=== PATIENT | female | born 1975 | race Caucasian/White ===

== ENCOUNTER 2017-09-12 12:27 | Emergency (ER) | payer MEDICARE, SELFPAY ==
[2017-09-12 12:29] VITALS: BP 124/72; PULSE 87; RESP 16; TEMP 36.7; O2SAT 99; BMI 33.7
--- NOTE | 2017-09-12 12:47 | ED.VISSUMM ---
- ER Visit Summary Date of Service: 09/12/17 Chief Complaint: Abdominal pain History of Present Illness: The patient is a 42 F who states she woke at 6 AM this morning with pain in the right lower quadrant of her abdomen. She is felt nauseated and has not eaten anything today. She has had no vomiting. She has had no fever. She has no urinary symptoms. Patient does report history of multiple GI problems with reflux disease, ulcers, and gastroparesis. She has had a prior cholecystectomy and hysterectomy. Both ovaries are still in. Physical Examination: Vital signs are unremarkable. Patient is lying on her right side. She easily rolls to her back without difficulty. Head and neck examination is unremarkable. Heart is regular rate and rhythm. Lung sounds are clear. Abdomen is soft with tenderness in the lateral portion of the right lower quadrant. There is no guarding or rebound. Hypoactive bowel sounds are noted throughout. Back examination reveals no significant CVA tenderness. Test Results: CBC and chemistry studies are unremarkable. Urinalysis is normal. CT flank reveals changes consistent with prior cholecystomy and hysterotomy. There are small follicles noted in both ovaries. Emergency Department Course and Treatment: Patient was given morphine, Zofran, and IV fluids. On repeat evaluation she is resting comfortably and easily awakens. Pain is improved. At this time I see no sign of kidney stone, UTI or pyelonephritis, ovarian torsion, or appendicitis. This was all discussed with her infant at bedside. Patient will be given naproxen and Zofran for home. She is to return for worsening symptoms. Treatment Plan: [] Disposition: Discharge Impression: Abdominal pain, uncertain etiology This note was generated with [employer] dictation software. It may contain incorrect words, spelling, and punctuation that were not noted in review of the chart prior to signing ED Disposition - Plan for ED Patient: Chief Complaint: Abd Pain Referrals: [facility] Doctor,Out of [Primary Care Provider] -
[2017-09-12 13:20] LABS: Mucous, Urine 0 SEEN /hpf (<or=2+); Red Blood Cells-Urine 0 SEEN /hpf (0-5); White Blood Cells 0 SEEN /hpf (0-5)
[2017-09-12 13:24] LABS: Absolute Lymphocyte Count 1.34 X10^3/ul (0.83-4.51); Absolute Neutrophil Count 5.1 X10^3/uL (2.0-7.7); Basophil# 0.02 X10^3/uL; Basophil% 0.3 % (0-1); Eosinophil# 0.04 X10^3/uL; Eosinophils% 0.6 % (0-5); Hematocrit 40.9 % (37-47); Hemoglobin 12.7 g/dl (12.0-15.0); Lymphocyte # 1.34 X10^3/ul (4.0); Lymphocyte % 18.8 % (19-41); Mean Corp Hgb Conc 31.1 g/gl (32-36); Mean Corpuscular Hgb 26.1 pg (27.0-32.0); Mean Platelet Vol. 9.8 fl (6.2-12.0); Monocyte# 0.59 X10^3/uL; Monocyte% 8.3 % (0-10); Neutrophil # 5.12 X10^3/uL (2.7-7.7); Neutrophil % 71.9 % (47-70); POSITIVE COUNT NO; POSITIVE DIFFERENTIAL NO; POSITIVE MORPHOLOGY NO; Platelet Count 219 K/mm3 (150-450); RBC Distribution Width CV 17.8 % (11.6-14.6); RBC Distribution Width SD 54.8 fl (35.1-43.9); Red Blood Count 4.87 M/mm3 (4.2-5.4); White Blood Count 7.1 K/mm3 (4.4-11.0)
[2017-09-12 13:26] LABS: Color, Urine Yellow (Yellow); Glucose, Dipstick Normal (Normal); Ketone-Dipstick Negative (Negative); Leukocyte Esterase-Dipstick 25 /ul (Negative); Nitrite-Dipstick Negative (Negative); Occult Blood-Urine Negative /ul (Negative); Protein-Dipstick 15 mg/dl (Negative); Urine Bilirubin Dipstick Negative (Negative); Urine Clarity Clear (Clear); Urine Urobilinogen 1 mg/dl (Normal)
[2017-09-12] MEDS: 0.9% Normal Saline 1,000 ML 150 ML IV (13:27)
[2017-09-12] MEDS: Ondansetron 4 MG/2 ML Vial IV (13:27)
[2017-09-12 13:30] VITALS: BP 138/74; PULSE 68; RESP 15; O2SAT 98
[2017-09-12 13:36] LABS: Anion Gap 7 (5-15); BUN 8 mg/dL (7-18); BUN/Creat Ratio 10.5 RATIO (10-20); Calcium,Total 8.3 mg/dL (8.5-10.1); Chloride 112 mmol/L (98-107); Creatinine, Serum 0.76 mg/dL (0.55-1.02); EST Glomerular Filtration Rate 88 mL/min (>60); Est Glom Filt Rate - Afr Amer 107 mL/min (>60); Estimated Creatinine Clearance 82.42 ml/min; Glucose 102 mg/dL (74-106); Potassium 3.5 mmol/L (3.5-5.1); Sodium Level 141 mmol/L (136-145)
[2017-09-12 13:44] LABS: Bacteria 1+ /hpf (None Seen); Squamous Epithelial Cells - UA 0-5 SEEN /hpf (5-10)
--- NOTE | 2017-09-12 13:52 | CT_ITS ---
STUDY: CT ABDOMEN AND PELVIS WITHOUT CONTRAST REASON FOR EXAM: Female, 42 years old. Right lower quadrant pain. RADIATION DOSAGE (If Supplied By Facility): CTDIvol = ( 13.37 ) mGy, DLP = ( 689.17 ) mGycm TECHNIQUE: Transaxial images were obtained from the dome of the diaphragm to the symphysis pubis without oral contrast, and without intravenous contrast. Sagittal and coronal images were reconstructed. Individualized dose optimization techniques were used for this CT. COMPARISON: None. FINDINGS: Mild degree of bibasilar atelectasis. The visualized portions of the heart are within normal limits. Mild hepatomegaly. There are surgical clips in the gallbladder fossa consistent with a prior cholecystectomy. Normal spleen. Normal pancreas. Normal bilateral adrenal glands. Normal right kidney. Normal left kidney. There is a small hiatal hernia. Normal small intestine. Normal colon. There is non-visualization of the appendix. Normal abdominal aorta. Normal inferior vena cava. Normal retroperitoneum. Normal urinary bladder. There is absence of the uterus consistent with a prior hysterectomy. Follicles are seen in both ovaries. Small benign-appearing bilateral inguinal lymph nodes. There is a small umbilical hernia containing fat. Normal osseous structures. CT/Abdomen/Pelvis without Cont IMPRESSION: Status post cholecystectomy and hysterectomy. Small follicles are seen in both ovaries. Electronically Signed: Jigar Daley MD at 14:53 EDT Tel [phone], Service support ,
--- NOTE | 2017-09-12 15:26 | ED.DEP ---
ED Disposition - Plan for ED Patient: Disposition: Home or Assisted Living Chief Complaint: Abd Pain Instructions: ED Abdominal Pain Unkn Cause Prescriptions: Ondansetron [Zofran Odt] 4 mg PO Q8H PRN PRN #10 tablet PRN Reason: Nausea Naproxen [Naprosyn] 500 mg PO BID PRN #20 tablet Referrals: [facility],Out of [Primary Care Provider] - 3-5 Days if not improving
[2017-09-12 15:46] VITALS: BP 138/74; PULSE 61; RESP 15; O2SAT 97
[2017-09-12 15:48] VITALS: BP 152/78; PULSE 84; RESP 18; O2SAT 97
--- NOTE | 2017-09-12 15:48 | ED.RN ---
THIS NURSE REVIEWED D/C INSTRUCTIONS WITH PT. PT VERBALIZED UNDERSTANDING OF INSTRUCTIONS. PT REQUESTING A DIFFERENT PRESCRIPTION THAN NAPROXEN DUE TO INABILITY TO TAKE NSAIDS. PER DR DE LA CRUZ PT MAY TAKE TYLENOL. PT INFORMED OF THE SAME. IV D/C. IV CATHETER INTACT. PT TOLERATED WELL. PT DENIES FURTHER NEEDS OR QUESTIONS AT THIS TIME.
== END 2017-09-12 15:48 | disposition home or self-care (01) ==
PROVIDERS: Emergency Provider Emergency Medicine
DX: R10.31 Right lower quadrant pain (principal); K21.9 Gastro-esophageal reflux disease without esophagitis; K31.84 Gastroparesis; Z72.0 Tobacco use; Z79.84 Long term (current) use of oral hypoglycemic drugs; Z79.899 Other long term (current) drug therapy
CPT/HCPCS: 74176; 80048; 81001; 85025; 96361; 96374; 96375; 99283; J7030; A4216; J2405

== ENCOUNTER 2019-10-25 18:48 | Emergency (ER) | payer MEDICARE, SELFPAY ==
[2018-11-11 18:55] VITALS: BMI 31.4
[2019-10-25] VITALS (7 sets, daily range): BP systolic 86–116; BP diastolic 61–81; PULSE 54–82; RESP 12–16; TEMP 36.1; O2SAT 94–98; BMI 31.6
--- NOTE | 2019-10-25 19:10 | ED.DCSUM_ITS ---
History of Present Illness Narrative: This patient is a 44-year-old female who presents after an intentional Klonopin overdose. Patient reports having taken 20 to 30 tablets of 1 mg Klonopin in a suicide attempt. She states she was upset because she saw a picture of her ex- boyfriend's new . She does have a history of prior suicide attempt. She is treated for depression. She reports that she took these tablets about 1 hour ago. She is drowsy but easily arousable. She otherwise has no complaints. She denies any recent illness such as fevers vomiting cough chest pain shortness of breath. <Wally Hernandez - Last Filed: 10/25/19 20:07> <Wayne Narayan - Last Filed: 10/26/19 10:08> Chief Complaint: Suicidal Past Medical History Past Medical History: - - Depression, diabetes, hyperlipidemia Smoking Status: Current every day smoker <Wally Hernandez - Last Filed: 10/25/19 20:07> <Wayne Narayan - Last Filed: 10/26/19 10:08> - Allergies and Home Meds Allergies/Adverse Reactions: Allergies Sulfa (Sulfonamide Antibiotics) Allergy (Verified 10/25/19 18:52) Swelling Primary Care Physician: NOT,DEFINED [NON-STAFF] - Review of Systems All systems negative except as indicated General: Denies: Fever Eyes: Denies: Visual changes - bilaterally ENT: Denies: Bilateral ear pain Cardiovascular: Denies: Chest pain Respiratory: Denies: Dyspnea Gastrointestinal: Denies: Abdominal pain, Nausea, Vomiting, Diarrhea Musculoskeletal: Denies: Myalgias, Arthralgias Skin: Denies: Rash Neurological: Denies: Headache Psych: Reports: Suicidal thoughts, Suicidal ideations <Wally Hernandez - Last Filed: 10/25/19 20:07> Physical Exam Vital Signs/Narrative: Vital Signs Temp Pulse Resp BP Pulse Ox 10/25/19 18:49 97 F L 60 12 116/81 H 98 Inital Vital Signs reviewed: Yes General: Well nourished Head: Normocephalic Eyes: EOMI ENT: Moist mucous membranes Neck: Supple Cardiovascular: Regular rate, Regular rhythm Respiratory: No distress, CTA bilaterally Abdomen: Soft, Nontender, Nondistended Extremities: Nontender Skin: Normal color Neurological: Alert, - - Drowsy but easily arousable to voice. Psychological: Depressed, - - Suicidal thoughts <Wally Hernandez - Last Filed: 10/25/19 20:07> Vital Signs/Narrative: Vital Signs Pulse Resp BP Pulse Ox 10/26/19 09:14 62 14 101/70 99 10/26/19 08:25 61 15 106/73 97 10/26/19 07:55 59 L 19 H 100/55 L 97 10/26/19 06:57 55 L 18 90/57 L 98 <HeleneWayne - Last Filed: 10/26/19 10:08> Diagnostic/Tx/Re-eval Laboratory Results 10/25/19 10/25/19 10/25/19 19:00 19:00 19:00 WBC 10.1 RBC 4.99 Hgb 13.9 Hct 44.0 MCV 88.2 MCH 27.9 MCHC 31.6 L RDW Std Deviation 53.8 H RDW Coeff of Chaka 16.9 H Plt Count 278 MPV 10.3 Immature Gran % (Auto) 0.400 Neut % (Auto) 60.8 Lymph % (Auto) 28.4 [place] % (Auto) 9.3 Eos % (Auto) 0.7 Baso % (Auto) 0.4 Absolute Neuts (auto) 6.1 Absolute Lymphs (auto) 2.85 Nucleated RBC % 0 Sodium 143 Potassium 4.0 Chloride 114 H Carbon Dioxide 22.0 Anion Gap 7 BUN 11 Creatinine 0.90 Estim Creat Clear Calc 71.03 Est GFR (MDRD) Af Amer 87 Est GFR (MDRD) Non-Af 72 BUN/Creatinine Ratio 12.2 Glucose 78 Calcium 9.0 Total Bilirubin 0.30 AST 16 ALT 26 Alkaline Phosphatase 70 Total Protein 7.6 Albumin 3.5 Globulin 4.1 Albumin/Globulin Ratio 0.9 Salicylates 3.7 Urine Opiates Screen Urine Methadone Screen Acetaminophen < 2.0 L Ur Barbiturates Screen Ur Phencyclidine Scrn Ur Amphetamines Screen U Methamphetamin-MDMA U Benzodiazepines Scrn Urine Cocaine Screen U Cannabinoids Screen Ur Drug Screen Comment Ethyl Alcohol < 3.0 10/25/19 19:35 WBC RBC Hgb Hct MCV MCH MCHC RDW Std Deviation RDW Coeff of Chaka Plt Count MPV Immature Gran % (Auto) Neut % (Auto) Lymph % (Auto) [place] % (Auto) Eos % (Auto) Baso % (Auto) Absolute Neuts (auto) Absolute Lymphs (auto) Nucleated RBC % Sodium Potassium Chloride Carbon Dioxide Anion Gap BUN Creatinine Estim Creat Clear Calc Est GFR (MDRD) Af Amer Est GFR (MDRD) Non-Af BUN/Creatinine Ratio Glucose Calcium Total Bilirubin AST ALT Alkaline Phosphatase Total Protein Albumin Globulin Albumin/Globulin Ratio Salicylates Urine Opiates Screen NEGATIVE Urine Methadone Screen NEGATIVE Acetaminophen Ur Barbiturates Screen NEGATIVE Ur Phencyclidine Scrn NEGATIVE Ur Amphetamines Screen NEGATIVE U Methamphetamin-MDMA NEGATIVE U Benzodiazepines Scrn NEGATIVE Urine Cocaine Screen NEGATIVE U Cannabinoids Screen POSITIVE H Ur Drug Screen Comment Ethyl Alcohol - Medical Decision Making I did speak to poison control who notes Klonopin has a long half-life however does have a rapid peak. They recommended initial observation of 6 hours and if at that point to the patient was alert or improving could likely be medically cleared. However if she is drowsy or somnolent then she would require overnight hospitalization. Medical clearance as above, serum laboratory studies are unremarkable with normal salicylate level, normal acetaminophen level. Urine d rug screen positive for cannabinoids only. Serum alcohol normal. Patient will be signed out to the oncoming physician for evaluation after 6 hours of observation to make determination if patient can be cleared for psychiatric evaluation and hospitalization versus if they require further medical observation. <Wally Hernandez - Last Filed: 10/25/19 20:07> - Medical Decision Making Helene-was observed, she is been here for over 15 hours her Klonopin is out of her system. She is now lucid and coherent and medically cleared for psychiatric evaluation. <Wayne Narayan - Last Filed: 10/26/19 10:08> ED Disposition <Wlaly Hernandez - Last Filed: 10/25/19 20:07> <Wayne Narayan - Last Filed: 10/26/19 10:08> - Plan for ED Patient: Referrals: NOT,DEFINED [NON-STAFF] -
[2019-10-25 19:22] LABS: Absolute Lymphocyte Count 2.85 X10^3/uL (0.83-4.51); Absolute Neutrophil Count 6.1 X10^3/uL (2.0-7.7); Basophil# 0.04 X10^3/uL; Basophil% 0.4 % (0-1); Eosinophil# 0.07 X10^3/uL; Eosinophils% 0.7 % (0-5); Hemoglobin 13.9 g/dL (12.0-15.0); Lymphocyte # 2.85 X10^3/ul (4.0); Lymphocyte % 28.4 % (19-41); Mean Corp Hgb Conc 31.6 g/dL (32-36); Mean Corpuscular Hgb 27.9 pg (27.0-32.0); Mean Corpuscular Volume 88.2 fL (81-99); Mean Platelet Vol. 10.3 fl (6.2-12.0); Monocyte# 0.93 X10^3/uL; Monocyte% 9.3 % (0-10); NRBC Flagged by Analyzer 0 % (0-5); Neutrophil # 6.12 X10^3/uL (2.7-7.7); Neutrophil % 60.8 % (47-70); Platelet Count 278 K/mm3 (150-450); RBC Distribution Width CV 16.9 % (11.6-14.6); RBC Distribution Width SD 53.8 fl (35.1-43.9); Red Blood Count 4.99 M/mm3 (4.2-5.4); White Blood Count 10.1 K/mm3 (4.4-11.0)
[2019-10-25 19:31] LABS: ALB/GLOB Ratio 0.9 RATIO (0.9-2.4); AST(SGOT) 16 U/L (15-37); Alanine Aminotransfer ALT/SGPT 26 U/L (13-56); Albumin, Serum 3.5 g/dL (3.2-5.0); Alkaline Phosphatase 70 U/L (45-117); Anion Gap 7 (5-15); BUN 11 mg/dL (7-18); BUN/Creat Ratio 12.2 RATIO (10-20); Chloride 114 mmol/L (98-107); EST Glomerular Filtration Rate 72 mL/min (>60); Est Glom Filt Rate - Afr Amer 87 mL/min (>60); Estimated Creatinine Clearance 71.03 ml/min; Globulin 4.1 g/dL (2.2-4.2); Glucose 78 mg/dL (74-106); Protein, Total 7.6 g/dL (6.4-8.2); Sodium Level 143 mmol/L (136-145)
[2019-10-25] MEDS: Activated Charcoal 25 GM/120 ML BOT PO (19:33)
--- NOTE | 2019-10-25 19:59 | ED.RN ---
CRISIS ON SITE
[2019-10-25 20:04] LABS: Amphetamine Urine VISTA NEGATIVE (<1000 ng/mL); Barbiturate Urine VISTA NEGATIVE (< 200 ng/mL); Benzodiazepine Urine VISTA NEGATIVE (< 200 ng/mL); Cocaine Urine VISTA NEGATIVE (< 300 ng/mL); Ecstacy Urine VISTA NEGATIVE (< 500 ng/mL); Methadone Urine VISTA NEGATIVE (< 300 ng/mL); PCP Urine VISTA NEGATIVE (< 25 ng/mL); THC Urine VISTA POSITIVE (< 50 ng/mL); Vista UDS pH Range 6
[2019-10-25 20:04] LABS: Acetaminophen (Tylenol) Level < 2.0 ug/mL (10.0-30.0); Alcohol, Blood (Medical)-Serum < 3.0 mg/dL; Salicylate 3.7 mg/dL (2.8-20.0)
--- NOTE | 2019-10-25 20:33 | CM.ED ---
SOCIAL WORK DISCUSSED CASE WITH DR. HAWKINS. PATIENT TO BE OBSERVED FOR 6 HOURS. CRISIS TO EVALUATE ONCE MEDICALLY CLEARED. PLAN: PENDING CRISIS EVALUATION Jazmin HERRERA MSW, IRRIGATION SYSTEM INSTALLER.
[2019-10-25 20:44] LABS: Internal QC Validated? YES +Cl - CLEAR BKGD
[2019-10-25 20:45] LABS: Pregnancy, Urine Negative Negative
[2019-10-26] VITALS (14 sets, daily range): BP systolic 88–160; BP diastolic 36–82; PULSE 15–78; RESP 14–88; TEMP 36.7; O2SAT 96–99
--- NOTE | 2019-10-26 02:24 | ED.RN ---
CALLED CRISIS TO SEE THIS PT, SHELLEY IS PERFORMANCE IMPROVEMENT COORDINATOR
[2019-10-26] MEDS: Pantoprazole Sodium 40 MG Tablet PO (09:24)
[2019-10-26] MEDS: Venlafaxine XR 150 MG Capsule PO (09:24)
[2019-10-26] MEDS: metFORMIN HCl 500 MG Tablet PO (09:24)
--- NOTE | 2019-10-26 09:33 | ED.RN ---
called pharmacy for topnekomax
--- NOTE | 2019-10-26 10:05 | NURSING ---
TESSA CASTRO, CALLED. [facility] IS WAITING FOR THE PATIENT TO BE MEDICALLY CLEARED. PHONE NUMBER IS [phone] FAX NUMBER IS [phone]
--- NOTE | 2019-10-26 10:13 | NURSING ---
TALKED TO DR SEGURA. HE PUT IN DICTATION ABOUT PATIENT. FAXED MEDICAL CLEARANCE TO TESSA ASHER, AWARE
--- NOTE | 2019-10-26 10:33 | ED.RN ---
[facility] called pt accepted to [facility] under dr velasquez.
--- NOTE | 2019-10-26 13:24 | NURSING ---
CALLED [facility] FOR TRANSPORT. WITHIN AN HOUR
== END 2019-10-26 14:27 ==
PROVIDERS: Emergency Provider Emergency Medicine
DX: T42.4X2A Poisoning by benzodiazepines, intentional self-harm, initial encounter (principal); F32.9 Major depressive disorder, single episode, unspecified; E11.9 Type 2 diabetes mellitus without complications; E78.5 Hyperlipidemia, unspecified; F17.200 Nicotine dependence, unspecified, uncomplicated; Z79.84 Long term (current) use of oral hypoglycemic drugs; Z79.899 Other long term (current) drug therapy; Z91.5 Personal history of self-harm
CPT/HCPCS: 80053; 80307; 80320; 80329; 81025; 85025; 99285; A4216; G0480

== ENCOUNTER 2025-01-14 21:02 | Emergency (ER) | payer MEDICARE, SELFPAY ==
[2025-01-14 21:03] VITALS: BP 132/100; PULSE 79; RESP 16; TEMP 36.1; O2SAT 99; BMI 30.2
--- OUTSIDE RECORDS SUMMARY | 2025-01-14 22:25 | XMS RPT_ITS | CCD ---
Author Organization [facility] CliniSyfl Care Team Providers Care Noise Abatement Engineer Name Role Phone Pancho Laughlin Unavailable Unavailable Binu Bella Unavailable Unavailable Carlos, Keiry Unavailable Unavailabl e Carlos, Keiry C Unavailable Unavaila Mally Rowan Unavailable Unavailable Carla Castelan Unavailable Unavailable Zhou Graysonopher Unavailable Unavailable Carla Bailey Unavailable Unavailable TisdelZhouopher Kevyn Unavailable Unavailabl e [place], Keiry C Unavailable Unavaila Imelda Warren Unavailable Unavailable Carla Castelan Primary Care Provider [phone] Sarthak Ac MD Unavailable Unavailable Carla Castelan MD Unavailable Unavailable [place] DO, Keiry Unavailable Unavail able Carla Bailey Unavailable Unavailable Tistuan Christopher L Unavailable Unavailabl e Mally Noe Unavailable Unavailable [place], Keiry C Unavailable Unavaila Carla Nicholson Unavailable Unavailable Unavailable Unavailable Unavailable Bernard Dyson MD Primary Care Provider Lauren Castrejon Attending Unavailable Carla Castelan Primary Care Unavailable PROVIDER, UNKNOWN Referring Unavailable Bernard Dyson Attending Unavailable Carla Castelan Primary Care Unavailable PROVIDER, UNKNOWN Referring Unavailable Zoë RONDON, Heavenly Sparks Unavailable Bernard Dyson MD Primary Care Provider BERNARD DYSON Primary Care Unavailable BERNARD DYSON Primary Care Unavailable PROVIDER, UNKNOWN Referring Unavailable CARLOS, KEIRY C Primary Care Unavaila ble NO FAMILY PHYSICIAN, 837 Primary Care Unavail able NO FAMILY PHYSICIAN, 837 Primary Care Unavail able NO FAMILY PHYSICIAN, 837 Primary Care Unavail able SKABAR NECKTIE MAKER, CARLA Attending Unavailable NO FAMILY PHYSICIAN, 837 Primary Care Unavail able CARI CHINCHILLA MD Attending Unavailable NADIA PELAEZ MD Attending Unavailable NO FAMILY PHYSICIAN, 837 Primary Care Unavail able NADIA PELAEZ MD Attending Unavailable NADIA PELAEZ MD Referring Unavailable NO FAMILY PHYSICIAN, 837 Primary Care Unavail able Heavenly Camp MD Unavailable Kiel RONDON, Bernard Primary Care Provider [phone] AMOR RONDON~[id number], AMOR Sparks Atte nding Unavailable AMOR RONDON~[id number], AMOR Sparks Admi tting Unavailable KIEL, BERNARD Primary Care Unavailable IMELDA HEATON Attending Unavailable KIEL, BERNARD B Primary Care Unavailable KIEL, BERNARD B Primary Care Unavailable ALPHONSE PETTY Attending Unavailable NO FAMILY PHYSICIAN, 837 Primary Care Unavail able NO FAMILY PHYSICIAN, 837 Primary Care Unavail able Carissa Villanueva DO Unavailable JONI DUQUE Attending Unavailable KIEL, BERNARD B Primary Care Unavailable KIEL, BERNARD B Primary Care Unavailable Bernard Dyson MD Primary Care Provider [phone] KIEL, BERNARD Primary Care Unavailable DENITA DALE Attending Unavailable KIEL, BERNARD Primary Care Unavailable KIEL, BERNARD Referring Unavailable KIEL, BERNARD Attending Unavailable KIEL, BERNARD Primary Care Unavailable ANN-MARIE DESIR Referring Unavailable KIEL, BERNARD Primary Care Unavailable KIEL, BERNARD Referring Unavailable KIEL, BERNARD Attending Unavailable KIEL, BERNARD Primary Care Unavailable IMAN, MARTITA Referring Unavailable IMAN, MARTITA Attending Unavailable KIEL, BERNARD Primary Care Unavailable KIEL, BERNARD Referring Unavailable SALOME MARSHALL Attending Unavailable KIEL, BERNARD Primary Care Unavailable LAUREN CASTREJON Attending Unavailable KIEL, BERNARD Primary Care Unavailable LAUREN CASTREJON Attending Unavailable KIEL, BERNARD Primary Care Unavailable LUCÍANIKKI LANDEROSFER Attending Unavailable KIEL, BERNARD Primary Care Unavailable KIEL, BERNARD Primary Care Unavailable RICH, CARISSA Attending Unavailable KIEL, BERNARD Primary Care Unavailable SURESHESA Attending Unavailable KIEL, BERNARD Primary Care Unavailable RICHROSSICARISSA Attending Unavailable KIEL, BERNARD Primary [facility] [place] Unavailable SALOME MARSHALL Referring Unavailable SALOME MARSHALL Attending Unavailable CARISSA VILLANUEVA Attending Unavailable BERNARD DYSON Primary Care Unavailable CARISSA VILLANUEVA Referring Unavailable CARISSA VILLANUEVA Attending Unavailable BERNARD DYSON Primary Care Unavailable CARISSA VILLANUEVA Referring Unavailable Allergies Allergy Classification Reported Allergen(s) Allergy Type Date of Onset Reaction(s) Facility Sulfonamides (antibiotic) (4 sources) Sulfonamides (Antibiotic); Translations: [Sulfa Drugs] Drug Allergy Itching, Swelling [facility] Work Phone: (8 sources) Sulfonamides (Antibiotic); Translations: [Sulfa Drugs] drug allergy Itching, Swelling [facility] Work Phone: (2 sources) Sulfonamides (Antibiotic) Propensity to adverse reactions to drug 9 Swelling [place], [place] (9 sources) Non-steroidal anti-inflammator y agent; Translations: [NSAIDS (NON-STEROIDAL ANTI-INFLAMMATOR Y DRUG)] Propensity to adverse reactions to drug 5 Other: See Comments [facility] (20 sources) Sulfonamides (Antibiotic); Translations: [SULFA (SULFONAMIDE ANTIBIOTICS)] Drug Allergy 3 Swelling, Itching [facility] Medications Current Medications Medication Drug Class(es) Dates Sig (Normalized) Sig (Original) amoxicillin 875 mg / clavulanate 125 mg oral tablet (3 sources) Penicillin-class Antibacterial Start: 4 End: 4 take 1 tablet by mouth twice daily amoxicillin-clavulanat e (Augmentin) 875-125 MG tablet Indications: Bronchitis Take 1 tablet by mouth 2 times daily for 7 days. 14 tablet 0 10/16/2023 10/23/2023 Active ARIPiprazole 2 mg oral tablet (18 sources) Atypical Antipsychotic Start: 4 take 1 tablet by mouth once daily ARIPiprazole (Abilify) 2 MG tablet Take 2 mg by mouth daily. 06/28/2024 Active atorvastatin 20 mg oral tablet (20 sources) HMG-CoA Reductase Inhibitor Start: 3 End: 5 take 1 tablet by mouth once daily atorvastatin (Lipitor) 20 MG tablet Indications: Hypercholesteremia Take 1 tablet (20 mg) by mouth daily. 90 tablet 3 12/25/2023 12/24/2024 Active benzoyl peroxide 0.05 mg/mg / clindamycin 0.01 mg/mg topical gel (17 sources) Lincosamide Antibacterial Start: 5 End: 5 clindamycin-benzoyl peroxide (BenzaClin) gel Indications: Adult acne Apply topically 2 times daily. 50 g 1 07/13/2024 10/05/2024 Active docosahexaenoic acid 350 mg / eicosapentaenoic acid 35 mg / folic acid 1 mg / phytosterols 200 mg / vitamin b12 0.5 mg / vitamin b6 12.5 mg oral capsule (1 source) Vitamin B12 Start: 4 End: 4 take 1 capsule by mouth once daily at breakfast Hornick [id number]-Rtaqjhtpta l 500 mg-500 mcg -1 mg-12.5 mg cap Indications: Chronic bilateral low back pain without sciatica Take 1 capsule by mouth daily with breakfast. 90 capsule 0 09/24/2023 12/23/2023 Active Comment on above: Take 1 capsule by mo ut daily with breakfast. doxycycline monohydrate 100 mg oral tablet (4 sources) Tetracycline-clas s Drug Start: 2 take 1 tablet by mouth twice daily at mealtime doxycycline monohydrate (ADOXA) 100 MG tablet Take one pill by mouth twice a day with food. 0 10/15/2021 Active Start: 07-13-2021 doxycycline (V ibramycin) 100 MG capsule 100 mg. 0 07/13/2021 Active estradiol 0.1 mg/ml vaginal cream (20 sources) Estrogen Start: 08-13-2023 estradiol (Est race) 0.1 MG/GM vaginal cream uSE ONE GRAM VAGINALLY TWICE A WEEK 08/13/2023 Active hydrOXYzine pamoate 25 mg oral capsule (20 sources) Antihistamine Start: 06-06-2024 hydrOXYzine pa moate (Vistaril) 25 MG capsule Take 50 mg by mouth Nightly as needed. 06/06/2024 Active Start: 07-19-2021 take 1 capsule by mo neh twice daily hydrOXYzine pamoate (Vistaril) 50 MG capsule TAKE ONE CAPSULE BY MOUTH TWICE DAILY @ 9AM & 5PM 0 07/19/2021 Active Start: 11-30-2019 hydrOXYzine HC l (ATARAX) 25 mg tablet Take by mouth. 0 11/30/2019 Active Comment on above: Take by mouth. magnesium glycinate 100 mg magnesium capsule (1 source) Start: 09-24-19 End: 12-23-19 take 3 capsules by mouth once daily after dinner magnesium glycinate 100 mg magnesium capsule Indications: Chronic bilateral low back pain without sciatica Take 3 capsules by mouth daily after dinner. Ok to switch to tablets if less expensive 270 capsule 0 09/24/2023 12/23/2023 Active Comment on above: Take 3 capsules by m outh daily after dinner. Ok to switch to tablets if less expensive 24 hr metFORMIN hydrochloride 500 mg extended release oral tablet (20 sources) Biguanide Start: 08-03-19 metFORMIN XR (Glucophage-XR) 500 MG 24 hr tablet Indications: Hyperinsulinemia , Unintended weight gain Take 2 tablets twice daily with meals. Do not crush, chew, or split. 360 tablet 3 08/03/2024 Active Start: 10-10-2014 take 1 tablet by foreign th every twelve hours at mealtime metFORMIN HCl - 500 MG Oral Tablet TAKE 1 TABLET EVERY 12 HOURS WITH FOOD. Quantity: 60 Refills: 1 Ordered: 10-Oct-2014 DO Start : 10-Oct-2014 Active take 1 tablet by foreign twice daily at mealtime metFORMIN (GLUCOPHAGE) 500 mg tablet Take 500 mg by mouth twice daily with meals. 0 Active Comment on above: Take 500 mg by mouth twice daily with meals. methocarbamol 750 mg oral tablet (1 source) Muscle Relaxant Start: 09-24-19 End: 11-23-19 take 1 tablet by mouth twice daily as needed methocarbamol (ROBAXIN) 750 mg tablet Indications: Chronic bilateral low back pain without sciatica Take 1 tablet by mouth two times a day as needed. 60 tablet 1 09/24/2023 11/23/2023 Active Comment on above: Take 1 tablet by foreign two times a day as needed. nitrofurantoin, macrocrystals 25 mg / nitrofurantoin, monohydrate 75 mg oral capsule (3 sources) Nitrofuran Antibacterial Start: 07-03-19 End: 07-08-19 take 1 capsule by mouth twice daily nitrofurantoin, macrocrystal-monohyd rate, (Macrobid) 100 MG capsule Indications: Acute cystitis with hematuria Take 1 capsule (100 mg) by mouth 2 times daily for 5 days. 10 capsule 0 07/03/2023 07/08/2023 Active Start: 10-25-2018 take 1 capsule by [facility] twice daily Nitrofurantoin Monohyd Macro 100 MG Oral Capsule Take 1 capsule twice daily for 5 days Quantity: 10 Refills: 0 Binu DO, Bella Start : 25-Oct-2018 Active NONFORMULARY (1 source) NONFORMULARY AMBEREN-supplement 0 Active ondansetron 4 mg oral tablet (20 sources) Serotonin-3 Receptor Antagonist Start: ondansetron (Zofran) 4 MG tablet As needed 04/15/2023 Active oxyCODONE hydrochloride 5 mg oral tablet (1 source) Opioid Agonist Start: End: take 1 tablet by mouth every six hours as needed for pain oxyCODONE (Roxicodone) 5 MG immediate release tablet Indications: Closed type IV fracture of sacrum with routine healing Take 1 tablet (5 mg) by mouth every 6 hours as needed for severe pain (7-10) for up to 5 days. 15 tablet 01/29/2024 02/03/2024 Active pantoprazole 40 mg delayed release oral tablet (20 sources) Proton Pump Inhibitor Start: End: take 1 dose by mouth once daily before breakfast pantoprazole (ProtoNix) 40 MG packet Indications: PUD (peptic ulcer disease) Take 1 packet (40 mg) by mouth every morning (before breakfast). 90 packet 3 05/01/2023 04/30/2024 Active Start: 06-28-2021 End: 09-03-2023 take 1 tablet by mouth once daily before breakfast pantoprazole (ProtoNix) 40 MG EC tablet Indications: Peptic ulcer, site unspecified, unspecified as acute or chronic, without hemorrhage or perforation TAKE 1 TABLET BY MOUTH EVERY MORNING (before BREAKFAST) 90 tablet 3 09/03/2023 Active Start: 07-27-2014 take 1 tablet by foreign th once daily Pantoprazole Sodium 40 MG Oral Tablet Delayed Release TAKE 1 TABLET DAILY. Quantity: 30 Refills: 0 Ordered: 11-Sep-2018 Keiry Gonzalez DO Start : 27-Jul-2014 Active take 40 mg by mouth twice daily before mealtime PANTOPRAZOLE SODIUM (PROTONIX ORAL) Take 40 mg by mouth twice daily before meals (0600/1600). 0 Active pantoprazole (Pr otoNix) 40 MG packet Take 40 mg by mouth. 0 Active Comment on above: Take 40 mg by mouth twice daily before meals (0600/1600). predniSONE 20 mg oral tablet (3 sources) Start: End: take 2 tablets by mouth once daily predniSONE (Deltasone) 20 MG tablet Indications: Bronchitis Take 2 tablets (40 mg) by mouth daily for 5 days. 10 tablet 0 10/16/2023 10/21/2023 Active Tirzepatide 2.5 MG/0.5ML solution auto-injector (10 sources) Start: Tirzepatide 2.5 MG/0.5ML solution auto-injector Indications: Hyperinsulinemia , Unintended weight gain , Impaired fasting glucose Inject 2.5 mg under the skin every 7 days. 2 mL 2 08/11/2024 Active traZODone hydrochloride 100 mg oral tablet (20 sources) Serotonin Reuptake Inhibitor Start: take 1 tablet by mouth once daily in the evening traZODone (Desyrel) 100 MG tablet TAKE ONE TABLET BY MOUTH DAILY AT 9 PM 07/13/2021 Active Comment on above: TAKE ONE TABLET BY [facility] DAILY AT 9 PM valACYclovir 500 mg oral tablet (20 sources) Herpesvirus Nucleoside Analog DNA Polymerase Inhibitor, Herpes Simplex Virus Nucleoside Analog DNA Polymerase Inhibitor, Herpes Zoster Virus Nucleoside Analog DNA Polymerase Inhibitor Start: 022 End: take 1 tablet by mouth once daily valACYclovir (Valtrex) 500 MG tablet Indications: Recurrent cold sores Take 1 tablet (500 mg) by mouth daily. 90 tablet 3 12/25/2023 12/24/2024 Active Start: 02-08-2021 take 1 tablet by foreign th three times daily valACYclovir HCl - 1 GM Oral Tablet TAKE 1 TABLET 3 TIMES DAILY. Quantity: 21 Refills: 0 Ordered: 08-Feb-2021 Sarthak Ac MD Start : 08-Feb-2021 Active Comment on above: 1 tabs, ORAL, DAILY, 90 tabs, 90, Date: 06/04/2022 11:31:00 EST, [place] #83, 1 tabs ORAL DAILY, 165.1, 07/19/2021 08:47:00 EST, Height/Length Dosing, cm, 92.5, 07/19/2021 08:47:00 EST, Weight Dosing, kg julia [id number] rb 322 60-25-20 mg cap (1 source) Start: End: take 1 capsule by mouth twice daily at mealtime julia [id number]-[id number] 322 60-25-20 mg cap Indications: Chronic bilateral low back pain without sciatica Take 1 capsule by mouth two times a day with meals. It is a supplement and could be OTC, please consult the pharmacist as this may be covered under certain insurance or FSA plans 180 capsule 0 09/24/2023 12/23/2023 Active Comment on above: Take 1 capsule by [facility] two times a day with meals. It is a supplement and could be OTC, please consult the pharmacist as this may be covered under certain insurance or FSA plans Completed/Discontinued Medications Medication Drug Class(es) Dates Sig (Normalized) Sig (Original) [id number] 200 actuat albuterol 0.09 mg/actuat metered dose inhaler (20 sources) beta2-Adrenergic Agonist Start: 10-16-2023 End: 10-15-2024 take 2 puff(s) by inhalation every four hours as needed for wheezing albuterol 108 (90 Base) MCG/ACT inhaler Indications: Bronchitis Inhale 2 puffs every 4 hours as needed for wheezing. 18 g 1 10/16/2023 01/29/2024 Discontinued (Med list cleanup) Start: 05-28-2022 take 2 puff(s) by in halation every four hours as needed for wheezing albuterol (Ventolin HFA) 108 (90 Base) MCG/ACT inhaler Indications: COVID-19 virus infection Inhale 2 puffs every 4 hours as needed for wheezing or shortness of breath. 8 g 0 05/28/2022 Active biotin 1 mg oral tablet (6 sources) Biotin 1000 MCG Oral Tablet Quantity: 0 Refills: 0 Ordered: 27-Jul-2019 DO Active Biotin 1000 MCG Oral Tablet Refills: 0 Active brexpiprazole 1 mg oral tablet (10 sources) Atypical Antipsychotic Rexulti 1 MG Oral Tablet Quantity: 0 Refills: 0 Ordered: 11-Mar-2019 DO Active cholestyramine resin 4000 mg powder for oral suspension (6 sources) Bile Acid Sequestrant Start: 017 Cholestyramine 4 GM/DOSE Oral Powder Quantity: 378 Refills: 0 DO Start : 03-Mar-2017 Active clonazePAM 1 mg oral tablet (6 sources) Benzodiazepine Start: 016 take 1 tablet by mouth three times daily clonazePAM 1 MG Oral Tablet take 1 tablet by mouth three times a day Quantity: 90 Refills: 0 DO Start : 31-May-2016 Active Disability Placard (10 sources) Start: 019 Disability Placard Expires 05/30/2019 Quantity: 1 Refills: 0 Ordered: 08-Apr-2019 Carla Gomes MD Start : 08-Apr-2019 Active Start: 04-08-2019 Disability Oneal card Expires 05/30/2019 Quantity: 1 Refills: 0 Ordered: 08-Apr-2019 Carla Castelan MD Start : 08-Apr-2019 Active Start: 04-08-2019 Disability Oneal card Expires 05/30/2019 Quantity: 1 Refills: 0 Carla Castelan MD Start : 08-Apr-2019 Active docosahexaenoic acid 120 mg / eicosapentaenoic acid 180 mg oral capsule (3 sources) End: 08-07-2022 omega-3 (Fish Oil) 1000 MG capsule Take by mouth. 0 08/07/2022 Discontinued (Med list cleanup) ibuprofen 800 mg oral tablet (3 sources) Nonsteroidal Anti-inflammatory Drug Start: 07-25-2023 End: 10-16-2023 take 1 tablet by mouth three times daily as needed ibuprofen 800 MG tablet TAKE 1 TABLET BY MOUTH THREE TIMES DAILY NEEDED FOR 10 DAYS 0 07/25/2023 10/16/2023 Discontinued (Med list cleanup) 10 ml lidocaine hydrochloride 10 mg/ml injection (5 sources) Antiarrhythmic, Amide Local Anesthetic Start: 08-17-2024 End: 08-17-2024 14 mL, Injection, Once, On Fri08/17/24 at 1130, For 1 dose Start: 01-29-2024 End: 01-28-2025 apply 1 dose transdermal route once daily lidocaine (Lidoderm) 5 % patch Indications: Closed type IV fracture of sacrum with routine healing Apply 1 patch topically daily. Apply to painful area 12 hours per day, remove for 12 hours. 30 patch 11 01/29/2024 07/13/2024 Discontinued (Med list cleanup) methylPREDNISolone (2 sources) Corticosteroid Start: 09-24-2023 methylPREDNISo lone (MEDROL, REBECCA,) 4 mg Dose-Pack Indications: Chronic bilateral low back pain without sciatica As Instructed per package 21 tablet 0 09/24/2023 Active Start: 07-25-2023 End: 08-28-2023 methylPREDNISolone (Medrol D ospak) 4 MG tablets TAKE BY MOUTH DIRECTED ON PACKAGE 0 07/25/2023 08/28/2023 Discontinued (Therapy completed) Comment on above: As Instructed per adolfo morgan minocycline 100 mg oral tablet (6 sources) Tetracycline-class Drug Start: 0 take 1 tablet by mouth twice daily Minocycline HCl - 100 MG Oral Tablet TAKE 1 TABLET TWICE DAILY. Quantity: 180 Refills: 0 Ordered: 03-Jan-2021 Cathy Olson MD Start : 27-Apr-2020 Active naproxen 500 mg oral tablet (8 sources) Nonsteroidal Anti-inflammatory Drug Start: 1 take 1 tablet by mouth every twelve hours at mealtime Naproxen 500 MG Oral Tablet TAKE 1 TABLET EVERY 12 HOURS WITH FOOD. Quantity: 30 Refills: 0 Ordered: 06-Jul-2020 Sarthak Ac MD Start : 06-Jul-2020 Active Start: 08-31-2018 take 1 tablet by foreign every twelve hours as needed for pain Naproxen 500 MG Oral Tablet TAKE 1 TABLET EVERY 12 HOURS NEEDED FOR PAIN. Quantity: 14 Refills: 0 Keiry Gonzalez DO Start : 31-Aug-2018 Active 24 hr nicotine 0.875 mg/hr transdermal system (20 sources) Cholinergic Nicotinic Agonist Start: 12-25-2023 End: 07-13-2024 nicotine (Nicoderm, Step 1) 21 MG/24HR patch Indications: Cigarette nicotine dependence without complication Place 1 patch on the skin Every 24 hours. 30 patch 1 12/25/2023 07/13/2024 Discontinued (Med list cleanup) Start: 03-11-2019 Nicotine Step 2 14 MG/24HR Transdermal Patch 24 Hour APPLY 1 PATCH DAILY DIRECTED. Quantity: 2 Refills: 0 Carlos DO, Keiry Start : 11-Mar-2019 Active 14 Patch Box Start: 03-11-2019 Nicotine Step 1 21 MG/24HR Transdermal Patch 24 Hour APPLY 1 PATCH DAILY DIRECTED. Quantity: 2 Refills: 0 Carlos DO, Keiry Start : 11-Mar-2019 Active 14 Patch Box Start: 03-11-2019 Nicotine Step 3 7 MG/24HR Transdermal Patch 24 Hour APPLY 1 PATCH DAILY DIRECTED. Quantity: 2 Refills: 0 Carlos DO, Keiry Start : 11-Mar-2019 Active 14 Patch Box Start: 03-11-2019 Nicotine Polac rilex 4 MG Mouth/Throat Gum Chew one piece every 1-2 hrs for 6 wks, then decrease to one every 3-4 hrs for wks 7-9, then one every 4-8 hrs for wks 10-12. Max 24 a day. Quantity: 1 Refills: 0 Carlos DO, Keiry Start : 11-Mar-2019 Active 240 Gum Box omega-3 acid ethyl esters (chcf) 1000 mg oral capsule (6 sources) Lovaza 1 GM Oral Capsule Refills: 0 DO Active 24 hr oxybutynin chloride 15 mg extended release oral tablet (6 sources) Cholinergic Muscarinic Antagonist Start: 1 take 1 tablet by mouth once daily Oxybutynin Chloride ER 15 MG Oral Tablet Extended Release 24 Hour Take 1 tablet daily Quantity: 30 Refills: 1 Ordered: 31-Jul-2020 Carla Gomes MD Start : 31-Jul-2020 Active pravastatin sodium 20 mg oral tablet (19 sources) HMG-CoA Reductase Inhibitor Start: 4 End: 3 take 1 tablet by mouth once daily pravastatin (Pravachol) 20 MG tablet Take 20 mg by mouth daily. 0 10/01/2017 08/07/2022 Discontinued (Med list cleanup) Comment on above: Take 1 tablet by foreign once daily. Probiotic Product (PROBIOTIC DAILY PO) (3 sources) End: Probiotic Product (PROBIOTIC DAILY PO) Take by mouth. 0 08/07/2022 Discontinued (Med list cleanup) Probiotic Produc t (PROBIOTIC DAILY PO) Take by mouth. 0 Active Probiotic Produc t (PROBIOTIC DAILY PO) Take by mouth 0 Active QUEtiapine 25 mg oral tablet (20 sources) Atypical Antipsychotic Start: 04-28-2023 End: 07-13-2024 take 1 tablet by mouth once daily as needed QUEtiapine (SEROQUEL) 25 mg tablet TAKE 1 TABLET BY MOUTH DAILY NEEDED FOR AGITATION 0 04/28/2023 Active Start: 08-04-2019 QUEtiapine (SE ROquel) 200 MG tablet Take 50 mg by mouth. Takes 50mg 0 08/04/2019 Active Start: 10-04-2016 take 1 tablet by foreign at bedtime QUEtiapine Fumarate 300 MG Oral Tablet TAKE 1 TABLET AT BEDTIME. Quantity: 90 Refills: 0 Ordered: 30-Nov-2019 Carla Gomes MD Start : 04-Oct-2016 Active Start: 10-04-2016 take 1 tablet by foreign th at bedtime QUEtiapine Fumarate 200 MG Oral Tablet take 1 tablet by mouth at bedtime Quantity: 30 Refills: 0 DO Start : 04-Oct-2016 Active take 2 tablets by mo [facility] once daily QUEtiapine (SEROQUEL) 100 mg tablet Take 200 mg by mouth once daily. 0 Active QUEtiapine (SERO QUEL) 200 MG tablet Take 100 mg by mouth once 0 Active Comment on above: Take 200 mg by mouth once daily. TAKE 1 TABLET BY FOREIGN TH DAILY NEEDED FOR AGITATION tiZANidine 2 mg oral tablet (11 sources) Central alpha-2 Adrenergic Agonist Start: 03-26-2022 End: 07-03-2023 tiZANidine (Zanaflex) 2 MG tablet Take 2 mg by mouth. 0 03/26/2022 07/03/2023 Discontinued (Therapy completed) Start: 11-13-2021 take 1 tablet by foreign th once daily as needed for pain tiZANidine (ZANAFLEX) 2 MG tablet Indications: Upper back pain , Chronic neck pain Take 1 tablet by mouth nightly as needed (back or neck pain) 30 tablet 5 11/13/2021 Active topiramate 200 mg oral tablet (20 sources) Start: 09-25-2014 End: 07-13-2024 take 1 tablet by mouth in the morning topiramate (Topamax) 200 MG tablet Take 200 mg by mouth in the morning and 200 mg before bedtime. 09/25/2014 07/13/2024 Discontinued (Med list cleanup) take 1 tablet by mouth twice adelfo ly Topamax 100 MG Oral Tablet Take 1 tablet twice daily Quantity: 0 Refills: 0 Ordered: 31-Aug-2018 DO Active Comment on above: Take by mouth twice daily. traMADol hydrochloride 50 mg oral tablet (4 sources) Opioid Agonist Start: 05-17-20 19 take 1 tablet by mouth every four to six hours as needed for pain traMADol HCl - 50 MG Oral Tablet TAKE 1 TABLET EVERY 4 TO 6 HOURS NEEDED FOR PAIN. Quantity: 30 Refills: 0 Ana Grayson MD Start : 17-May-2019 Active varenicline 1 mg oral tablet (4 sources) Partial Cholinergic Nicotinic Agonist Start: 03-11-20 19 take 1 tablet by mouth twice daily Chantix Continuing Month Rebecca 1 MG Oral Tablet TAKE 1 TABLET TWICE DAILY. Quantity: 3 Refills: 0 Carla Castelan MD Start : 11-Mar-2019 Active 56 Tablet Pack 24 hr venlafaxine 75 mg extended release oral capsule (20 sources) Serotonin and Norepinephrine Reuptake Inhibitor Start: 04-28-20 23 venlafaxine ER (EFFEXOR XR) 75 mg 24 hr capsule Start: 08-04-2019 take 1 capsule by [facility] once daily venlafaxine XR (Effexor XR) 150 MG 24 hr capsule Take 300 mg by mouth daily. 08/04/2019 Active Start: 08-04-2019 take 2 tablets by [place] [facility] once daily venlafaxine XR (Effexor XR) 150 MG 24 hr capsule Take 150 mg by mouth daily. Take 2 tablets daily 0 08/04/2019 Active Start: 05-02-2014 venlafaxine ER (EFFEXOR XR) 150 mg 24 hr capsule Start: 05-02-2014 End: 08-28-2023 take 1 capsule by mouth once daily at mealtime Effexor XR 75 MG Oral Capsule Extended Release 24 Hour TAKE 1 CAPSULE ONCE DAILY WITH FOOD. Refills: 0 Keiry Gonzalez DO Start : 02-May-2014 Active Start: 05-02-2014 take 1 capsule by [facility] every twenty-four hours Venlafaxine HCl ER 75 MG Oral Capsule Extended Release 24 Hour Yake 1 capsule twice daily Quantity: 180 Refills: 0 Ordered: 30-Nov-2019 Carla Gomes MD Start : 02-May-2014 Active Start: 05-02-2014 take 1 capsule by [facility] twice daily Venlafaxine HCl ER 150 MG Oral Capsule Extended Release 24 Hour Take 1 capsule twice daily Refills: 0 Keiry Gonzalez DO Start : 02-May-2014 Active Comment on above: Take 150 mg by mouth once daily. Vitamin B12 TABS (6 sources) Vitamin B12 Vitamin B12 TABS Refills: 0 DO Active Vitamin B12 TABS Refills: 0 Active vitamin e d-alpha 200 unt or al capsule (6 sources) Vitamin E 200 UN IT Oral Capsule Quantity: 0 Refills: 0 Ordered: 27-Jul-2019 DO Active Vitamin E 200 UN IT Oral Capsule Refills: 0 Active zolpidem tartrate 10 mg oral tablet (6 sources) gamma-Aminobutyric Acid-ergic Agonist Ambien 10 MG Oral Tablet Refills: 0 DO Active Ambien 5 MG Oral Tablet Refills: 0 Active Problems Active Problems Problem Classification Problem Date Documented Date Episodic/Chronic Abdominal hernia (12 sources) Hiatal hernia; Translations: [Diaphragmatic hernia without mention of obstruction or gangrene] Episodic Abdominal pain (2 sources) Epigastric pain; Translations: [Left lower quadrant pain] Onset: 03-01-2022 Episodic Chronic obstructive pulmonary disease and bronchiectasis (1 source) Bronchitis; Translations: [Bronchitis, not specified as acute or chronic] 10-16-2023 Episodic Deficiency and other anemia (20 sources) Increased hemoglobin; Translations: [Other hemoglobinopathies] Onset: 10-31-2023 10-31-2023 Chronic Diabetes mellitus without complication (11 sources) Prediabetes; Translations: [Other abnormal glucose] Episodic Diseases of mouth; excluding dental (2 sources) Burning mouth syndrome ; Translations: [Glossodynia] 05-16-2023 Episodic Disorders of lipid metabolism (20 sources) Mixed hyperlipidemia; Translations: [Hyperlipidemia] Onset: 10-15-2016 10-15-2016 Chronic E Codes: Fall (1 source) Unspecified fall, initial encounter; Translations: [Fall, initial encounter] Onset: 01-25-2024 Episodic E Codes: Fall (3 sources) Fall; Translations: [Fall] Onset: 06-18-2022 Esophageal disorders (12 sources) Gastroesophageal reflux disease; Translations: [Esophageal reflux] Chronic Gastroduodenal ulcer (except hemorrhage) (20 sources) Peptic ulcer; Translations: [Peptic ulcer of unspecified site, unspecified as acute or chronic, without mention of hemorrhage or perforation, without mention of obstruction] Onset: 05-28-2022 05-28-2022 Chronic Genitourinary symptoms and ill-defined conditions (6 sources) Urinary incontinence; Translations: [Urinary incontinence, unspecified] Chronic Genitourinary symptoms and ill-defined conditions (5 sources) Sign or symptom of the urinary system; Translations: [Increased frequency of urination] 07-03-2023 Episodic Headache; including migraine (20 sources) Migraine; Translations: [Migraine, unspecified, not intractable, without status migrainosus] Onset: 02-05-2013 02-05-2013 Chronic Headache; including migraine (1 source) Headache; including migraine; Translations: [Acute nonintractable headache, unspecified headache type] Onset: 11-06-2021 Hemorrhoids (12 sources) Internal hemorrhoids; Translations: [Internal hemorrhoids without mention of complication] Episodic Inflammatory diseases of female pelvic organs (4 sources) Vaginitis; Translations: [Vaginitis and vulvovaginitis, unspecified] Episodic Joint disorders and dislocations; trauma-related (12 sources) Recurrent dislocation of shoulder region; Translations: [Recurrent dislocation of joint, shoulder region] Episodic Malaise and fatigue (18 sources) Fatigue; Translations: [Malaise and fatigue] Episodic Mood disorders (20 sources) Bipolar disorder; Translations: [Severe major depression, single episode] Onset: 02-05-2013 05-28-2022 Chronic Nonmalignant breast conditions (20 sources) Large breast; Translations: [Breast lump] Onset: 08-10-2024 08-10-2024 Episodic Osteoarthritis (12 sources) Osteoarthritis; Translations: [Osteoarthrosis, unspecified whether generalized or localized, site unspecified] Chronic Other connective tissue disease (12 sources) Trochanteric bursitis; Translations: [Enthesopathy of hip region] Episodic Other connective tissue disease (6 sources) Peroneal tendinitis; Translations: [Other enthesopathy of ankle and tarsus] Episodic Other diseases of bladder and urethra (6 sources) Overactive bladder; Translations: [Hypertonicity of bladder] Chronic Other disorders of stomach and duodenum (12 sources) Gastroparesis syndrome; Translations: [Gastroparesis] Episodic Other endocrine disorders (1 source) Hyperinsulinism; Translations: [Other hypoglycemia] 08-03-2024 Chronic Other endocrine disorders (2 sources) Other hypoglycemia; Translations: [Other hypoglycemia] Onset: 08-03-2024 Chronic Other female genital disorders (4 sources) Vaginal lesion; Translations: [Other specified noninflammatory disorders of vagina] Episodic Other fractures (1 source) Unspecified fracture of sacrum, initial encounter for closed fracture; Translations: [Closed fracture of sacrum, unspecified portion of sacrum, initial encounter (HCC)] Onset: 01-25-2024 Episodic Other hematologic conditions (6 sources) Erythrocytosis; Translations: [Secondary polycythemia] 11-18-2023 Episodic Other liver diseases (12 sources) Steatosis of liver; Translations: [Other chronic nonalcoholic liver disease] Chronic Other liver diseases (12 sources) AST/SGOT level raised; Translations: [Nonspecific elevation of levels of transaminase or lactic acid dehydrogenase [LDH]] Episodic Other nervous system disorders (2 sources) Other chronic pain; Translations: [Other chronic pain] Onset: 11-14-2021 Chronic Other nervous system disorders (12 sources) H/O: migraine; Translations: [Personal history of other disorders of nervous system and sense organs] Episodic Other non-traumatic joint disorders (6 sources) Knee pain; Translations: [Bilateral knee pain] Episodic Other nutritional; endocrine; and metabolic disorders (13 sources) Obesity; Translations: [Obesity, unspecified] Chronic Other nutritional; endocrine; and metabolic disorders (12 sources) Weight gain; Translations: [Abnormal weight gain] Episodic Other nutritional; endocrine; and metabolic disorders (3 sources) Unintentional weight loss; Translations: [Abnormal weight loss] 08-28-2023 Episodic Other nutritional; endocrine; and metabolic disorders (4 sources) Weight loss; Translations: [Abnormal weight loss] 11-18-2023 Episodic Other nutritional; endocrine; and metabolic disorders (2 sources) Unintentional weight gain; Translations: [Abnormal weight gain] 07-13-2024 Episodic Other nutritional; endocrine; and metabolic disorders (2 sources) Abnormal weight gain; Translations: [Abnormal weight gain] Onset: 08-03-2024 Episodic Other screening for suspected conditions (not mental disorders or infectious disease) (6 sources) Computed tomography result abnormal; Translations: [Abnormal findings on diagnostic imaging of other specified body structures] Onset: 11-18-2023 11-18-2023 Chronic Other screening for suspected conditions (not mental disorders or infectious disease) (20 sources) Mammography abnormal; Translations: [Patient encounter status] Onset: 11-14-2021 Episodic Comment on above: R breast mass- refer red to breast surg; Other skin disorders (6 sources) Cystic acne; Translations: [Other acne] Episodic Other skin disorders (1 source) Acne; Translations: [Acne, unspecified] 07-13-2024 Episodic Ovarian cyst (1 source) Unspecified ovarian cyst, unspecified side; Translations: [UNSPECIFIED OVARIAN CYST UNSP SIDE] Onset: 08-25-2023 Episodic Residual codes; unclassified (12 sources) Past history of procedure; Translations: [Other specified personal history presenting hazards to health] Episodic Comment on above: 01/27/18 abnormal on right - follow up diagnostic and US neg - needs 6 month follow up; Residual codes; unclassified (6 sources) Persistent insomnia; Translations: [Persistent disorder of initiating or maintaining sleep] Episodic Residual codes; unclassified (1 source) Tobacco user; Translations: [Tobacco use] 08-28-2023 Episodic Residual codes; unclassified (1 source) Acquired absence of both cervix and uterus; Translations: [ACQUIRED ABSENCE BOTH CERVIXANDUTERUS] Onset: 08-25-2023 Episodic Residual codes; unclassified (1 source) Family history of breast cancer; Translations: [Family history of malignant neoplasm of breast] 08-10-2024 Episodic Screening and history of mental health and substance abuse codes (12 sources) H/O: depression; Translations: [Personal history of other mental disorders] Episodic Spondylosis; intervertebral disc disorders; other back problems (12 sources) Degeneration of intervertebral disc; Translations: [Degeneration of intervertebral disc, site unspecified] Chronic Spondylosis; intervertebral disc disorders; other back problems (7 sources) Chronic neck pain; Translations: [Cervicalgia] Onset: 11-14-2021 Episodic Sprains and strains (20 sources) Tendon injury - lower limb; Translations: [Strain of muscle and/or tendon of lower leg] Episodic Substance-related disorders (20 sources) Nicotine dependence; Translations: [Tobacco use disorder] Onset: 11-06-2021 05-01-2023 Chronic Unclassified (2 sources) Unspecified lump in the right breast, overlapping quadrants; Translations: [Unspecified lump in the right breast, overlapping quadrants] Onset: 08-10-2024 Urinary tract infections (9 sources) Urinary tract infectious disease; Translations: [Acute cystitis] Onset: 08-25-2023 07-03-2023 Episodic Past or Other Problems Problem Classification Problem Date Documented Da te Episodic/Chronic Anal and rectal conditions (7 sources) Rectal polyp; Translations: [Hyperplastic polyp of large intestine] Resolved: 09-01-2018 Episodic Diabetes mellitus without complication (1 source) Prediabetes; Translations: [Prediabetes] Gastroduodenal ulcer (except hemorrhage) (7 sources) H/O: gastric ulcer; Translations: [Personal history of peptic ulcer disease] Onset: 09-25-2014 06-25-2021 Episodic Immunizations and screening for infectious disease (3 sources) Immunization due; Translations: [Encounter for immunization] Onset: 12-25-2023 12-25-2023 Episodic Nausea and vomiting (13 sources) Nausea; Translations: [Nausea alone] Onset: 03-01-2022 Episodic Nonspecific chest pain (1 source) Chest pain, unspecified; Translations: [Chest pain, unspecified type] Onset: 11-06-2021 Episodic Other aftercare (20 sources) Marijuana user; Translations: [Other mcc (current) drug therapy] Onset: 05-01-2023 05-01-2023 Episodic Other and unspecified benign neoplasm (5 sources) Hyperplastic polyp of large intestine; Translations: [History of Hyperplastic rectal polyp] Other circulatory disease (1 source) Elevated blood-pressure reading without diagnosis of hypertension; Translations: [Elevated blood-pressure reading, without diagnosis of hypertension] Episodic Other connective tissue disease (6 sources) Muscle pain; Translations: [Myalgia and myositis, unspecified] Onset: 02-05-2013 02-05-2013 Episodic Other connective tissue disease (6 sources) Recurrent falls ; Translations: [Frequent falls] Other disorders of stomach and duodenum (1 source) Gastroparesis; Translations: [Gastroparesis] Onset: 03-01-2022 Episodic Other fractures (20 sources) Closed fracture sacrum; Translations: [Type 4 fracture of sacrum, subsequent encounter for fracture with routine healing] Onset: 01-29-2024 01-29-2024 Episodic Other fractures (2 sources) Type 4 fracture of sacrum, subsequent encounter for fracture with routine healing; Translations: [Type 4 fracture of sacrum, subsequent encounter for fracture with routine healing] Onset: 01-29-2024 Episodic Other gastrointestinal disorders (6 sources) H/O: abdominal hernia; Translations: [Personal history of other diseases of the digestive system] Onset: 09-25-2014 06-25-2021 Episodic Other gastrointestinal disorders (1 source) Personal history of other diseases of the digestive system; Translations: [H/O hiatal hernia] Onset: 06-26-2021 Episodic Other hematologic conditions (2 sources) Secondary polycythemia; Translations: [Secondary polycythemia] Onset: 11-18-2023 Episodic Other non-traumatic joint disorders (20 sources) Hip pain; Translations: [Pain in joint, pelvic region and thigh] Onset: 08-13-2017 05-28-2022 Episodic Other non-traumatic joint disorders (20 sources) Pain in left ankle and joints of left foot; Translations: [Chronic ankle pain] Onset: 05-28-2022 10-15-2016 Episodic Other non-traumatic joint disorders (20 sources) Pain in right knee; Translations: [Bilateral knee pain] Onset: 08-13-2017 08-13-2017 Episodic Other non-traumatic joint disorders (20 sources) Pain in right hip joint; Translations: [Pain in right hip] Onset: 08-13-2017 08-13-2017 Episodic Other non-traumatic joint disorders (20 sources) Chronic pain of left upper limb; Translations: [Pain in left shoulder] Onset: 08-13-2017 08-13-2017 Episodic Other nutritional; endocrine; and metabolic disorders (2 sources) Abnormal weight loss; Translations: [Abnormal weight loss] Onset: 10-20-2023 Episodic Other skin disorders (2 sources) Acne, unspecified; Translations: [Acne, unspecified] Onset: 07-13-2024 Episodic Poisoning by other medications and drugs (20 sources) Poisoning by unspecified drugs, medicaments and biological substances, accidental (unintentional), initial encounter; Translations: [Poisoning by unspecified drug or medicinal substance] Onset: 07-31-2019 Resolved: 05-01-2023 07-31-2019 Episodic Residual codes; unclassified (1 source) Generalized aches and pains; Translations: [Pain, unspecified] Episodic Unclassified (6 sources) Patient encounter status; Translations: [Screening for diabetes mellitus] Viral infection (20 sources) Recurrent herpes simplex labialis; Translations: [Herpesviral vesicular dermatitis] Onset: 05-01-2023 05-01-2023 Episodic NEGATED: Highlighted row has not occurred!Residual codes; unclassified (20 sources) Disease Episodic Results Test Name Value Interpretation Reference Range Facility 10-18-2024 36 LVM for the pt if th madhu wanted to get labs done at the infusion center. Left phone for pt to call back if they were interested in lab draw. [facility] 08-27-2024 36 Called pt to let her know that she needs to come warehouse order picker her lab orders and go and get those drawn. They are in the green pt warehouse order picker folder at the front desk monitor. Also, advised pt to call office back to get her follow up appointment in [address] Villanueva scheduled. No answer, left message. [facility] 08-25-2024 36 Pt has been schedule d with the time/date perimeters requested, a VM was left and she will check My Chart for the appt.details. Instructed to call us if changes need to be made. [facility] 08-24-2024 36 LVM for the pt to ca ll the office back to go over some Registration questions for the mychart apt on 08/25/2024 [place] [id number] 36 Duplicate [place] [id number] 36 Left message on voicemail for patient to return call to schedule. [facility] 36 I spoke to Sury about her benign biopsy results and recommendation for repeat ultrasound in 6 months. She is agreeable. [facility] 08-19-2024 36 Left VM for Sury to return my call to discuss her results PATHOLOGY OUTCOME: Benign PATHOLOGY RESULT: Imaging and pathology are concordant. Fibrocystic changes with papillary apocrine metaplasia bordering on apocrine papilloma; no atypia identified. RECOMMENDATION: Breast ultrasound in 6 months Right Normal [facility] BI US GUIDED BREAST BIOPSY R Gabriela 08-19-2024 BI US GUIDED BREAST BIOPSY RIGHT Patient Name: SURY SHEPPARD : 1975 Exam Date/Time: 08/17/2024 10:54 Procedure: BI US GUIDED BREAST BIOPSY RIGHT Ordering Provider: MARSHALL ASHLEY Reason For Exam: MASS --------ADDENDUM #1 -------- ADDENDUM: This addendum is being provided to report the pathology results, concordance and recommendation for the previous report. PATHOLOGY OUTCOME: Benign PATHOLOGY RESULT: Imaging and pathology are concordant. Fibrocystic changes with papillary apocrine metaplasia bordering on apocrine papilloma; no atypia identified. RECOMMENDATION: Breast ultrasound in 6 months Right Report Dictated on Electronically Signed By: Ann-Marie Desir MD Electronically Signed Date/Time: 08/19/2024 11:52 AM EST --------ORIGINAL REPORT -------- REASON FOR EXAMINATION: Right breast mass. CONSENT: The patient presents for ultrasound-guided core biopsy of the right breast. Prior to the procedure red rules were performed which included patient name, date of , and procedure type. Risks, benefits and alternatives were explained to the patient and informed consent was obtained. The patient's prior imaging was reviewed. PROCEDURE: An audible time out was performed. I washed my hands and wore sterile gloves. The patient was scanned and the lesion in the 12:00 position was redemonstrated. The patient was prepped in the usual sterile fashion. 14 mL of 1% Lidocaine was administered for local anesthesia. A aruna was made in the skin and a [facility] vacuum-assisted core biopsy device was advanced into the lesion with ultrasound guidance. 3 core specimens were obtained. Following the procedure a [employer] Q-shape tissue marker was deployed at the site of biopsy. Hemostasis was obtained by holding manual pressure. The patient tolerated the procedure without immediate complications. Home-going instructions were given and the patient was discharged in good condition. IMPRESSION: Technically successful US guided biopsy of the right breast. PATHOLOGY STATUS: Waiting for Pathology MAMMOGRAM: Following the procedure the patient was transported to the mammography suite and a 2D digital mammogram was performed demonstrating satisfactory placement of the tissue marker at the site of biopsy. No hematoma is identified on post procedure mammography. Markings on images: BB's = Nipples; skin lesions Open [place] = Palpable Line = Scar Report Dictated on Electronically Signed By: Ann-Marie Desir MD Electronically Signed Date/Time: 08/17/2024 11:41 AM EST Rt US 6m Pathology Patient Name: SURY SHEPPARD : 1975 Exam Date/Time: 08/17/2024 10:54 Procedure: BI US GUIDED BREAST BIOPSY RIGHT Ordering Provider: MARSHALL ASHLEY Reason For Exam: MASS REASON FOR EXAMINATION: Right breast mass. CONSENT: The patient presents for ultrasound-guided core biopsy of the right breast. Prior to the procedure red rules were performed which included patient name, date of , and procedure type. Risks, benefits and alternatives were explained to the patient and informed consent was obtained. The patient's prior imaging was reviewed. PROCEDURE: An audible time out was performed. I washed my hands and wore sterile gloves. The patient was scanned and the lesion in the 12:00 position was redemonstrated. The patient was prepped in the usual sterile fashion. 14 mL of 1% Lidocaine was administered for local anesthesia. A aruna was made in the skin and a [facility] vacuum-assisted core biopsy device was advanced into the lesion with ultrasound guidance. 3 core specimens were obtained. Following the procedure a [employer] Q-shape tissue marker was deployed at the site of biopsy. Hemostasis was obtained by holding manual pressure. The patient tolerated the procedure without immediate complications. Home-going instructions were given and the patient was discharged in good condition. IMPRESSION: Technically successful US guided biopsy of the right breast. PATHOLOGY STATUS: Waiting for Pathology MAMMOGRAM: Following the procedure the patient was transported to the mammography suite and a 2D digital mammogram was performed demonstrating satisfactory placement of the tissue marker at the site of biopsy. No hematoma is identified on post procedure mammography. Markings on images: BB's = Nipples; skin lesions Open [place] = Palpable Line = Scar Report Dictated on Electronically Signed By: Ann-Marie Desir MD Electronically Signed Date/Time: 08/17/2024 11:41 AM EST [facility] 36on 08-18-2024 36 Sury Sheppard 1975 Left VM msg with my [facility] Office number if she is having any issues, pain, bleeding, swelling following her biopsy yesterday. [facility] MG Guidance for biopsy of Br east - righton 08-17-2024 Radiology Study observation (narrative) [facility] Patient Name: SURY TORRES : 1975 Exam Date/Time: 08/17/2024 11:43 Procedure: BI POST PROCEDURE MAMMOGRAM RIGHT Ordering Provider: DESIR KERISTEN Reason For Exam: BREAST BIOPSY REASON FOR EXAMINATION: Right breast mass. CONSENT: The patient presents for ultrasound-guided core biopsy of the right breast. Prior to the procedure red rules were performed which included patient name, date of , and procedure type. Risks, benefits and alternatives were explained to the patient and informed consent was obtained. The patient's prior imaging was reviewed. PROCEDURE: An audible time out was performed. I washed my hands and wore sterile gloves. The patient was scanned and the lesion in the 12:00 position was redemonstrated. The patient was prepped in the usual sterile fashion. 14 mL of 1% Lidocaine was administered for local anesthesia. A aruna was made in the skin and a [facility] vacuum-assisted core biopsy device was advanced into the lesion with ultrasound guidance. 3 core specimens were obtained. Following the procedure a [employer] Q-shape tissue marker was deployed at the site of biopsy. Hemostasis was obtained by holding manual pressure. The patient tolerated the procedure without immediate complications. Home-going instructions were given and the patient was discharged in good condition. [facility] Ann-Marie Desir MD - 08/17/2024 Patient Name: SURY SHEPPARD : 1975 Exam Date/Time: 08/17/2024 11:43 Procedure: BI POST PROCEDURE MAMMOGRAM RIGHT Ordering Provider: DESIR KERISTEN Reason For Exam: BREAST BIOPSY REASON FOR EXAMINATION: Right breast mass. CONSENT: The patient presents for ultrasound-guided core biopsy of the right breast. Prior to the procedure red rules were performed which included patient name, date of , and procedure type. Risks, benefits and alternatives were explained to the patient and informed consent was obtained. The patient's prior imaging was reviewed. PROCEDURE: An audible time out was performed. I washed my hands and wore sterile gloves. The patient was scanned and the lesion in the 12:00 position was redemonstrated. The patient was prepped in the usual sterile fashion. 14 mL of 1% Lidocaine was administered for local anesthesia. A aruna was made in the skin and a [employer] vacuum-assisted core biopsy device was advanced into the lesion with ultrasound guidance. 3 core specimens were obtained. Following the procedure a [employer] Q-shape tissue marker was deployed at the site of biopsy. Hemostasis was obtained by holding manual pressure. The patient tolerated the procedure without immediate complications. Home-going instructions were given and the patient was discharged in good condition. IMPRESSION: Technically successful US guided biopsy of the right breast. PATHOLOGY STATUS: Waiting for Pathology MAMMOGRAM: Following the procedure the patient was transported to the mammography suite and a 2D digital mammogram was performed demonstrating satisfactory placement of the tissue marker at the site of biopsy. No hematoma is identified on post procedure mammography. Markings on images: BB's = Nipples; skin lesions Open [place] = Palpable Line = Scar Report Dictated on Electronically Signed By: Ann-Marie Desir MD Electronically Signed Date/Time: 08/17/2024 11:41 AM EST [facility] No Panel Informationon 08-17 Technically successf ul US guided biopsy of the right breast. PATHOLOGY STATUS: Waiting for Pathology MAMMOGRAM: Following the procedure the patient was transported to the mammography suite and a 2D digital mammogram was performed demonstrating satisfactory placement of the tissue marker at the site of biopsy. No hematoma is identified on post procedure mammography. Markings on images: BB's = Nipples; skin lesions Open pen[place]scot = Palpable Line = Scar Report Dictated on Electronically Signed By: Ann-Marie Desir MD Electronically Signed Date/Time: 08/17/2024 11:41 AM EST [facility] No Panel InformationOrdered By: Ann-Marie Desir on 08-17-2024 [employer] Phone: US Guidance for localization of Breast - righton 08-17-2024 Patient Name: SURY TORRES : 1975 Exam Date/Time: 08/17/2024 10:54 Procedure: BI US GUIDED BREAST BIOPSY RIGHT Ordering Provider: MARSHALL ASHLEY Reason For Exam: MASS REASON FOR EXAMINATION: Right breast mass. CONSENT: The patient presents for ultrasound-guided core biopsy of the right breast. Prior to the procedure red rules were performed which included patient name, date of , and procedure type. Risks, benefits and alternatives were explained to the patient and informed consent was obtained. The patient's prior imaging was reviewed. PROCEDURE: An audible time out was performed. I washed my hands and wore sterile gloves. The patient was scanned and the lesion in the 12:00 position was redemonstrated. The patient was prepped in the usual sterile fashion. 14 mL of 1% Lidocaine was administered for local anesthesia. A aruna was made in the skin and a [facility] vacuum-assisted core biopsy device was advanced into the lesion with ultrasound guidance. 3 core specimens were obtained. Following the procedure a [place] Q-shape tissue marker was deployed at the site of biopsy. Hemostasis was obtained by holding manual pressure. The patient tolerated the procedure without immediate complications. Home-going instructions were given and the patient was discharged in good condition. [facility] [employer] SYSTEM Ann-Marie Desir MD - 08/17/2024 Patient Name: SURY SHEPPARD : 1975 Exam Date/Time: 08/17/2024 10:54 Procedure: BI US GUIDED BREAST BIOPSY RIGHT Ordering Provider: MARSHALL ASHLEY Reason For Exam: MASS REASON FOR EXAMINATION: Right breast mass. CONSENT: The patient presents for ultrasound-guided core biopsy of the right breast. Prior to the procedure red rules were performed which included patient name, date of , and procedure type. Risks, benefits and alternatives were explained to the patient and informed consent was obtained. The patient's prior imaging was reviewed. PROCEDURE: An audible time out was performed. I washed my hands and wore sterile gloves. The patient was scanned and the lesion in the 12:00 position was redemonstrated. The patient was prepped in the usual sterile fashion. 14 mL of 1% Lidocaine was administered for local anesthesia. A aruna was made in the skin and a [facility] vacuum-assisted core biopsy device was advanced into the lesion with ultrasound guidance. 3 core specimens were obtained. Following the procedure a [place] Q-shape tissue marker was deployed at the site of biopsy. Hemostasis was obtained by holding manual pressure. The patient tolerated the procedure without immediate complications. Home-going instructions were given and the patient was discharged in good condition. IMPRESSION: Technically successful US guided biopsy of the right breast. PATHOLOGY STATUS: Waiting for Pathology MAMMOGRAM: Following the procedure the patient was transported to the mammography suite and a 2D digital mammogram was performed demonstrating satisfactory placement of the tissue marker at the site of biopsy. No hematoma is identified on post procedure mammography. Markings on images: BB's = Nipples; skin lesions Open pen[place] = Palpable Line = Scar Report Dictated on Electronically Signed By: Ann-Marie Desir MD Electronically Signed Date/Time: 08/17/2024 11:41 AM EST [facility] Radiology Study observation (narrative) [facility] Office Visiton 08-10-2024 Follow-up visit [id number] Sury Sheppard 1975 F Date Provider Department Center 08/10/2024 [id number] DOBSON [facility] None Family History Problem Relation Age of Onset Hypothyroidism Mother Hyperlipidemia Mother Atrial fibrillation Mother Sleep apnea Mother Bone cancer Father Stroke Father Hypertension Father No Known Problems Sister No Known Problems Brother No Known Problems Daughter No Known Problems Son No Known Problems Son Breast cancer Paternal Grandmother 75 Prostate cancer Paternal Grandfather 70 Family Status - Relation Status Age at Mother Alive Father 69 Sister Alive Brother Alive Daughter Alive Son Alive Son Alive Maternal Grandmother Maternal Grandfather Paternal Grandmother Paternal Grandfather Level of Service:21106 UT OFFICE/OUTPATIENT NEW MODERATE MDM 45 MINUTES Reason for Visit and Comments: New Patient [542] Abnormal Imaging [729] Pre-biopsy History And Physical Exam [697] - Denies any palpable changes or pain today Normal [facility] Progress Noteon 08-10-2024 Progress Note Chief Complaint Patient presents with New Patient Abnormal Imaging Pre-biopsy History And Physical Exam Denies any palpable changes or pain today HPI: Sury Sheppard is a 49 y.o. female who presents H&P prior to biopsy 1. Her recent screening mammogram a mass in her right breast. Diagnostic breast imaging demonstrated a 1.2 cm vascular mass at 5:00, 4 cm FN. Biopsy is recommended. -Additionally, 2 complicated cyst clusters at 5:30, 3 cm FN and at 6:00 4 cm FN are recommended for short-term follow-up with ultrasound in 6 months. 2. She has a history of a benign right breast biopsy completed at on 03/15/2019 (pathology below). Today, she has no breast concerns. She denies breast mass, skin change, nipple change, or nipple discharge. 3. Biopsy explained. Patient agreeable. She denies taking blood thinners and does not have an allergy to lidocaine. Risks of biopsy discussed including pain, bleeding, or infection. 4. Breast imaging includes: Bilateral screening mammogram 07/16/2024 TISSUE DENSITY: BIRADS B - There are scattered areas of fibroglandular density. FINDINGS: Additional imaging is needed for mass in the inferior medial quadrant of the anterior right breast. No suspicious masses, architectural distortions or suspiciously clustered microcalcifications are identified in the left breast. IMPRESSION: Right breast mass. ASSESSMENT: Category 0 Incomplete: need additional imaging evaluation RECOMMENDATION: Follow-up diagnostic breast ultrasound Right Right breast ultrasound 07/27/2024 Findings: The patient is a 49-year-old who was recalled from a screening mammogram for a mass in the inferior medial quadrant of the anterior right breast at. Targeted ultrasound of the right breast was performed. At the 5:00 position 4 cm from the nipple there is a mixed echogenic mass with a trace of vascular flow measuring 0.9 x 1.2 x 0.4 cm. The findings are indeterminant. Biopsy is recommended. At the 5:30 position 3 cm from the nipple there is a avascular mixed echogenic mass measuring 1.0 x 1.0 x 2.3 cm. This is felt to represent a complicated cystic cluster. Short-term follow-up is recommended. At the 6:00 position 4 cm from the nipple a mixed echogenic mass is seen measuring 0.6 x 0.5 x 0.4 cm at. The findings probably represent a complicated cystic cluster. Short-term follow-up is recommended. IMPRESSION: Biopsy is recommended for a mixed echogenic mass with vascular flow at the 5:00 position. Short-term follow-up is recommended for probable benign findings at the 5:30 and 6:00 position. ASSESSMENT: Category 4 Suspicious RECOMMENDATION: Surgical Consultation Right Ultrasound guided core biopsy Right Breast ultrasound in 6 months Right Risk Factors: Menarche: Age 14 Age of first : Age 18, G3, P3 Menopause: Hysterectomy at age 31, she retains both ovaries-she endorses hot flashes and night sweats Smoking: Current- 1.5 PPD ETOH: None Right breast biopsy pathology-03/15/2019 at Name SURY SHEPPARD Pathologist: VIPUL ELENA III DFaraOFara Date of Procedure: 03/15/2019 Date Received: 03/15/2019 Date Reported 03/17/2019 Submitting Physician: SALOME MONTENEGRO DO Location: Copy To/Referring/Attending: KEIRY GONZALEZ D.O. Other External # Case is Amended FINAL DIAGNOSIS A. RIGHT BREAST MASS, ULTRASOUND-GUIDED CORE BIOPSY AT 8 O'CLOCK, 3 CM FROM NIPPLE: -- FIBROUS BREAST TISSUE WITH FOCAL USUAL DUCTAL HYPERPLASIA AND APOCRINE METAPLASIA, Family history includes: Father- bone cancer at 69 Paternal Grandmother- breast cancer age 75 Paternal Grandfather- Prostate cancer Age 70 The lifetime risk of breast cancer estimated by the Tyrer Cuzick v8 model is 10%. The estimated risk of a BRCA 1/2 mutation predicted by BRCAPRO is 0.07%. The estimated risk of a mutation in an HNPCC related gene is 0.05%. The patient does not have peds meet NCCN criteria for genetic testing for hereditary cancer. 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 atorvastatin (Lipitor) 20 MG tablet Take 1 tablet (20 mg) by mouth daily. 90 tablet 3 clindamycin-benzoyl per (more content not included)... [facility] 36on 08-03-2024 36 Spoke to patient concerning rescheduling the appointment that was a no show on 07.20.24 . Patient stated she was unable to schedule at this time and she would call the office back. [facility] 37on 08-03-2024 37 With the metformin start with 1 tablet twice daily with meals than increase to 2 tablets twice daily with meals. Increase protein intake to at least 0.5 mg/kg per day 75 g protein. Normal [facility] Office Visiton 08-03-2024 Follow-up visit [id number] Sury Sheppard 1975 F Date Provider Department Center 08/03/2024 [id number] PETERSEN [facility] Family History Problem Relation Age of Onset Hypothyroidism Mother Hyperlipidemia Mother Atrial fibrillation Mother Sleep apnea Mother Bone cancer Father Stroke Father Hypertension Father No Known Problems Sister No Known Problems Brother No Known Problems Daughter No Known Problems Son No Known Problems Son Breast cancer Paternal Grandmother Prostate cancer Paternal Grandfather Family Status - Relation Status Age at Mother Alive Father Sister Alive Brother Alive Daughter Alive Son Alive Son Alive Paternal Grandmother Paternal Grandfather Level of Service:22640 UT OFFICE/OUTPATIENT ESTABLISHED MOD MDM 30 MIN Reason for Visit and Comments: Other [0] - Insulin resistance. Recent labs that were drawn showed she is insulin resistant. Would like to discuss Normal [facility] Progress Noteon 08-03-2024 Progress Note [facility] - [address] [facility] [id number] Dept Visit Date: 08/03/24 HPI: Sury Sheppard is a 49 y.o. female who presents today for: Chief Complaint Patient presents with Other Insulin resistance. Recent labs that were drawn showed she is insulin resistant. Would like to discuss HPI Had labs done after annual exam last month. Here today to review. Difficulty losing and maintaining weight loss despite lifestyle interventions. The lipid panel much improved on statin. To continue. On abilify-this was started several months ago, could be contributing to the elevated insulin. Doing very well with mental health. Component Latest Ref Rng 07/30/2024 CHOLESTEROL, TOTAL <200 mg/dL 143 HDL CHOLESTEROL - [facility] > OR = 50 mg/dL 54 TRIGLYCERIDES - [facility] <150 mg/dL 116 LDL-CHOLESTEROL mg/dL (calc) 69 CHOL/HDLC RATIO <5.0 (calc) 2.6 NON HDL CHOLESTEROL <130 mg/dL (calc) 89 Component Latest Ref Rng 07/30/2024 INSULIN uIU/mL 27.6 (H) Component Latest Ref Rng 07/30/2024 THYROID STIMULATING HORMONE mIU/L 0.83 Component Latest Ref Rng 07/30/2024 GLUCOSE 65 - 99 mg/dL 103 (H) Urea Nitrogen (BUN) 7 - 25 mg/dL 9 Creatinine 0.50 - 1.03 mg/dL 0.87 eGFR > OR = 60 mL/min/1.73m2 81 BUN/CREATININE RATIO 6 - 22 (calc) SEE NOTE: SODIUM 135 - 146 mmol/L 140 POTASSIUM 3.5 - 5.3 mmol/L 4.7 CHLORIDE 98 - 110 mmol/L 107 Carbon Dioxide (CO2) 20 - 32 mmol/L 27 CALCIUM 8.6 - 10.4 mg/dL 9.0 PROTEIN, TOTAL - [facility] 6.1 - 8.1 g/dL 6.1 ALBUMIN - [facility] 3.6 - 5.1 g/dL 3.9 GLOBULIN - [facility] 1.9 - 3.7 g/dL (calc) 2.2 ALBUMIN/GLOBULIN RATIO - [facility] 1.0 - 2.5 (calc) 1.8 BILIRUBIN, TOTAL - [facility] 0.2 - 1.2 mg/dL 0.5 ALKALINE PHOSPHATASE - [facility] 37 - 153 U/L 59 AST - [facility] 10 - 35 U/L 19 ALT - [facility] 6 - 29 U/L 22 Component Latest Ref Rng 07/30/2024 HEMOGLOBIN A1C - [facility] <5.7 % of total Hgb 5.2 Wt Readings from Last 5 Encounters: 08/03/24 187 lb (84.8 kg) 07/16/24 180 lb (81.6 kg) 07/13/24 186 lb (84.4 kg) 01/29/24 165 lb 9.6 oz (75.1 kg) 12/25/23 166 lb (75.3 kg) Current Outpatient Medications Medication Sig Dispense Refill ARIPiprazole (Abilify) 2 MG tablet Take 2 mg by mouth daily. atorvastatin (Lipitor) 20 MG tablet Take 1 tablet (20 mg) by mouth daily. 90 tablet 3 clindamycin-benzoyl peroxide (BenzaClin) gel Apply topically 2 times daily. 50 g 1 estradiol (Estrace) 0.1 MG/GM vaginal cream uSE ONE GRAM VAGINALLY TWICE A WEEK hydrOXYzine pamoate (Vistaril) 25 MG capsule Take 50 mg by mouth Nightly as needed. ondansetron (Zofran) 4 MG tablet As needed traZODone (Desyrel) 100 MG tablet TAKE ONE TABLET BY MOUTH DAILY AT 9 PM (Patient taking differently: Nightly as needed.) valACYclovir (Valtrex) 500 MG tablet Take 1 tablet (500 mg) by mouth daily. 90 tablet 3 venlafaxine XR (Effexor XR) 150 MG 24 hr capsule Take 300 mg by mouth daily. metFORMIN XR (Glucophage-XR) 500 MG 24 hr tablet Take 2 tablets twice daily with meals. Do not crush, chew, or split. 360 tablet 3 pantoprazole (ProtoNix) 40 MG EC tablet TAKE 1 TABLET BY MOUTH EVERY MORNING (before BREAKFAST) (Patient not taking: Reported on 08/03/2024) 90 tablet 3 No current facility-administered medications for this visit. Allergies Allergen Reactions Sulfa Antibiotics Itching and Swelling Past Medical History: Diagnosis Date 2019 novel coronavirus disease (COVID-19) 2022 Abnormal Pap smear of cervix 1998 Anxiety 2009 Depression 2007 Fibrocystic breast GERD (gastroesophageal reflux disease) 2000 Headache 1992 Subjective: Review of Systems Constitutional: Positive for unexpected weight change. Negative for fatigue. Respiratory: Negative for shortness of breath. Cardiovascular: Negative for chest pain. Endocrine: Negative for polydipsia, polyphagia and polyuria. Objective: BP 109/73 (BP Location: Left arm, Patient Position: Sitting, BP Cuff Size: Adult) Pulse 71 Temp 36.4 ?C (97.5 ?F) (Temporal) Ht 5' 5 (1.651 m) Wt 187 lb (84.8 kg) SpO2 99% BMI 31.12 kg/m? Physical Exam Vitals and nursing note reviewed. Constitutional: General: She is not in acute distress. Appearance: Normal appearance. She is not ill-appearing or toxic-appearing. Pulmonary: Effort: Pulmonary effort is normal. Neurological: Mental Status: She is alert and oriented to person, place, and time. Assessment: Diagnosis Plan 1. Hyperinsulinemia metFORMIN XR (Glucophage-XR) 500 MG 24 hr tablet Hemoglobin A1c Basic metabolic panel Insulin Hemoglobin A1c Basic metabolic panel Insulin 2. Unintended weight gain metFORMIN XR (Glucophage-XR) 500 MG 24 hr tablet Plan: Sury was seen today for other. Diagnoses and all orders for this visit: Hyperinsulinemia (Primary) Reviewed nutrient dense diet, increase protein intake. Limit processed foods. Continue exerci (more content not included)... Normal [facility] BI US BREAST LIMITED RIGHTon 07-27-2024 BI US BREAST LIMITED RIGHT This is a summary report. The complete report is available in the patient's medical record. If you cannot access the medical record, please contact the sending organization for a detailed fax or copy. Patient Name: SURY SHEPPARD : 1975 Exam Date/Time: 07/27/2024 08:52 Procedure: BI US BREAST LIMITED RIGHT Ordering Provider: DYSON STEPHEN Reason For Exam: This exam was performed at [facility] at [address] [address] PATIENT CANCER HISTORY: No Personal History of Cancer FAMILY CANCER HISTORY: Paternal Grandmother Breast Cancer Paternal Grandfather Prostate Cancer Prior study Comparisons: 06/20/2023, 07/16/2024 Findings: The patient is a 49-year-old who was recalled from a screening mammogram for a mass in the inferior medial quadrant of the anterior right breast at. Targeted ultrasound of the right breast was performed. At the 5:00 position 4 cm from the nipple there is a mixed echogenic mass with a trace of vascular flow measuring 0.9 x 1.2 x 0.4 cm. The findings are indeterminant. Biopsy is recommended. At the 5:30 position 3 cm from the nipple there is a avascular mixed echogenic mass measuring 1.0 x 1.0 x 2.3 cm. This is felt to represent a complicated cystic cluster. Short-term follow-up is recommended. At the 6:00 position 4 cm from the nipple a mixed echogenic mass is seen measuring 0.6 x 0.5 x 0.4 cm at. The findings probably represent a complicated cystic cluster. Short-term follow-up is recommended. IMPRESSION: Biopsy is recommended for a mixed echogenic mass with vascular flow at the 5:00 position. Short-term follow-up is recommended for probable benign findings at the 5:30 and 6:00 position. ASSESSMENT: Category 4 Suspicious RECOMMENDATION: Surgical Consultation Right Ultrasound guided core biopsy Right Breast ultrasound in 6 months Right Recommendation for biopsy was discussed with the patient at completion of this examination. Our nurse navigator, Rose will facilitate surgical consultation. CANCER RISK ASSESSMENT: This risk assessment is based on patient provided information collected in a risk survey taken at the time of this examination. LIFETIME BREAST CANCER RISK: Eleni 8: 9.44% - If greater than or equal to 20%, consider annual mammogram and annual screening Breast MRI or follow up in high risk clinic. Is the patient at elevated risk based on the HBOC criteria? No (Hereditary Breast and Ovarian Cancer) - If Yes, consider genetic counseling and testing with high risk follow up Is the patient at elevated risk based on the Bridges Syndrome criteria? No - If Yes, consider genetic counseling and testing with high risk follow up. Report Dictated on Electronically Signed By: France Turner MD Electronically Signed Date/Time: 07/27/2024 9:38 AM EST [employer]ASRV[employer]CRA Railroad Engineer ID: [id number] CRAREQIDCRA Request ID: [id number] Abnormal [facility] Progress Noteon 07-27-2024 Progress Note Patient had call-estrellita k RT breast ultrasound (US) today. Dr. Turner talked to patient, recommending surgical consult and RT breast US biopsy. Asked patient, if same-day visit is available, would they want that appt? Patient cannot stay today. 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 She lives in [place] and wants her appt here at [place] but is not available on also because of nursing clinicals. She asks for the next available Friday which is not until Aug 10 I offered a sooner Friday at [place] but this patient declined and asked for [place] Friday. Scheduled with Page. Got her Salome Marshall AUDITOR/QUALITY [place] office visit on Fri08/10/24 @ 1pm, arrive 12:45pm. Discussed and reviewed the ultrasound biopsy procedure and biopsy clip placement. Provided [employer] biopsy teaching sheet. Gave her CORPORATE LOGISTICS MANAGER paperwork, map of [facility] and Plan of Care form. Notified patient that biopsy would be ordered and scheduled after seeing the Provider for consultation. Patient does not take blood thinning medications on a regular basis. Notified patient that she can take Tylenol any time if needed prior to the biopsy. Sent [employer] msg to Dr. Dyson to notify. Normal [employer] [facility] Breast - right limitedOrd ered By: France Turner on 07-27-2024 Interpretation and review of laboratory results Abnormal [employer] Phone: [employer] Phone: Breast - right limitedon 07-27-2024 Biopsy is recommende d for a mixed echogenic mass with vascular flow at the 5:00 position. Short-term follow-up is recommended for probable benign findings at the 5:30 and 6:00 position. ASSESSMENT: Category 4 Suspicious RECOMMENDATION: Surgical Consultation Right Ultrasound guided core biopsy Right Breast ultrasound in 6 months Right Recommendation for biopsy was discussed with the patient at completion of this examination. Our nurse navigator, Rose will facilitate surgical consultation. CANCER RISK ASSESSMENT: This risk assessment is based on patient provided information collected in a risk survey taken at the time of this examination. LIFETIME BREAST CANCER RISK: Eleni 8: 9.44% - If greater than or equal to 20%, consider annual mammogram and annual screening Breast MRI or follow up in high risk clinic. Is the patient at elevated risk based on the HBOC criteria? No (Hereditary Breast and Ovarian Cancer) - If Yes, consider genetic counseling and testing with high risk follow up Is the patient at elevated risk based on the Bridges Syndrome criteria? No - If Yes, consider genetic counseling and testing with high risk follow up. Report Dictated on Electronically Signed By: France Turner MD Electronically Signed Date/Time: 07/27/2024 9:38 AM EST [facility] Patient Name: SURY TORRES : 1975 Exam Date/Time: 07/27/2024 08:52 Procedure: BI US BREAST LIMITED RIGHT Ordering Provider: DYSON STEPHEN Reason For Exam: This exam was performed at [facility] at [place] [id number] [address] [place] [address] PATIENT CANCER HISTORY: No Personal History of Cancer FAMILY CANCER HISTORY: Paternal Grandmother Breast Cancer Paternal Grandfather Prostate Cancer Prior study Comparisons: 06/20/2023, 07/16/2024 Findings: The patient is a 49-year-old who was recalled from a screening mammogram for a mass in the inferior medial quadrant of the anterior right breast at. Targeted ultrasound of the right breast was performed. At the 5:00 position 4 cm from the nipple there is a mixed echogenic mass with a trace of vascular flow measuring 0.9 x 1.2 x 0.4 cm. The findings are indeterminant. Biopsy is recommended. At the 5:30 position 3 cm from the nipple there is a avascular mixed echogenic mass measuring 1.0 x 1.0 x 2.3 cm. This is felt to represent a complicated cystic cluster. Short-term follow-up is recommended. At the 6:00 position 4 cm from the nipple a mixed echogenic mass is seen measuring 0.6 x 0.5 x 0.4 cm at. The findings probably represent a complicated cystic cluster. Short-term follow-up is recommended. [facility] France Turner MD - 07/27/2024 Patient Name: SURY SHEPPARD : 1975 Exam Date/Time: 07/27/2024 08:52 Procedure: BI US BREAST LIMITED RIGHT Ordering Provider: DYSON STEPHEN Reason For Exam: This exam was performed at [facility] at [place] [address] [place] [address] [facility] [address] PATIENT CANCER HISTORY: No Personal History of Cancer FAMILY CANCER HISTORY: Paternal Grandmother Breast Cancer Paternal Grandfather Prostate Cancer Prior study Comparisons: 06/20/2023, 07/16/2024 Findings: The patient is a 49-year-old who was recalled from a screening mammogram for a mass in the inferior medial quadrant of the anterior right breast at. Targeted ultrasound of the right breast was performed. At the 5:00 position 4 cm from the nipple there is a mixed echogenic mass with a trace of vascular flow measuring 0.9 x 1.2 x 0.4 cm. The findings are indeterminant. Biopsy is recommended. At the 5:30 position 3 cm from the nipple there is a avascular mixed echogenic mass measuring 1.0 x 1.0 x 2.3 cm. This is felt to represent a complicated cystic cluster. Short-term follow-up is recommended. At the 6:00 position 4 cm from the nipple a mixed echogenic mass is seen measuring 0.6 x 0.5 x 0.4 cm at. The findings probably represent a complicated cystic cluster. Short-term follow-up is recommended. IMPRESSION: Biopsy is recommended for a mixed echogenic mass with vascular flow at the 5:00 position. Short-term follow-up is recommended for probable benign findings at the 5:30 and 6:00 position. ASSESSMENT: Category 4 Suspicious RECOMMENDATION: Surgical Consultation Right Ultrasound guided core biopsy Right Breast ultrasound in 6 months Right Recommendation for biopsy was discussed with the patient at completion of this examination. Our nurse navigator, Rose will facilitate surgical consultation. CANCER RISK ASSESSMENT: This risk assessment is based on patient provided information collected in a risk survey taken at the time of this examination. LIFETIME BREAST CANCER RISK: Eleni 8: 9.44% - If greater than or equal to 20%, consider annual mammogram and annual screening Breast MRI or follow up in high risk clinic. Is the patient at elevated risk based on the HBOC criteria? No (Hereditary Breast and Ovarian Cancer) - If Yes, consider genetic counseling and testing with high risk follow up Is the patient at elevated risk based on the Bridges Syndrome criteria? No - If Yes, consider genetic counseling and testing with high risk follow up. Report Dictated on Electronically Signed By: France Turner MD Electronically Signed Date/Time: 07/27/2024 9:38 AM EST [facility] Radiology Study observation (narrative) [facility] 36on 07-16-2024 36 See other tele Normal [facility] 36 Message released to patient as written. ----- Message from Bernard Dyson MD sent at 07/16/2024 10:26 AM EST ----- Mammogram showed area that needs more imaging to make sure ok. This is not uncommon to happen US ordered. Patient's further questions if applicable: no, transferred to Mammo lianet Were all questions from office addressed or relayed to the patient from encounter: Yes Normal [facility] 36 LMOM asking patient to give the office a call back for recent mammogram results. If patient calls back, please give message. Normal [facility] 36 ----- Message from Bernard Dyson MD sent at 07/16/2024 10:26 AM EST ----- Mammogram showed area that needs more imaging to make sure ok. This is not uncommon to happen US ordered. Normal [facility] 36 L[address]s release msg Normal [place] [id number] ----- Message from Bernard Dyson MD sent at 07/16/2024 10:26 AM EST ----- Mammogram showed area that needs more imaging to make sure ok. This is not uncommon to happen US ordered. Normal [facility] DBT Breast - bilateral scree ningOrdered By: Ann-Marie Desir on 07-16-2024 Interpretation and review of laboratory results Abnormal [facility] Work Phone: [facility] Work Phone: DBT Breast - bilateral scree ningon 07-16-2024 Right breast mass. ASSESSMENT: Category 0 Incomplete: need additional imaging evaluation RECOMMENDATION: Follow-up diagnostic breast ultrasound Right CANCER RISK ASSESSMENT: This risk assessment is based on patient provided information collected in a risk survey taken at the time of this examination. LIFETIME BREAST CANCER RISK: Eleni 8: 9.44% - If greater than or equal to 20%, consider annual mammogram and annual screening Breast MRI or follow up in high risk clinic. Is the patient at elevated risk based on the HBOC criteria? No (Hereditary Breast and Ovarian Cancer) - If Yes, consider genetic counseling and testing with high risk follow up Is the patient at elevated risk based on the Bridges Syndrome criteria? No - If Yes, consider genetic counseling and testing with high risk follow up. Report Dictated on Electronically Signed By: Ann-Marie Desir MD Electronically Signed Date/Time: 07/16/2024 10:20 AM EST [facility] Patient Name: SURY TORRES : 1975 Exam Date/Time: 07/16/2024 09:54 Procedure: BI MAMMOGRAM SCREENING TOMOSYNTHESIS BILATERAL Ordering Provider: DYSON STEPHEN Reason For Exam: This exam was performed at [facility] [address] [place] [address] PATIENT CANCER HISTORY: No Personal History of Cancer FAMILY CANCER HISTORY: Paternal Grandmother Breast Cancer Paternal Grandfather Prostate Cancer Image views: 2D Bilateral CC and MLO views were acquired. 3D Bilateral CC and MLO views were acquired. Images were reviewed with CAD. Markings on images: BB's = Nipples; skin lesions Open [place] = Palpable Line = Scar COMPARISON: 2022; 2018; 2015 TISSUE DENSITY: BIRADS B - There are scattered areas of fibroglandular density. FINDINGS: Additional imaging is needed for mass in the inferior medial quadrant of the anterior right breast. No suspicious masses, architectural distortions or suspiciously clustered microcalcifications are identified in the left breast. [facility] Ann-Marie Desir MD - 07/16/2024 Patient Name: SURY SHEPPARD : 1975 Exam Date/Time: 07/16/2024 09:54 Procedure: BI MAMMOGRAM SCREENING TOMOSYNTHESIS BILATERAL Ordering Provider: DYSON STEPHEN Reason For Exam: This exam was performed at [facility] [address] [place] [address] PATIENT CANCER HISTORY: No Personal History of Cancer FAMILY CANCER HISTORY: Paternal Grandmother Breast Cancer Paternal Grandfather Prostate Cancer Image views: 2D Bilateral CC and MLO views were acquired. 3D Bilateral CC and MLO views were acquired. Images were reviewed with CAD. Markings on images: BB's = Nipples; skin lesions Open [place] = Palpable Line = Scar COMPARISON: 2022; 2018; 2015 TISSUE DENSITY: BIRADS B - There are scattered areas of fibroglandular density. FINDINGS: Additional imaging is needed for mass in the inferior medial quadrant of the anterior right breast. No suspicious masses, architectural distortions or suspiciously clustered microcalcifications are identified in the left breast. IMPRESSION: Right breast mass. ASSESSMENT: Category 0 Incomplete: need additional imaging evaluation RECOMMENDATION: Follow-up diagnostic breast ultrasound Right CANCER RISK ASSESSMENT: This risk assessment is based on patient provided information collected in a risk survey taken at the time of this examination. LIFETIME BREAST CANCER RISK: Eleni 8: 9.44% - If greater than or equal to 20%, consider annual mammogram and annual screening Breast MRI or follow up in high risk clinic. Is the patient at elevated risk based on the HBOC criteria? No (Hereditary Breast and Ovarian Cancer) - If Yes, consider genetic counseling and testing with high risk follow up Is the patient at elevated risk based on the Bridges Syndrome criteria? No - If Yes, consider genetic counseling and testing with high risk follow up. Report Dictated on Electronically Signed By: Ann-Marie Desir MD Electronically Signed Date/Time: 07/16/2024 10:20 AM EST [facility] Radiology Study observation (narrative) [facility] Office Visiton 07-13-2024 Follow-up visit [id number] Sury Sheppard 1975 F Date Provider Department Center 07/13/2024 [id number] CASTREJON [facility] Family History Problem Relation Age of Onset Hypothyroidism Mother Hyperlipidemia Mother Atrial fibrillation Mother Sleep apnea Mother Bone cancer Father Stroke Father Hypertension Father No Known Problems Sister No Known Problems Brother No Known Problems Daughter No Known Problems Son No Known Problems Son Breast cancer Paternal Grandmother Prostate cancer Paternal Grandfather Family Status - Relation Status Age at Mother Alive Father Sister Alive Brother Alive Daughter Alive Son Alive Son Alive Paternal Grandmother Paternal Grandfather Level of Service:37991 UT OFFICE/OUTPATIENT ESTABLISHED MOD MDM 30 MIN Reason for Visit and Comments: Discuss Medications [596] - would like to discuss weight loss medications. Has acne, would like to be put back on doxycycline, seems to becoming a problem again Immunizations [58] - Would like shingles vaccine. Normal [facility] Progress Noteon 07-13-2024 Progress Note [facility] [place] [id number] [facility] [address] [facility] [address] Dept: [phone] Dept Visit Date: 07/13/24 HPI: Sury Sheppard is a 49 y.o. female who presents today for: Chief Complaint Patient presents with Discuss Medications would like to discuss weight loss medications. Has acne, would like to be put back on doxycycline, seems to becoming a problem again Immunizations Would like shingles vaccine. HPI Unintended weight gain About 30 pounds over last several months. Did have some medication changes with her psychiatrist for bipolar. On abilify now. Mental health is stable. Does not feel has had much dietary change. Is working on less sugar, breads, incorporating fruits and vegetables. Exercising several days per week. Unable to loose weight. Started Compounded semaglutide- weekly. 1-2 months. No change. The acne is worse. Did fall and sustain a sacral fracture last year. This has healed without ongoing pain. Asks about shingrix. Will check with insurance first. Wt Readings from Last 5 Encounters: 07/13/24 186 lb (84.4 kg) 01/29/24 165 lb 9.6 oz (75.1 kg) 12/25/23 166 lb (75.3 kg) 12/02/23 160 lb 8 oz (72.8 kg) 11/18/23 164 lb 6.4 oz (74.6 kg) Current Outpatient Medications Medication Sig Dispense Refill ARIPiprazole (Abilify) 2 MG tablet Take 2 mg by mouth daily. atorvastatin (Lipitor) 20 MG tablet Take 1 tablet (20 mg) by mouth daily. 90 tablet 3 estradiol (Estrace) 0.1 MG/GM vaginal cream uSE ONE GRAM VAGINALLY TWICE A WEEK hydrOXYzine pamoate (Vistaril) 25 MG capsule Take 50 mg by mouth Nightly as needed. ondansetron (Zofran) 4 MG tablet As needed pantoprazole (ProtoNix) 40 MG EC tablet TAKE 1 TABLET BY MOUTH EVERY MORNING (before BREAKFAST) (Patient taking differently: Take 40 mg by mouth 2 times daily.) 90 tablet 3 traZODone (Desyrel) 100 MG tablet TAKE ONE TABLET BY MOUTH DAILY AT 9 PM valACYclovir (Valtrex) 500 MG tablet Take 1 tablet (500 mg) by mouth daily. 90 tablet 3 venlafaxine XR (Effexor XR) 150 MG 24 hr capsule Take 300 mg by mouth daily. clindamycin-benzoyl peroxide (BenzaClin) gel Apply topically 2 times daily. 50 g 1 No current facility-administered medications for this visit. Allergies Allergen Reactions Sulfa Antibiotics Itching and Swelling Past Medical History: Diagnosis Date 2018 novel coronavirus disease (COVID-19) 2022 Abnormal Pap smear of cervix 1998 Anxiety 2009 Depression 2006 Fibrocystic breast GERD (gastroesophageal reflux disease) 1999 Headache 1991 Social History Tobacco Use Smoking status: Every Day Current packs/day: 0.00 Average packs/day: 1.5 packs/day for 34.0 years (51.1 ttl pk-yrs) Types: Cigarettes Start date: 1989 Last attempt to quit: 02/19/2019 Years since quittin.4 Passive exposure: Past Smokeless tobacco: Never Substance Use Topics Alcohol use: Not Currently Comment: rare Subjective: Review of Systems Constitutional: Positive for unexpected weight change. Negative for fatigue. Respiratory: Negative for shortness of breath. Skin: Positive for rash. Neurological: Negative for headaches. Objective: BP 102/69 (BP Location: Left arm, Patient Position: Sitting, BP Cuff Size: Large adult) Pulse 80 Temp 36.4 ?C (97.5 ?F) (Temporal) Ht 5' 4.5 (1.638 m) Wt 186 lb (84.4 kg) SpO2 99% BMI 31.43 kg/m? Physical Exam Vitals and nursing note reviewed. Constitutional: General: She is not in acute distress. Appearance: Normal appearance. She is not ill-appearing or toxic-appearing. Pulmonary: Effort: Pulmonary effort is normal. Neurological: Mental Status: She is alert. Psychiatric: Mood and Affect: Mood normal. Assessment: Diagnosis Plan 1. Unintended weight gain Hemoglobin A1c Comprehensive metabolic panel TSH Insulin Hemoglobin A1c Comprehensive metabolic panel TSH Insulin 2. Hypercholesteremia Lipid panel Lipid panel 3. Adult acne clindamycin-benzoyl peroxide (BenzaClin) gel Plan: Sury was seen today for discuss medications and immunizations. Diagnoses and all orders for this visit: Unintended weight gain (Primary) Unstable. Most likely sounds like adverse effect from medication. Checking labs today rule out metabolic abnormality. Discussed and advised continued nutrient dense food intake, regular exercise, stress management, good sleep hygiene. Medication pending blood work but doesn't look like glp or glp/gip are going to be covered under insurance. Maybe metformin? - Hemoglobin A1c; Future - Comprehensive metabolic panel; Future - TSH; Future - Insulin; Future - Hemoglobin A1c - Comprehensive metabolic panel - TSH - Insulin Hypercholesteremia Chronic, on meds. Rechecking labs with above. Not done in last year. - Lipid panel; Future - Lipid panel Adult acne Recurrent, uncontrolled. Try topical first. senior living use of oral antibiotic not (more content not included)... [place] [id number] 07-09-2024 36 Spoke with Sury. She will push clear fluids to try to get at at least 64 oz per day. She understands to have her labs drawn prior to her office visit on 07/20. Lab order pended to be signed. [facility] 36 ----- Message from Carissa Villanueva DO sent at 07/09/2024 9:29 AM EST ----- Thank you for the update. Let's have her work on increasing her clear PO fluid intake repeat the cbc prior to her appt with me on 07/20. Thank you [place] [id number] 05-31-2024 36 Tried calling pt to remind her to get her labs drawn prior to her office visit. No answer and no voice mailbox set up. Normal [facility] CBC W Auto Differential pane l (Bld)on 03-09-2024 Basophils (Bld) [#/Vol] 0.04 10*3/uL Normal <0.11 [facility] Comment on above: Order Comment: Speci men Type: BLOOD SPECIMEN Ordering Facility: [facility] Address: [address] [place] [address] [place] [id number] Performed By: #### 5 7021-8 #### [facility] CLIA [id number] [address] [place] [address] [place] Basophils/100 WBC (Bld) 0.3 % Normal [facility] Comment on above: Order Comment: Speci men Type: BLOOD SPECIMEN Ordering Facility: [facility] Address: [address] [place] [address] Performed By: #### 5 7021-8 #### [facility] CLIA [id number] [address] [place] [address] [place] Differential cell count method Nom (Bld) Auto Normal [facility] Comment on above: Order Comment: Speci men Type: BLOOD SPECIMEN Ordering Facility: [facility] Address: [address] [place] [address] Performed By: #### 5 7021-8 #### [facility] CLIA [id number] [address] [place] [address] [place] Eosinophils (Bld) [#/Vol] 0.14 10*3/uL Normal <0.46 [facility] Comment on above: Order Comment: Speci men Type: BLOOD SPECIMEN Ordering Facility: [facility] Address: [address] [place] [address] Performed By: #### 5 7021-8 #### [facility] CLIA [id number] [address] [place] [address] [place] Eosinophils/100 WBC (Bld) 1.2 % Normal [facility] Comment on above: Order Comment: Speci men Type: BLOOD SPECIMEN Ordering Facility: [facility] Address: [address] [place] [address] Performed By: #### 5 7021-8 #### [facility] CLIA [id number] [address] [place] [address] [place] Erythrocyte distribution width (RBC) [Ratio] 13.8 % Normal 11.5-15.0 [facility] Comment on above: Order Comment: Speci men Type: BLOOD SPECIMEN Ordering Facility: [facility] Address: [address] [place] [address] Performed By: #### 5 7021-8 #### [facility] CLIA [id number] [address] [place] [address] [place] Hematocrit (Bld) [Volume fraction] 45.6 % Normal 36.0-46.0 [facility] Comment on above: Order Comment: Speci men Type: BLOOD SPECIMEN Ordering Facility: [facility] Address: [address] [place] [address] Performed By: #### 5 7021-8 #### [facility] CLIA [id number] [address] [place] [address] [place] Hemoglobin (Bld) [Mass/Vol] 14.5 g/dL Normal 11.5-15.5 [facility] Comment on above: Order Comment: Speci men Type: BLOOD SPECIMEN Ordering Facility: [facility] Address: [address] [place] [address] Performed By: #### 5 7021-8 #### [facility] CLIA [id number] [address] [place] [address] [place] Immature granulocytes (Bld) [#/Vol] 0.08 10*3/uL Normal <0.10 [facility] Comment on above: Order Comment: Speci men Type: BLOOD SPECIMEN Ordering Facility: [facility] Address: [address] [place] [address] Performed By: #### 5 7021-8 #### [facility] CLIA [id number] [address] [place] [address] [place] Immature granulocytes/100 WBC (Bld) 0.7 % Normal [facility] Comment on above: Order Comment: Speci men Type: BLOOD SPECIMEN Ordering Facility: [facility] Address: [address] [place] [address] Performed By: #### 5 7021-8 #### [facility] CLIA [id number] [address] [place] [address] [place] Lymphocytes (Bld) [#/Vol] 2.38 10*3/uL Normal 1.00-4.00 [facility] Comment on above: Order Comment: Speci men Type: BLOOD SPECIMEN Ordering Facility: [facility] Address: [address] [place] [address] Performed By: #### 5 7021-8 #### [facility] CLIA [id number] [address] [place] [address] [facility] Lymphocytes/100 WBC (Bld) 19.8 % Normal [facility] Comment on above: Order Comment: Speci men Type: BLOOD SPECIMEN Ordering Facility: [facility] Address: [address] [place] [address] Performed By: #### 5 7021-8 #### [facility] CLIA [id number] [address] [place] MCH (RBC) [Entitic mass] 31.6 pg Normal 26.0-34.0 [facility] Comment on above: Order Comment: Speci men Type: BLOOD SPECIMEN Ordering Facility: [facility] Address: [address] [place] [address] Performed By: #### 5 7021-8 #### [facility] CLIA [id number] [address] [place] MCHC (RBC) [Mass/Vol] 31.8 g/dL Normal 30.5-36.0 [facility] Comment on above: Order Comment: Speci men Type: BLOOD SPECIMEN Ordering Facility: [facility] Address: [address] [place] [address] Performed By: #### 5 7021-8 #### [facility] CLIA [id number] [address] [place] [address] [place] MCV (RBC) [Entitic vol] 99.3 fL Normal 80.0-100.0 [facility] Comment on above: Order Comment: Speci men Type: BLOOD SPECIMEN Ordering Facility: [facility] Address: [address] [place] [address] Performed By: #### 5 7021-8 #### [facility] CLIA [id number] [address] [place] [address] [place] Monocytes (Bld) [#/Vol] 1.31 10*3/uL High <0.87 [facility] Comment on above: Order Comment: Speci men Type: BLOOD SPECIMEN Ordering Facility: [facility] Address: [address] [place] [address] Performed By: #### 5 7021-8 #### [facility] CLIA [id number] [address] [place] [address] [place] Monocytes/100 WBC (Bld) 10.9 % Normal [facility] Comment on above: Order Comment: Speci men Type: BLOOD SPECIMEN Ordering Facility: [facility] Address: [facility] [place] [address] Performed By: #### 5 7021-8 #### [facility] CLIA [id number] [address] [place] [address] [place] Neutrophils (Bld) [#/Vol] 8.06 10*3/uL High 1.45-7.50 [facility] Comment on above: Order Comment: Speci men Type: BLOOD SPECIMEN Ordering Facility: [facility] Address: [address] [place] [address] Performed By: #### 5 7021-8 #### [facility] CLIA [id number] [address] [place] [address] [place] Neutrophils/100 WBC (Bld) 67.1 % Normal [facility] Comment on above: Order Comment: Speci men Type: BLOOD SPECIMEN Ordering Facility: [facility] Address: [address] [place] [address] Performed By: #### 5 7021-8 #### [facility] CLIA [id number] [address] [place] [address] [place] Nucleated RBC (Bld) [#/Vol] Normal [facility] Comment on above: Order Comment: Speci men Type: BLOOD SPECIMEN Ordering Facility: [facility] Address: [facility] [place] [address] Performed By: #### 5 7021-8 #### [facility] CLIA [id number] [address] [place] [address] [place] Nucleated RBC/100 WBC (Bld) [Ratio] Normal [facility] Comment on above: Order Comment: Speci men Type: BLOOD SPECIMEN Ordering Facility: [facility] Address: [address] [place] [address] Performed By: #### 5 7021-8 #### [facility] CLIA [id number] [address] [place] [address] [place] Platelet mean volume (Bld) [Entitic vol] 9.6 fL Normal 9.0-12.7 [facility] Comment on above: Order Comment: Speci men Type: BLOOD SPECIMEN Ordering Facility: [facility] Address: [address] [place] [address] Performed By: #### 5 7021-8 #### [facility] CLIA [id number] [address] [place] [address] [place] Platelets (Bld) [#/Vol] 288 10*3/uL Normal 150-400 [facility] Comment on above: Order Comment: Speci men Type: BLOOD SPECIMEN Ordering Facility: [facility] Address: [address] [place] [address] Performed By: #### 5 7021-8 #### [facility] CLIA [id number] [address] [place] [address] [place] RBC (Bld) [#/Vol] 4.59 10*6/uL Normal 3.90-5.20 [facility] Comment on above: Order Comment: Speci men Type: BLOOD SPECIMEN Ordering Facility: [facility] Address: [address] [place] [address] Performed By: #### 5 7021-8 #### [facility] CLIA [id number] [address] [place] [address] [place] WBC (Bld) [#/Vol] 12.01 10*3/uL High 3.70-11.00 [facility] Comment on above: Order Comment: Speci men Type: BLOOD SPECIMEN Ordering Facility: [facility] Address: [facility] [place] [address] Performed By: #### 5 7021-8 #### [facility] CLIA [id number] [address] [place] [address] [place] CT ABD/PEL W IVCONon 024 CT ABD/PEL W IVCON * * *Final Report* * * DATE OF EXAM: Mar 09 2024 11:18PM [facility] 0530 - CT ABD/PEL W IVCON / PROCEDURE REASON: Nausea/vomiting * * * * Physician Interpretation * * * * EXAMINATION: CT ABD/PEL W IVCON INDICATION: Nausea/vomiting Nausea/vomiting, RLQ abdominal pain (Age >= 14y) COMPARISON: 11/01/2020, CT pelvis 01/04/2024 TECHNIQUE: CT of the abdomen and pelvis was performed using standard technique, scanning from just above the dome of the diaphragm to the pubic symphysis. Contrast: IV: 100 ml of Omnipaque 350 : ml of CT Radiation dose: Integrated Dose-length product (DLP) for this visit = 1060.28 mGy*cm. CT Dose Reduction Employed: Automated exposure control(AEC) and iterative recon FINDINGS: Lower Thorax: No consolidation. Liver: Hepatic steatosis. Subtle nodular contour, which may reflect developing chronic liver disease. No mass. Gallbladder/Biliary: Cholecystectomy. No bile duct dilation. Spleen: Unremarkable. Pancreas: Unremarkable. Adrenals: No mass. Kidneys: No suspicious mass. No hydronephrosis. Vasculature: Atherosclerotic disease. No abdominal aortic aneurysm. GI Tract: No wall thickening or obstruction. Normal appendix. Pelvis: Hysterectomy. 2.5 cm right adnexal cyst. Mild diffuse bladder wall thickening versus underdistention, similar to prior. Focus of gas in the bladder, presumably iatrogenic. Mesentery/Peritoneum/Re troperitoneum: Trace pelvic free fluid. Lymph Nodes: Prominent asad hepatis nodes, similar to prior and likely reactive. Bones and soft tissues: Degenerative changes. Large left gluteal fluid collection, 12 x 4 cm (prior 11 x 4 cm). Reservations Sales Agent (topogram) images: No additional findings. IMPRESSION: 1. Large left gluteal fluid collection, presumably resolving hematoma/seroma. 2. No new or acute abnormality. Clerk Of Superior Court: PSCRigoberto Transcribe Date/Time: Mar 10 2024 12:52A Dictated by : MEGAN LARKIN MD This examination was interpreted and the report reviewed and electronically signed by: MEGAN LARKIN MD on Mar 10 2024 1:07AM EST [id number] Normal [facility] Comprehensive metabolic 2000 panelon 03-09-2024 Albumin [Mass/Vol] 3.8 g/dL Low 3.9-4.9 [facility] Comment on above: Order Comment: Speci men Type: BLOOD SPECIMENOrdering Facility: [facility] Address: [address] [place] [address] Performed By: #### 2 4323-8, 3040-3 ####[facility] [place] LABCLIA [id number] [place] [address] [place] ALP [Catalytic activity/Vol] 75 U/L Normal 34-123 [facility] Comment on above: Order Comment: Speci men Type: BLOOD SPECIMENOrdering Facility: [facility] Address: [address] [place] [address] Performed By: #### 2 4323-8, 3040-3 ####[facility] LABCLIA [id number] [place] [address] [place] ALT With P-5'-P [Catalytic activity/Vol] 26 U/L Normal 7-38 [facility] Comment on above: Order Comment: Speci men Type: BLOOD SPECIMENOrdering Facility: [facility] Address: [address] [place] [address] Performed By: #### 2 4323-8, 3040-3 ####[facility] [place] LABCLIA [id number] [place] [address] [place] Anion gap [Moles/Vol] 9 mmol/L Normal 8-15 [facility] Comment on above: Order Comment: Speci men Type: BLOOD SPECIMENOrdering Facility: [facility] Address: [address] [place] [address] Performed By: #### 2 4323-8, 3040-3 ####[facility] [place] LABCLIA [id number] [place] [address] [place] AST With P-5'-P [Catalytic activity/Vol] 22 U/L Normal 13-35 [facility] Comment on above: Order Comment: Speci men Type: BLOOD SPECIMENOrdering Facility: [facility] Address: [address] [place] [address] Performed By: #### 2 4323-8, 3040-3 ####[facility] [place] LABCLIA [id number] [place] [address] [place] Bilirubin [Mass/Vol] 0.2 mg/dL Normal 0.2-1.3 [facility] Comment on above: Order Comment: Speci men Type: BLOOD SPECIMENOrdering Facility: [facility] Address: [address] [place] [address] Performed By: #### 2 4323-8, 3039-3 ####[facility] [place] LABCLIA [id number] [place] [address] [place] Calcium [Mass/Vol] 8.8 mg/dL Normal 8.5-10.2 [facility] Comment on above: Order Comment: Speci men Type: BLOOD SPECIMENOrdering Facility: [facility] Address: [address] [place] [address] Performed By: #### 2 4323-8, 0-3 ####[facility] [place] LABCLIA [id number] [place] [address] [place] Chloride [Moles/Vol] 103 mmol/L Normal 98-107 [facility] Comment on above: Order Comment: Speci men Type: BLOOD SPECIMENOrdering Facility: [facility] Address: [address] [place] [address] Performed By: #### 2 4323-8, 3040-3 ####[facility] [place] LABCLIA [id number] [place] [address] [place] CO2 [Moles/Vol] 25 mmol/L Normal 22-30 [facility] Comment on above: Order Comment: Speci men Type: BLOOD SPECIMENOrdering Facility: [facility] Address: [address] [place] [address] Performed By: #### 2 4323-8, 3040-3 ####[facility] [employer] LABCLIA [id number] [place] [address] [place] Creatinine [Mass/Vol] 0.60 mg/dL Normal 0.58-0.96 [facility] Comment on above: Order Comment: Speci men Type: BLOOD SPECIMENOrdering Facility: [facility] Address: [address] [place] [address] Performed By: #### 2 4323-8, 3039-3 ####[facility] [employer] LABCLIA [id number] [place] [address] [place] Creatinine and Glomerular filtration rate.predicted panel (S/P/Bld) 110 mL/min/1.73m??? Normal >=60 [facility] Comment on above: Order Comment: Speci men Type: BLOOD SPECIMENOrdering Facility: [facility] Address: [address] [place] [address] Result Comment: Celestina mated Glomerular Filtration Rate (eGFR) is calculated using the 2020 CKD-EPI creatinine equation. This equation utilizes serum creatinine, sex, and age as parameters. The creatinine assay has traceable calibration to isotope dilution-mass spectrometry. Refer to KDIGO guidelines for clinical interpretation. In patients with unstable renal function, e.g. those with acute kidney injury, the eGFR may not accurately reflect actual GFR. Performed By: #### 2 4323-8, 0-3 ####[facility] [employer] LABCLIA [id number] [place] [address] [place] Glucose [Mass/Vol] 109 mg/dL High 74-99 [facility] Comment on above: Order Comment: Speci dennis Type: BLOOD SPECIMENOrdering Facility: [facility] Address: [address] [place] [address] Result Comment: The [place] Diabetes Association (ADA) provides guidance for cutoff values for fasting glucose and random glucose. The ADA defines fasting as no caloric intake for at least 8 hours. Fasting plasma glucose results between 100 to 125 mg/dL indicate increased risk for diabetes (prediabetes). Fasting plasma glucose results greater than or equal to 126 mg/dL meet the criteria for diagnosis of diabetes. In the absence of unequivocal hyperglycemia, results should be confirmed by repeat testing. In a patient with classic symptoms of hyperglycemia or hyperglycemic crisis, random plasma glucose results greater than or equal to 200 mg/dL meet the criteria for diagnosis of diabetes. Reference: Standards of Medical Care in Diabetes 2016, [place] [employer] Association. Diabetes Care. 2016.39(Suppl 1). Performed By: #### 2 4323-8, 0-3 ####[facility] [facility] [employer] LABCLIA [id number] [place] [address] [place] Potassium [Moles/Vol] 3.8 mmol/L Normal 3.7-5.1 [facility] Comment on above: Order Comment: Speci men Type: BLOOD SPECIMENOrdering Facility: [facility] Address: [address] [place] [address] Performed By: #### 2 4323-8, 3039-3 ####[facility] [employer] LABCLIA [id number] [place] [address] [place] Protein [Mass/Vol] 6.8 g/dL Normal 6.3-8.0 [facility] Comment on above: Order Comment: [place] men Type: BLOOD SPECIMENOrdering Facility: [facility] Address: [address] [place] [address] Performed By: #### 2 4323-8, 0-3 ####[facility] [employer] LABCLIA [id number] [place] [address] [place] Sodium [Moles/Vol] 137 mmol/L Normal 136-144 [facility] Comment on above: Order Comment: Speci men Type: BLOOD SPECIMENOrdering Facility: [facility] Address: [address] [place] [address] Performed By: #### 2 4323-8, 0-3 ####[facility] [place] LABCLIA [id number] [place] [address] [facility] Urea nitrogen [Mass/Vol] 10 mg/dL Normal 7-21 [facility] Comment on above: Order Comment: Speci men Type: BLOOD SPECIMENOrdering Facility: [facility] Address: [address] [place] [address] Performed By: #### 2 4323-8, 3040-3 ####[facility] [place] LABCLIA [id number] [place] [address] [facility] ED NOTEon 03-09-2024 ED NOTE HNO ID: [id number] Author: JOYCE VIRK RN Service: Emergency Medicine Author Type: Registered Nurse Type: ED Notes Filed: 03/09/2024 22:37 Note Text: Reports improved pain, patient appears less agitated. No longer writhing in bed or yelling out. Comfort measures, reassurance provided. Updated POC: pending CT. Normal [facility] ED NOTE HNO ID: [id number] Author: JOYCE VIRK, LAURA Service: Emergency Medicine Author Type: Registered Nurse Type: ED Notes Filed: 03/10/2024 01:38 Note Text: Patient reports RLQ abd pain sudden onset 1 hour prior to arrival. Patient is agitated, sarcastic and not forthcoming with answers to questions. Answers screening questions with f* off, you don't need to ask me those stupid questions. Rates pain 20/10. Denies vomiting, does c/o nausea. Denies urinary c/o. Difficult to assess d/t agitation and restlessness, lying on right side, position Normal [facility] ED PROV NOTEon 03-09-2024 ED PROV NOTE HNO ID: [id number] Author: ANA FUCHS MD Service: Emergency Medicine Author Type: Physician Type: ED Provider Notes Filed: 03/10/2024 03:29 Note Text: ED Provider Note Patient Name: Sury Sheppard : 1975 SERVICE DATE: 03/09/24 History Patient presents with: Abdominal Pain Patient with past surgical history of cholecystectomy, hysterectomy, as well as GERD, peptic ulcer disease, hiatal hernia, presents to the emergency department concerns of right lower quadrant abdominal pain after eating ice cream earlier today. Patient admits to nausea without emesis. No fevers. No urinary complaints, no history of kidney stones. No diarrhea. Last bowel movement was last evening and was normal. Patient took nothing for her pain today Abdominal Pain Pain location: RLQ Pain quality: stabbing and throbbing Pain radiates to: Does not radiate Pain severity: Moderate Onset quality: Sudden Timing: Intermittent Progression: Waxing and waning Chronicity: New Context: not recent illness and not suspicious food intake Relieved by: Nothing Worsened by: Nothing Ineffective treatments: None tried Associated symptoms: nausea Associated symptoms: no diarrhea, no fever, no hematuria, no sore throat, no vaginal bleeding, no vaginal discharge and no vomiting Risk factors: has not had multiple surgeries, no NSAID use, not and no recent hospitalization PAST MEDICAL HISTORY No date: Arthritis No date: Bipolar 1 disorder (HCC) No date: Degenerative joint disease No date: Depression No date: Fatty liver No date: Gastroparesis No date: Gestational diabetes No date: High cholesterol No date: Prediabetes PAST SURGICAL HISTORY No date: CHOLECYSTECTOMY HX 2017: COLONOSCOPY Comment: polyps; benign No date: EAR TUBES HX Comment: childhood 2016: HYSTERECTOMY HX Comment: hx of abnormal cells, heavy periods No date: LIPOSUCTION, STOMACH 01/24/2015: REMOVAL GALLBLADDER Comment: and Liver biopsy, No date: TUBAL LIGATION HX FAMILY HISTORY Problem Relation Age of Onset Breast Cancer Paternal Grandmother Thyroid Mother afib Lipids Mother Hypertension Mother Hypertension Father Stroke Father Colon Cancer No Family History Social History Tobacco Use Smoking status: Every Day Current packs/day: 1.00 Average packs/day: 1 pack/day for 35.4 years (35.4 ttl pk-yrs) Types: Cigarettes Start date: 10/15/1988 Smokeless tobacco: Never Vaping Use Vaping status: Never Used Substance and Sexual Activity Alcohol use: Yes Comment: social Drug use: Yes Types: Marijuana Sexual activity: Not on file ALLERGIES Allergen Reactions Sulfa (Sulfonamide * Swelling Itching Nsaids (Non-Steroid* Other: See Comments GI H/O ulcers- GI sensitivity to NSAIDS Review of Systems Constitutional: Negative for fever. HENT: Negative for sore throat. Gastrointestinal: Positive for abdominal pain and nausea. Negative for diarrhea and vomiting. Genitourinary: Negative for hematuria, vaginal bleeding and vaginal discharge. All other systems reviewed and are negative. Physical Exam Vitals [03/09/24 2139] BP Pulse Temp Temp src Resp SpO2 Weight Height 116/80 68 36.2 ?C (97.2 ?F) Temporal 22 98 % 85.3 kg (188 lb) -- Physical Exam Vitals and nursing note reviewed. Constitutional: General: She is not in acute distress. Appearance: Normal appearance. She is not ill-appearing or toxic-appearing. Comments: Is very anxious, restless, she is writhing in pain, she is crying out, her disposition, appears worse than her pain, and her abdominal exam is not consistent, patient appeared distracted, and more calm when I was getting a history from her HENT: Head: Normocephalic and atraumatic. Eyes: General: Right eye: No discharge. Left eye: No discharge. Cardiovascular: Rate and Rhythm: Normal rate and regular rhythm. Pulmonary: Effort: No respiratory distress. Abdominal: General: Bowel sounds are normal. Palpations: Abdomen is soft. Tenderness: There is abdominal tenderness in the right lower quadrant. There is no right CVA tenderness, left CVA tenderness or guarding. Negative signs include Sorenson's sign. Hernia: No hernia is present. There is no hernia in the umbilical area. Comments: Soft obese abdomen, with mild right-sided abdominal tenderness, however there is no rebound no guarding no peritoneal findings, there is also right-sided CVA tenderness Skin: General: Skin is warm and dry. Neurological: General: No focal deficit present. Mental Status: She is alert and oriented to person, place, and time. Mental status is at baseline. Psychiatric: Mood and Affect: Mood normal. Behavior: Behavior normal. Diagnostic Testing ED Labs Ordered and Reviewed - No data to display Procedures ED Course / Clinical Impression Clinical Impressions as of 03/10/24 0326 Right lower quadrant abdomi (more content not included)... Normal [facility] Lipase SerPl-cCncon 03-09-20 24 Lipase [Catalytic activity/Vol] 71 U/L High 16-61 [facility] Comment on above: Order Comment: Speci men Type: BLOOD SPECIMENOrdering Facility: [facility] Address: [address] [place], [place] [address] Performed By: #### 2 4323-8, 3040-3 ####[facility] [place] LABCLIA [id number] [place] [address] [facility] [place] Urinalysis complete panel (U )on 03-09-2024 Bilirubin Ql (U) Negative Normal Negative [facility] Comment on above: Order Comment: Speci men Type: URINE SPECIMEN [facility] Address: [address] [place] [address] Performed By: #### 2 4356-8 #### [facility] [place] [facility] CLIA [id number] [address] [place] [address] [facility] Clarity (Unsp spec) Clear Normal Clear [facility] Comment on above: Order Comment: Speci men Type: URINE SPECIMEN [facility] Address: [address] [place] [address] Performed By: #### 2 4356-8 #### [facility] [place] [facility] CLIA [id number] [address] [place] [address] [facility] Color (U) Yellow Normal Yellow [facility] Comment on above: Order Comment: Speci men Type: URINE SPECIMEN [facility] Address: [address] [place] [address] Performed By: #### 2 4356-8 #### [facility] [place] [facility] CLIA [id number] [address] [place] [address] [facility] Epithelial cells LM.HPF (Urine sed) [#/Area] Few Normal [facility] Comment on above: Order Comment: Speci men Type: URINE SPECIMEN [facility] Address: [address] [place] [address] Performed By: #### 2 4356-8 #### [facility] [place] [facility] CLIA [id number] [address] [place] [address] [facility] Glucose Test strip (U) [Mass/Vol] Negative Normal Negative [facility] Comment on above: Order Comment: Speci men Type: URINE SPECIMEN [facility] Address: [address] [place] [address] Performed By: #### 2 4356-8 #### [facility] [place] [facility] CLIA [id number] [address] [place] [address] [facility] Hemoglobin Ql (U) Negative Normal Negative [facility] Comment on above: Order Comment: Speci men Type: URINE SPECIMEN [facility] Address: [address] [place] [address] Performed By: #### 2 4356-8 #### [facility] [place] [facility] CLIA [id number] [address] [place] [address] [place] Ketones Ql (U) Negative Normal Negative [facility] Comment on above: Order Comment: Speci men Type: URINE SPECIMEN [facility] Address: [address] [place] [address] Performed By: #### 2 4356-8 #### [facility] [place] [facility] CLIA [id number] [address] [place] [address] [place] Leukocyte esterase Test strip Ql (U) Negative Normal Negative [facility] Comment on above: Order Comment: Speci men Type: URINE SPECIMEN [facility] Address: [address] [place] [address] Performed By: #### 2 4356-8 #### [facility] [place] [facility] CLIA [id number] [address] [place] [address] [place] Nitrite Ql (U) Negative Normal Negative [facility] Comment on above: Order Comment: Speci men Type: URINE SPECIMEN [facility] Address: [address] [place] [address] Performed By: #### 2 4356-8 #### [facility] [place] [facility] CLIA [id number] [address] [place] [address] [place] pH (U) 7.0 [pH] Normal 5.0-8.0 [facility] Comment on above: Order Comment: Speci men Type: URINE SPECIMEN [facility] Address: [address] [place] [address] Performed By: #### 2 4356-8 #### [facility] [place] [facility] CLIA [id number] [address] [place] [facility] Protein (U) [Mass/Vol] Negative Normal Negative [facility] Comment on above: Order Comment: Speci men Type: URINE SPECIMEN [facility] Address: [address] [place] [address] Performed By: #### 2 4356-8 #### [facility] [place] [facility] CLIA [id number] [address] [place] [facility] RBC LM.HPF (Urine sed) [#/Area] 0-3 /HPF Normal 0-3 /HPF [facility] Comment on above: Order Comment: Speci men Type: URINE SPECIMEN [facility] Address: [address] [place] [address] Performed By: #### 2 4356-8 #### [facility] [place] [facility] CLIA [id number] [address] [place] [address] Specific gravity (U) [Rel density] 1.020 Normal 1.005-1.030 [facility] Comment on above: Order Comment: Speci men Type: URINE SPECIMEN [facility] Address: [address] [place] [address] Performed By: #### 2 4356-8 #### [facility] [place] [facility] CLIA [id number] [address] Urobilinogen Ql (U) 0.2 EU/dL Normal 0.2-1.0 EU/dL [facility] Comment on above: Order Comment: Speci men Type: URINE SPECIMEN [facility] Address: [address] [place] [address] Performed By: #### 2 4356-8 #### [facility] [place] [facility] CLIA [id number] [address] [place] WBC LM.HPF (Urine sed) [#/Area] 0-5 /HPF Normal 0-5 /HPF [facility] Comment on above: Order Comment: Speci men Type: URINE SPECIMEN [facility] Address: [address] [place] [id number] Performed By: #### 2 4356-8 #### [facility] CLIA [id number] [address] [place] [address] [place] CT CHEST WO IV CONTRASTon CT CHEST WO IV CONTRAST Patient Name: SURY SHEPPARD : 1975 [id number] Exam Date/Time: 10/20/2023 13:09 Procedure: CT CHEST WO IV CONTRAST Ordering Provider: VALERIO ANDREA Reason For Exam: unintentional weight loss in patient with significant smoking history --------ADDENDUM #1 -------- ADDENDUM The presence or absence of coronary artery calcifications could not be definitely determined on this exam. Report Dictated on Electronically Signed By: Emory Navarrete MD Electronically Signed Date/Time: 02/20/2024 4:16 PM EDT --------ORIGINAL REPORT -------- CHEST CT WITHOUT IV CONTRAST History: Unintentional weight loss, smoker Comparison CT: None available Technique: Multislice volume acquisition axial CT sections from the chest apex to the diaphragm without IV contrast enhancement are submitted . Multiplanar sagittal and coronal reconstructed images also obtained. Dose reduction employed with automated exposure control. Findings: The lungs are clear without infiltrate or discrete nodules. The heart is normal in size. The exam is limited without contrast enhancement. There is no sizable hilar, mediastinal, or axillary lymphadenopathy and no pleural or pericardial effusions. There is spondylosis and multilevel vertebral spurs. Upper abdominal organs and details are not adequately visualized for evaluation but there is small small calcific density projected in the partially visualized asad hepatis region of uncertain nature. IMPRESSION: No discrete lung nodules or thoracic lymphadenopathy. (Lung-RADS Category 1 - Negative - Recommend continued chest CT screening in 12 months). Nevertheless, history of unintentional weight loss requires additional evaluation. LUNG-RADS VERSION 2022 ASSESSMENT CATEGORIES - FOR SCREENING CT CHEST ONLY. RELEASE DATE: APR 2022 Category 0 - Incomplete Part of lungs cannot be evaluated Findings suggestive of an inflammatory or infectious process Category 1 - Negative - Continue annual screening No nodules Nodules with benign characteristics (complete, central, popcorn Ca++) or fat Category 2 - Benign appearance or behavior - Continue annual screening Perifissural nodule(s) < 10 mm at baseline or new with oval, lentiform or triangular shape Solid nodule(s): < 6 mm at baseline or new < 4 mm Part solid nodule(s): < 6 mm mean diameter at baseline Nonsolid nodule(s) (GGN): < 30 mm OR > 30 mm and unchanged or slowly growing Airway nodule in subsegmental branch Category 3 or 4 nodules unchanged for > 6 months Category 3 - Probably benign finding(s) - 6 month follow up Solid nodule(s): 6 to < 8 mm at baseline OR new 4 mm to < 6 mm Part solid nodule(s) 6 mm total diameter with solid component < 6 mm OR new < 6 mm total diameter Nonsolid nodule(s) (GGN) > 30 mm on baseline or new Atypical cyst Category 4a nodule unchanged for 3 months Category 4A - Suspicious - 3 month follow up or PET/CT when >8mm Solid nodule(s): 8 to < 15 mm at baseline OR growing < 8 mm OR new 6 to <8 mm Part solid nodule(s): > 6 mm with solid component > 6 mm to < 8 mm OR with a new or growing < 4 mm solid component Airway nodule - segmental, more proximal than baseline or new Atypical cyst with thick wall or multilocular or changed Category 4B - Suspicious - chest CT with or without contrast, PET/CT and/or tissue sampling depending on the *probability of malignancy and comorbidities. PET/CT may be used when there is a > 8 mm solid component. For new large nodules that develop on an annual repeat screening CT, a [address] may be recommended. Airway nodule growing Solid nodule(s): > 15 mm OR new or growing, and > 8 mm Part solid nodule(s) with: a solid component > 8 mm OR a new or growing > 4mm solid component Atypical cyst with growth Category 4X - Suspicious - (same work up as Category 4B) Category 3 or 4 nodules with additional features or imaging findings that increases the suspicion of malignancy - spiculation, rapid growth or associated lymph node enlargement Modifier to add to Category 0-4: Category S - Clinically or potentially significant non lung cancer related findings Report Dictated on Electronically Signed By: Emory Navarrete MD Electronically Signed Date/Time: 10/22/2023 10:39 AM EDT Patient Name: SURY SHEPPARD : 1975 [id number] Exam Date/Time: 10/20/2023 13:09 Procedure: CT CHEST WO IV CONTRAST Ordering Provider: VALERIO ANDREA Reason For Exam: unintentional weight loss in patient with significant smoking history CHEST CT WITHOUT IV CONTRAST History: Unintentional weight loss, smoker Comparison CT: None available Technique: Multislice volume acquisition axial CT sections from the chest apex to the diaphragm without IV contrast enhancement are submitted . Multiplanar sagittal and coronal reconstructed images also obtained (more content not included)... Normal [facility] 36on 02-04-2024 36 @JESSICA@ [facility] MEDICATION ADHERENCE Sury Sheppard - 1975 PCP: Bernard Dyson MD Per insurance med adherence report, patient is due for refills on ATORVASTATIN. Last prescription date 12/25/2023 Quantity: 90 Refills: 3 Per chart review, patient has refills. [id number] - [place], [place] - [address] [place] [place] [address] Cholesterol: Lab Results Component Value Date LDL 106 (A) 11/14/2021 HDL 45 11/14/2021 CHOLESTEROLT 164 05/01/2023 TRIG 191 (A) 11/14/2021 After chart review, patient should still be on this medication and needs to pick it up at the pharmacy. Will outreach to patient via [employer] Last appointment 01/29/2024 , Next appointment is Visit date not found Normal [facility] 36on 02-02-2024 36 SURY SHEPPARD (Ke y: [id number]) Lidocaine patches have been denied Lm asking pt if she picked them up already Normal [facility] Office Visiton 01-29-2024 Follow-up visit [id number] Sury Sheppard 1975 F Date Provider Department Center 01/29/2024 [id number] DALE [facility] Family History Problem Relation Age of Onset Hypothyroidism Mother Hyperlipidemia Mother Atrial fibrillation Mother Sleep apnea Mother Bone cancer Father Stroke Father Hypertension Father No Known Problems Sister No Known Problems Brother No Known Problems Daughter No Known Problems Son No Known Problems Son Breast cancer Paternal Grandmother Prostate cancer Paternal Grandfather Family Status - Relation Status Age at Mother Alive Father Sister Alive Brother Alive Daughter Alive Son Alive Son Alive Paternal Grandmother Paternal Grandfather Level of Service:71602 UT OFFICE/OUTPATIENT ESTABLISHED LOW MDM 20 MIN Reason for Visit and Comments: Tailbone Pain [953387] - Since fall on 01/24/24. Patient states she is out of the oxycodone she got in the er. ER Follow-up [831] - Seen in ER 01/25/2024 - fractured sacrum Neck Pain [[id number]] - Having neck pain, stiff, painful, hard to turn. She wonders if maybe whip lash Normal [facility] Progress Noteon 01-29-2024 Progress Note - Acute/unstable. - Schedule appt with ortho. - Short term Rx for oxy-- no longer using medical marijuana. - OARRs Reviewed., Possible medication effects, risk of tolerance/dependence & alternative treatments discussed. , No signs of potential drug abuse or diversion identified., and Assessed functional status. Normal [facility] Progress Note [facility] [address] [place] [address] Dept: [phone] Dept Reason for Visit: Tailbone Pain (Since fall on 01/24/24. Patient states she is out of the oxycodone she got in the er.), ER Follow-up (Seen in ER 01/25/2024 - fractured sacrum), and Neck Pain (Having neck pain, stiff, painful, hard to turn. She wonders if maybe whip lash) Assessment and Plan 1. Closed type IV fracture of sacrum with routine healing Assessment & Plan: - Acute/unstable. - Schedule appt with ortho. - Short term Rx for oxy-- no longer using medical marijuana. - OARRs Reviewed., Possible medication effects, risk of tolerance/dependence & alternative treatments discussed. , No signs of potential drug abuse or diversion identified., and Assessed functional status. Orders: - oxyCODONE (Roxicodone) 5 MG immediate release tablet; Take 1 tablet (5 mg) by mouth every 6 hours as needed for severe pain (7-10) for up to 5 days., Starting Olga 01/29/2024, Until Fri02/03/2024 at 2359, Normal - lidocaine (Lidoderm) 5 % patch; Apply 1 patch topically daily. Apply to painful area 12 hours per day, remove for 12 hours., Starting Olga 01/29/2024, Until Fri01/28/2025, Normal Follow up if symptoms worsen or fail to improve. Subjective HPI Pt presents today for ED follow up. Was seen on 01/24 after a fall. Diagnosed with a fractured sacrum-- left S4. She was given pain medication and told to follow up with ortho. She has not scheduled this appt. Ran out of pain medication. Pt states she is having severe pain when sitting. Has a large hematoma on her left buttock-- has been soaking in a warm tub to help with this. Pt requesting a refill of pain medication. No additional concerns today. Review of Systems Musculoskeletal: Positive for arthralgias, back pain and gait problem. Skin: Positive for color change. Allergies Allergen Reactions Sulfa Antibiotics Itching and Swelling Outpatient Medications Prior to Visit Medication Sig Dispense Refill atorvastatin (Lipitor) 20 MG tablet Take 1 tablet (20 mg) by mouth daily. 90 tablet 3 estradiol (Estrace) 0.1 MG/GM vaginal cream uSE ONE GRAM VAGINALLY TWICE A WEEK nicotine (Nicoderm, Step 1) 21 MG/24HR patch Place 1 patch on the skin Every 24 hours. 30 patch 1 ondansetron (Zofran) 4 MG tablet As needed pantoprazole (ProtoNix) 40 MG EC tablet TAKE 1 TABLET BY MOUTH EVERY MORNING (before BREAKFAST) (Patient taking differently: Take 40 mg by mouth in the morning and 40 mg in the evening.) 90 tablet 3 QUEtiapine (SEROquel) 25 MG tablet Take 1 tablet by mouth Nightly. topiramate (Topamax) 200 MG tablet Take 200 mg by mouth in the morning and 200 mg before bedtime. traZODone (Desyrel) 100 MG tablet TAKE ONE TABLET BY MOUTH DAILY AT 9 PM valACYclovir (Valtrex) 500 MG tablet Take 1 tablet (500 mg) by mouth daily. 90 tablet 3 venlafaxine XR (Effexor XR) 150 MG 24 hr capsule Take 300 mg by mouth daily. albuterol 108 (90 Base) MCG/ACT inhaler Inhale 2 puffs every 4 hours as needed for wheezing. (Patient not taking: Reported on 01/29/2024) 18 g 1 No facility-administered medications prior to visit. Past Medical History: Diagnosis Date 2018 novel coronavirus disease (COVID-19) 2022 Abnormal Pap smear of cervix 1998 Anxiety 2009 Depression 2006 Fibrocystic breast GERD (gastroesophageal reflux disease) 1999 Headache 1991 Social History Tobacco Use Smoking status: Every Day Current packs/day: 0.00 Average packs/day: 1.5 packs/day for 34.0 years (51.1 ttl pk-yrs) Types: Cigarettes Start date: 1989 Last attempt to quit: 02/19/2019 Years since quittin.9 Passive exposure: Past Smokeless tobacco: Never Substance Use Topics Alcohol use: Not Currently Comment: rare Past Surgical History: Procedure Laterality Date BARIATRIC SURGERY 2004 BREAST BIOPSY Right 03/15/2019 CHOLECYSTECTOMY 2015 COSMETIC SURGERY 2004 FOOT SURGERY Left HYSTERECTOMY 2014 INCONTINENCE SURGERY 07/2021 SHOULDER ARTHROSCOPY 2015 TUBAL LIGATION 2009 Family History Problem Relation Name Age of Onset Hypothyroidism Mother Oksana Hyperlipidemia Mother Oksana Atrial fibrillation Mother Oksana Sleep apnea Mother Oksana Bone cancer Father Sarthak Stroke Father Sarthak Hypertension Father Sarthak No Known Problems Sister No Known Problems Brother No Known Problems Daughter No Known Problems Son No Known Problems Son Breast cancer Paternal Grandmother Dominique gena Prostate cancer Paternal Grandfather Objective BP 111/76 (BP Location: Right arm, Patient Position: Sitting, BP Cuff Size: Adult) Pulse 77 Temp 36.8 ?C (98.2 ?F) (Oral) Ht 5' 4.5 (1.638 m) Wt 165 lb 9.6 oz (75.1 kg) SpO2 99% BMI 27.99 kg/m? Physical Exam Vitals and nursing note reviewed. Constitutional: Appearance: Normal appearance. Cardiovascular: Rate and Rhythm: Normal rate and regular rhythm. Heart s (more content not included)... Normal [facility] 36on 01-28-2024 36 Unable to fill until seen. [facility] 36on 01-27-2024 36 S: Patient spoke wit h CAC nurse regarding pain and need for medication refill B: Onset of symptoms/concern 01/24/24 A: Pt reports fell down 3 stairs went to [facility] ED on 01/25/24 Dx with a S4 nondisplaced fracture, and hematoma (left buttock). Patient states that the swelling is the same, maybe a little better. Patient reports she is unable to sit and has been laying on her side. C/o 02/06 pain. 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 Pt reports she did buy a coccyx cushion for sitting. States it helps a little. Took Tylenol and used ice and that is not helping and not doing Ibuprofen due to peptic ulcer disease. Patient is requesting Oxycodone IR [facility]mg [facility]. States that the ED also did apply lidocaine patch on in ED but they did not send a script for that. And the script for the pain medication was for 3 days. Allergies and Pharmacy verified. R: CAC nurse unable to schedule appt for tomorrow due to patient having nursing school unable to schedule with PCP. Scheduled appt for 01/29/24 with Osiris Dale PA-C at 10:40am for follow-up. Please see patient's request for pain medication did inform patient unsure MD would fill prior to being seen in the office. Patient understands home care advice. Patient instructed to call back with new or worsening symptoms. Reason for Disposition [1] After 3 days (72 hours) AND [2] pain not improving Protocols used: Tailbone [id number] [facility] CONSULTon 01-25-2024 CONSULT HNO ID: [id number] Author: LAUREEN SILVA MD Service: Orthopaedic Surgery Author Type: Physician Type: Consults Filed: 01/25/2024 17:11 Note Text: I participated in the yao components. I agree with the resident's findings and plan as documented and have discussed the case and management of the patient's care with the resident. Signature: aLureen Silva MD Service Date: 01/25/2024 Service Time: 5:10 PM ORTHOPAEDIC SURGERY CONSULT Pt: SURY SHEPPARD Date of Consultation: 01/25/2024 Physician Consulted: Dr. Silva Reason for Consultation: Nondisplaced S4 fracture HPI: 48 year old female presented to [facility] following a fall on the stairs. Patient states she slipped on the stairs and landed on her pelvis. She was able to ambulate with some pain and present to the ED. The CT scan obtained in the ED demonstrates a possible nondisplaced S4 fracture for which orthopaedics was consulted. Patient endorses pain over her tailbone which is worse with ambulation. She denies any pain in her legs or any numbness or tingling. Patient denies loss of consciousness. Denies use of blood thinners. Patient able to ambulate without assistance at home. PAST MEDICAL HISTORY Diagnosis Date Arthritis Bipolar 1 disorder (HCC) Degenerative joint disease Depression Fatty liver Gastroparesis Gestational diabetes High cholesterol Prediabetes PAST SURGICAL HISTORY Procedure Laterality Date CHOLECYSTECTOMY HX COLONOSCOPY 2016 polyps; benign EAR TUBES HX childhood HYSTERECTOMY HX 2015 hx of abnormal cells, heavy periods LIPOSUCTION, STOMACH REMOVAL GALLBLADDER 01/24/2015 and Liver biopsy, TUBAL LIGATION HX Allergies: Sulfa (Sulfonamide Antibiotics) and Nsaids (Non-Steroidal Anti-Inflammatory Drug) Current Facility-Administered Medications Medication Dose Route Frequency lidocaine patch - REMOVE OTHER ONCE And lidocaine - VERIFY PATCH OTHER ONCE Current Outpatient Medications Medication Sig Hornick [id number] 500 mg-500 mcg -1 mg-12.5 mg cap Take 1 capsule by mouth daily with breakfast. magnesium glycinate 100 mg magnesium capsule Take 3 capsules by mouth daily after dinner. Ok to switch to tablets if less expensive methylPREDNISolone (MEDROL, REBECCA,) 4 mg Dose-Pack As Instructed per package venlafaxine ER (EFFEXOR XR) 150 mg 24 hr capsule venlafaxine ER (EFFEXOR XR) 75 mg 24 hr capsule QUEtiapine (SEROQUEL) 25 mg tablet TAKE 1 TABLET BY MOUTH DAILY NEEDED FOR AGITATION hydrOXYzine HCl (ATARAX) 25 mg tablet Take by mouth. (Patient not taking: Reported on 05/16/2023) traZODone (DESYREL) 100 mg tablet TAKE ONE TABLET BY MOUTH DAILY AT 9 PM valACYclovir (VALTREX) 500 mg tablet 1 tabs, ORAL, DAILY, 90 tabs, 90, Date: 06/04/2022 11:31:00 EST, [id number], 1 tabs ORAL DAILY, 165.1, 07/19/2021 08:47:00 EST, Height/Length Dosing, cm, 92.5, 07/19/2021 08:47:00 EST, Weight Dosing, kg venlafaxine ER (EFFEXOR XR) 150 mg 24 hr capsule Take 150 mg by mouth once daily. QUEtiapine (SEROQUEL) 100 mg tablet Take 200 mg by mouth once daily. metFORMIN (GLUCOPHAGE) 500 mg tablet Take 500 mg by mouth twice daily with meals. (Patient not taking: Reported on 06/17/2022) topiramate (TOPAMAX) 200 mg tablet Take by mouth twice daily. PANTOPRAZOLE SODIUM (PROTONIX ORAL) Take 40 mg by mouth twice daily before meals (0600/1600). FAMILY HISTORY Problem Relation Age of Onset Breast Cancer Paternal Grandmother Thyroid Mother afib Lipids Mother Hypertension Mother Hypertension Father Stroke Father Colon Cancer No Family History Negative for family history of bleeding and clotting disorders. Social History Tobacco Use Smoking status: Every Day Packs/day: 1 Types: Cigarettes Start date: 10/15/1988 Smokeless tobacco: Never Vaping Use Vaping Use: Never used Substance Use Topics Alcohol use: Yes Comment: social Drug use: Yes Types: Marijuana ROS: 10 pt ROS neg except in HPI O: Vitals: BP 116/78 Pulse 78 Temp 36.8 ?C (98.2 ?F) Resp 16 Ht 165.1 cm (5' 5) Wt 73.5 kg (162 lb) LMP 10/10/2015 (Approximate) SpO2 100% BMI 26.96 kg/m? Physical exam: General: Alert, answers all questions appropriately, no acute distress. Cooperative throughout entire interview and exam Lower back: TTP midline sacrum No obvious deformity or step off No open wounds or lacerations Bilateral lower extremities: Alignment normal. No gross deformities. No swelling, ecchymosis, or erythema. No open wounds or lacerations. Compartments of the thigh and leg are soft and compressible. The patient tolerates passive stretch of the digits SILT Vazquez/Sa/DP/SP/T. Motor intact EHL/DF/PF. DP/PT pulses palpable; BCR all digits. Labs: BMP: Sodium 136 06/18/2022 Potassium 3.7 06/18/2022 Chloride 102 06/18/2022 CO2 20 06/18/2022 BUN 12 06/18/2022 Creatinine 0.92 06/18/2022 Glucose 93 (more content not included)... Normal [facility] ED NOTEon 01-25-2024 ED NOTE HNO ID: [id number] Author: SALBADOR COHEN RN Service: ? Author Type: Registered Nurse Type: ED Notes Filed: 01/25/2024 01:38 Note Text: Bed: 25-ED Expected date: Expected time: Means of arrival: Comments: Triage Normal [facility] ED Nursing Noteon 01-25-2024 ED Nursing Note Pt Nax2 for vitals. No found in any of the waiting areas. Christine Arango RN 01/25/24 0305 [facility] ED Nursing Note Pt Nax1 for vital signs. Not found in the waiting area. Christine Arango RN 01/25/24 0247 [facility] ED PROV NOTEon 01-25-2024 ED PROV NOTE HNO ID: [id number] Author: TERA BONILLA DO Service: Emergency Medicine Author Type: Physician Type: ED Provider Notes Filed: 02/07/2024 00:44 Note Text: I saw and evaluated the patient. Discussed with the resident and agree with resident's findings and plan as documented in the resident's note. She went outside in her slippers and the bottom of them got wet. She went into the house and slipped from the wet slippers. She was going down a short small flight of stairs when she slipped and landed on her butt. She did not hit her head. She denies neck or back pain. She is complaining of pain in her buttocks and her sacral area. She denies feeling lightheaded or dizzy. She denies CP or SOB. She has had a prior hysterectomy. She denies any other injuries or complaints. Nurses note physical exam general appearance middle-aged female lying supine resting comfortably she is pleasant and conversant. HEENT head is normocephalic atraumatic pupils are equal round reactive to light extraocular muscles are intact midface is stable dentition is intact neck has no midline tenderness step-offs or deformities. Cardiovascular heart is regular rate rhythm without murmurs gallops or rubs. Lungs clear to auscultation bilaterally without wheeze rales or rhonchi. Abdomen is soft nontender nondistended normal active bowel sounds no rebound rigidity or guarding no peritoneal signs. Back no midline tenderness step-offs or deformity to the rest thoracic or lumbar spine. She does have tenderness along the sacrum and the left buttocks. Skin she has a noted contusion in the gluteal crease and the left buttocks. Extremities strength is equal in both lower extremities normal sensation reflexes and strength. Equal DP and PT pulses. Neurologic alert awake and oriented x 3 cranial nerves are grossly intact with no focal deficits. Psychiatric patient is calm and cooperative with a normal affect. ED course the patient was seen and evaluated in the ED by myself as well as the resident. She was sent for CT scan of the lumbar spine and pelvis which revealed degenerative disc disease which she is aware of which is chronic as well as an S4 sacral fracture. Orthopedics was consulted she was medicated for pain and disposition will be per orthopedics. I suspect she will be able to be discharged home with close follow-up. The care plan was reviewed with the patient she is comfortable with this plan of care and all her questions were answered. TERA BONILLA 02/07/24 0044 Normal [facility] ED PROV NOTE HNO ID: [id number] Author: TERA BONILLA DO Service: Emergency Medicine Author Type: Resident Type: ED Provider Notes Filed: 02/23/2024 03:20 Note Text: Attestation signed by Tera Bonilla DO at 02/23/2024 3:20 AM I saw and evaluated the patient. Discussed with the resident and agree with resident's findings and plan as documented in the resident's note. ED Provider Note Patient Name: Sury Sheppard : 1975 SERVICE DATE: 01/24/24 History Patient presents with: Fall: Pt states earlier today fell down four stairs slipped and lower back and left buttocks hurts, states noticed bruise on buttocks, states tried ice, lidocaine patches on left back, denies numbness and tingling in extremities, ambulated into er, 48 yo female here for evaluation of back pain after reported fall. Earlier today patent slipped and fell down 4 steps. Landed on buttocks. Did not hit head. No LOC. Not on blood thinners. Has been having pain in lower back and left buttocks. Has been ambulatory. No numbness or tingling. No saddle anesthesia. No urinary or fecal incontinentce or retention. No CP or abdominal pain. PAST MEDICAL HISTORY Diagnosis Date Arthritis Bipolar 1 disorder (HCC) Degenerative joint disease Depression Fatty liver Gastroparesis Gestational diabetes High cholesterol Prediabetes PAST SURGICAL HISTORY Procedure Laterality Date CHOLECYSTECTOMY HX COLONOSCOPY 2017 polyps; benign EAR TUBES HX childhood HYSTERECTOMY HX 2016 hx of abnormal cells, heavy periods LIPOSUCTION, STOMACH REMOVAL GALLBLADDER 01/24/2015 and Liver biopsy, TUBAL LIGATION HX FAMILY HISTORY Problem Relation Age of Onset Breast Cancer Paternal Grandmother Thyroid Mother afib Lipids Mother Hypertension Mother Hypertension Father Stroke Father Colon Cancer No Family History Social History Tobacco Use Smoking status: Every Day Packs/day: 1 Types: Cigarettes Start date: 10/15/1988 Smokeless tobacco: Never Vaping Use Vaping Use: Never used Substance and Sexual Activity Alcohol use: Yes Comment: social Drug use: Yes Types: Marijuana Sexual activity: Not on file ALLERGIES Allergen Reactions Sulfa (Sulfonamide * Swelling Itching Nsaids (Non-Steroid* Other: See Comments GI H/O ulcers- GI sensitivity to NSAIDS Review of Systems Constitutional: Negative for chills and fever. HENT: Negative for congestion, sinus pressure and sinus pain. Eyes: Negative for pain, redness and visual disturbance. Respiratory: Negative for cough and shortness of breath. Cardiovascular: Negative for chest pain, palpitations and leg swelling. Gastrointestinal: Negative for abdominal pain, nausea and vomiting. Genitourinary: Negative for dysuria and hematuria. Musculoskeletal: Positive for back pain. Negative for neck pain and neck stiffness. Physical Exam Vitals [01/24/24 2205] BP Pulse Temp Temp src Resp SpO2 Weight Height 116/79 78 36.8 ?C (98.2 ?F) -- 18 100 % 73.5 kg (162 lb) 1.651 m (5' 5) Physical Exam Primary survey: Airway: Intact Breathing: Bilateral breath sounds verified by auscultation. Circulation: intact upper and lower ext pulses, no active bleeding Disability: Moving all extremities, sensation intact GCS: 6 + 5 + 4 = 15 Secondary: General: Alert and oriented ?3 in no acute distress. Hemodynamically stable Head: Atraumatic with no cephalohematoma, midface is stable without TTP. ENT: PERRL, 2-3 mm bilaterally. EOMI. There is no nasal deformity, septal hematoma, dental malocclusions, or hemotympanum. C-spine: No midline bony tenderness step-offs or deformities or crepitance. CV: RRR, no murmurs. There is no crepitance to the chest wall or ecchymosis. Chest wall is nontender. Abdomen: soft, nondistended, and nontender with no seatbelt sign. Back: There is midline lumbar spine tenderness to palpation without any palpable step-offs or deformities. There is bruising to the bilateral buttocks. Extremities: FROM. Upper and lower extremities nontender to palpation. Neuro: Strength and sensation intact in bilateral upper and lower extremities. 5 out of 5 strength with hip flexion extension. 5 of 5 strength with knee extension and flexion. 5 out of 5 strength with ankle flexion and extension. Diagnostic Testing ED Labs Ordered and Reviewed - No data to display Procedures ED Course / Clinical Impression ED Course as of 01/25/24 0727 Others' Documentation Sun Jan 25, 2024 0358 Ortho paged to evaluate the patient [ES] 0636 Still awaiting disposition by orthopedics. They have been called several times and have evaluated the patient and are waiting to staff with their attending. [ES] ED Course User Index [ES] Tera Bonilla, Clinical Impressions a (more content not included)... Normal [facility] CT LUMBAR SPINE WO IVCONon 0 01-24-2024 CT LUMBAR SPINE WO IVCON * * *Final Report* * * DATE OF EXAM: Jan 24 2024 10:28PM [facility] 0508 - CT LUMBAR SPINE WO IVCON / PROCEDURE REASON: Low back pain, trauma * * * * Physician Interpretation * * * * EXAMINATION: CT LUMBAR SPINE WO IVCON CLINICAL HISTORY: Low back pain, trauma TECHNIQUE: Spiral, high resolution axial unenhanced images were obtained from the thoracolumbar junction to the sacrum with sagittal and coronal planar reconstructions. MQ: [id number] CT Radiation dose: Integrated Dose-Length Product (DLP) for this visit = 1717 mGy*cm. CT Dose Reduction Employed: Automated exposure control (AEC) COMPARISON: None. RESULT: Counting reference: Lumbosacral junction. For the purposes of this report, L4-5 is considered the level of the iliac crest and assume there are 5 lumbar-type vertebrae. Anatomic variant: None. Reservations Sales Agent (topogram) images: Unremarkable. Alignment: Alignment is anatomic. Bone marrow /fracture: No evidence of a lytic or blastic process in the visualized spine. No evidence of acute or chronic fracture. Paraspinal soft tissues: The paraspinal soft tissues planes are maintained. Degenerative changes: Mild multilevel disc space narrowing with small osteophytes. Multilevel facet arthropathy, notable for severe bilaterally at L4/L5 and L5/S1 and moderate bilaterally at L3/L4. Lower thoracic spine: The visualized lower thoracic bony canal and foramina are patent. L1-L2: Canal and foramina are patent. L2-L3: Canal and foramina are patent L3-L4: Canal and foramina are patent L4-L5: Mild to moderate spinal canal stenosis due to a diffuse disc bulge and ligamentous hypertrophy. Facet hypertrophy contributes to moderate bilateral neuroforaminal stenosis. L5-S1: Small diffuse disc bulge resulting in mild spinal canal stenosis. Facet hypertrophy contributes to mild bilateral neuroforaminal stenosis. Sacrum and iliac wings: Suspected nondisplaced acute fracture in the left S4 vertebral body (6:131-133). Other: Incompletely imaged small to moderate hematoma in the deep subcutaneous tissues of the left gluteal region extending to the sacral posterior paraspinal soft tissues, and minimally extending to the left presacral soft tissues. . IMPRESSION: Small to moderate subcutaneous hematoma in the left gluteal region, incompletely imaged. Suspected nondisplaced acute fracture of the left S4 vertebral body. No acute fracture or traumatic malalignment in the lumbar spine. Degenerative changes as described. Anatomic Lumbar Variant: None. Clerk Of Superior Court: M[place] Transcribe Date/Time: Jan 24 2024 11:15P Dictated by : BEVERLY HENRIQUEZ MD This examination was interpreted and the report reviewed and electronically signed by: BEVERLY HENRIQUEZ MD on Jan 24 2024 11:28PM EST [id number] Normal [facility] CT PELVIS WO IVCONon 024 CT PELVIS WO IVCON * * *Final Report* * * DATE OF EXAM: Jan 24 2024 10:28PM [facility] 0556 - CT PELVIS WO IVCON / PROCEDURE REASON: Hip trauma, fracture suspected, xray done * * * * Physician Interpretation * * * * EXAM: CT of the pelvis. HISTORY: Hip trauma, fracture suspected, TECHNIQUE: Unenhanced CT of the pelvis was performed. Reformatted images were generated in the coronal and sagittal plane. CT Dose-Length Product (DLP): 1717 mGy*cm CT Dose Reduction Employed: Automated Exposure Control CONTRAST: None COMPARISON: None. FINDINGS: In the left buttock there is a high attenuation fluid collection in the subcutaneous fat superficial to the gluteus musculature measuring 10.8 x 3.7 cm compatible with a hematoma. The right and left femoral head are normally located. No widening of the pubic symphysis or sacroiliac joints. No acute fracture. Urinary bladder is unremarkable. Visualized portion of small bowel and large bowel are unremarkable. IMPRESSION: Left buttock subcutaneous hematoma. No fracture or malalignment of the pelvis. Clerk Of Superior Court: [facility] Transcribe Date/Time: Jan 24 2024 11:13P Dictated by : STEFANIE LOCKHART MD This examination was interpreted and the report reviewed and electronically signed by: STEFANIE LOCKHART MD on Jan 24 2024 11:43PM EST [id number] Normal [facility] ED NOTEon 01-24-2024 ED NOTE HNO ID: [id number] Author: ANGEL SNEED RN Service: ? Author Type: Registered Nurse Type: ED Notes Filed: 01/24/2024 22:07 Note Text: CT and xray notified Normal [facility] ED Triage Noteon 01-24-2024 ED Triage Note HNO ID: [id number] Author: ANAIS GRIFFIN APRN.CNP Service: ? Author Type: Nurse Practitioner Type: ED Triage Notes Filed: 01/24/2024 22:07 Note Text: ED TRIAGE PROVIDER NOTE Patient Name: Sury Sheppard Service Date: 01/24/24 BRIEF HPI: This is a 48 year old female who presents to the ED with: low back pain and left hip, buttocks pain from a fall. She slipped on her stairs this am, landing on her buttocks. She denies striking her head. She denies neck or mid back pain. BRIEF EXAM: NAD Awake and Alert Non labored breathing No focal neurological deficits INITIAL WORKUP AND DECISION MAKING: Orders Placed This Encounter CT LUMBAR SPINE WO IVCON XR HIP GENERAL 3V PELV/AP/LAT LT SIGNATURE: Anais Griffin APRN.CNP Normal [facility] Office Visiton 12-25-2023 Follow-up visit [id number] Sury Sheppard 1975 F Date Provider Department Center 12/25/2023 [id number] CASTREJON [facility] Family History Problem Relation Age of Onset Hypothyroidism Mother Hyperlipidemia Mother Atrial fibrillation Mother Sleep apnea Mother Bone cancer Father Stroke Father Hypertension Father No Known Problems Sister No Known Problems Brother No Known Problems Daughter No Known Problems Son No Known Problems Son Breast cancer Paternal Grandmother Prostate cancer Paternal Grandfather Family Status - Relation Status Age at Mother Alive Father Sister Alive Brother Alive Daughter Alive Son Alive Son Alive Paternal Grandmother Paternal Grandfather Level of Service:93650 UT PERIODIC PREVENTIVE MED EST PATIENT 40-64YRS Reason for Visit and Comments: Annual Exam [83] - CPE. [facility] Progress Noteon 12-25-2023 Progress Note The patient, Roxana Sheppard is a 48 y.o. female identity was verified by name and date of . Injection of TDAP and Prevnar 20 was administered per NECKTIE MAKER: Lauren Castrejon Orders: Tdap-Left deltoid Prevnar 20-Right deltoid The patient tolerated the injection well and without incident. The patient was discharged home with education. (After Visit Summary) Normal [facility] Progress Note [facility] [address] [facility] [address] Dept: [phone] Dept Visit Date: 12/25/23 HPI: Sury Sheppard is a 48 y.o. female who presents today for: Chief Complaint Patient presents with Annual Exam CPE. HPI Routine exam today. Overall doing well. 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 Requests titers, needs physical exam, updated tetanus (last 2012). Has been seen this year by hematology for weight loss, polycythemia. Current smoker. Had US abdomen without abnormalities. EGD 08/2023 +hiatal hernia and gastritis. Colonoscopy 08/07/23 with several polyps and hemorrhoids. CT chest for lung cancer screening done 10/21 as well, no lung nodules. Mammogram 06/21 was normal. Weight loss has seemed to stablize. Wt Readings from Last 5 Encounters: 12/25/23 166 lb (75.3 kg) 12/02/23 160 lb 8 oz (72.8 kg) 11/18/23 164 lb 6.4 oz (74.6 kg) 10/16/23 165 lb (74.8 kg) 08/28/23 166 lb (75.3 kg) Current smoking, interested in quitting. Current use is approximately 1.5 packs per day. Would not recommend bupropion or chantix given mental health history and current medications. Accepts NRT-patches. Increasing clear fluid intake, less diet soda. Active at work. 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 On lipitor for hyperlipidemia, tolerates well. Lipid panel done 7 months ago. Component Latest Ref Rng 05/01/2023 CHOLESTEROL, TOTAL <200 mg/dL 164 HDL CHOLESTEROL - QUEST > OR = 50 mg/dL 46 (L) TRIGLYCERIDES - [facility] <150 mg/dL 166 (H) LDL-CHOLESTEROL mg/dL (calc) 92 CHOL/HDLC RATIO <5.0 (calc) 3.6 NON HDL CHOLESTEROL <130 mg/dL (calc) 118 Current Outpatient Medications Medication Sig Dispense Refill albuterol 108 (90 Base) MCG/ACT inhaler Inhale 2 puffs every 4 hours as needed for wheezing. 18 g 1 estradiol (Estrace) 0.1 MG/GM vaginal cream uSE ONE GRAM VAGINALLY TWICE A WEEK ondansetron (Zofran) 4 MG tablet As needed pantoprazole (ProtoNix) 40 MG EC tablet TAKE 1 TABLET BY MOUTH EVERY MORNING (before BREAKFAST) (Patient taking differently: Take 40 mg by mouth in the morning and 40 mg in the evening.) 90 tablet 3 QUEtiapine (SEROquel) 25 MG tablet Take 1 tablet by mouth Nightly. topiramate (Topamax) 200 MG tablet Take 200 mg by mouth in the morning and 200 mg before bedtime. traZODone (Desyrel) 100 MG tablet TAKE ONE TABLET BY MOUTH DAILY AT 9 PM venlafaxine XR (Effexor XR) 150 MG 24 hr capsule Take 300 mg by mouth daily. atorvastatin (Lipitor) 20 MG tablet Take 1 tablet (20 mg) by mouth daily. 90 tablet 3 nicotine (Nicoderm, Step 1) 21 MG/24HR patch Place 1 patch on the skin Every 24 hours. 30 patch 1 valACYclovir (Valtrex) 500 MG tablet Take 1 tablet (500 mg) by mouth daily. 90 tablet 3 No current facility-administered medications for this visit. Allergies Allergen Reactions Sulfa Antibiotics Itching and Swelling Past Medical History: Diagnosis Date 2018 novel coronavirus disease (COVID-19) 2022 Abnormal Pap smear of cervix 1998 Anxiety 2009 Depression 2007 Fibrocystic breast GERD (gastroesophageal reflux disease) 2000 Headache 1991 Social History Tobacco Use Smoking status: Every Day Current packs/day: 0.00 Average packs/day: 1.5 packs/day for 34.0 years (51.1 ttl pk-yrs) Types: Cigarettes Start date: 1989 Last attempt to quit: 02/19/2019 Years since quittin.8 Passive exposure: Past Smokeless tobacco: Never Substance Use Topics Alcohol use: Not Currently Comment: rare Subjective: Review of Systems Constitutional: Positive for fatigue. Negative for chills and unexpected weight change. Respiratory: Negative for cough, shortness of breath and wheezing. Cardiovascular: Negative for chest pain, palpitations and leg swelling. Gastrointestinal: Negative for abdominal pain, constipation, diarrhea and nausea. Genitourinary: Negative for difficulty urinating. Musculoskeletal: Positive for arthralgias, back pain and neck pain. Negative for gait problem. Neurological: Negative for dizziness and headaches. Psychiatric/Behavioral: Negative for dysphoric mood and sleep disturbance. The patient is not nervous/anxious. Objective: BP 106/70 (BP Location: Right arm, Patient Position: Sitting, BP Cuff Size: Adult) Pulse 65 Temp 36.5 ?C (97.7 ?F) (Temporal) Ht 5' 4.5 (1.638 m) Wt 166 lb (75.3 kg) SpO2 98% BMI 28.05 kg/m? Physical Exam Vitals and nursing note reviewed. Constitutional: General: She is not in acute distress. Appearance: Normal appearance. She is overweight. She is not ill-appearing or toxic-appearing. HENT: Head: Normocephalic and atraumatic. Right Ear: Tympanic membrane, ear canal and external ear normal. Left Ear: Tympanic membrane, ear canal and external ear normal. Mouth/Throat: Mouth: Mucous membranes are moist. Pharynx: Oropharynx is clear. Eyes: C (more content not included)... Normal [facility] Progress Noteon 12-24-2023 Progress Note [facility] MEDICATION ADHERENCE Sury Sheppard - 1975 PCP: Bernard Dyson MD Per insurance med adherence report, patient is due for refills on Atorvastatin 20 mg. Last filled 05/26/23 Quantity: 30 Refills: 11 Per chart review, patient has refills. [id number] - [place], [place] - [address] [id number] Per review, patient has refills. Nurse to check refill status with pharmacy. Per pharmacy medication picked up early on 11/25/23. Last appointment 10/16/2023 , Next appointment is 12/25/2023 Mirian Wolff LPN, [facility] Clinical Coordinator - [facility] [phone] [facility] Office Visiton 12-02-2023 Follow-up visit [id number] Sury Sheppard 1975 F Date Provider Department Center 12/02/2023 [id number] VILLANUEVA [facility] ONC None Family History Problem Relation Age of Onset Hypothyroidism Mother Hyperlipidemia Mother Atrial fibrillation Mother Sleep apnea Mother Bone cancer Father Stroke Father Hypertension Father No Known Problems Sister No Known Problems Brother No Known Problems Daughter No Known Problems Son No Known Problems Son Breast cancer Paternal Grandmother Prostate cancer Paternal Grandfather Family Status - Relation Status Age at Mother Alive Father Sister Alive Brother Alive Daughter Alive Son Alive Son Alive Paternal Grandmother Paternal Grandfather Level of Service:03950 UT OFFICE/OUTPATIENT ESTABLISHED MOD MDM 30 MIN Reason for Visit and Comments: Follow-up [964275] Normal [facility] US ABDOMEN COMPLETEon 2023 US ABDOMEN COMPLETE Patient Name: SURY TORRES : 1975 Exam Date/Time: 11/21/2023 09:58 Procedure: US ABDOMEN COMPLETE Ordering Provider: VILLANUEVA TERESA Reason For Exam: abnormal CT scan,weight loss, early satiety CLINICAL INFORMATION: History weight loss with nausea diarrhea Sonogram of the abdomen is performed. The liver is normal in echotexture. No definite hyper or hypo echoic masses are seen with slightly prominent caudate lobe. There is no intrahepatic biliary ductal dilatation. The gallbladder is absent. The common bile duct diameter of 3 mm is within normal limits. No obvious pancreatic mass or peripancreatic fluid collection is identified (the pancreas is partially obscured by bowel gas). Cursory examination of the kidneys is performed. The right renal length is 11.3 cm. The left renal length is 11.3 cm. There is no hydronephrosis. There is no ascites. The spleen is unremarkable The visualized portions of the aorta and inferior vena cava are within normal limits. IMPRESSION: 1. Unremarkable postcholecystectomy ultrasound of the abdomen (nonspecific slightly prominent caudate lobe as compared to 2014 CT without defined mass seen). Report Dictated on Electronically Signed By: Rashad Coronado MD Electronically Signed Date/Time: 11/23/2023 5:20 PM EDT Normal [facility] CBC W Auto Differential pane l (Bld)on 11-18-2023 Basophils (Bld) [#/Vol] 0.0 10*3/uL 0.0 - 0.2 10*3/uL [facility] Basophils/100 WBC (Bld) 0.4 % 0.0 - 2.0 % [facility] Eosinophils (Bld) [#/Vol] 0.1 10*3/uL 0.0 - 0.5 10*3/uL [facility] Eosinophils/100 WBC (Bld) 0.9 % 0.0 - 6.0 % [facility] Erythrocyte distribution width (RBC) [Ratio] 13.6 % 11.5 - 15.0 % [facility] Hematocrit (Bld) [Volume fraction] 47.2 % High 35.0 - 47.0 % [facility] Hemoglobin (Bld) [Mass/Vol] 16.0 g/dL 11.7 - 16.0 g/dL [facility] Immature granulocytes (Bld) [#/Vol] 0.0 10*3/uL NINF - 0.1 10*3/uL [facility] Immature granulocytes/100 WBC (Bld) 0.3 % 0.0 - 2.0 % [facility] Interpretation and review of laboratory results Abnormal [facility] Lymphocytes (Bld) [#/Vol] 1.9 10*3/uL 1.0 - 4.3 10*3/uL [facility] Lymphocytes/100 WBC (Bld) 26.0 % 15.0 - 45.0 % [facility] MCH (RBC) [Entitic mass] 32.9 pg 26.0 - 34.0 pg [facility] MCHC (RBC) [Mass/Vol] 33.9 % 30.5 - 36.0 % [facility] MCV (RBC) [Entitic vol] 97.1 fL 77.0 - 99.0 fL [facility] Monocytes (Bld) [#/Vol] 0.6 10*3/uL 0.0 - 0.9 10*3/uL [facility] Monocytes/100 WBC (Bld) 8.5 % 5.0 - 13.0 % [facility] Neutrophils (Bld) [#/Vol] 4.8 10*3/uL 1.8 - 7.5 10*3/uL [facility] Neutrophils/100 WBC (Bld) 63.9 % 38.0 - 82.0 % [facility] Nucleated RBC/100 WBC (Bld) [Ratio] 0.0 % [facility] Platelet mean volume (Bld) [Entitic vol] 10.1 fL 9.0 - 12.7 fL [facility] Comment on above: MPV is a calculated measurement using platelet volume ratio Platelets (Bld) [#/Vol] 250 10*3/uL 140 - 440 10*3/uL [facility] RBC (Bld) [#/Vol] 4.86 10*6/uL 3.80 - 5.2 0 10*6/uL [facility] WBC (Bld) [#/Vol] 7.5 10*3/uL 3.6 - 10.7 10*3/uL [facility] CBC WITH AUTO DIFFERENTIALon 11-18-2023 Basophils (Bld) [#/Vol] 0.0 10*3/uL Normal 0.0-0.2 [facility] Comment on above: Performed By: #### L [id number] ####Pearl Hand: CARLA LEYVA ([id number])[facility] (SWRL[facility])[address] [place] [address] [place] Basophils/100 WBC (Bld) 0.4 % Normal 0.0-2.0 [facility] Comment on above: Performed By: #### L [id number] ####Pearl Hand: CARLA LEYVA ([id number])[facility] ([facility])[address] [place] [address] [place] Eosinophils (Bld) [#/Vol] 0.1 10*3/uL Normal 0.0-0.5 [facility] Comment on above: Performed By: #### L [id number] ####Pearl Hand: CARLA LEYVA ([id number])[facility] ([facility]RL[facility])[address] [place] [address] [place] Eosinophils/100 WBC (Bld) 0.9 % Normal 0.0-6.0 [facility] Comment on above: Performed By: #### L [id number] ####Pearl Hand: CARLA LEYVA ([id number])[facility] (SWRL[facility])[address] [place] [address] Erythrocyte distribution width (RBC) [Ratio] 13.6 % Normal 11.5-15.[address] [facility] Comment on above: Performed By: #### L [id number] ####Pearl Hand: CARLA LEYVA ([id number])[facility] [place] (SWRL[facility])[address] [place] [address] Hematocrit (Bld) [Volume fraction] 47.2 % High 35.0-47.[address] [facility] Comment on above: Performed By: #### L [id number] ####Pearl Hand: CARLA LEYVA ([id number])[facility] ([facility])[address] [place] [address] Hemoglobin (Bld) [Mass/Vol] 16.0 g/dL Normal 11.7-16.[address] [facility] Comment on above: Performed By: #### L [id number] ####Pearl Hand: CARLA LEYVA ([id number])[facility] ([facility])[address] [place] [address] IMMATURE GRANS % 0.3 % Normal 0.0-2.0 [facility] Comment on above: Performed By: #### L [id number] ####Pearl Hand: CARLA LEYVA ([id number])[facility] ([facility])[address] [place] [address] IMMATURE GRANS ABSOLUTE 0.0 10*3/uL Normal <0.[address] [facility] Comment on above: Performed By: #### L [id number] ####Pearl Hand: CARLA LEYVA ([id number])[facility] ([facility])[address] [place] [address] Lymphocytes (Bld) [#/Vol] 1.9 10*3/uL Normal 1.0-4.3 [facility] Comment on above: Performed By: #### L [id number] ####Pearl Hand: CARLA LEYVA ([id number])[facility] ([facility])[address] [place] [address] [place] Lymphocytes/100 WBC (Bld) 26.0 % Normal 15.0-45.0 [facility] Comment on above: Performed By: #### L [id number] ####Pearl Hand: CARLA LEYVA ([id number])[facility] ([facility])[address] [place] [address] MCH (RBC) [Entitic mass] 32.9 pg Normal 26.0-34.0 [facility] Comment on above: Performed By: #### L [id number] ####Pearl Hand: CARLA LEYVA ([id number])[facility] ([facility])[address] [place] [address] MCHC 33.9 % Normal 30.5-36.0 [facility] Comment on above: Performed By: #### L [id number] ####Pearl Hand: CARLA LEYVA ([id number])[facility] ([facility])[address] [place] [address] MCV (RBC) [Entitic vol] 97.1 fL Normal 77.0-99.0 [facility] Comment on above: Performed By: #### L [id number] ####Pearl Hand: CARLA LEYVA ([id number])[facility] ([facility])[address] [place] [address] Monocytes (Bld) [#/Vol] 0.6 10*3/uL Normal 0.0-0.9 [facility] Comment on above: Performed By: #### L [id number] ####Pearl Hand: CARLA LEYVA ([id number])[facility] ([facility])[address] [place] [address] [place] Monocytes/100 WBC (Bld) 8.5 % Normal 5.0-13.0 [facility] Comment on above: Performed By: #### L [id number] ####Pearl Hand: CARLA LEYVA ([id number])[facility] ([facility])[address] [place] [address] NEUTROPHILS ABSOLUTE 4.8 10*3/uL Normal 1.8-7.5 [facility] Comment on above: Performed By: #### L [id number] ####Pearl Hand: CARLA LEYVA ([id number])[facility] ([facility])[address] [place] [address] Neutrophils/100 WBC (Bld) 63.9 % Normal 38.0-82.[address] [facility] Comment on above: Performed By: #### L [id number] ####Pearl Hand: CARLA LEYVA ([id number])[facility] ([facility])[address] [place] [address] NRBC 0.0 /100 WBCs Normal 0.0-2.0 [facility] Comment on above: Performed By: #### L [id number] ####Pearl Hand: CARLA LEYVA ([id number])[facility] ([facility])[address] [place] [address] Platelet mean volume (Bld) [Entitic vol] 10.1 fL Normal 9.0-12.[address] [facility] Comment on above: Result Comment: MPV is a calculated measurement using platelet volume ratio Performed By: #### L [id number] ####Pearl Hand: CARLA LEYVA ([id number])[facility] ([facility])[address] [place] [address] Platelets (Bld) [#/Vol] 250 10*3/uL Normal 140-[address] [facility] Comment on above: Performed By: #### L [id number] ####Pearl Hand: CARLA LEYVA ([id number])[facility] ([facility])[address] [place] [address] RBC (Bld) [#/Vol] 4.86 10*6/uL Normal 3.80-5.[address] [facility] Comment on above: Performed By: #### L [id number] ####Pearl Hand: CARLA LEYVA ([id number])[facility] ([facility])[address] WBC (Bld) [#/Vol] 7.5 10*3/uL Normal 3.6-10.7 [facility] Comment on above: Performed By: #### L [id number] ####Pearl Hand: CARLA LEYVA ([id number])[facility] ([facility])[address] COMPREHENSIVE METABOLIC PANE Dany 11-18-2023 Albumin [Mass/Vol] 4.1 g/dL Normal 3.5-5.0 [facility] Comment on above: Performed By: #### L AB68, LAB17 ####Pearl Hand: CARLA LEYVA ([id number])[facility] ([facility])[address] ALP [Catalytic activity/Vol] 63 U/L Normal 38-126 [facility] Comment on above: Performed By: #### L AB68, LAB17 ####Pearl Hand: CARLA LEYVA ([id number])[facility] ([facility])[address] ALT [Catalytic activity/Vol] 25 U/L Normal 0-34 [facility] Comment on above: Performed By: #### L AB68, LAB17 ####Pearl Hand: CARLA LEYVA ([id number])[facility] ([facility])[address] Anion gap [Moles/Vol] 6 mmol/L Normal 3-13 [facility] Comment on above: Performed By: #### L AB68, LAB17 ####Pearl Hand: CARLA LEYVA ([id number])[facility] ([facility])[address] [place] [address] [place] AST [Catalytic activity/Vol] 29 U/L Normal 15-46 [facility] Comment on above: Performed By: #### L AB68, LAB17 ####Pearl Hand: CARLA LEYVA ([id number])[facility] ([facility])[address] [place] [address] [place] Bilirubin [Mass/Vol] 0.5 mg/dL Normal 0.2-1.3 [facility] Comment on above: Performed By: #### Kevyn CABALLERO, LAB17 ####Pearl Hand: CARLA LEYVA ([id number])[facility] ([facility])[address] [place] [address] [place] Calcium [Mass/Vol] 9.3 mg/dL Normal 8.4-10.[address] [facility] Comment on above: Performed By: #### Kevyn CABALLERO, LAB17 ####Pearl Hand: CARLA LEYVA ([id number])[facility] ([facility])[address] [place] [address] [place] Chloride [Moles/Vol] 113 mmol/L High 98-107 [facility] Comment on above: Performed By: #### Kevyn CABALLERO, LAB17 ####Pearl Hand: CARLA LEYVA ([id number])[facility] ([facility])[address] [place] [address] [place] CO2 [Moles/Vol] 22 mmol/L Normal 22-30 [facility] Comment on above: Performed By: #### Kevyn CABALLERO, LAB17 ####Pearl Hand: CRALA LEYVA ([id number])[facility] ([facility])[address] [place] [address] [place] Creatinine [Mass/Vol] 0.90 mg/dL Normal 0.52-1.04 [facility] Comment on above: Performed By: #### L ADA, LAB17 ####Pearl Hand: CARLA LEYVA ([id number])[facility] ([facility])[address] [place] [address] [place] GLOMERULAR FILTRATION RATE ML/MIN/1.73 SQ M.PREDICTED 78.5 mL/min/1.73m*2 Normal >60.[address] [facility] Comment on above: Result Comment: Calc ulation based on the Chronic Kidney Disease Epidemiology Collaboration (CKD-EPI) equation refit without adjustment for race Performed By: #### Kevyn CABALLERO, LAB17 ####Pearl Hand: CARLA LEYVA ([id number])[facility] ([facility])[address] [place] [address] [place] Glucose [Mass/Vol] 96 mg/dL Normal 70-[address] [facility] Comment on above: Performed By: #### Kevyn CABALLERO, LAB17 ####Pearl Hand: CARLA LEYVA ([id number])[facility] CARRERASHARRON RITTMAN (SWRLAB)[address] [place] [address] [place] Potassium [Moles/Vol] 3.5 mmol/L Normal 3.5-5.1 [facility] Comment on above: Performed By: #### Kevyn CABALLERO, LAB17 ####Pearl Hand: CARLA LEYVA ([id number])[facility] CARRERASHARRON RITTMAN (SWRLAB)[address] [place] [address] [place] Protein [Mass/Vol] 7.5 g/dL Normal 6.3-8.[address] [facility] Comment on above: Performed By: #### Kevyn CABALLERO, LAB17 ####Pearl Hand: CARLA LEYVA ([id number])[facility] CARRERASHARRON RITTMAN (SWRLAB)[address] [place] [address] [place] Sodium [Moles/Vol] 141 mmol/L Normal 135-[address] [facility] Comment on above: Performed By: #### L ADA, LAB17 ####Pearl Hand: CARLA LEYVA ([id number])[facility] CARRERASHARRON RITTMAN (SWRLAB)[address] [place] [address] [place] Urea nitrogen [Mass/Vol] 11 mg/dL Normal 7-[address] [facility] Comment on above: Performed By: #### Kevyn CABALLERO, LAB17 ####Pearl Hand: CARLA LEYVA ([id number])[facility]CHRAN (SWRLAB)[address] Comprehensive metabolic 1998 panelon 11-18-2023 Albumin [Mass/Vol] 4.1 g/dL 3.5 - 5.0 g/dL [facility] ALP [Catalytic activity/Vol] 63 U/L 38 - 126 U/L [facility] ALT [Catalytic activity/Vol] 25 U/L 0 - 34 U/L [facility] Anion gap [Moles/Vol] 6 mmol/L 3 - 13 mmol/L [facility] AST [Catalytic activity/Vol] 29 U/L 15 - 46 U/L [facility] Bilirubin [Mass/Vol] 0.5 mg/dL 0.2 - 1 .3 mg/dL [facility] Calcium [Mass/Vol] 9.3 mg/dL 8.4 - 10. 4 mg/dL [facility] Chloride [Moles/Vol] 113 mmol/L High 98 - 10 7 mmol/L [facility] CO2 [Moles/Vol] 22 mmol/L 22 - 30 mmol/L [facility] Creatinine [Mass/Vol] 0.90 mg/dL 0.52 - 1.04 mg/dL [facility] GFR/1.73 sq M.predicted MDRD (S/P/Bld) [Vol rate/Area] 78.5 mL/min/{1.73_m2} - PINF [facility] Comment on above: Calculation based on the Chronic Kidney Disease Epidemiology Collaboration (CKD-EPI) equation refit without adjustment for race Glucose [Mass/Vol] 96 mg/dL 70 - 100 mg/dL [facility] Interpretation and review of laboratory results Abnormal [facility] Potassium [Moles/Vol] 3.5 mmol/L 3.5 - 5.1 mmol/L [facility] Protein [Mass/Vol] 7.5 g/dL 6.3 - 8.2 g/dL [facility] Sodium [Moles/Vol] 141 mmol/L 135 - 145 mmol/L [facility] Urea nitrogen [Mass/Vol] 11 mg/dL 7 - 17 mg/dL [facility] ERYTHROPOIETINon 11-18-2023 ERYTHROPOIETIN 6.5 mIU/mL Normal 2.6-18.5 [facility] Comment on above: Result Comment: Test Performed by Guillermo Thao, [facility], [address] [place], [place] Rk Dowling M.D., Ph.D., Director of Laboratories , [facility] [id number] Performed By: #### L [id number] ####[facility] (AMDBEAKER)[address] [place], [place] FERRITINon 11-18-2023 Ferritin [Mass/Vol] 23 ng/mL Normal 6-[address] [facility] Comment on above: Performed By: #### L AB68, LAB17 ####Pearl Hand: CARLA LEYVA ([id number])[facility] RITTMAN (SWRLAB)[address] [place] [address] [place] Ferritin [Mass/Vol]on 2023 Interpretation and review of laboratory results Normal [facility] IRON AND TIBCon 11-18-2023 IRON BINDING CAPACITY 307 ug/dL Normal 261-497 [facility] Comment on above: Performed By: #### L [id number] ####Pearl Hand: CARLA LEYVA ([id number])[facility] RIT[facility]AN (SWRLAB)[address] [place] [address] IRON SATURATION 31 % Normal 15-50 [facility] Comment on above: Performed By: #### L [id number] ####Pearl Hand: CARLA LEYVA ([id number])[facility] [place] (SWRLAB)[address] [place] [address] IRON, TOTAL 94 ug/dL Normal 37-[address] [facility] Comment on above: Performed By: #### L [id number] ####Pearl Hand: CARLA LEYVA ([id number])[facility] (SWRLAB)[address] [place] [address] [place] Iron and Iron binding capaci ty panelon 11-18-2023 Interpretation and review of laboratory results Normal [facility] Iron [Mass/Vol] 94 ug/dL 37 - 170 ug/dL [facility] Iron binding capacity [Mass/Vol] 307 ug/dL 261 - 497 ug/dL [facility] Iron saturation [Mass fraction] 31 % 15 - 50 % [facility] JAK2 V617F MUTATION ANALYSIS on 11-18-2023 COMMENT-JAK2 Not detected Normal [facility] Comment on above: Result Comment: Clin ical Significance: The JAK2 V617F mutation has been reported in >80% of the patients with polycythemia vera (PV). 30-50% of patients with either essential thrombocythemia (ET) or primary myelofibrosis (PMF). This mutation is not detected in normal individuals. A small subset of patients with myeloproliferative neoplasms (MPN) that are negative for the JAK2 V617F mutation will harbor JAK2 mutations in exon 12. More rare mutations are detected in exons 13 and 14. JAK2 mutations can be used to differentiate reactive conditions from neoplastic process. Methodology: Total nucleic acid was extracted from patient's plasma or PB/BM cells. The primer pair was designed to encompass the JAK2 V617F point mutation located in chromosome 9p24. The PCR product was then purified and sequenced in both forward and reverse directions using high-sensitivity Rex sequencing which improves the lower detection limit to approximately 1% mutated DNA in a wild-type background. The resulting sequence was compared to GenBank Acc# [id number] sequence. Various sample preparation and sample age can affect assay performance. References: 1. Dao Kim, et al A unique clonal JAK2 mutation leading to constitutive signaling causes polycythaemia vera. Nature. 2005; 434: 1144-8. 2. Yessica Hartman, et al. A [id number] mutation of JAK2 in myeloproliferative disorders. N Engl J Med. 2005: 1779-90. Performed By: #### L [id number] ####[facility] (Sportilia)[address] [place] [address] JAK2 V617F MUTATION ANALYSIS Not detected Normal [facility] Comment on above: Performed By: #### L [id number] ####[employer] (Sportilia)[address] [place] [address] MUTATION Results of JAK2 test ing are NEGATIVE,indicating the V617F (1849>T) mutation is NOT DETECTED in the JAK2 gene. Normal [facility] Comment on above: Performed By: #### L [id number] ####[facility]ICS (NEOGENOMICS)[address] [facility] [place] [address] Laboratory - Chemistry and C hemistry - challengeon 11-18-2023 Ferritin [Mass/Vol] 23 ng/mL 6 - 137 ng/mL [facility] Office Visiton 11-18-2023 Follow-up visit [id number] Sury Sheppard Racquel 1975 F Date Provider Department Center 11/18/2023 [id number] VILLANUEVA [facility] ONC None Family History Problem Relation Age of Onset Hypothyroidism Mother Hyperlipidemia Mother Atrial fibrillation Mother Sleep apnea Mother Bone cancer Father Stroke Father Hypertension Father No Known Problems Sister No Known Problems Brother No Known Problems Daughter No Known Problems Son No Known Problems Son Breast cancer Paternal Grandmother Prostate cancer Paternal Grandfather Family Status - Relation Status Age at Mother Alive Father Sister Alive Brother Alive Daughter Alive Son Alive Son Alive Paternal Grandmother Paternal Grandfather Level of Service:06734 UT OFFICE/OUTPATIENT NEW HIGH MDM 60 MINUTES Reason for Visit and Comments: Consult [484] - Feeling nauseous Normal [facility] RETICULOCYTESon 11-18-2023 Reticulocytes/100 RBC (Bld) 1.01 % Normal [facility] Comment on above: Result Comment: Newb orn < 5% Adults 0.4 - 2.0% Performed By: #### L [id number] #### Pearl Hand: CLAUDIA MUNOZ ([id number]) [facility] ([facility]) [address] [place] [address] Reticulocytes panel (Bld)Ord ered By: Heavenly Bryant on 11-18-2023 Reticulocytes/100 RBC (Bld) 1.01 % [facility] Comment on above: < 5% Adults 0.4 - 2.0% [facility] Progress Noteon 10-20-[address], no lung nodules seen but should have repeat scan in 12 mo Normal [facility] Progress Note This was edited and sent back to me four months later, I do see there was one abnormality of calcific density on asad hepatis of uncertain nature but otherwise no other issues Normal [facility] Phone Msgokarla 10-08-2023 Phone Msg - From: Selena Emanuel To: Letty Arana; Sent: 10/08/2023 10:40:45 EDT Subject: SCC New Patient Intake Caller Name: SURY SHEPPARD; Caller Number: [facility] Physician requested: any Have you ever been here before? no Patient Name: Sury Sheppard : 73 Address: [address] [place] [id number] Primary Secondary phone: Person calling other than patient: Relationship to patient: Phone: Reason for Referral: abnormal labs Referring Physician name/phone: Dr Florin Dyson Primary Care Physician name/phone: HISTORY: When/Where was biopsy and/or surgery performed? NOTES: labs done at [facility] in [place]. Pt states her labs have been abnormal for 2 years, and she is concerned by it. Her pcp did not tell her to call our office INSURANCE: [facility] ID # [id number] Referral from PCP required ([facility] and [facility]): still no answer at home # & called # on intake as primary # & it belongs to [facility] and is not patients phone # Normal [facility] Phone Msgon 10-02-2023 Phone Msg - From: Cecilia Ernst To: Letty Arana; Sent: 10/02/2023 14:47:50 EDT Subject: SCC New Patient Intake Caller Name: SURY SHEPPARD; Caller Number: [facility] Physician requested: First available Have you ever been here before? Patient Name: : Address: [address] [place] [id number] Primary Secondary phone: Person calling other than patient: Relationship to patient: Phone: Reason for Referral: Elev Iron, HCT, RBC Referring Physician name/phone: Dr. Dyson - [facility] Primary Care Physician name/phone: HISTORY: When/Where was biopsy and/or surgery performed? NOTES: INSURANCE: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 of gastric contents, with 75% retention at 1 hour (rapid emptying is <30% retention at 1 hour). IMPRESSION: NORMAL RATE OF GASTRIC EMPTYING OF A SOLID MEAL. Clerk Of Superior Court: PSCB Transcribe Date/Time: Mar 01 2022 1:44P Dictated by : TORY DOMÍNGUEZ MD This examination was interpreted and the report reviewed and electronically signed by: TORY DOMÍNGUEZ MD on Mar 01 2022 1:50PM EST [id number] [facility] CR Spine Cervical 4+ Viewson 11-14-2021 CR Spine Cervical 4+ Views Patient Name: SURY SHEPPARD Diagnostic Radiology ACCESSION EXAM DATE/TIME PROCEDURE ORDERING PROVIDER [id number] 11/14/2021 10:25 EDT CR Spine Cervical 4+ NIKKI CASTREJONFER Views CPT code 69973 Reason For Exam (CR Spine Cervical 4+ Views) neck pain Report CLINICAL INFORMATION: Neck and back pain. C-SPINE: AP, lateral, odontoid, and bilateral oblique views of the cervical spine are provided. The examination is compared to a previous study dated 02/18/2014. FINDINGS: The alignment of the cervical spine is within normal limits. Vertebral body heights and disc spaces are well-maintained. There is no fracture or dislocation. Oblique views demonstrate widely patent bilateral neural foramina. The visualized soft tissues are normal. IMPRESSION: 1. No acute findings. T-SPINE: AP, lateral, and swimmer's views of the thoracic spine are provided. The examination is compared to a previous study dated 01/14/2014. FINDINGS: The alignment of the thoracic spine is within normal limits. Vertebral body heights and disc spaces are well-maintained. There is no fracture or dislocation. The visualized lung puente are clear. Surgical clips are present in the right upper quadrant consistent with prior cholecystectomy. IMPRESSION: 1. No acute findings. Report Dictated on Final Dictated: 11/15/2021 5:09 am Dictating Physician: MD CRUZ JEFFREY Signed Date and Time: 11/15/2021 5:10 am Signed by: MD CRUZ JEFFREY Transcribed Date and Time: 11/15/2021 5:09 [facility] CR Spine Thoracic 2 Viewson 11-14-2021 CR Spine Thoracic 2 Views Patient Name: SURY SHEPPARD Diagnostic Radiology ACCESSION EXAM DATE/TIME PROCEDURE ORDERING PROVIDER [id number] 11/14/2021 10:26 EDT CR Spine Thoracic 2 LUCÍA, LAUREN Views CPT code 18826 Reason For Exam (CR Spine Thoracic 2 Views) upper back pain Report CLINICAL INFORMATION: Neck and back pain. C-SPINE: AP, lateral, odontoid, and bilateral oblique views of the cervical spine are provided. The examination is compared to a previous study dated 02/18/2014. FINDINGS: The alignment of the cervical spine is within normal limits. Vertebral body heights and disc spaces are well-maintained. There is no fracture or dislocation. Oblique views demonstrate widely patent bilateral neural foramina. The visualized soft tissues are normal. IMPRESSION: 1. No acute findings. T-SPINE: AP, lateral, and swimmer's views of the thoracic spine are provided. The examination is compared to a previous study dated 01/14/2014. FINDINGS: The alignment of the thoracic spine is within normal limits. Vertebral body heights and disc spaces are well-maintained. There is no fracture or dislocation. The visualized lung puente are clear. Surgical clips are present in the right upper quadrant consistent with prior cholecystectomy. IMPRESSION: 1. No acute findings. Report Dictated on Final Dictated: 11/15/2021 5:09 am Dictating Physician: MD CRUZ JEFFREY Signed Date and Time: 11/15/2021 5:10 am Signed by: MD CRUZ JEFFREY Transcribed Date and Time: 11/15/2021 5:09 Normal [facility] CBC W Auto Differential pane l (Bld)on 11-06-2021 Basophils (Bld) [#/Vol] 0.06 10*3/uL Normal <0.11 [facility] Comment on above: Order Comment: Speci men Type: URINE SPECIMEN Ordering Facility: [facility] Address: [address] [place] [address] Performed By: #### U TOX2 #### [facility] CLIA [id number] [address] [place] Basophils/100 WBC (Bld) 0.6 % Normal [facility] Comment on above: Order Comment: Speci men Type: URINE SPECIMEN Ordering Facility: [facility] Address: [address] [place] [address] Performed By: #### U TOX2 #### [facility] CLIA [id number] [address] [place] [address] [place] Differential cell count method Nom (Bld) Auto Normal [facility] Comment on above: Order Comment: Speci men Type: URINE SPECIMEN Ordering Facility: [facility] Address: [address] [place] [address] Performed By: #### U TOX2 #### [facility] CLIA [id number] [address] [place] [address] [place] Eosinophils (Bld) [#/Vol] 0.13 10*3/uL Normal <0.46 [facility] Comment on above: Order Comment: Speci men Type: URINE SPECIMEN Ordering Facility: [facility] Address: [address] [place] [address] Performed By: #### U TOX2 #### [facility] CLIA [id number] [address] [place] [address] [place] Eosinophils/100 WBC (Bld) 1.3 % Normal [facility] Comment on above: Order Comment: Speci men Type: URINE SPECIMEN Ordering Facility: [facility] Address: [address] [place] [address] Performed By: #### U TOX2 #### [facility] CLIA [id number] [address] [place] Erythrocyte distribution width (RBC) [Ratio] 14.7 % Normal 11.5-15.0 [facility] Comment on above: Order Comment: Speci men Type: URINE SPECIMEN Ordering Facility: [facility] Address: [address] [place] [address] Performed By: #### U TOX2 #### [facility] CLIA [id number] [address] [place] Hematocrit (Bld) [Volume fraction] 48.7 % High 36.0-46.0 [facility] Comment on above: Order Comment: Speci men Type: URINE SPECIMEN Ordering Facility: [facility] Address: [address] [place] [address] Performed By: #### U TOX2 #### [facility] CLIA [id number] [address] [place] Hemoglobin (Bld) [Mass/Vol] 16.6 g/dL High 11.5-15.5 [facility] Comment on above: Order Comment: Speci men Type: URINE SPECIMEN Ordering Facility: [facility] Address: [address] [place] [address] Performed By: #### U TOX2 #### [facility] CLIA [id number] [address] IMMATURE GRAN % 0.3 % Normal [facility] Comment on above: Order Comment: Speci men Type: URINE SPECIMEN Ordering Facility: [facility] Address: [address] [place] [address] Performed By: #### U TOX2 #### [facility] CLIA [id number] [address] IMMATURE GRAN ABS 0.03 k/uL Normal <0.10 [facility] Comment on above: Order Comment: Speci men Type: URINE SPECIMEN Ordering Facility: [facility] Address: [address] [place] [address] Performed By: #### U TOX2 #### [facility] CLIA [id number] [address] Lymphocytes (Bld) [#/Vol] 3.58 10*3/uL Normal 1.00-4.00 [facility] Comment on above: Order Comment: Speci men Type: URINE SPECIMEN Ordering Facility: [facility] Address: [address] [place] [address] Performed By: #### U TOX2 #### [facility] CLIA [id number] [address] Lymphocytes/100 WBC (Bld) 35.9 % Normal [facility] Comment on above: Order Comment: Speci men Type: URINE SPECIMEN Ordering Facility: [facility] Address: [address] [place] [address] Performed By: #### U TOX2 #### [facility] CLIA [id number] [address] MCH (RBC) [Entitic mass] 31.1 pg Normal 26.0-34.0 [facility] Comment on above: Order Comment: Speci men Type: URINE SPECIMEN Ordering Facility: [facility] Address: [address] [place] [address] Performed By: #### U TOX2 #### [facility] CLIA [id number] [address] STATES [facility] MCHC (RBC) [Mass/Vol] 34.1 g/dL Normal 30.5-36.0 [facility] Comment on above: Order Comment: Speci men Type: URINE SPECIMEN Ordering Facility: [facility] Address: [address] [place] [address] Performed By: #### U TOX2 #### [facility] CLIA [id number] [address] MCV (RBC) [Entitic vol] 91.2 fL Normal 80.0-100.0 [facility] Comment on above: Order Comment: Speci men Type: URINE SPECIMEN Ordering Facility: [facility] Address: [address] [place] [address] Performed By: #### U TOX2 #### [facility] CLIA [id number] [address] [place] Monocytes (Bld) [#/Vol] 0.87 10*3/uL High <0.87 [facility] Comment on above: Order Comment: Speci men Type: URINE SPECIMEN Ordering Facility: [facility] Address: [address] [place] [address] Performed By: #### U TOX2 #### [facility] CLIA [id number] [address] Monocytes/100 WBC (Bld) 8.7 % Normal [facility] Comment on above: Order Comment: Speci men Type: URINE SPECIMEN Ordering Facility: [facility] Address: [address] [place] [address] Performed By: #### U TOX2 #### [facility] CLIA [id number] [address] [place] Neutrophils (Bld) [#/Vol] 5.30 10*3/uL Normal 1.45-7.50 [facility] Comment on above: Order Comment: Speci men Type: URINE SPECIMEN Ordering Facility: [facility] Address: [address] [place] [address] Performed By: #### U TOX2 #### [facility] CLIA [id number] [address] [place] Neutrophils/100 WBC (Bld) 53.2 % Normal [facility] Comment on above: Order Comment: Speci men Type: URINE SPECIMEN Ordering Facility: [facility] Address: [address] [place] [address] Performed By: #### U TOX2 #### [facility] CLIA [id number] [address] [place] [address] [place] Nucleated RBC (Bld) [#/Vol] 10*3/uL Normal <0.01 [facility] Comment on above: Order Comment: Speci men Type: URINE SPECIMEN Ordering Facility: [facility] Address: [address] [place] [address] Performed By: #### U TOX2 #### [facility] CLIA [id number] [address] [place] [address] [place] Nucleated RBC/100 WBC (Bld) [Ratio] 0.0 /100 WBC Normal [facility] Comment on above: Order Comment: Speci men Type: URINE SPECIMEN Ordering Facility: [facility] Address: [address] [place] [address] Performed By: #### U TOX2 #### [facility] CLIA [id number] [address] [place] [address] [place] Platelet mean volume (Bld) [Entitic vol] 9.6 fL Normal 9.0-12.7 [facility] Comment on above: Order Comment: Speci men Type: URINE SPECIMEN Ordering Facility: [facility] Address: [address] [place] [address] Performed By: #### U TOX2 #### [facility] CLIA [id number] [address] [place] [address] [place] Platelets (Bld) [#/Vol] 281 10*3/uL Normal 150-400 [facility] Comment on above: Order Comment: Speci men Type: URINE SPECIMEN Ordering Facility: [facility] Address: [address] [place] [address] Performed By: #### U TOX2 #### [facility] CLIA [id number] [address] [place] RBC (Bld) [#/Vol] 5.34 10*6/uL High 3.90-5.20 [facility] Comment on above: Order Comment: Speci men Type: URINE SPECIMEN Ordering Facility: [facility] Address: [address] [place] [address] Performed By: #### U TOX2 #### [facility] CLIA [id number] [address] WBC (Bld) [#/Vol] 9.97 10*3/uL Normal 3.70-11.00 [facility] Comment on above: Order Comment: Speci men Type: URINE SPECIMEN Ordering Facility: [facility] Address: [address] [place] [address] Performed By: #### U TOX2 #### [facility] CLIA [id number] [address] Comprehensive metabolic 2000 panelon 11-06-2021 Albumin [Mass/Vol] 4.1 g/dL Normal 3.9-4.9 [facility] Comment on above: Order Comment: Speci men Type: BLOOD SPECIMEN Ordering Facility: [facility] Address: [address] [place] [address] Performed By: #### 3 3762-6, 76158-7, 44682-7, HSTNT #### [facility] CLIA [id number] [address] ALP [Catalytic activity/Vol] 74 U/L Normal 34-123 [facility] Comment on above: Order Comment: Speci men Type: BLOOD SPECIMEN Ordering Facility: [facility] Address: [address] [place] [address] Performed By: #### 3 3762-6, 41113-0, 47755-5, HSTNT #### [facility] CLIA [id number] [address] ALT [Catalytic activity/Vol] 22 U/L Normal 7-38 [facility] [facility] Comment on above: Order Comment: Speci men Type: BLOOD SPECIMEN Ordering Facility: [facility] Address: [address] [place] [address] Performed By: #### 3 3762-6, 09589-5, 30666-8, HSTNT #### [facility] CLIA [id number] [address] [place] [address] [place] Anion gap [Moles/Vol] 11 mmol/L Normal 9-18 [facility] Comment on above: Order Comment: Speci men Type: BLOOD SPECIMEN Ordering Facility: [facility] Address: [address] [place] [address] Performed By: #### 3 3762-6, 00755-0, 36632-5, HSTNT #### [facility] CLIA [id number] [address] STATES OF [facility] AST [Catalytic activity/Vol] 25 U/L Normal 13-35 [facility] Comment on above: Order Comment: Speci men Type: BLOOD SPECIMEN Ordering Facility: [facility] Address: [address] [place] [address] Performed By: #### 3 3762-6, 55957-2, 50094-6, HSTNT #### [facility] CLIA [id number] [address] [place] Bilirubin [Mass/Vol] 0.3 mg/dL Normal 0.2-1.3 [facility] Comment on above: Order Comment: Speci men Type: BLOOD SPECIMEN Ordering Facility: [facility] Address: [address] [place] [address] Performed By: #### 3 3762-6, 19072-6, 93497-0, HSTNT #### [facility] CLIA [id number] [address] OF [facility] Calcium [Mass/Vol] 9.0 mg/dL Normal 8.5-10.2 [facility] Comment on above: Order Comment: Speci men Type: BLOOD SPECIMEN Ordering Facility: [facility] Address: [address] [place] [address] Performed By: #### 3 3762-6, 49737-5, 68294-4, HSTNT #### [facility] CLIA [id number] [address] [place] [address] [place] Chloride [Moles/Vol] 105 mmol/L Normal 97-105 [facility] Comment on above: Order Comment: Speci men Type: BLOOD SPECIMEN Ordering Facility: [facility] Address: [address] [place] [address] Performed By: #### 3 3762-6, 05811-5, 49366-3, HSTNT #### [facility] CLIA [id number] [address] [place] [address] [place] CO2 [Moles/Vol] 20 mmol/L Low 22-30 [facility] Comment on above: Order Comment: Speci men Type: BLOOD SPECIMEN Ordering Facility: [facility] Address: [address] [place] [address] Performed By: #### 3 3762-6, 80506-8, 76859-4, HSTNT #### [facility] CLIA [id number] [address] [place] [address] [place] Creatinine [Mass/Vol] 0.84 mg/dL Normal 0.58-0.96 [facility] Comment on above: Order Comment: Speci men Type: BLOOD SPECIMEN Ordering Facility: [facility] Address: [address] [place] [address] Performed By: #### 3 3762-6, 30452-7, 92561-6, HSTNT #### [facility] CLIA [id number] [address] [place] [address] [place] [facility] [place] ESTIMATED GLOMERULAR FILTRATION RATE 86 mL/min/1.73m??? Normal >=60 [facility] Comment on above: Order Comment: Speci men Type: BLOOD SPECIMEN Ordering Facility: [facility] Address: [address] [place] [address] Result Comment: Celestina mated Glomerular Filtration Rate (eGFR) is calculated using the 2020 CKD-EPI creatinine equation. This equation utilizes serum creatinine, sex, and age as parameters. The creatinine assay has traceable calibration to isotope dilution-mass spectrometry. Refer to KDIGO guidelines for clinical interpretation. In patients with unstable renal function, e.g. those with acute kidney injury, the eGFR may not accurately reflect actual GFR. Performed By: #### 3 3762-6, 31433-1, , HSTNT #### [facility] CLIA [id number] [address] [place] [address] [place] Glucose [Mass/Vol] 98 mg/dL Normal 74-99 [facility] Comment on above: Order Comment: Henrik collins Type: BLOOD SPECIMEN Ordering Facility: [facility] Address: [address] [place] [id number] Result Comment: The [place] Diabetes Association (ADA) provides guidance for cutoff values for fasting glucose and random glucose. The ADA defines fasting as no caloric intake for at least 8 hours. Fasting plasma glucose results between 100 to 125 mg/dL indicate increased risk for diabetes (prediabetes). Fasting plasma glucose results greater than or equal to 126 mg/dL meet the criteria for diagnosis of diabetes. In the absence of unequivocal hyperglycemia, results should be confirmed by repeat testing. In a patient with classic symptoms of hyperglycemia or hyperglycemic crisis, random plasma glucose results greater than or equal to 200 mg/dL meet the criteria for diagnosis of diabetes. Reference: Standards of Medical Care in Diabetes 2016, [place] Diabetes Association. Diabetes Care. 2016.39(Suppl 1). Performed By: #### 3 3762-6, 12526-9, , HSTNT #### [facility] CLIA [id number] [address] [place] [address] [place] Potassium [Moles/Vol] 3.6 mmol/L Low 3.7-5.1 [facility] Comment on above: Order Comment: Henrik collins Type: BLOOD SPECIMEN Ordering Facility: [facility] Address: [address] [place] [address] Performed By: #### 3 3762-6, 36082-8, , HSTNT #### [facility] CLIA [id number] [address] [place] [address] [place] Protein [Mass/Vol] 7.3 g/dL Normal 6.3-8.0 [facility] Comment on above: Order Comment: Speci men Type: BLOOD SPECIMEN Ordering Facility: [facility] Address: [address] [place] [address] Performed By: #### 3 3762-6, 34140-7, 67668-7, HSTNT #### [facility] CLIA [id number] [address] Sodium [Moles/Vol] 136 mmol/L Normal 136-144 [facility] Comment on above: Order Comment: Speci men Type: BLOOD SPECIMEN Ordering Facility: [facility] Address: [address] [place] [address] Performed By: #### 3 3762-6, 33682-6, 67148-6, HSTNT #### [facility] CLIA [id number] [address] Urea nitrogen [Mass/Vol] 13 mg/dL Normal 7-21 [facility] Comment on above: Order Comment: Speci men Type: BLOOD SPECIMEN Ordering Facility: [facility] Address: [address] [place] [address] Performed By: #### 3 3762-6, 34424-1, 24771-2, HSTNT #### [facility] CLIA [id number] [address] D dimer FEU PPP-mCncon 11-06 Fibrin D-dimer FEU (PPP) [Mass/Vol] 260 ng/mL FEU Normal <500 [facility] Comment on above: Order Comment: Speci men Type: URINE SPECIMEN Ordering Facility: [facility] Address: [address] [place] [address] Performed By: #### U TOX2 #### [facility] CLIA [id number] [address] ED PROV NOTEon 11-06-2021 ED PROV NOTE HNO ID: [id number] Author: Shanelle Mina PA-C Service: Emergency Medicine Author Type: Physician [employer] Chief Scientist Type: ED Provider Notes Filed: 11/06/2021 2:05 AM Note Text: ED Provider Note Patient Name: Sury Sheppard : 1975 SERVICE DATE: 11/05/21 History Patient presents with: Chest Pain 46-year-old white female who presents to the emergency room with complaints of chest pain, headache and night sweats for the past 2 to 3 days. The patient states it seems to be worse at night when she lays down and calms herself.. She states that it does not seem to bother her throughout the day. Pt denies fever, chills, facial pain, neck pain or stiffness, thunderclap or sudden onset of COSTELLO, or worst headache of their life. Patient has a past medical and surgical history of: PAST MEDICAL HISTORY Diagnosis Date - Arthritis - Bipolar 1 disorder (HCC) - Degenerative joint disease - Depression - Fatty liver - Gastroparesis - Gestational diabetes - High cholesterol - Prediabetes PAST SURGICAL HISTORY Procedure Laterality Date - COLONOSCOPY 2017 polyps; benign - HYSTERECTOMY HX 2015 hx of abnormal cells, heavy periods - LIPOSUCTION, STOMACH - REMOVAL GALLBLADDER 01/24/2015 and Liver biopsy, - TUBAL LIGATION HX Patient states that she is currently pain-free. Her biggest complaint is more of a headache. Pain scale 3/10. She is COVID vaccinated. No history of a DVT or PE and no risk factors. Review of systems were reviewed and patient denies fever, chills, visual changes, sore throat or dental complaints, neck pain or stiffness, shortness of breath, cough, abdominal pain, vomiting, or diarrhea. Patient denies genitourinary symptoms, skin rash, musculoskeletal issues or neuro deficits. Patient denies any mental health concerns to include anxiety, depression, SI, HI or hallucinations. Symptoms not improved with home or OTC medications. No other medical complaints or injuries. No other aggravating or alleviating symptoms other than described as above. History provided by: Patient and medical records it specialist used: No PAST MEDICAL HISTORY Diagnosis Date - Arthritis - Bipolar 1 disorder (HCC) - Degenerative joint disease - Depression - Fatty liver - Gastroparesis - Gestational diabetes - High cholesterol - Prediabetes PAST SURGICAL HISTORY Procedure Laterality Date - COLONOSCOPY 2017 polyps; benign - HYSTERECTOMY HX 2015 hx of abnormal cells, heavy periods - LIPOSUCTION, STOMACH - REMOVAL GALLBLADDER 01/24/2015 and Liver biopsy, - TUBAL LIGATION HX FAMILY HISTORY Problem Relation Age of Onset - Breast Cancer Paternal Grandmother - Thyroid Mother afib - Lipids Mother - Hypertension Mother - Hypertension Father - Stroke Father - Colon Cancer No Family History Social History Tobacco Use - Smoking status: Current Every Day Smoker Packs/day: 1.00 Types: Cigarettes Start date: 10/15/1988 - Smokeless tobacco: Never Used Substance and Sexual Activity - Alcohol use: No - Drug use: No - Sexual activity: Not on file ALLERGIES Allergen Reactions - Sulfa (Sulfonamide * Swelling Itching - Nsaids (Non-Steroid* Other: See Comments GI H/O ulcers- GI sensitivity to NSAIDS Review of Systems Constitutional: Positive for diaphoresis. HENT: Negative. Eyes: Negative. Respiratory: Positive for chest tightness (and heaviness). Negative for shortness of breath. Cardiovascular: Negative. Gastrointestinal: Positive for nausea. Negative for abdominal pain and vomiting. Genitourinary: Negative. Musculoskeletal: Negative. Skin: Negative. Neurological: Positive for headaches. All other systems reviewed and are negative. Physical Exam Vitals [11/05/212032] BP Pulse Temp Temp src Resp SpO2 Weight Height 136/97 80 37.2 ?C (99 ?F) Temporal 18 100 % 90.7 kg (200 lb) 1.651 m (5' 5) Physical Exam Vitals and nursing note reviewed. Constitutional: General: She is awake. She is not in acute distress. Appearance: Normal appearance. She is well-developed and well-groomed. She is obese. She is not ill-appearing, toxic-appearing or diaphoretic. HENT: Head: Normocephalic and atraumatic. Jaw: There is normal jaw occlusion. Right Ear: Hearing, tympanic membrane, ear canal and external ear normal. Left Ear: Hearing, tympanic membrane, ear canal and external ear normal. Nose: Nose normal. Mouth/Throat: Lips: [place]. Mouth: Mucous membranes are moist. Pharynx: Oropharynx is clear. Uvula midline. Eyes: General: Lids are normal. Vision grossly intact. Extraocular Movements: Extraocular movements intact. Conjunctiva/sclera: Conjunctivae normal. Pupils: Pupils are equal, round, and reactive to light. Neck: Trachea: Trachea and phonation normal. Meningeal: Brudzinski's sign and Kernig's sign absent. Cardiovascular: Rate and Rhythm: Normal rate and (more content not included)... Normal [facility] HIGH SENSITIVITY TROPONIN To n 11-06-2021 HIGH SENSITIVITY JORDAN <6 Normal <12 [facility] Comment on above: Order Comment: Henrik collins Type: BLOOD SPECIMEN Ordering Facility: [facility] Address: [address] [place] [address] Result Comment: When assessing risk for acute coronary syndromes: In patients undergoing blood draw greater than or equal to 2 hours from symptom onset, with history of very low to moderate risk and non-ischemic ECG, an initial hs-Troponin T less than 12 ng/L AND a 1 hour delta hs-Troponin T less than 3 ng/L should be considered very low risk for 30 day MACE. Performed By: #### H STNT #### [facility] CLIA [id number] [address] STATES OF [facility] HIGH SENSITIVITY JORDAN <6 Normal <12 [facility] Comment on above: Order Comment: Henrik collins Type: BLOOD SPECIMEN Ordering Facility: [facility] Address: [address] [place] [address] Result Comment: When assessing risk for acute coronary syndromes: In patients undergoing blood draw greater than or equal to 2 hours from symptom onset, with history of very low to moderate risk and non-ischemic ECG, an initial hs-Troponin T less than 12 ng/L AND a 1 hour delta hs-Troponin T less than 3 ng/L should be considered very low risk for 30 day MACE. Performed By: #### 3 3762-6, 01327-5, 95525-1, HSTNT #### [facility] CLIA [id number] [address] [place] Magnesium SerPl-mCncon 11-06 Magnesium [Mass/Vol] 2.4 mg/dL High 1.7-2.3 [facility] Comment on above: Order Comment: Henrik collins Type: BLOOD SPECIMEN Ordering Facility: [facility] Address: [address] [place] [address] Performed By: #### 3 3762-6, 46184-0, 41236-7, HSTNT #### [facility] CLIA [id number] [address] [place] NT-proBNP [facility] 11-06 Natriuretic peptide.B prohormone N-Terminal [Mass/Vol] <50 Normal <125 [facility] Comment on above: Order Comment: Speci men Type: BLOOD SPECIMEN Ordering Facility: [facility] Address: [address] [place] [address] Performed By: #### 3 3762-6, 72094-7, 83473-6, HSTNT #### [facility] CLIA [id number] [address] [place] TOX SCREEN ROUT URon 022 Amphetamines Confirm (U) [Mass/Vol] Negative Normal Negative [facility] Comment on above: Order Comment: Speci men Type: URINE SPECIMEN Ordering Facility: [facility] Address: [address] [place] [address] Result Comment: Cuto ff threshold at 1000 ng/mL. Performed By: #### U TOX2 #### [facility] CLIA [id number] [address] [place] BARBITURATES, URINE Negative Normal Negative [facility] Comment on above: Order Comment: Speci men Type: URINE SPECIMEN Ordering Facility: [facility] Address: [address] [place] [address] Result Comment: Cuto ff threshold at 200 ng/mL. Performed By: #### U TOX2 #### [facility] CLIA [id number] [address] [place] [address] [place] BENZODIAZEPINES, UR Negative Normal Negative [facility] Comment on above: Order Comment: Speci men Type: URINE SPECIMEN Ordering Facility: [facility] Address: [address] [place] [address] Result Comment: Cuto ff threshold at 200 ng/mL. Performed By: #### U TOX2 #### [facility] CLIA [id number] [address] [place] [address] [place] CANNABINOIDS,URINE Positive Abnormal Negative [facility] Comment on above: Order Comment: Speci men Type: URINE SPECIMEN Ordering Facility: [facility] Address: [address] [place] [address] Result Comment: Cuto ff threshold at 50 ng/mL. Performed By: #### U TOX2 #### [facility] CLIA [id number] [address] Cocaine Ql (U) Negative Normal Negative [facility] Comment on above: Order Comment: Speci men Type: URINE SPECIMEN Ordering Facility: [facility] Address: [address] [place] [address] Result Comment: Cuto ff threshold at 300 ng/mL. Performed By: #### U TOX2 #### [facility] CLIA [id number] [address] Ethanol (U) [Mass/Vol] <11 Normal <11 [facility] Comment on above: Order Comment: Speci men Type: URINE SPECIMEN Ordering Facility: [facility] Address: [address] [place] [address] Performed By: #### U TOX2 #### [facility] CLIA [id number] [address] Opiates Screen Ql (U) Negative Normal Negative [facility] Comment on above: Order Comment: Speci men Type: URINE SPECIMEN Ordering Facility: [facility] Address: [address] [place] [address] Result Comment: Cuto ff threshold at 300 ng/mL. Performed By: #### U TOX2 #### [facility] CLIA [id number] [address] oxyCODONE cutoff Screen (U) [Mass/Vol] Negative Normal Negative [facility] Comment on above: Order Comment: Speci men Type: URINE SPECIMEN Ordering Facility: [facility] Address: [address] [place] [address] Result Comment: Cuto ff threshold at 100 ng/mL. Performed By: #### U TOX2 #### [facility] CLIA [id number] [address] Phencyclidine Ql (U) Negative Normal Negative [facility] Comment on above: Order Comment: Speci men Type: URINE SPECIMEN Ordering Facility: [facility] Address: [address] [place] [address] Result Comment: Cuto ff threshold at 25 ng/mL. Performed By: #### U TOX2 #### [facility] CLIA [id number] [address] URINALYSIS, REFLEX MICROSCOP ICon 11-06-2021 Bacteria LM.HPF (Urine sed) [#/Area] Many Abnormal None Seen [facility] Comment on above: Order Comment: Speci men Type: URINE SPECIMEN Ordering Facility: [facility] Address: [address] [place] [address] Performed By: #### L [id number] #### [facility] CLIA [id number] [address] Bilirubin Ql (U) Negative Normal Negative [facility] Comment on above: Order Comment: Speci men Type: URINE SPECIMEN Ordering Facility: [facility] Address: [address] [place] [address] Performed By: #### L [id number] #### [facility] CLIA [id number] [address] Clarity (Unsp spec) Slightly Cloudy Abnormal Clear [facility] Comment on above: Order Comment: Speci men Type: URINE SPECIMEN Ordering Facility: [facility] Address: [address] [place] [address] Performed By: #### L [id number] #### [facility] CLIA [id number] [address] Color (U) Yellow Normal Yellow [facility] Comment on above: Order Comment: Speci men Type: URINE SPECIMEN Ordering Facility: [facility] Address: [address] [place] [address] Performed By: #### L [id number] #### [facility] CLIA [id number] [address] Epithelial cells LM.HPF (Urine sed) [#/Area] Few Normal [facility] Comment on above: Order Comment: Speci men Type: URINE SPECIMEN Ordering Facility: [facility] Address: [address] [place] [address] Performed By: #### L [id number] #### [facility] CLIA [id number] [address] Glucose Test strip (U) [Mass/Vol] Negative Normal Negative [facility] Comment on above: Order Comment: Speci men Type: URINE SPECIMEN Ordering Facility: [facility] Address: [address] [place] [address] Performed By: #### L [id number] #### [facility] CLIA [id number] [address] [place] Hemoglobin Ql (U) Negative Normal Negative [facility] Comment on above: Order Comment: Speci men Type: URINE SPECIMEN Ordering Facility: [facility] Address: [address] [place] [address] Performed By: #### L [id number] #### [facility] CLIA [id number] [address] Ketones Ql (U) Negative Normal Negative [facility] Comment on above: Order Comment: Speci men Type: URINE SPECIMEN Ordering Facility: [facility] Address: [address] [place] [address] Performed By: #### L [id number] #### [facility] CLIA [id number] [address] Leukocyte esterase Test strip Ql (U) 1+ Abnormal Negative [facility] Comment on above: Order Comment: Speci men Type: URINE SPECIMEN Ordering Facility: [facility] Address: [address] [place] [address] Performed By: #### L [id number] #### [facility] CLIA [id number] [address] Nitrite Ql (U) Negative Normal Negative [facility] Comment on above: Order Comment: Speci men Type: URINE SPECIMEN Ordering Facility: [facility] Address: [address] [place] [address] Performed By: #### L [id number] #### [facility] CLIA [id number] [address] pH (U) 6.0 [pH] Normal 5.0-8.0 [facility] Comment on above: Order Comment: Speci men Type: URINE SPECIMEN Ordering Facility: [facility] Address: [address] [place] [address] Performed By: #### L [id number] #### [facility] CLIA [id number] [address] Protein (U) [Mass/Vol] Negative Normal Negative [facility] Comment on above: Order Comment: Speci men Type: URINE SPECIMEN Ordering Facility: [facility] Address: [address] [place] [address] Performed By: #### L [id number] #### [facility] CLIA [id number] [address] RBC LM.HPF (Urine sed) [#/Area] 0-3 /HPF Normal 0-3 /HPF [facility] Comment on above: Order Comment: Speci men Type: URINE SPECIMEN Ordering Facility: [facility] Address: [address] [place] [address] Performed By: #### L [id number] #### [facility] CLIA [id number] [address] Specific gravity (U) [Rel density] 1.020 Normal 1.005-1.030 [facility] Comment on above: Order Comment: Speci men Type: URINE SPECIMEN Ordering Facility: [facility] Address: [address] [place] [address] Performed By: #### L [id number] #### [facility] CLIA [id number] [address] Urobilinogen Ql (U) 0.2 EU/dL Normal 0.2-1.0 EU/dL [facility] Comment on above: Order Comment: Speci men Type: URINE SPECIMEN Ordering Facility: [facility] Address: [address] [place] [address] Performed By: #### L [id number] #### [facility] CLIA [id number] [address] [place] [id number] [facility] WBC LM.HPF (Urine sed) [#/Area] 6-10 /HPF Abnormal 0-5 /HPF [facility] Comment on above: Order Comment: Speci men Type: URINE SPECIMEN Ordering Facility: [facility] Address: [address] [place] [address] Performed By: #### L [id number] #### [facility] CLIA [id number] [address] [place] [address] [facility] [place] ALLIED HEALTHon 11-05-2021 ALLIED HEALTH HNO ID: [id number] Author: RT Val(R) Service: Radiology Author Type: Safety Advisor Type: [facility] Filed: 11/05/2021 9:18 PM Note Text: Radiology Service Progress Note PATIENT NAME: Sury Sheppard DATE OF SERVICE: November 05, 2021 TIME: 9:18 PM PATIENT IDENTITY VERIFICATION COMPLETED USING TWO (2) IDENTIFIERS: Name and Date of confirmed by patient verbally and Name and Date of confirmed by identification band. FALL SCREENING: Has the patient had 2 falls in the last year or 1 fall with injury or currently using an Ambulatory Assistive Device (Walker, Cane, Wheelchair, Crutches, etc.)? Emergency Room Patient: Screened in ED PATIENT GENDER DATA: Female. status: : No status: NO. PATIENT RELEVANT IMPLANT DATA REVIEWED: Not Applicable RADIOLOGY DEPARTMENT: General X-ray: Exam(s) Completed: Chest X-Ray PERIPHERAL IV DATA: Not applicable SIGNED BY: RT Val(R) November 05, 2021 9:18 PM Normal [facility] XR CHEST 2V FRONTAL/LATon XR CHEST 2V FRONTAL/LAT * * *Final Report* * * DATE OF EXAM: Nov 05 2021 9:17PM MDX [id number] - XR CHEST 2V FRONTAL/LAT / PROCEDURE REASON: Chest pain * * * * Physician Interpretation * * * * EXAMINATION: CHEST RADIOGRAPH (2 VIEW FRONTAL and LATERAL) CLINICAL HISTORY: Chest pain MQ: XC2_6 EXAM DATE/TIME: 11/05/2021 9:17 PM COMPARISON: No relevant prior studies available. RESULT: Lines, tubes, and devices: None. Lungs and pleura: No consolidation. No lung mass. No pleural effusion. No pneumothorax. Cardiomediastinal silhouette: Normal cardiomediastinal silhouette. Bones and soft tissues: Unremarkable. IMPRESSION: No acute radiographic abnormality. Clerk Of Superior Court: MINGO Transcribe Date/Time: Nov 05 2021 9:18P Dictated by : KEERTHI FLOWERS MD This examination was interpreted and the report reviewed and electronically signed by: KEERTHI FLOWERS MD on Nov 05 2021 9:18PM EST [id number] Normal [facility] GC + CHLAMYDIA BY AMPLIFIED DETECTIONon 02-09-2021 CHLAMYDIA TRACH.,AMPLIFIED Negative Normal Negative [facility] Comment on above: Result Comment: The APTIMA Combo 2 assay is FDA-approved for Chlamydia trachomatis and Neisseria gonorrhoeae testing on female endocervical and vaginal swabs, ThinPrep liquid pap samples, male urine samples and urethral swabs. Performance characteristics for Chlamydia trachomatis and Neisseria gonorrhoeae testing on specific xii-YUW-gsvgwlqn sample types (female urine samples) have been validated by [facility]. This laboratory is certified by CLIA to perform high complexity testing. Samples from all other sites are not validated for this method. Performed By: #### G [facility] #### [facility] [address] [place] [address] N.GONORRHEA,AMPLIFIED Negative Normal Negative [facility] Comment on above: Result Comment: The APTIMA Combo 2 assay is FDA-approved for Chlamydia trachomatis and Neisseria gonorrhoeae testing on female endocervical and vaginal swabs, ThinPrep liquid pap samples, male urine samples and urethral swabs. Performance characteristics for Chlamydia trachomatis and Neisseria gonorrhoeae testing on specific fyj-WBH-fdgxyokd sample types (female urine samples) have been validated by [facility]. This laboratory is certified by CLIA to perform high complexity testing. Samples from all other sites are not validated for this method. Performed By: #### [facility] #### [facility] [address] [place] [address] HSV BY PCR QUAL SKIN/MUCOSA LESIONon 02-09-2021 HSV-1 SKIN/MUCOSA Not detected Normal Not Detected [facility] Comment on above: Order Comment: HSV2 CALLED TO GUILLERMINA FLORES, 02/09/2021 13:14 Performed By: #### H SVSS #### [facility] [address] [place] [address] HSV-2 SKIN/MUCOSA Detected Critically abnormal Not Detected [facility] Comment on above: Order Comment: HSV2 CALLED TO GUILLERMINA FLORES, 02/09/2021 13:14 Result Comment: The HSV 1+2 Assay is an FDA approved in vitro diagnostic nucleic acid amplification test for the direct, qualitative detection and differentiation of Herpes Simplex Virus 1 (HSV-1) and Herpes Simplex Virus 2 (HSV-2) DNA in cutaneous or mucocutaneous lesion specimens from symptomatic patients. The test is intended for use as an aid in diagnosis of HSV infection in symptomatic patients. The test is not FDA-cleared for use with cerebrospinal fluid (CSF), screening or screening. Viral culture or other PCR tests are recommended for these purposes. HSV viability and/or infectivity cannot be inferred from a positive test result since target DNA may persist in the absence of infectious virus. A negative test does not exclude the possibility of infection because test results may be affected by improper specimen collection/transport/handling, presence of inhibitor(s), technical error, concurrent antiviral therapy, or the presence of insufficient DNA for detection. HSV2 CALLED TO GUILLERMINA FLORES, 02/09/2021 13:14 Performed By: #### H SVSS #### [facility] [address] [place] [address] TRICHOMONAS,NUCLEIC ACID DET ECTIONon 02-09-2021 TRICHOMONAS VAGINALIS Negative Normal Negative [facility] Comment on above: Result Comment: The APTIMA Trichomonas vaginalis assay is FDA-approved for testing on female endocervical swabs, vaginal swabs, and ThinPrep liquid pap samples. Performance characteristics for Trichomonas vaginalis on specific vjv-LSN-sdodasjx sample types (female and male urine and male urethral swabs) have been validated by [facility]. This laboratory is certified by CLIA to perform high complexity testing. Samples from all other sites are not validated for this method. Performance characteristics for Trichomonas Vaginalis testing on urine samples has been validated by [facility]. Testing on this sample type is not FDA-approved, but such approval is not necessary. This laboratory is certified by CLIA to perform high complexity testing. Performed By: #### T ALEC #### [facility] [address] [place] [address] GC + Chlamydia By Amplified Detectionon 02-08-2021 C. trachomatis rRNA RACH+probe Ql (Unsp spec) Negative Negative [facility] Work Phone: Comment on above: The APTIMA Combo 2 a ssay is FDA-approved for Chlamydia trachomatis and Neisseria gonorrhoeae testing on female endocervical and vaginal swabs, ThinPrep liquid pap samples, male urine samples and urethral swabs. Performance characteristics for Chlamydia trachomatis and Neisseria gonorrhoeae testing on specific iym-FZW-sxhpygsi sample types (female urine samples) have been validated by [facility]. This laboratory is certified by CLIA to perform high complexity testing. Samples from all other sites are not validated for this method. N. gonorrhoeae rRNA RACH+probe Ql (Unsp spec) Negative Negative [facility] Work Phone: Comment on above: SOURCE: Urine The AP FRANCISCO Combo 2 assay is FDA-approved for Chlamydia trachomatis and Neisseria gonorrhoeae testing on female endocervical and vaginal swabs, ThinPrep liquid pap samples, male urine samples and urethral swabs. Performance characteristics for Chlamydia trachomatis and Neisseria gonorrhoeae testing on specific jxp-NLU-eceqzcjk sample types (female urine samples) have been validated by [facility]. This laboratory is certified by CLIA to perform high complexity testing. Samples from all other sites are not validated for this method. Laboratory - Microbiology an d Antimicrobial susceptibilityon 02-08-2021 Virus identified Shell vial culture Nom (Unsp spec) [facility] Work Phone: No Panel Informationon 02-08 Negative Negative [facility] Work Phone: Comment on above: SOURCE: Urine The AP FRANCISCO Trichomonas vaginalis assay is FDA-approved for testing on female endocervical swabs, vaginal swabs, and ThinPrep liquid pap samples. Performance characteristics for Trichomonas vaginalis on specific dgj-GOF-usgrazja sample types (female and male urine and male urethral swabs) have been validated by [facility]. This laboratory is certified by CLIA to perform high complexity testing. Samples from all other sites are not validated for this method.Performance characteristics for Trichomonas Vaginalis testing on urine samples has been validated by [facility]. Testing on this sample type is not FDA-approved, but such approval is not necessary. This laboratory is certified by CLIA to perform high complexity testing. Office Visit (Urgent Care)on 02-08-2021 Follow-up visit Diagnoses/Problems Assessed Vaginitis (616.10) (N76.0) Orders Vaginitis Start: valACYclovir HCl - 1 GM Oral Tablet; TAKE 1 TABLET 3 TIMES DAILY Rx By: Sarthak Ac; Dispense: 7 Days ; #:21 Tablet; Refill: 0;For: Vaginitis; JERRI = N; Sent To: [facility], Patient Discussion/Summary I am not sure what is causing your rash, but I am concerned about genital herpes. We will start her on a medication to treat that while we wait for the symptoms . No sexual intercourse and to see your doctor. When you see your doctor, also ask about updating your HIV status for complete checkup Provider Impressions 1. Right labial rash- concern for primary episode of genital HSV. Viral swab taken, in the meantime start on Valtrex, no intercourse until seen by primary care doctor for follow-up. will also screen for GC chlamydia tach Chief Complaint Chief Complaints Vaginal Pain History of Present Illness 45-year-old female here complaining of painful lump to her right vaginal area x2 days. Gotten progressively worse not draining, used a topical hemorrhoid cream with some relief. Some mild dysuria, no other vaginal symptoms. Did have unprotected intercourse with a new partner 2 to 3 days ago Active Problems Problems Abnormal mammogram (793.80) (R92.8) R breast mass- referred to breast surg Bilateral knee pain (719.46) (M25.561,M25.562) Bipolar affective disorder (296.80) (F31.9) Chronic pain of left ankle (719.47,338.29) (M25.572,G89.29) Cigarette nicotine dependence without complication (305.1) (F17.210) Cystic acne vulgaris (706.1) (L70.0) DDD (degenerative disc disease) (722.6) Elevated AST (SGOT) (790.4) (R74.01) Fatigue (780.79) (R53.83) Fatty liver (571.8) (K76.0) Gastroparesis (536.3) (K31.84) GERD (gastroesophageal reflux disease) (530.81) (K21.9) Greater trochanteric bursitis of right hip (726.5) (M70.61) Hiatal hernia (553.3) (K44.9) Hip pain, bilateral (719.45) (M25.551,M25.552) History of mammogram (V15.89) (Z92.89) 01/27/18 abnormal on right - follow up diagnostic and US neg - needs 6 month follow up Hyperlipidemia (272.4) (E78.5) Insomnia, persistent (307.42) (G47.00) Internal hemorrhoids (455.0) (K64.8) Macromastia (611.1) (N62) Malaise and fatigue (780.79) (R53.81,R53.83) Mass of breast, right (611.72) (N63.10) Mixed hyperlipidemia (272.2) (E78.2) Nausea in adult (787.02) (R11.0) OAB (overactive bladder) (596.51) (N32.81) Obesity (278.00) (E66.9) Osteoarthritis (715.90) (M19.90) Pain of both hip joints (719.45) (M25.551,M25.552) Peptic ulcer (533.90) (K27.9) Peroneal tendon tear, left, sequela (905.8) (S86.312S) Peroneal tendonitis (726.79) (M76.70) Prediabetes (790.29) (R73.03) Screening for diabetes mellitus (V77.1) (Z13.1) Strain of muscle(s) and tendon(s) of peroneal muscle group at lower leg level, left leg, subsequent encounter (844.8) (S86.312D) Urinary incontinence in female (788.30) (R32) Weight gain (783.1) (R63.5) Past Medical History Problems History of depression (V11.8) (Z86.59) History of migraine (V12.49) (Z86.69) History of Hyperplastic rectal polyp (569.0) (K62.1) Resolved Date: 01 Sep 2018 History of Shoulder dislocation, 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) Surgical History Problems History of Ankle surgery 2 torn ligaments History of Cholecystectomy History of Colonoscopy 08/14/16; rectal polyp History of Hysterectomy partial, stiill has ovaries, done for heavy menses 2003 History of Liposuction History of Shoulder surgery History of Tubal Ligation Family History Mother Family history of atrial fibrillation (V17.49) (Z82.49) Family history of hyperlipidemia (V18.19) (Z83.438) Family history of hypertension (V17.49) (Z82.49) Family history of hypothyroidism (V18.19) (Z83.49) Family history of Thyroid trouble Father Family history of Alcohol abuse Family history of Family history of hypertension (V17.49) (Z82.49) Family history of malignant neoplasm of bone (V16.8) (Z80.8) Family history of osteoporosis (V17.81) (Z82.62) Other Family history of cerebrovascular accident (V17.1) (Z82.3) Family history of coronary artery disease (V17.3) (Z82.49) Family history of diabetes mellitus (V18.0) (Z83.3) Social History Problems Caffeine use (V49.89) (Z78.9) Current every day smoker (305.1) (F17.200) 1 ppd x 30 years Disabled Lives with domestic partner No alcohol use 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 Minocycline HCl - 1 (more content not included)... Normal [employer] TRICHOMONAS,NUCLEIC ACID DET ECTIONon 02-08-2021 Lab Specimen Source Urine Normal [facility] Comment on above: Performed By: #### T ALEC #### [facility] [address] [place] [address] Performed By: #### G CCHA #### [facility] [address] [place] [id number] VIRAL CULTUREon 02-08-2021 VIRAL CULTURE TEST VIRAL CULTURE W CANCELLED, 02/09/2021 10:57 TESTING FOR HERPES SIMPLEX VIRUS (HSV) ON GENITAL SAMPLES HAS BEEN CHANGED TO A MORE SENSITIVE PCR METHOD. SEE RESULTS FOR TEST HSV PCR SKIN AND MUCOSA (HSVSS).. Viral culture will support the growth of the following viruses: Adenovirus, CMV, Enteroviruses, HSV, Influenza,Metapneumovir us, Parainfluenza,RSV, and VZV. Culture for Mumps,Rhinovirus,Rubell a, and Rubeola virus require a specific request.EBV,BK virus,JENNIFER virus, and Arboviruses like West Nile do not grow in culture. PCR is recommended for the detection of all Herpes family viruses in CSF. PATIENT: SURY SHEPPARD LOCATION: [address]#: [id number] : 73 AGE: SEX: F ORDERED BY: SARTHAK AC SOURCE: WOUND/ABSCESS COLLECTED: 02/08/21 14:26 ANTIBIOTICS AT LUANA.: RECEIVED : 02/08/21 22:53 SITE: R E S U L T S VIRAL CULTURE CANCELLED 02/09/21 10:57 Normal [facility] Comment on above: Performed By: #### V CULT #### [facility] [address] [place] [id number] HSV BY PCR QUAL SKIN/MUCOSA LESIONon 02-07-2021 Lab Specimen Source Genital Normal [facility] Comment on above: Order Comment: HSV2 CALLED TO GUILLERMINA FLORES, 02/09/2021 13:14 Performed By: #### H SVSS #### [facility] [address] [place] [id number] Laboratory - Microbiology an d Antimicrobial susceptibilityon 02-07-2021 HSV 1 DNA RACH+probe Ql (Unsp spec) Not detected [facility] Work Phone: Comment on above: SOURCE: GenitalRefer ence Range: Not Detected HSV 2 DNA RACH+probe Ql (Unsp spec) Detected Critically abnormal See Below -[facility] Work Phone: Comment on above: Reference Range: Not Detected The HSV 1+2 Assay is an FDA approved in vitro diagnostic nucleic acid amplification test for the direct, qualitative detection and differentiation of Herpes Simplex Virus 1 (HSV-1) and Herpes Simplex Virus 2 (HSV-2) DNA in cutaneous or mucocutaneous lesion specimens from symptomatic patients. The test is intended for use as an aid in diagnosis of HSV infection in symptomatic patients. The test is not FDA-cleared for use with cerebrospinal fluid (CSF), screening or screening. Viral culture or other PCR tests are recommended for these purposes. HSV viability and/or infectivity cannot be inferred from a positive test result since target DNA may persist in the absence of infectious virus. A negative test does not exclude the possibility of infection because test results may be affected by improper specimen collection/transport/handling, presence of inhibitor(s), technical error, concurrent antiviral therapy, or the presence of insufficient DNA for detection.HSV2 CALLED TO GUILLERMINA FLORES, 02/09/2021 13:14 No Panel Informationon 11-01 * * *Final Report* * * DATE OF EXAM: Nov 01 2020 12:56AM [facility] 0529 - CT FLANK WO IVCON / PROCEDURE REASON: Flank pain, stone disease suspected * * * * Physician Interpretation * * * * EXAMINATION: CT ABDOMEN AND PELVIS WITHOUT IV CONTRAST (Renal stone protocol) CLINICAL HISTORY: Unspecified flank pain. Hematuria. TECHNIQUE: Non-contrast imaging of the abdomen and pelvis was performed through the urinary tract. Study performed without intravenous or oral contrast to evaluate for urinary tract calculus. MQ: CTAbdPelvF_1 Contrast: IV contrast: None Oral contrast: None CT Radiation dose: Integrated dose-length product (DLP) for this visit = 450 mGy*cm. CT Dose Reduction Employed: mAs-kVp adjusted based on patient size-age COMPARISON: 10/16/2015 RESULT: Limitations: Unenhanced imaging is limited for the evaluation of some renal and other intra-abdominal and pelvic pathology. Urinary Tract: Right kidney and ureter: No calculus. No hydronephrosis. No finding to suggest cyst or mass in the unenhanced kidney. Left kidney and ureter: No calculus. No hydronephrosis. No finding to suggest cyst or mass in the unenhanced kidney. Bladder: Mild urinary bladder wall thickening. Suggestion of mural nodule anterior urinary bladder luminal side coronal series 3 image 45 measuring 9 mm and sagittal series 4 image 56 Abdomen and Pelvis: Liver: Unremarkable. Biliary: S/p cholecystectomy. Spleen: No splenomegaly. Pancreas: Unremarkable. Adrenals: Normal. GI Tract: No bowel dilation. Normal appendix. Lymph Nodes: No lymphadenopathy. Mesentery/peritoneum: No ascites. Vasculature: No abdominal aortic or iliac artery aneurysm. Pelvis: No mass or ascites. Bones and Soft Tissues: No acute abnormality. Lower thorax: Unremarkable. Reservations Sales Agent (topogram) images: No additional findings. IMPRESSION: 1. No obstructive uropathy. 2. Urinary bladder wall thickening can represent cystitis. 3. Suggestion of anterior urinary bladder intraluminal mural nodule 9 mm versus artifact correlate with direct visualization. Clerk Of Superior Court: PSCB Transcribe Date/Time: Nov 01 2020 2:01A Dictated by : BLOSSOM PINEDA MD This examination was interpreted and the report reviewed and electronically signed by: BLOSSOM PINEDA MD on Nov 01 2020 2:05AM EST [id number] Normal [facility] Work Phone: URINALYSISon 08-01-2020 Appearance (U) CLEAR Normal CLEAR [facility] Comment on above: Performed By: #### U A #### [facility] [address] [place] [address] Bilirubin Ql (U) Negative Normal NEGATIVE [facility] Comment on above: Performed By: #### U A #### [facility] [address] [place] [address] Color (U) YELLOW Normal STRAW,YELLOW [facility] Comment on above: Performed By: #### U A #### [facility] [address] [place] [address] Glucose Ql (U) Negative Normal NEGATIVE [facility] Comment on above: Performed By: #### U A #### [facility] [address] [place] [address] Hemoglobin Ql (U) Negative Normal NEGATIVE [facility] Comment on above: Performed By: #### U A #### [facility] [address] [place] [address] Ketones Ql (U) Negative Normal NEGATIVE [facility] Comment on above: Performed By: #### U A #### [facility] [address] [place] [address] Leukocyte esterase Test strip Ql (U) Negative Normal NEGATIVE [facility] Comment on above: Performed By: #### U A #### [facility] [address] [place] [address] Nitrite Ql (U) Negative Normal NEGATIVE [facility] Comment on above: Performed By: #### U A #### [facility] [address] [place] [address] pH (U) 6.0 [pH] Normal 5.0 - 8.0 [facility] Comment on above: Performed By: #### U A #### [facility] [address] [place] [address] Protein Ql (U) Negative Normal NEGATIVE [facility] Comment on above: Performed By: #### U A #### [facility] [address] [place] [address] Specific gravity (U) [Rel density] 1.018 Normal 1.005 - 1.035 [facility] Comment on above: Performed By: #### U A #### [facility] [address] [place] [address] Urobilinogen (U) [Mass/Vol] mg/dL Normal 0.0 - 1.9 [facility] Comment on above: Performed By: #### U A #### [facility] [address] [place] [address] Office Visit (Family Meli spears)on 07-31-2020 Follow-up visit Chief Complaint pt here for urinary incontinence/stress incontinence. Pt. denies having a temp of 100 degrees or greater, new or worsening cough, sob, chills, headache, diarrhea, sore throat, body aches, malaise, nausea/vomiting,runny nose congestion. HAve you had any symptoms? PT. denies coming into contact with persons with confirmed covid. sb . 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 deliveries No problems with bowel movements - occ constipation No dysuria Active Problems Abnormal mammogram (793.80) (R92.8) R breast mass- referred to breast surg Bilateral knee pain (719.46) (M25.561,M25.562) Bipolar affective disorder (296.80) (F31.9) Chronic pain of left ankle (719.47,338.29) (M25.572,G89.29) Cigarette nicotine dependence without complication (305.1) (F17.210) Cystic acne vulgaris (706.1) (L70.0) DDD (degenerative disc disease) (722.6) Depression, major, single episode, severe (296.23) (F32.2) Elevated AST (SGOT) (790.4) (R74.01) Fatigue (780.79) (R53.83) Fatty liver (571.8) (K76.0) Frequent falls (V15.88) (R29.6) Gastroparesis (536.3) (K31.84) GERD (gastroesophageal reflux disease) (530.81) (K21.9) Greater trochanteric bursitis of right hip (726.5) (M70.61) Hiatal hernia (553.3) (K44.9) Hip pain, bilateral (719.45) (M25.551,M25.552) History of mammogram (V15.89) (Z92.89) 01/27/18 abnormal on right - follow up diagnostic and US neg - needs 6 month follow up Hyperlipidemia (272.4) (E78.5) Insomnia, persistent (307.42) (G47.00) Internal hemorrhoids (455.0) (K64.8) Macromastia (611.1) (N62) Malaise and fatigue (780.79) (R53.81,R53.83) Mass of breast, right (611.72) (N63.10) Mixed hyperlipidemia (272.2) (E78.2) Nausea in adult (787.02) (R11.0) Obesity (278.00) (E66.9) Osteoarthritis (715.90) (M19.90) Pain of both hip joints (719.45) (M25.551,M25.552) Peptic ulcer (533.90) (K27.9) Peroneal tendon tear, left, sequela (905.8) (S86.312S) Peroneal tendonitis (726.79) (M76.70) Prediabetes (790.29) (R73.03) Screening for diabetes mellitus (V77.1) (Z13.1) Strain of muscle(s) and tendon(s) of peroneal muscle group at lower leg level, left leg, subsequent encounter (844.8) (S86.312D) Urinary symptom or sign (788.99) (R39.9) UTI (urinary tract infection) (599.0) (N39.0) Weight gain (783.1) (R63.5) Past Medical History History of depression (V11.8) (Z86.59) History of migraine (V12.49) (Z86.69) History of Hyperplastic rectal polyp (569.0) (K62.1) History of Shoulder dislocation, 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) Surgical History History of Ankle surgery 2 torn ligaments History of Cholecystectomy History of Colonoscopy 08/14/16; rectal polyp History of Hysterectomy partial, stiill has ovaries, done for heavy menses 2003 History of Liposuction History of Shoulder surgery History of Tubal Ligation Family History Family history of atrial fibrillation (V17.49) (Z82.49) Family history of hyperlipidemia (V18.19) (Z83.438) Family history of hypertension (V17.49) (Z82.49) Family history of hypothyroidism (V18.19) (Z83.49) Family history of Thyroid trouble Family history of Alcohol abuse Family history of Family history of hypertension (V17.49) (Z82.49) Family history of malignant neoplasm of bone (V16.8) (Z80.8) Family history of osteoporosis (V17.81) (Z82.62) Family history of cerebrovascular accident (V17.1) (Z82.3) Family history of coronary artery disease (V17.3) (Z82.49) Family history of diabetes mellitus (V18.0) (Z83.3) Social History Caffeine use (V49.89) (Z78.9) Current every day smoker (305.1) (F17.200) 1 ppd x 30 years Disabled Lives with domestic partner No alcohol use 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 (V61.03) (Z63.5) Denied: History of Smokes 1/2 pack a day or less Allergies Sulfa Drugs Itching; Swelling; Updated By: Shikha Mckinley; 08/31/2018 2:08:55 PM Current Meds QUEtiapine Fumarate 300 MG Oral Tablet; TAKE 1 TABLET AT BEDTIME; Therapy: 04Oct2016 to (Evaluate:[id number]); Last Rx:30Nov2019 Ordered Rx By: Carla Castelan; Dispense: 90 Days ; #:90 Tablet; Refill: 0;For: Bipolar affective disorder; JERRI = N; Record Topamax 100 MG Oral Tablet; Take 1 tablet twice daily; Therapy: (Recorded:31Aug2018) to Recorded Dispense: 0 Days ; #: Sufficient Tablet; Refill: 0;For: Bipolar affective disorder; JERRI = N; Record; Last Updated By: Shikha Mckinley; 08/31/2018 2:08:55 PM Disability Placard; Expires 05/30/2019; Therapy: 08Apr2019 to (Last Rx:08Apr2019) Ordered Rx By: Carla Castelan; Dispense: 0 Days ; #:1 Each; Refill: 0;For: Chr (more content not included)... Normal [facility] URINE CULTURE,BACTERIALon URINE CULTURE,BACTERIAL PATIENT: SURY SHEPPARD LOCATION: [place] BILL#: [id number] : 73 AGE: SEX: F ORDERED BY: CARLA NOLASCO SOURCE: URINE COLLECTED: 07/31/20 17:06 ANTIBIOTICS AT [facility].: RECEIVED : 08/01/20 11:54 SITE: Clean Catch/Voided R E S U L T S URINE CULTURE,BACTERIAL FINAL 08/02/20 08:26 NO SIGNIFICANT GROWTH. Normal [facility] Comment on above: Performed By: #### U [facility] #### [facility] [address] [place] [address] ANKLE, COMPLETE, MIN 3 VIEWS on 07-06-2020 ANKLE, COMPLETE, MIN 3 VIEWS STUDY: Ankle Radiographs; [07/06/2020 and 5:29 PM] INDICATION: New lateral ankle pain and swelling, one year status post peroneal transfer. Pain in left ankle and joints of left foot, chronic. COMPARISON: None Available. ACCESSION NUMBER(S): [id number] ORDERING CLINICIAN: SARTHAK AC MD TECHNIQUE: Three views of the left ankle. FINDINGS: Cortical irregularity seen in the distal fibula, likely remote posttraumatic. There is no displaced fracture. The alignment is anatomic. Mild soft tissue edema seen laterally. IMPRESSION: Mild soft tissue edema seen laterally. No plain film evidence for acute osseous abnormality of the left ankle. Signed by Jayleen Gillis MD Electronically signed by: JAYLEEN GILLIS MD Normal [facility] Office Visit (Urgent Care)on 07-06-2020 Follow-up visit Diagnoses/Problems Assessed Chronic pain of left ankle (719.47,338.29) (M25.572,G89.29) Peroneal tendonitis (726.79) (M76.70) Orders Chronic pain of left ankle Xray Ankle 3 View; Status:Canceled; Perform:[facility]iology Services Imaging; Due:04Oct2020;Ordered; Stat; For:Chronic pain of left ankle; Ordered By:Sarthak Ac; Reason: Unspecified for Xray Ankle 3 View Reason: Unspecified for Xray Ankle 3 View Laterality : Left Radiologist to Determine Optimal Study : Y What are the patient's signs and symptoms? : New lateral madi pain and welling, 1 year s/p peroneal transfer Peroneal tendonitis Start: Naproxen 500 MG Oral Tablet; TAKE 1 TABLET EVERY 12 HOURS WITH FOOD Rx By: Sarthak Ac; Dispense: 15 Days ; #:30 Tablet; Refill: 0;For: Peroneal tendonitis; JERRI = N; Sent To: [facility]- [place], Provider Impressions 1. Acute left ankle pain-suspect exacerbation of prior peroneal injury, possible tendinitis. Wear boot, heat, naproxen, follow-up with orthopedics Chief Complaint Chief Complaints Ankle Pain History of Present Illness 45-year-old female here with 3 to 4 days of left ankle pain. Of note she had a peroneal tendon injury last year, had it repaired by a peroneal tendon transfer to her Achilles. Has been working off and on since then. 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 No known injury, but the last 3 days the pain and swelling have worsened. She is used some intermittent Tylenol with mild relief. No fever, no warmth Active Problems Problems Abnormal mammogram (793.80) (R92.8) R breast mass- referred to breast surg Bilateral knee pain (719.46) (M25.561,M25.562) Bipolar affective disorder (296.80) (F31.9) Chronic pain of left ankle (719.47,338.29) (M25.572,G89.29) Cigarette nicotine dependence without complication (305.1) (F17.210) Cystic acne vulgaris (706.1) (L70.0) DDD (degenerative disc disease) (722.6) Depression, major, single episode, severe (296.23) (F32.2) Elevated AST (SGOT) (790.4) (R74.01) Fatigue (780.79) (R53.83) Fatty liver (571.8) (K76.0) Frequent falls (V15.88) (R29.6) Gastroparesis (536.3) (K31.84) GERD (gastroesophageal reflux disease) (530.81) (K21.9) Greater trochanteric bursitis of right hip (726.5) (M70.61) Hiatal hernia (553.3) (K44.9) Hip pain, bilateral (719.45) (M25.551,M25.552) History of mammogram (V15.89) (Z92.89) 01/27/18 abnormal on right - follow up diagnostic and US neg - needs 6 month follow up Hyperlipidemia (272.4) (E78.5) Insomnia, persistent (307.42) (G47.00) Internal hemorrhoids (455.0) (K64.8) Macromastia (611.1) (N62) Malaise and fatigue (780.79) (R53.81,R53.83) Mass of breast, right (611.72) (N63.10) Mixed hyperlipidemia (272.2) (E78.2) Nausea in adult (787.02) (R11.0) Obesity (278.00) (E66.9) Osteoarthritis (715.90) (M19.90) Pain of both hip joints (719.45) (M25.551,M25.552) Peptic ulcer (533.90) (K27.9) Peroneal tendon tear, left, sequela (905.8) (S86.312S) Prediabetes (790.29) (R73.03) Screening for diabetes mellitus (V77.1) (Z13.1) Strain of muscle(s) and tendon(s) of peroneal muscle group at lower leg level, left leg, subsequent encounter (844.8) (S86.312D) Urinary symptom or sign (788.99) (R39.9) UTI (urinary tract infection) (599.0) (N39.0) Weight gain (783.1) (R63.5) Past Medical History Problems History of depression (V11.8) (Z86.59) History of migraine (V12.49) (Z86.69) History of Hyperplastic rectal polyp (569.0) (K62.1) Resolved Date: 01 Sep 2018 History of Shoulder dislocation, 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) Surgical History Problems History of Ankle surgery 2 torn ligaments History of Cholecystectomy History of Colonoscopy 08/14/16; rectal polyp History of Hysterectomy partial, stiill has ovaries, done for heavy menses 2003 History of Liposuction History of Shoulder surgery History of Tubal Ligation Family History Mother Family history of atrial fibrillation (V17.49) (Z82.49) Family history of hyperlipidemia (V18.19) (Z83.438) Family history of hypertension (V17.49) (Z82.49) Family history of hypothyroidism (V18.19) (Z83.49) Family history of Thyroid trouble Father Family history of Alcohol abuse Family history of Family history of hypertension (V17.49) (Z82.49) Family history of malignant neoplasm of bone (V16.8) (Z80.8) Family history of osteoporosis (V17.81) (Z82.62) Other Family history of cerebrovascular accident (V17.1) (Z82.3) Family history of coronary artery disease (V17.3) (Z82.49) Family history of diabetes mellitus (V18.0) (Z83.3) Social History Problems Caffeine use (V49.89) (Z78.9) Current every day smoker (305.1) (F17.200) 1 ppd x 30 years Disabled Lives with domestic partner No alcohol use 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 Normal [facility] CORONAVIRUS 2019 BY PCRon SARS-CoV-2 (COVID-19) RNA RACH+probe Ql (Unsp spec) Not detected Normal Not Detected [facility] Comment on above: Result Comment: . This assay is designed to detect the N, ORF1ab and/or S genes of SARS-CoV-2 via nucleic acid amplification. A Negative (NOT DETECTED) result does not preclude 2019-nCoV infection since the adequacy of sample collection and/or low viral burden may result in presence of viral nucleic acids below the clinical sensitivity of this test method. Negative (NOT DETECTED) result should not be used as the sole basis for treatment or other patient management decisions. Rather negative results should be combined with clinical observations, patient history, and epidemiological information to make patient management decisions. Fact sheet for providers: https://www.fda.gov/media/161302/download Fact sheet for patients: https://www.fda.gov/media/481960/download This test has received FDA Emergency Use Authorization (EUA) and has been verified by [facility] ([facility]). This test is only authorized for the duration of time that circumstances exist to justify the authorization of the emergency use of in vitro diagnostic tests for the detection of SARS-CoV-2 virus and/or diagnosis of COVID-19 infection under section 564(b)(1) of the Act, 21 U.S.C. 360bbb-3(b)(1), unless the authorization is terminated or revoked sooner. [facility] is certified under CLIA-88 as qualified to perform high complexity testing. Testing is performed in the [facility] laboratories located at [address] [place] [address]. Performed By: #### C OV19 #### [address] [place] [address] DATE OF SYMPTOM ONSET [YYYYMMDD]? 20200511 Normal [facility] Comment on above: Performed By: #### C OV19 #### [address] [place] [address] EMPLOYED IN HEALTHCARE? Unknown Normal [facility] Comment on above: Performed By: #### C OV19 #### [place] [address] HOSPITALIZED (OR PLANNED TO BE ADMITTED)? No Normal [facility] Comment on above: Performed By: #### C OV19 #### [address] [facility] [place] [address] ICU? No Normal [facility] Comment on above: Performed By: #### C OV19 #### [address] [place] [address] ? No Normal [facility] Comment on above: Performed By: #### C OV19 #### [address] [facility] [place] [place] [address] RESIDENT IN CONGREGATE CARE SETTING? No Normal [facility] Comment on above: Performed By: #### C OV19 #### [facility] [address] [place] [address] SARS-CoV-2 (COVID-19) Ab IA Ql Yes Normal [facility] Comment on above: Performed By: #### C OV19 #### [facility] [address] [place] [address] SYMPTOMATIC DEFINED BY CDC? Yes Normal [facility] Comment on above: Performed By: #### C OV19 #### [facility] [address] [place] [address] CORONAVIRUS 2019 BY PCRon Lab Specimen Source Nasal, Nasopharyngeal Normal [facility] Comment on above: Performed By: #### C OV19 #### [facility] [address] [place] [address] Office Visit (Urgent Care)on 05-13-2020 Follow-up visit Diagnoses/Problems Assessed Malaise and fatigue (780.79) (R53.81,R53.83) Orders Malaise and fatigue Coronavirus 2019 RNA by PCR, Symptomatic; Status:In Progress - Specimen/Data Collected; Done: 13May2020 Perform:Lab Services - Office to Draw (Non-Blood Test); Due:[id number];Ordered; For:Malaise and fatigue; Ordered By:Cecilia Merida; ? : No RESIDENT IN CONGREGATE CARE SETTING? : No ICU? : No HOSPITALIZED (OR PLANNED TO BE ADMITTED)? : No EMPLOYED IN HEALTHCARE? : Unknown FIRST COVID NASAL SWAB TEST? : Yes Symptom 1 : Body aches/Malaise DATE OF SYMPTOM ONSET? : 11May2020 IS THE PATIENT SYMPTOMATIC DEFINED BY THE CDC (FEVER>100, NEW WORSENING COUGH OR SHORTNESS OF BREATH, NEW LOSS OF TASTE OR SMELL, SORE THROAT, DIARRHEA, BODY ACHES/MALAISE, HEADACHE, NAUSEA/VOMITING, OR RUNNY NOSE/CONGESTION)? : Yes Patient Discussion/Summary Please see your primary care physician in [place] if worsening or if no improvement in 3 days. You had lab work or cultures done. The Urgent Care will notify you if you need further treatment. QUARANTINE UNTIL RECEIVE TEST RESULTS. CALL WITH ANY QUESTIONS. Chief Complaint Chief Complaints Cold Symptoms History of Present Illness Patient presents with most prominent symptom is fatigue and malaise. She has a mild dry cough and runny nose. She has been wanting to sleep more during the day. All other systems have been reviewed and are negative except for what is noted in the HPI. Active Problems Problems Abnormal mammogram (793.80) (R92.8) R breast mass- referred to breast surg Bilateral knee pain (719.46) (M25.561,M25.562) Bipolar affective disorder (296.80) (F31.9) Chronic pain of left ankle (719.47,338.29) (M25.572,G89.29) Cigarette nicotine dependence without complication (305.1) (F17.210) Cystic acne vulgaris (706.1) (L70.0) DDD (degenerative disc disease) (722.6) Depression, major, single episode, severe (296.23) (F32.2) Elevated AST (SGOT) (790.4) (R74.01) Fatigue (780.79) (R53.83) Fatty liver (571.8) (K76.0) Frequent falls (V15.88) (R29.6) Gastroparesis (536.3) (K31.84) GERD (gastroesophageal reflux disease) (530.81) (K21.9) Greater trochanteric bursitis of right hip (726.5) (M70.61) Hiatal hernia (553.3) (K44.9) Hip pain, bilateral (719.45) (M25.551,M25.552) History of mammogram (V15.89) (Z92.89) 01/27/18 abnormal on right - follow up diagnostic and US neg - needs 6 month follow up Hyperlipidemia (272.4) (E78.5) Insomnia, persistent (307.42) (G47.00) Internal hemorrhoids (455.0) (K64.8) Macromastia (611.1) (N62) Mass of breast, right (611.72) (N63.10) Mixed hyperlipidemia (272.2) (E78.2) Nausea in adult (787.02) (R11.0) Obesity (278.00) (E66.9) Osteoarthritis (715.90) (M19.90) Pain of both hip joints (719.45) (M25.551,M25.552) Peptic ulcer (533.90) (K27.9) Peroneal tendon tear, left, sequela (905.8) (S86.312S) Prediabetes (790.29) (R73.03) Screening for diabetes mellitus (V77.1) (Z13.1) Strain of muscle(s) and tendon(s) of peroneal muscle group at lower leg level, left leg, subsequent encounter (844.8) (S86.312D) Urinary symptom or sign (788.99) (R39.9) UTI (urinary tract infection) (599.0) (N39.0) Weight gain (783.1) (R63.5) Past Medical History Problems History of depression (V11.8) (Z86.59) History of migraine (V12.49) (Z86.69) History of Hyperplastic rectal polyp (569.0) (K62.1) Resolved Date: 01 Sep 2018 History of Shoulder dislocation, 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) Surgical History Problems History of Ankle surgery 2 torn ligaments History of Cholecystectomy History of Colonoscopy 08/14/16; rectal polyp History of Hysterectomy partial, stiill has ovaries, done for heavy menses 2003 History of Liposuction History of Shoulder surgery History of Tubal Ligation Family History Mother Family history of atrial fibrillation (V17.49) (Z82.49) Family history of hyperlipidemia (V18.19) (Z83.438) Family history of hypertension (V17.49) (Z82.49) Family history of hypothyroidism (V18.19) (Z83.49) Family history of Thyroid trouble Father Family history of Alcohol abuse Family history of Family history of hypertension (V17.49) (Z82.49) Family history of malignant neoplasm of bone (V16.8) (Z80.8) Family history of osteoporosis (V17.81) (Z82.62) Other Family history of cerebrovascular accident (V17.1) (Z82.3) Family history of coronary artery disease (V17.3) (Z82.49) Family history of diabetes mellitus (V18.0) (Z83.3) Social History Problems Caffeine use (V49.89) (Z78.9) Current every day smoker (305.1) (F17.200) 1 ppd x 30 years Disabled Lives with domestic partner No alcohol use 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 Normal [facility] Emergency Department Summary on 11-02-2019 Emergency Department Summary [facility] Medical Records Department [address] [place] [address] Emergency Department Summary 10/25/19 MR#: [id number] Acct: [id number] Name: SURY SHEPPARD Rep #: [id number] : 1975 44 From: Wally Hernandez MD PCP: Care Physician, No Primary Status: DEP ER History of Present Illness Narrative: This patient is a 44-year-old female who presents after an intentional Klonopin overdose. Patient reports having taken 20 to 30 tablets of 1 mg Klonopin in a suicide attempt. She states she was upset because she saw a picture of her ex-boyfriend's new . She does have a history of prior suicide attempt. She is treated for depression. She reports that she took these tablets about 1 hour ago. She is drowsy but easily arousable. She otherwise has no complaints. She denies any recent illness such as fevers vomiting cough chest pain shortness of breath. Chief Complaint: Suicidal Past Medical History Past Medical History: - - Depression, diabetes, hyperlipidemia Smoking Status: Current every day smoker - Allergies and Home Meds Allergies/Adverse Reactions: Allergies Sulfa (Sulfonamide Antibiotics) Allergy (Verified 10/25/19 18:52) Swelling Primary Care Physician: NOT,DEFINED [NON-STAFF] - Review of Systems All systems negative except as indicated General: Denies: Fever Eyes: Denies: Visual changes - bilaterally ENT: Denies: Bilateral ear pain Cardiovascular: Denies: Chest pain Respiratory: Denies: Dyspnea Gastrointestinal: Denies: Abdominal pain, Nausea, Vomiting, Diarrhea Musculoskeletal: Denies: Myalgias, Arthralgias Skin: Denies: Rash Neurological: Denies: Headache Psych: Reports: Suicidal thoughts, Suicidal ideations Physical Exam Vital Signs/Narrative: Vital Signs 10/25/19 18:49 97 F L 60 12 116/81 H 98 Inital Vital Signs reviewed: Yes General: Well nourished Head: Normocephalic Eyes: EOMI ENT: Moist mucous membranes Neck: Supple Cardiovascular: Regular rate, Regular rhythm Respiratory: No distress, CTA bilaterally Abdomen: Soft, Nontender, Nondistended Extremities: Nontender Skin: Normal color Neurological: Alert, - - Drowsy but easily arousable to voice. Psychological: Depressed, - - Suicidal thoughts Vital Signs/Narrative: Vital Signs 10/26/19 09:14 62 14 101/70 99 10/26/19 08:25 61 15 106/73 97 10/26/19 07:55 59 L 19 H 100/55 L 97 10/26/19 06:57 55 L 18 90/57 L 98 Diagnostic/Tx/Re-eval Laboratory Results WBC 10.1 RBC 4.99 Hgb 13.9 Hct 44.0 MCV 88.2 MCH 27.9 MCHC 31.6 L RDW Std Deviation 53.8 H RDW Coeff of Chaka 16.9 H Plt Count 278 MPV 10.3 Immature Gran % (Auto) 0.400 Neut % (Auto) 60.8 Lymph % (Auto) 28.4 Blaine % (Auto) 9.3 Eos % (Auto) 0.7 Baso % (Auto) 0.4 Absolute Neuts (auto) 6.1 Absolute Lymphs (auto) 2.85 Nucleated RBC % 0 Sodium 143 Potassium 4.0 Chloride 114 H Carbon Dioxide 22.0 Anion Gap 7 BUN 11 Creatinine 0.90 Estim Creat Clear Calc 71.03 Est GFR (MDRD) Af Amer 87 Est GFR (MDRD) Non-Af 72 BUN/Creatinine Ratio 12.2 Glucose 78 Calcium 9.0 Total Bilirubin 0.30 AST 16 ALT 26 Alkaline Phosphatase 70 Total Protein 7.6 Albumin 3.5 Globulin 4.1 Albumin/Globulin Ratio 0.9 Salicylates 3.7 Urine Opiates Screen Urine Methadone Screen Acetaminophen < 2.0 L Ur Barbiturates Screen Ur Phencyclidine Scrn Ur Amphetamines Screen U Methamphetamin-MDMA U Benzodiazepines Scrn Urine Cocaine Screen U Cannabinoids Screen Ur Drug Screen Comment Ethyl Alcohol < 3.0 WBC RBC Hgb Hct MCV MCH MCHC RDW Std Deviation RDW Coeff of Chaka Plt Count MPV Immature Gran % (Auto) Neut % (Auto) Lymph % (Auto) Blaine % (Auto) Eos % (Auto) Baso % (Auto) Absolute Neuts (auto) Absolute Lymphs (auto) Nucleated RBC % Sodium Potassium Chloride Carbon Dioxide Anion Gap BUN Creatinine Estim Creat Clear Calc Est GFR (MDRD) Af Amer Est GFR (MDRD) Non-Af BUN/Creatinine Ratio Glucose Calcium Total Bilirubin AST ALT Alkaline Phosphatase Total Protein Albumin Globulin Albumin/Globulin Ratio Salicylates Urine Opiates Screen NEGATIVE Urine Methadone Screen NEGATIVE Acetaminophen Ur Barbiturates Screen NEGATIVE Ur Phencyclidine Scrn NEGATIVE Ur Amphetamines Screen NEGATIVE U Methamphetamin-MDMA NEGATIVE U Benzodiazepines Scrn NEGATIVE Urine Cocaine Screen NEGATIVE U Cannabinoids Screen POSITIVE H Ur Drug Screen Comment Ethyl Alcohol - Medical Decision Making I did speak to poison control who notes Klonopin has a long half-life however does have a rapid peak. They recommended initial observation of 6 hours and if at that point to the patient was alert or improving could likely be medically cleared. However if she is drowsy or somnolent then she would require overnight hospitalization. Medical clearance as above, serum laboratory studies are unremarkable with normal salicylate level, normal acetaminophen level. Urine drug screen positive for cannabinoids only. Serum alcohol normal. Patient will be signed out to the oncoming physician for evaluation after 6 hours of observation to make determination if patient can be cleared for psychiatric evaluation and hospitalization versus if they require further medical observation. - Medical Decision Making Helene-was observed, she is been here for over 15 hours her Klonopin is out of her system. She is now lucid and coherent and medically cleared for psychiatric evaluation. ED Disposition - Plan for ED Patient: Referrals: NOT,DEFINED [NON-STAFF] - What to do if you have Problems For any increased pain, shortness of breath, bleeding, nausea or vomiting, chest pain, or any unexpected problems, contact your Primary Care Provider. Call [facility] ([phone]) or report to the closest Emergency Room. Call 911 if necessary. 11/02/19904 Date Wally Hernandez MD 10/26/19 1350 Cosigner Signature (If Indicated): Date Wayne Narayan MD CC: No Primary Care Physician Normal [facility] Acetaminophen (Tylenol) Leve dany 10-25-2019 Acetaminophen [Mass/Vol] < 2.0 Low 10.0-30.0 [facility] Comment on above: Performed By: #### L 501.8300, L501.8400, L501.9100 #### [facility] [address] [place], [address] Alcohol, Blood (Medical)-Ser umon 10-25-2019 SERUM ETOH < 3.0 Normal [facility] Comment on above: Result Comment: The serum:whole blood ethanol ratio is approximately 1.14 and varies slightly with hematocrit. Medical Alcohol reference interval and critical value in non-tolerant individuals; 50 - 100 Impairment 100 Intoxication 100 - 250 Severe Poisoning 250 - 400 Deep/possible fatal coma Performed By: #### L 501.8300, L501.8400, L501.9100 #### [facility] [address] [place], [address] CBC W/Diff, Automatedon 09-29 Absolute Neut 6.1 X10 3/uL Normal 2.0-7.7 [facility] Comment on above: Performed By: #### L 100.0100 #### [facility] [address] [place], [address] Basophils/100 WBC (Bld) 0.4 % Normal 0-1 [facility] Comment on above: Performed By: #### L 100.0100 #### [facility] [address] [place], [address] Eosinophils/100 WBC (Bld) 0.7 % Normal 0-5 [facility] Comment on above: Performed By: #### L 100.0100 #### [facility] [address] [place], [id number] Erythrocyte distribution width (RBC) [Ratio] 16.9 % High 11.6-14.6 [facility] Comment on above: Performed By: #### L 100.0100 #### [facility] [address] [place], [address] Hematocrit (Bld) [Volume fraction] 44.0 % Normal 37-47 [facility] Comment on above: Performed By: #### L 100.0100 #### [facility] [address] [place], [id number] Hemoglobin (Bld) [Mass/Vol] 13.9 g/dL Normal 12.0-15.0 [facility] Comment on above: Performed By: #### L 100.0100 #### [facility] [address] [place], [address] IM GRAN % 0.400 % Normal 0.0-0.9 [facility] Comment on above: Result Comment: IG% - Immature Granulocytes (promyelocytes, myelocytes and metamyelocytes) > 1% indicates that a LEFT SHIFT is Present. Performed By: #### L 100.0100 #### [facility] [address] [place], [id number] Lymphocytes (Bld) [#/Vol] 2.85 X10 3/uL Normal 0.83-4.51 [facility] Comment on above: Performed By: #### L 100.0100 #### [facility] [address] [place], [address] Lymphocytes/100 WBC (Bld) 28.4 % Normal 19-41 [facility] Comment on above: Performed By: #### L 100.0100 #### [facility] [address] [place], [address] MCH (RBC) [Entitic mass] 27.9 pg Normal 27.0-32.0 [facility] Comment on above: Performed By: #### L 100.0100 #### [facility] [address] [place], [address] MCHC (RBC) [Mass/Vol] 31.6 g/dL Low 32-36 [facility] Comment on above: Performed By: #### L 100.0100 #### [facility] [address] [place], [id number] MCV (RBC) [Entitic vol] 88.2 fL Normal 81-99 [facility] Comment on above: Performed By: #### L 100.0100 #### [facility] [address] [place], [id number] Monocytes/100 WBC (Bld) 9.3 % Normal 0-10 [facility] Comment on above: Performed By: #### L 100.0100 #### [facility] [address] [place], [id number] Neutrophils/100 WBC (Bld) 60.8 % Normal 47-70 [facility] Comment on above: Performed By: #### L 100.0100 #### [facility] [address] [place], [id number] NRBC, FLAGGED 0 % Normal 0-5 [facility] Comment on above: Performed By: #### L 100.0100 #### [facility] [address] [place], [id number] Platelet mean volume (Bld) [Entitic vol] 10.3 fL Normal 6.2-12.0 [facility] Comment on above: Performed By: #### L 100.0100 #### [facility] [address] [place], [id number] Platelets (Bld) [#/Vol] 278 10*3/uL Normal 150-450 [facility] Comment on above: Performed By: #### L 100.0100 #### [facility] [address] [place], [address] RBC (Bld) [#/Vol] 4.99 M/mm3 Normal 4.2-5.4 [facility] Comment on above: Performed By: #### L 100.0100 #### [facility] [address] [place], [address] RDW SD 53.8 fl High 35.1-43.9 [facility] Comment on above: Performed By: #### L 100.0100 #### [facility] [address] [place], [address] WBC (Bld) [#/Vol] 10.1 10*3/uL Normal 4.4-11.0 [facility] Comment on above: Performed By: #### L 100.0100 #### [facility] [address] [place], [address] Comprehensive Metabolic Prof [facility] 10-25-2019 Albumin [Mass/Vol] 3.5 g/dL Normal 3.2-5.0 [facility] Comment on above: Performed By: #### L 500.4050 #### [facility] [address] [place], [address] Albumin/Globulin [Mass ratio] 0.9 {ratio} Normal 0.9-2.4 [facility] Comment on above: Performed By: #### L 500.4050 #### [facility] [address] [place], [address] ALK P 70 U/L Normal 45-117 [facility] Comment on above: Performed By: #### L 500.4050 #### [facility] [address] [place], [address] ALT [Catalytic activity/Vol] 26 U/L Normal 13-56 [facility] Comment on above: Performed By: #### L 500.4050 #### [facility] [address] [place], [id number] AST [Catalytic activity/Vol] 16 U/L Normal 15-37 [facility] Comment on above: Performed By: #### L 500.4050 #### [facility] [address] [place], [id number] Bilirubin [Mass/Vol] 0.30 mg/dL Normal 0.20-1.00 [facility] Comment on above: Result Comment: For patients on eltrombopag therapy, use of Dimension [place] TBIL is not recommended. Performed By: #### L 500.4050 #### [facility] [address] [place], [id number] Calcium [Mass/Vol] 9.0 mg/dL Normal 8.5-10.1 [facility] Comment on above: Performed By: #### L 500.4050 #### [facility] [address] [place], [id number] Chloride [Moles/Vol] 114 mmol/L High 98-107 [facility] Comment on above: Performed By: #### L 500.4050 #### [facility] [address] [place], [id number] CO2 [Moles/Vol] 22.0 mmol/L Normal 21.0-32.0 [facility] Comment on above: Performed By: #### L 500.4050 #### [facility] [address] [place], [address] Creatinine [Mass/Vol] 0.90 mg/dL Normal 0.55-1.02 [facility] Comment on above: Result Comment: The validity of the calculated GFR AND GFRAA in patients over 70 years has not been determined. Clinical correlation is essential. Performed By: #### L 500.4050 #### [facility] [address] [place], [address] EST GFR - AA 87 mL/min Normal >60 [facility] Comment on above: Result Comment: Afri can Georgian GFR Calc Performed By: #### L 500.4050 #### [facility] [address] [place], [address] Estimated CRCL 71.03 ml/min Normal [facility] Comment on above: Performed By: #### L 500.4050 #### [facility] [address] [place], [address] GAP 7 Normal 5-15 [facility] Comment on above: Performed By: #### L 500.4050 #### [facility] [address] [place], [address] GFR/1.73 sq M predicted among non-blacks MDRD (S/P/Bld) [Vol rate/Area] 72 mL/min/{1.73_m2} Normal >60 [facility] Comment on above: Result Comment: Non- GFR Calc Performed By: #### L 500.4050 #### [facility] [address] [place], [address] Globulin (S) [Mass/Vol] 4.1 g/dL Normal 2.2-4.2 [facility] Comment on above: Performed By: #### L 500.4050 #### [facility] [address] [place], [address] Glucose [Mass/Vol] 78 mg/dL Normal 74-106 [facility] Comment on above: Result Comment: Guilherme bonilla note revised GLUCOSE reference range effective 2017. Performed By: #### L 500.4050 #### [facility] [address] [place], [address] Potassium [Moles/Vol] 4.0 mmol/L Normal 3.5-5.1 [facility] Comment on above: Performed By: #### L 500.4050 #### [facility] [address] [place], [address] Sodium [Moles/Vol] 143 mmol/L Normal 136-145 [facility] Comment on above: Performed By: #### L 500.4050 #### [facility] [address] [place], [address] T PROT 7.6 g/dL Normal 6.4-8.2 [facility] Comment on above: Performed By: #### L 500.4050 #### [facility] [address] [place], [address] Urea nitrogen [Mass/Vol] 12.2 RATIO Normal 10-20 [facility] Comment on above: Performed By: #### L 500.4050 #### [facility] [address] [place], [address] Urea nitrogen [Mass/Vol] 11 mg/dL Normal 7-18 [facility] Comment on above: Performed By: #### L 500.4050 #### [facility] [address] [place], [address] MR/ED.DCSUMon 10-25-2019 MR/ED.[facility] Medical Records Department [address] [place] [address] Emergency Department Summary 10/25/19 MR#: [id number] Acct: [id number] Name: SURY SHEPPARD Rep #: [id number] : 1975 44 From: Wally Hernandez MD PCP: Care Physician, No Primary Status:DEP ER History of Present Illness Narrative: This patient is a 44-year-old female who presents after an intentional Klonopin overdose. Patient reports having taken 20 to 30 tablets of 1 mg Klonopin in a suicide attempt. She states she was upset because she saw a picture of her ex-boyfriend's new . She does have a history of prior suicide attempt. She is treated for depression. She reports that she took these tablets about 1 hour ago. She is drowsy but easily arousable. She otherwise has no complaints. She denies any recent illness such as fevers vomiting cough chest pain shortness of breath. Chief Complaint: Suicidal Past Medical History Past Medical History: - - Depression, diabetes, hyperlipidemia Smoking Status: Current every day smoker - Allergies and Home Meds Allergies/Adverse Reactions: Allergies Sulfa (Sulfonamide Antibiotics) Allergy (Verified 10/25/19 18:52) Swelling Primary Care Physician: NOT,DEFINED [NON-STAFF] - Review of Systems All systems negative except as indicated General: Denies: Fever Eyes: Denies: Visual changes - bilaterally ENT: Denies: Bilateral ear pain Cardiovascular: Denies: Chest pain Respiratory: Denies: Dyspnea Gastrointestinal: Denies: Abdominal pain, Nausea, Vomiting, Diarrhea Musculoskeletal: Denies: Myalgias, Arthralgias Skin: Denies: Rash Neurological: Denies: Headache Psych: Reports: Suicidal thoughts, Suicidal ideations Physical Exam Vital Signs/Narrative: Vital Signs Temp Pulse Resp BP Pulse Ox 10/25/19 18:49 97 F L 60 12 116/81 H 98 Inital Vital Signs reviewed: Yes General: Well nourished Head: Normocephalic Eyes: EOMI ENT: Moist mucous membranes Neck: Supple Cardiovascular: Regular rate, Regular rhythm Respiratory: No distress, CTA bilaterally Abdomen: Soft, Nontender, Nondistended Extremities: Nontender Skin: Normal color Neurological: Alert, - - Drowsy but easily arousable to voice. Psychological: Depressed, - - Suicidal thoughts Vital Signs/Narrative: Vital Signs Pulse Resp BP Pulse Ox 10/26/19 09:14 62 14 101/70 99 10/26/19 08:25 61 15 106/73 97 10/26/19 07:55 59 L 19 H 100/55 L 97 10/26/19 06:57 55 L 18 90/57 L 98 Diagnostic/Tx/Re-eval Laboratory Results 10/25/19 10/25/19 10/25/19 19:00 19:00 19:00 WBC 10.1 RBC 4.99 Hgb 13.9 Hct 44.0 MCV 88.2 MCH 27.9 MCHC 31.6 L RDW Std Deviation 53.8 H RDW Coeff of Chaka 16.9 H Plt Count 278 MPV 10.3 Immature Gran % (Auto) 0.400 Neut % (Auto) 60.8 Lymph % (Auto) 28.4 Blaine % (Auto) 9.3 Eos % (Auto) 0.7 Baso % (Auto) 0.4 Absolute Neuts (auto) 6.1 Absolute Lymphs (auto) 2.85 Nucleated RBC % 0 Sodium 143 Potassium 4.0 Chloride 114 H Carbon Dioxide 22.0 Anion Gap 7 BUN 11 Creatinine 0.90 Estim Creat Clear Calc 71.03 Est GFR (MDRD) Af Amer 87 Est GFR (MDRD) Non-Af 72 BUN/Creatinine Ratio 12.2 Glucose 78 Calcium 9.0 Total Bilirubin 0.30 AST 16 ALT 26 Alkaline Phosphatase 70 Total Protein 7.6 Albumin 3.5 Globulin 4.1 Albumin/Globulin Ratio 0.9 Salicylates 3.7 Urine Opiates Screen Urine Methadone Screen Acetaminophen < 2.0 L Ur Barbiturates Screen Ur Phencyclidine Scrn Ur Amphetamines Screen U Methamphetamin-MDMA U Benzodiazepines Scrn Urine Cocaine Screen U Cannabinoids Screen Ur Drug Screen Comment Ethyl Alcohol < 3.0 10/25/19 19:35 WBC RBC Hgb Hct MCV MCH MCHC RDW Std Deviation RDW Coeff of Chaka Plt Count MPV Immature Gran % (Auto) Neut % (Auto) Lymph % (Auto) Blaine % (Auto) Eos % (Auto) Baso % (Auto) Absolute Neuts (auto) Absolute Lymphs (auto) Nucleated RBC % Sodium Potassium Chloride Carbon Dioxide Anion Gap BUN Creatinine Estim Creat Clear Calc Est GFR (MDRD) Af Amer Est GFR (MDRD) Non-Af BUN/Creatinine Ratio Glucose Calcium Total Bilirubin AST ALT Alkaline Phosphatase Total Protein Albumin Globulin Albumin/Globulin Ratio Salicylates Urine Opiates Screen NEGATIVE Urine Methadone Screen NEGATIVE Acetaminophen Ur Barbiturates Screen NEGATIVE Ur Phencyclidine Scrn NEGATIVE Ur Amphetamines Screen NEGATIVE U Methamphetamin-MDMA NEGATIVE U Benzodiazepines Scrn NEGATIVE Urine Cocaine Screen NEGATIVE U Cannabinoids Screen POSITIVE H Ur Drug Screen Comment Ethyl Alcohol - Medical Decision Making I did speak to poison control who notes Klonopin has a long half-life however does have a rapid peak. They recommended initial observation of 6 hours and if at that point to the patient was alert or improving could likely be medically cleared. However if she is drowsy or somnolent then she would require overnight hospitalization. Medical clearance as above, serum laboratory studies are unremarkable with normal salicylate level, normal acetaminophen level. Urine drug screen positive for cannabinoids only. Serum alcohol normal. Patient will be signed out to the oncoming physician for evaluation after 6 hours of observation to make determination if patient can be cleared for psychiatric evaluation and hospitalization versus if they require further medical observation. - Medical Decision Making Harivalarie-was observed, she is been here for over 15 hours her Klonopin is out of her system. She is now lucid and coherent and medically cleared for psychiatric evaluation. ED Disposition - Plan for ED Patient: Referrals: NOT,DEFINED [NON-STAFF] - What to do if you have Problems For any increased pain, shortness of breath, bleeding, nausea or vomiting, chest pain, or any unexpected problems, contact your Primary Care Provider. Call [facility] ([phone]) or report to the closest Emergency Room. Call 911 if necessary. 11/02/19 0905 Date Wally Hernandez MD 10/26/19 1350 Cosigner Signature (If Indicated): Date Wayne Narayan MD CC: No Primary Care Physician ADDENDUM by Dr. Wayne Narayan MD on 11/10/19 at 1644 Diagnosis: Intentional Overdose 11/10/19 1644 Date Wayne Narayan MD cc: No Primary Care Physician * Signed Normal [facility] ,Urineon 10-25-2019 Beta HCG ( test) Ql (U) Negative Normal [facility] Comment on above: Result Comment: Very dilute urine specimens, as indicated by a low specific gravity, may not contain passenger representative levels of hCG. If is still suspected, a first morning urine specimen should be collected 48 hours later and tested. Performed By: #### L 400.7600 #### [facility] [address] [place], [address] Salicylateon 10-25-2019 SALICYLATE 3.7 mg/dL Normal 2.8-20.0 [facility] Comment on above: Performed By: #### L 501.8300, L501.8400, L501.9100 #### [facility] [address] [place], [address] Urine Drug Screen (VISTA)on 10-25-2019 Amphetamines Ql (U) Negative Normal <1000 ng/mL [facility] Comment on above: Performed By: #### L 505.5000 #### [facility] [address] [place], [address] BARBITIURATES Negative Normal < 200 ng/mL [facility] Comment on above: Performed By: #### L 505.5000 #### [facility] [address] [place], [address] BENZODIAZIPINE Negative Normal < 200 ng/mL [facility] Comment on above: Performed By: #### L 505.5000 #### [facility] [address] [place], [address] Cocaine Ql (U) Negative Normal < 300 ng/mL [facility] Comment on above: Performed By: #### L 505.5000 #### [facility] [address] [place], [address] ECSTACY Negative Normal < 500 ng/mL [facility] Comment on above: Performed By: #### L 505.5000 #### [facility] [address] [place], [address] Methadone Ql (U) Negative Normal < 300 ng/mL [facility] Comment on above: Performed By: #### L 505.5000 #### [facility] [address] [place], [address] Opiates Ql (U) Negative Normal < 300 ng/mL [facility] Comment on above: Performed By: #### L 505.5000 #### [facility] [address] [place], [address] PCP Negative Normal < 25 ng/mL [facility] Comment on above: Performed By: #### L 505.5000 #### [facility] [address] [place], [address] THC Positive High < 50 ng/mL [facility] Comment on above: Performed By: #### L 505.5000 #### [facility] [address] [place], [address] VISTA UDS PH 6 Normal [facility] Comment on above: Performed By: #### L 505.5000 #### [facility] [address] [place], [address] TO BE CONFIRMED Normal [facility] Comment on above: Result Comment: CONF IRMATORY TESTING FOR ALL POSITIVE URINE DRUG SCREEN RESULTS WILL ONLY BE SENT OUT UPON PHYSICIAN ORDER. VISTA Urine Drug Screen methods provide only preliminary analytical test results. A more specific alternate chemical method must be used in order to obtain a confirmed analytical result. Gas chromatography/mass spectrometery (GC/MS) is the preferred confirmatory method. Clinical consideration and professional judgement should be applied to any drug of abuse test result, particularly when preliminary positive results are used. URINE TCA TESTING MUST BE ORDERED SEPARATELY. USE TEST MNEMONIC: UTCA Performed By: #### L 505.5000 #### [facility] [address] [place], [place], [address] BASIC METABOLIC PANELon 11- Anion gap [Moles/Vol] 9 mmol/L Low 10 - 20 Trung inson/Por [facility] Comment on above: Performed By: #### B MP #### [facility] [address] [place] [address] Calcium [Mass/Vol] 8.6 mg/dL Normal 8.6 - 10.3 [place] on/Por [facility] Comment on above: Performed By: #### B MP #### [address] [address] Chloride [Moles/Vol] 108 mmol/L High 98 - 107 Jovon nson/Por [facility] Comment on above: Performed By: #### B MP #### [address] [address] Creatinine [Mass/Vol] 0.74 mg/dL Normal 0.50 - 1.05 Ro binson/Por [facility] Comment on above: Performed By: #### B MP #### [place] [id number] GFR- AM. >60 Normal >60 Cerna/ Por [facility] Comment on above: Result Comment: CALC ULATIONS OF ESTIMATED GFR ARE PERFORMED USING THE MDRD STUDY EQUATION FOR THE IDMS-TRACEABLE CREATININE METHODS. CLIN CHEM 2007;53:766-72 Performed By: #### B MP #### [place] [address] GFR-NON AM. >60 Normal >60 Justice son/Por [facility] Comment on above: Performed By: #### B MP #### [address] [address] Glucose [Mass/Vol] 92 mg/dL Normal 74 - 99 [place] on/Por [facility] Comment on above: Performed By: #### B MP #### [address] [address] HCO3 (Bld) [Moles/Vol] 22 mmol/L Normal 21 - 32 [place]erna/Por [facility] Comment on above: Performed By: #### B MP #### [address] [address] Potassium [Moles/Vol] 3.8 mmol/L Normal 3.5 - 5.3 Trung inson/Por [facility] Comment on above: Performed By: #### B MP #### [address] [address] Sodium [Moles/Vol] 135 mmol/L Low 136 - 145 [place] on/[facility] Comment on above: Performed By: #### B MP #### [address] [address] Urea nitrogen [Mass/Vol] 8 mg/dL Normal 6 - 23 [place]/[facility] Comment on above: Performed By: #### B MP #### [address] [address] History and Physical - Surgi santino Update < 30 dayson 05-10-2019 History and Physical - Surgical Update < 30 days History & Physical Reviewed: /Lactating Are You no Are You Currently Breastfeedingno (1) I have reviewed the History and Physical dated: 07-May-2019 History and Physical reviewed and relevant findings noted. Patient examined to review pertinent physical findings.: No significant changes Home Medications Reviewed: no changes noted Allergies Reviewed: no changes noted This patient has been seen and discussed with the attending physician responsible for performing the procedure: yes Signatures/Attestation/ Certification: Note Completion Attending Provider Inpatient Certification StatementObservation patient/other outpatient visits Electronic Signatures for Addendum Section: Ana Grayson) (Signed Addendum 10-May-2019 11:07) The patient had a complete history and physical including lung and cardiac exam by her primary care on April 16, 2019 as documented in the records. Electronic Signatures: Ana Grayson) (Signed 10-May-2019 09:32) Authored: History & Physical Reviewed, Signatures/Attestation/ Certification Last Updated: 10-May-2019 11:07 by Ana Grayson) References: 1. Data Referenced From Patient Profile - Preop v2 10-May-2019 07:46 Normal [facility] Patient Profile - Preop v2on 05-10-2019 Patient Profile - Preop v2 Profile: Initial Info: How to be AddressedNikki Spoken Language PreferredEnglish Source of Informationpatient Are you currently using the Personal Electronic Health Record or JustSpottedIllumitexno Are you interested in learning more about [facility] for the management of your healthnot at this time Stated Reason for Admissionsurgery, repair ankle Primary Contact Name and NumberBeshaylee arenas Patient Belongingsremains with patient Medications Brought to Hospitalno General Health: Weight in kg81.6 kilogram(s) Weight in rze915 pound(s) Weight Methodstated Height in cm165.1 centimeter(s) Height in feet5 feet Height in inches5 inch(es) Height Methodstated BMI (kg/m2)29.936 square meter Patient or Family Member Reaction to Anesthesiano previous reaction Blood Avoidance/Restrictionsn one Previous Transfusion Reactionno Health Mgmt: Symptoms/Conditions Managed at Homebehavioral health; chronic pain Are You Currently Breastfeedingno Behavioral Health Symptoms/Conditionsanxi ety; bipolar affective disorder; depression Behavioral Management Strategiesmedication therapy; activity; counseling Chronic Pain Locationbilateral hips Chronic Pain Aggravating Factorsactivity; movement; inactivity Chronic Pain Relieving Factorsmedication Barriers to Managing Healthnone Relationship/Environ: Living Environment Commentsjust moved twice in last week. Now living with mother. Resource/Environmental Concernsfinancial Financial Concernsunemployed; rent or mortgage, unable to afford Lives Withparent(s) Anticipated Transition Tobucks Substance: Current or Former Substance Use never: e-Cigarette/Vaping, Alcohol, Street Drugs YES: Cigarette/Tobacco Tobacco Cessation Education (provide if tobacco use within the last 12 mos)yes Other Tobacco Use Commentsquit in february 2019 Risk Screens: Advance Directive/DNRno Advance Directive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 pressure 111 mm[Hg] Denita Mathewon PA-C Work Phone: [facility] 12-25-2023 09:59-0400 Body height 163.8 cm Lauren Lucía SAHUN - [employer] Work Phone: [facility] 12-25-2023 09:59-0400 Body mass index (BMI) [Ratio] 28.05 kg/m2 Lauren Lucía E[employer]DED SOFTWARE DEVELOPER - [employer] Work Phone: [facility] 12-25-2023 09:59-0400 Body temperature 97.7 [degF] Lauren Castrejon APRN - [employer] Work Phone: [facility] 12-25-2023 09:59-0400 Body weight 75.3 kg Lauren Castrejon APRN - NECKTIE MAKER Work Phone: [facility] 12-25-2023 09:59-0400 Diastolic blood pressure 70 mm[Hg] Lauren Castrejon APRN - NECKTIE MAKER Work Phone: [facility] 12-25-2023 09:59-0400 Heart rate 65 /min Lauren Castrejon APRN - NECKTIE MAKER Work Phone: [facility] 12-25-2023 09:59-0400 SaO2% (BldA) [Mass fraction] 98 % Lauren Castrejon APRN - NECKTIE MAKER Work Phone: [facility] 12-25-2023 09:59-0400 Systolic blood pressure 106 mm[Hg] Lauren Castrejon APRN - NECKTIE MAKER Work Phone: [facility] 12-02-2023 09:06-0400 Body height 165.1 cm Carissa Rich DO Work Phone: [facility] 12-02-2023 09:06-0400 Body mass index (BMI) [Ratio] 26.71 kg/m2 Carissa Rich DO Work Phone: [facility] 12-02-2023 09:06-0400 Body temperature 98.29 [degF] Carissa Rich DO Work Phone: [facility] 12-02-2023 09:06-0400 Body weight 72.8 kg Carissa Rich DO Work Phone: [facility] 12-02-2023 09:06-0400 Diastolic blood pressure 75 mm[Hg] Carissa Rich DO Work Phone: [facility] 12-02-2023 09:06-0400 Heart rate 63 /min Carissa Rich DO Work Phone: [facility] 12-02-2023 09:06-0400 SaO2% (BldA) [Mass fraction] 100 % Carissa Rich DO Work Phone: [facility] 12-02-2023 09:06-0400 Systolic blood pressure 109 mm[Hg] Carissa Rich DO Work Phone: [facility] 11-18-2023 10:33-0400 Body height 165.1 cm Carissa Rich DO Work Phone: [facility] 11-18-2023 10:33-0400 Body mass index (BMI) [Ratio] 27.36 kg/m2 Acrissa Rich DO Work Phone: [facility] 11-18-2023 10:33-0400 Body temperature 98.71 [degF] Carissa Rich DO Work Phone: [facility] 11-18-2023 10:33-0400 Body weight 74.57 kg Carissa Rich DO Work Phone: [facility] 11-18-2023 10:33-0400 Diastolic blood pressure 79 mm[Hg] Carissa Rich DO Work Phone: [facility] 11-18-2023 10:33-0400 Heart rate 80 /min Carissa Rich DO Work Phone: [facility] 11-18-2023 10:33-0400 SaO2% (BldA) [Mass fraction] 98 % Carissa Rich DO Work Phone: [facility] 11-18-2023 10:33-0400 Systolic blood pressure 108 mm[Hg] Carissa Rich DO Work Phone: [facility] 10-16-2023 11:08-0400 Body height 165.1 cm Lauren Dodson CNP Work Phone: [facility] 10-16-2023 11:08-0400 Body mass index (BMI) [Ratio] 27.46 kg/m2 Lauren Castrejon EMBEDDED SOFTWARE DEVELOPER - [employer] Work Phone: [facility] 10-16-2023 11:08-0400 Body temperature 98.6 [degF] Lauren Castrejon EMBEDDED SOFTWARE DEVELOPER - [employer] Work Phone: [facility] 10-16-2023 11:08-0400 Body weight 74.84 kg Lauren Castrejon EMBEDDED SOFTWARE DEVELOPER - [employer]IE [employer]KER Work Phone: [facility] 10-16-2023 11:08-0400 Diastolic blood pressure 80 mm[Hg] Lauren Castrejon EMBEDDED SOFTWARE DEVELOPER - [employer] Work Phone: [facility] 10-16-2023 11:08-0400 Heart rate 60 /min Lauren Castrejon EMBEDDED SOFTWARE DEVELOPER - [employer]ER Work Phone: [facility] 10-16-2023 11:08-0400 SaO2% (BldA) [Mass fraction] 98 % Lauren Castrejon EMBEDDED SOFTWARE DEVELOPER - [employer]IE [employer]ER Work Phone: [facility] 10-16-2023 11:08-0400 Systolic blood pressure 129 mm[Hg] Lauren Castrejon EMBEDDED SOFTWARE DEVELOPER - [employer]IE [employer]KER Work Phone: [facility] 09-24-2023 08:18-0400 Body height 165.1 cm Alphonse Petty MD Work Phone: [facility] 09-24-2023 08:18-0400 Body weight 75.3 kg Alphonse Petty MD Work Phone: [facility] 09-24-2023 08:18-0400 Diastolic blood pressure 73 mm[Hg] Alphonse Petty MD Work Phone: [facility] 09-24-2023 08:18-0400 Heart rate 84 /min Alphonse Petty MD Work Phone: [facility] 09-24-2023 08:18-0400 SaO2% (BldA) [Mass fraction] 99 % Alphonse Petty MD Work Phone: [facility] 09-24-2023 08:18-0400 Systolic blood pressure 103 mm[Hg] Alphonse Petty MD Work Phone: [facility] 08-28-2023 09:46-0500 Body height 165.1 cm Martita Valerio MD Work Phone: [facility] 08-28-2023 09:46-0500 Body mass index (BMI) [Ratio] 27.62 kg/m2 Martita Valerio MD Work Phone: [facility] 08-28-2023 09:46-0500 Body temperature 98.4 [degF] Martita Valerio MD Work Phone: [facility] 08-28-2023 09:46-0500 Body weight 75.3 kg Martita Valerio MD Work Phone: [facility] 08-28-2023 09:46-0500 Diastolic blood pressure 75 mm[Hg] Martita Valerio MD Work Phone: [facility] 08-28-2023 09:46-0500 Heart rate 80 /min Martita Valerio MD Work Phone: [facility] 08-28-2023 09:46-0500 SaO2% (BldA) [Mass fraction] 99 % Martita Valerio MD Work Phone: [facility] 08-28-2023 09:46-0500 Systolic blood pressure 107 mm[Hg] Martita Valerio MD Work Phone: [facility] 07-03-2023 10:51-0500 Body height 165.1 cm eBrnard Dyson MD Work Phone: [facility] 07-03-2023 10:51-0500 Body mass index (BMI) [Ratio] 29.95 kg/m2 Bernard Dyson MD Work Phone: [facility] 07-03-2023 10:51-0500 Body weight 81.65 kg Bernard Dyson MD Work Phone: [facility] 07-03-2023 10:51-0500 Diastolic blood pressure 81 mm[Hg] Bernard Dyson MD Work Phone: [facility] 07-03-2023 10:51-0500 Heart rate 57 /min Bernard Dyson MD Work Phone: [facility] 07-03-2023 10:51-0500 SaO2% (BldA) [Mass fraction] 99 % Bernard Dyson MD Work Phone: [facility] 07-03-2023 10:51-0500 Systolic blood pressure 115 mm[Hg] Bernard Dyson MD Work Phone: [facility] 06-20-2023 14:57-0500 Body height 165.1 cm Bernard Dyson MD Work Phone: [facility] 06-20-2023 14:57-0500 Body mass index (BMI) [Ratio] 29.95 kg/m2 Bernard Dyson MD Work Phone: [facility] 06-20-2023 14:57-0500 Body weight 81.65 kg Bernard Dyson MD Work Phone: [facility] 08-07-2022 14:47-0500 Body height 165.1 cm Lauren Castrejon EMBEDDED SOFTWARE DEVELOPER - [employer] Work Phone: [facility] 08-07-2022 14:47-0500 Body mass index (BMI) [Ratio] 34.11 kg/m2 Lauren Castrejon EMBEDDED SOFTWARE DEVELOPER - [employer] Work Phone: [facility] 08-07-2022 14:47-0500 Body weight 92.99 kg Lauren Castrejon EMBEDDED SOFTWARE DEVELOPER - [employer]KER Work Phone: [facility] 08-07-2022 14:47-0500 Diastolic blood pressure 70 mm[Hg] Lauren Castrejon EMBEDDED SOFTWARE DEVELOPER - [employer]KER Work Phone: [facility] 08-07-2022 14:47-0500 Heart rate 82 /min Lauren Castrejon EMBEDDED SOFTWARE DEVELOPER - [employer]KTIE [employer]KER Work Phone: [facility] 08-07-2022 14:47-0500 SaO2% (BldA) [Mass fraction] 98 % Lauren Castrejon EMBEDDED SOFTWARE DEVELOPER - [employer]ER Work Phone: [facility] 08-07-2022 14:47-0500 Systolic blood pressure 109 mm[Hg] Lauren Castrejon EMBEDDED SOFTWARE DEVELOPER - [employer]IE [employer]KER Work Phone: [facility] 02-08-2021 14:13-0400 Body height 165.1 cm Carla Castelan Work Phone: [facility] Work Phone: 02-08-2021 14:13-0400 Body mass index (BMI) [Ratio] 31.62 kg/m2 Carla Castelan Work Phone: [facility] Work Phone: 02-08-2021 14:13-0400 Body surface area Derived from formula 1.94 m2 Carla Castelan Work Phone: [facility] Work Phone: 02-08-2021 14:13-0400 Body temperature 97.9 [degF] Carla Castelan Work Phone: [facility] Work Phone: 02-08-2021 14:13-0400 Body weight 86.18 kg Carla Castelan Work Phone: [facility] Work Phone: 02-08-2021 14:13-0400 Diastolic blood pressure 83 mm[Hg] Carla Castelan Work Phone: [facility] Work Phone: 02-08-2021 14:13-0400 Heart rate 81 /min Carla Castelan Work Phone: [facility] Work Phone: 02-08-2021 14:13-0400 Respiratory rate 16 /min Carla Castelan Work Phone: [facility] Work Phone: 02-08-2021 14:13-0400 SaO2% (BldA) [Mass fraction] 97 % Carla Castelan Work Phone: [facility] Work Phone: 02-08-2021 14:13-0400 Systolic blood pressure 123 mm[Hg] Carla Monica Castelan Work Phone: [facility] Work Phone: 02-08-2021 14:13-0400 8 1 Carla Castelan Work Phone: [facility] Work Phone: Comment on above: [facility] 06-10-2019 13:11-0500 BMI (Body Mass Index) 29.17 kg/m2 Carla Castelan [facility] Work Phone: 06-10-2019 13:11-0500 Body weight 80.74 kg Carla Annelise [facility] Work Phone: 06-10-2019 13:11-0500 BSA (Body Surface Area) 1.89 m2 Carla Annelise [facility] Work Phone: 06-10-2019 13:11-0500 Height 166.37 cm Carla Castelan [facility] Work Phone: 10-25-2018 15:43-0400 Body Temperature 98.1 [degF] Pancho Laughlin [facility] Work Phone: 10-25-2018 15:43-0400 BP Diastolic 84 mm[Hg] Pancho Laughlin [facility] Work Phone: 10-25-2018 15:43-0400 BP Systolic 135 mm[Hg] Pancho Laughlin [facility] Work Phone: 10-25-2018 15:43-0400 Pulse (Heart Rate) 66 /min Pancho Laughlin [facility] Work Phone: 10-25-2018 15:43-0400 Pulse Oximetry 98 % Pancho [facility]TS[facility] Work Phone: 10-25-2018 15:43-0400 Respiratory Rate 16 /min Pancho [facility] Work Phone: 10-25-2018 15:43-0400 6 1 Pancho Laughlin [facility] Work Phone: Comment on above: Pain Scale Encounters Encounter Date Encounter Type Care Provider Facility Start: 10-18-2024 End: 10-18-2024 Telephone encounter Carmita Unger [facility] Start: 08-27-2024 End: 08-27-2024 Telephone encounter Charisma Denny [facility] Start: 08-25-2024 End: 08-25-2024 Office outpatient visit 15 minutes Carissa Villanueva DO Work Phone: [facility] [place] Comment on above: Polycythemia (Primar y Dx) Start: 08-25-2024 End: 08-25-2024 ambulatory [facility] Start: 08-24-2024 End: 08-24-2024 Telephone encounter Carmita Unger [facility] [place] Start: 08-19-2024 End: 08-25-2024 Telephone encounter Salome Dodson CNP Work Phone: [facility] Comment on above: Results Start: 08-17-2024 End: 08-17-2024 Subsequent hospital visit by physician Salome Dodson CNP Work Phone: [facility] Comment on above: Mass of upper inner quadrant of right breast Abnormal mammogram Start: 08-17-2024 End: 08-17-2024 ambulatory [facility] Start: 08-10-2024 End: 08-10-2024 Office outpatient new 45 minutes Salome Bakerppard EMBEDDED SOFTWARE DEVELOPER - [employer]KTIE [employer]KER Work Phone: [facility] Comment on above: Mass of upper inner quadrant of right breast (Primary Dx); Mass overlapping multiple quadrants of right breast; Family history of breast cancer Start: 08-10-2024 End: 08-10-2024 ambulatory [facility] Start: 08-03-2024 End: 08-03-2024 Office outpatient visit 25 minutes Lauren Castrejon EMBEDDED SOFTWARE DEVELOPER - [employer]KTIE [employer]KER Work Phone: [facility] Comment on above: Hyperinsulinemia (Pr imary Dx); Unintended weight gain Start: 08-03-2024 End: 08-03-2024 ambulatory [facility] Start: 07-27-2024 End: 07-27-2024 Subsequent hospital visit by physician Bernard Dyson MD Work Phone: [facility] Comment on above: Abnormal mammogram o f right breast Start: 07-27-2024 End: 07-27-[address] [facility] Start: 07-16-2024 End: 07-16-2024 Orders Only Bernard Dyson MD Work Phone: [facility] Comment on above: Abnormal mammogram o f right breast (Primary Dx) Results; Release of Information Encounter for screen ing mammogram for malignant neoplasm of breast Start: 07-13-2024 End: 07-13-2024 Office outpatient visit 25 minutes Lauren Castrejon EMBEDDED SOFTWARE DEVELOPER - [employer]ER Work Phone: [facility] Comment on above: Unintended weight ga in (Primary Dx); Hypercholesteremia; Adult acne Start: 07-13-2024 End: 07-13-2024 ambulatory [facility] Start: 07-05-2024 End: 10-04-2024 Transcribe Orders Bernard Dyson MD Work Phone: [facility] Comment on above: Encounter for screen ing mammogram for malignant neoplasm of breast (Primary Dx) Start: 05-31-2024 End: 05-31-2024 Telephone encounter Charisma Bertomanjit [facility] [place] Start: 03-09-2024 Emergency department patient visit BERNARD DYSON Facility:[facility] Start: 01-29-2024 End: 01-29-2024 Office outpatient visit 15 minutes Denita Dale PA-C Work Phone: [facility] Comment on above: Closed type IV fract ure of sacrum with routine healing (Primary Dx) Start: 01-29-2024 End: 01-29-2024 ambulatory BERNARD [facility] Start: 01-27-2024 End: 01-31-2024 ambulatory Lilia Matthews RN [facility] Start: 01-27-2024 End: 01-31-2024 Patient encounter procedure Lilia Matthews RN [facility] Start: 01-25-2024 End: 01-25-2024 Emergency department patient visit JONI Kiran DUQUE Facility:[facility] Start: 01-24-2024 End: 01-25-2024 Emergency department patient visit BERNARD [facility] Start: 12-25-2023 End: 12-25-2023 Patient encounter status Lauren Castrejon APRN - NECKTIE MAKER Work Phone: [facility] Start: 12-25-2023 End: 12-25-2023 Periodic preventive med est patient 40-64yrs Lauren Castrejon EMBEDDED SOFTWARE DEVELOPER - [employer]EC[employer]IE [employer]KER Work Phone: [facility] Comment on above: Immunity status test ing (Primary Dx); Recurrent cold sores; Hypercholesteremia; Immunization due; Cigarette nicotine dependence without complication; Encounter for routine adult medical examination Start: 12-25-2023 End: 12-25-2023 ambulatory BERNARD [facility] Start: 12-25-2023 End: 12-25-2023 Encounter for antibody response examination LAUREN [facility] Start: 12-25-2023 End: 12-25-2023 Encounter for general adult medical examination without abnormal findings LAUREN [facility] Start: 12-02-2023 End: 12-02-2023 Office outpatient visit 25 minutes Carissa E Rich DO Work Phone: [facility] Comment on above: Polycythemia (Primar y Dx) Start: 12-02-2023 End: 12-02-2023 ambulatory [facility] Start: 11-21-2023 End: 11-21-2023 Subsequent hospital visit by physician Carissa Villanueva DO Work Phone: [facility] Comment on above: Weight loss; Abnormal CT scan Start: 11-21-2023 End: 11-21-2023 [facility] Start: 11-18-2023 End: 11-18-2023 [facility] Start: 11-18-2023 End: 11-18-2023 Office outpatient new 60 minutes Carissa E Rich DO Work Phone: [facility] Comment on above: Polycythemia (Primar y Dx); Weight loss; Abnormal CT scan Start: 11-18-2023 End: 11-18-2023 ambulatory [facility] Start: 10-31-2023 Telephone encounter Charisma Dill [facility] Start: 10-20-2023 End: 10-20-2023 Subsequent hospital visit by physician Martita Valerio MD Work Phone: [facility] Comment on above: Unintentional weight loss Start: 10-20-2023 End: 10-20-2023 ambulatory [facility] Start: 10-16-2023 End: 10-16-2023 Patient encounter procedure Lauren Castrejon APRN - NECKTIE MAKER Work Phone: [facility] Start: 10-16-2023 End: 10-16-2023 Periodic preventive med est patient 40-64yrs Lauren Castrejon EMBEDDED SOFTWARE DEVELOPER - [employer]IE [employer]KER Work Phone: [facility] Comment on above: Bronchitis (Primary Dx); Annual physical exam; Hypercholesteremia; PUD (peptic ulcer disease); Bipolar 1 disorder, depressed (CMS/HCC) (HCC) Start: 10-02-2023 ambulatory [address] [facility]ILY PHYSICIAN Facility:[facility] Start: 09-24-2023 ambulatory 837 NO FAMILY PHYSICIAN Facility:[facility] Start: 09-24-2023 End: 09-24-2023 ambulatory BERNARD DYSON Facility:[facility] Start: 09-24-2023 End: 09-24-2023 Patient encounter procedure Alphonse Petty MD Work Phone: [facility] Management Comment on above: Chronic bilateral lo w back pain without sciatica (Primary Dx) Start: 09-23-2023 E-mail encounter fro m caregiver Alphonse Petty MD Work Phone: [facility] Start: 09-23-2023 Patient encounter procedure Alphonse Petty MD Work Phone: [facility] Comment on above: upcoming appointment Start: 09-15-2023 Telephone encounter Wayne acosta MD Work Phone: [facility] Comment on above: Patient Update Start: 09-12-2023 E-mail encounter fro m caregiver [facility] Start: 09-12-2023 Patient encounter procedure [facility] Comment on above: Instructions for you r upcoming appointment Start: 09-02-2023 Refill Bernard Dyson MD Work Phone: [facility] Comment on above: Peptic ulcer, site u nspecified, unspecified as acute or chronic, without hemorrhage or perforation Start: 08-28-2023 End: 08-28-2023 Office outpatient new 30 minutes Martita Valerio MD Work Phone: [facility] Comment on above: Tobacco abuse (Prima ry Dx); Unintentional weight loss Start: 08-22-2023 End: 08-22-2023 ambulatory AMOR CHINCHILLA MD~[id number] [facility] Start: 07-03-2023 End: 07-03-2023 Office outpatient visit 25 minutes Bernard Dyson MD Work Phone: [facility] Comment on above: Tongue pain (Primary Dx); Urinary frequency; Acute cystitis with hematuria Start: 06-26-2023 Orders Only Bernard Dyson MD Work Phone: [facility] Comment on above: Encounter for screen ing mammogram for malignant neoplasm of breast (Primary Dx) Start: 06-20-2023 End: 06-20-2023 Subsequent hospital visit by physician Bernard Dyson MD Work Phone: [facility] Comment on above: Encounter for screen ing mammogram for malignant neoplasm of breast Start: 06-11-2023 Telephone encounter Bernard dorman MD Work Phone: [facility] Comment on above: Results Start: 05-20-2023 Telephone encounter Bernard dorman MD Work Phone: [facility] Comment on above: Medication increase concern Start: 05-16-2023 End: 05-16-2023 ambulatory IMELDA HEATON Facility:[facility] Start: 05-16-2023 End: 05-16-2023 Patient encounter procedure Imelda Heaton MD Work Phone: Otolaryngology Comment on above: Burning mouth syndro me (Primary Dx) Start: 08-21-2022 ambulatory NADIA PELAEZ MD Faci lity:[id number] Start: 08-07-2022 End: 08-07-2022 Office outpatient visit 25 minutes Lauren Castrejon EMBEDDED SOFTWARE DEVELOPER - [employer]IE [employer]ER Work Phone: [facility] Comment on above: Class 1 obesity due to excess calories without serious comorbidity with body mass index (BMI) of 34.0 to 34.9 in adult (Primary Dx); Generalized body aches; Elevated blood pressure reading without diagnosis of hypertension; Cold sore Start: 08-06-2022 Telephone encounter Lauren Castrejon EMBEDDED SOFTWARE DEVELOPER - [employer]IE [employer] Work Phone: [facility] Comment on above: COVID-19 Screening Start: 08-05-2022 ambulatory Caridad Rosenthal RN [facility] Start: 08-05-2022 Patient encounter [facility] Start: 06-18-[address] Scan Comment on above: Radiology CT (CTA HE AD & NECK) Start: 06-18-2022 Patient encounter procedure Room Emergency [facility] Start: 06-18-2022 End: 06-18-2022 Emergency department patient visit BERNARD DYSON Facility:[facility] Start: 06-04-2022 End: 06-05-2022 ambulatory NADIA PELAEZ MD Facility:[facility] Start: 04-15-2022 Transcribe Orders Lauren Castrejon EMBEDDED SOFTWARE DEVELOPER - [employer]ECKTIE [employer]KER Work Phone: [facility] Comment on above: Encounter for screen ing mammogram for malignant neoplasm of breast (Primary Dx) Start: 04-15-2022 End: 04-15-2022 ambulatory 837 NO FAMILY PHYSICIAN Facility:[facility] Start: 03-22-2022 ambulatory Bernard Dyson [facility] Start: 03-22-2022 ambulatory 837 NO FAMILY PHYSICIAN Facility:[facility] Start: 03-06-2022 ambulatory 837 NO FAMILY PHYSICIAN Facility:[facility] Start: 03-01-2022 ambulatory BERNARD DYSON Facili ty:[facility] Start: 11-14-2021 ambulatory Lauren Lucía [facility] Start: 11-14-2021 End: 11-14-2021 Subsequent hospital visit by physician Lauren Castrejon EMBEDDED SOFTWARE DEVELOPER - [employer]IE [employer]KER Work Phone: [facility] Comment on above: Chronic neck pain; Upper back pain Start: 11-06-2021 End: 11-06-2021 Emergency department patient visit KEIRY GONZALEZ Facility:[facility] Start: 08-29-2021 End: 08-30-2021 ambulatory 837 NO FAMILY PHYSICIAN Facility:[facility] Start: 03-07-2021 AUDIT Carla klein Work Phone: [facility] Work Phone: Start: 02-15-2021 Chart Update Carla kelin Work Phone: [facility] Work Phone: Start: 02-08-2021 Office outpatient vi sit 15 minutes Carla Castelan Work Phone: [facility] Work Phone: Start: 01-03-2021 AUDIT Carla Bojorquez Greg klein Work Phone: [facility] Work Phone: Start: 08-28-2020 Patient encounter procedure Sarthak Ac MD [facility] Work Phone: Start: 07-31-2020 Patient encounter procedure Sarthak Ac MD - [facility] Work Phone: Start: 07-06-2020 Patient encounter procedure Sarthak Ac MD - [facility] Work Phone: Start: 05-13-2020 Patient encounter procedure Sarthak Ac MD - [facility] Work Phone: Start: 11-30-2019 Patient encounter procedure Sarthak Ac MD [facility] Work Phone: Start: 07-27-2019 Patient encounter procedure Sarthak Ac MD [facility] Work Phone: Start: 07-05-2019 Patient encounter procedure Imelda [facility] [place] Work Phone: Start: 06-10-2019 Patient encounter procedure Carla Castelan - [facility] Work Phone: Start: 05-20-2019 Patient encounter procedure Carla Castelan [facility] Work Phone: Start: 04-29-2019 Patient encounter procedure Carla Castelan - [facility] Work Phone: Start: 04-21-2019 End: 04-21-2019 Subsequent hospital visit by physician Heavenly Camp Work Phone: [facility] Start: 04-16-2019 Patient encounter procedure Carla Castelan [facility] Work Phone: Start: 04-08-2019 Patient encounter procedure Carla Castelan [facility] Work Phone: Start: 03-15-2019 Patient encounter procedure Carla Castelan -[facility] Work Phone: Start: 03-11-2019 Patient encounter procedure Carla Castelan [facility] Work Phone: Start: 01-28-2019 Patient encounter procedure Carla Castelan - [facility] Work Phone: Start: 11-12-2018 Patient encounter procedure Carla Castelan - [facility] Work Phone: Start: 10-30-2018 Patient encounter procedure Pancho Laughlin DP-Zjpdcygeiqvb-Sstqjg Work Phone: Start: 10-25-2018 Patient encounter procedure Pancho Laughlin BN-Mhgldfooslui-Vjgllk Work Phone: Start: 10-20-2018 Patient encounter procedure Pancho Sotozgerald TO-Hcdjitmhrgps-Zbeidi Work Phone: Start: 10-13-2018 Patient encounter procedure Pancho Laughlin YP-Utlcpecqkrki-Dcgjzh Work Phone: Start: 10-06-2018 Patient encounter procedure Pancho Laughlin AZ-Fwblrqbufwpw-Wavdjl Work Phone: Start: 09-16-2018 Patient encounter procedure Pancho Truman SF-Annksxwgehkj-Hzivwp Work Phone: Start: 08-31-2018 Patient encounter procedure Pancho Laughlin YY-[id number]-Zexsda Work Phone: Start: 05-13-2017 Patient encounter procedure Pancho Laughlin [id number] Work Phone: Procedures Date Procedure Procedure Detail Performing Clinician Start: 08-17-2024 Diagnostic mammograp hy computer-aided detcj uni Ann-Marie Desir MD Work Phone: Start: 08-17-2024 Implantable tissue marker Salome Marshall EMBEDDED SOFTWARE DEVELOPER - [employer]EC[employer]IE [employer] Work Phone: Start: 07-30-2024 Lipid 1996 panel - S darrian or Plasma Lauren Castrejon EMBEDDED SOFTWARE DEVELOPER - [employer] Work Phone: Start: 07-27-2024 Us breast uni real t oral with image limited Bernard Dyson MD Work Phone: Start: 07-16-2024 End: 07-16-2024 Mammography Bernard Dyson MD Work Phone: Start: 08-07-2023 Colonoscopy Martita cherry MD Work Phone: Start: 07-03-2023 Urnls dip stick/tabl et rgnt auto w/o microscopy Bernard Dyson MD Work Phone: Start: 06-20-2023 Mammography Bernard dorman MD Work Phone: Start: 05-01-2023 Lipid 1996 panel - S darrian or Plasma Bernard Dyson MD Work Phone: Start: 11-14-2021 Lipid 1996 panel - S darrina or Plasma Lauren Castrejon EMBEDDED SOFTWARE DEVELOPER - [employer]IE [employer] Work Phone: Start: 04-28-2019 Xray Ankle 3 View Carla F louann Start: 04-21-2019 Radex hips bilateral with pelvis minimum 5 views [facility] Work Phone: Start: 01-23-2018 Mammography Room Emerg ency Cholecystectomy Pancho miller Colonoscopy Pancho grayson Comment on above: 08/14/16; rectal poly p; History of Liposuction Tory Laughlin Hysterectomy Pancho grayson Comment on above: partial, stiill has ovaries, done for heavy menses 2003; Operative procedure on ankle Pancho Laughlin Comment on above: 2 torn ligaments; Other bilateral liga tion and division of fallopian tubes Pancho Laughlin Repair of shoulder Pancho augustin Plan of Treatment Date Care Activity Detail Author Start: 2049 RSV Immunization for Adults (1 - 1-dose 75+ series) RSV Immunization for Adults (1 - 1-dose 75+ series) [facility] Start: 2034 RSV Immunization age d 60 or older (1 - 1-dose 60+ series) RSV Immunization aged 60 or older (1 - 1-dose 60+ series) [facility] Start: 12-24-2033 DTaP/Tdap/Td Vaccine s (5 - Td or Tdap) DTaP/Tdap/Td Vaccines (5 - Td or Tdap) [facility] Start: 08-07-2033 Screening for malignant neoplasm of colon [facility] Start: 07-30-2029 Lipid panel Lipid Panel [facility] Start: 05-01-2028 Lipid panel Lipid Panel [facility] Start: 07-30-2027 Diabetes mellitus screening Diabetes Screening [facility] Start: 11-14-2026 Lipid panel Lipid Panel [facility] Start: 06-06-2026 Screening for malignant neoplasm of colon [facility] Start: 05-01-2026 Diabetes mellitus screening Diabetes Screening [facility] Start: 07-30-2025 Diabetes mellitus screening Diabetes Screening [facility] Start: 07-16-2025 Screening for malignant neoplasm of breast Mammogram [facility] Start: 02-28-2025 Influenza vaccination Influenz a Vaccine (Season Ended) [facility] Start: 02-16-2025 End: 10-17-2025 US Breast - right limited Right breast US limited Imaging Routine Mass of upper inner quadrant of right breast Mass overlapping multiple quadrants of right breast Expected: 02/16/2025, Expires: 10/17/2025 [facility] Work Phone: Comment on above: Expected: 02/16/2025 , Expires: 10/17/2025 Start: 02-15-2025 End: 02-15-2025 Patient encounter procedure 02/15/2025 9:00 AM EDT Appointment [facility] [place] [facility] [address] [place] [address] [place] [address] [facility] [place] [facility] Start: 12-28-2024 End: 12-28-2024 Patient encounter procedure [facility] Start: 11-02-2024 End: 11-02-2024 Patient encounter procedure 11/02/2024 10:00 AM EDT Office Visit [facility] Primary Care [facility] [address] [place] [address] [place] [phone] Lauren Castrejon, EMBEDDED SOFTWARE DEVELOPER - [employer]ECKTIE MAKER [address] [place] [address] [place] [address] [facility] [place] Start: 10-26-2024 End: 10-26-2024 Patient encounter procedure 10/26/2024 2:30 PM EDT Office Visit [facility] - [place] [address] [address] [place] [phone] Carissa Villanueva DO [address] [place] [address] [place] [address] [facility] [place] Start: 10-25-2024 End: 08-03-2025 Basic metabolic 1998 panel - Serum or Plasma Basic metabolic panel Lab Routine Hyperinsulinemia Expected: 10/25/2024 (Approximate), Expires: 08/03/2025 [facility] Comment on above: Expected: 10/25/2024 (Approximate), Expires: 08/03/2025 Start: 10-25-2024 End: 08-03-2025 Hemoglobin A1c measurement Hemoglobin A1c Lab Routine Hyperinsulinemia Expected: 10/25/2024 (Approximate), Expires: 08/03/2025 [facility] Work Phone: Comment on above: Expected: 10/25/2024 (Approximate), Expires: 08/03/2025 Start: 10-25-2024 End: 08-03-2025 Insulin Insulin Lab Routine Hyperinsulinemia Expected: 10/25/2024 (Approximate), Expires: 08/03/2025 [facility] Comment on above: Expected: 10/25/2024 (Approximate), Expires: 08/03/2025 Start: 10-23-2024 End: 08-25-2025 CBC W Auto Differential panel - Blood CBC auto differential Lab Routine Polycythemia Expected: 10/23/2024 (Approximate), Expires: 08/25/2025 [email or web address] Work Phone: Comment on above: Expected: 10/23/2024 (Approximate), Expires: 08/25/2025 Start: 10-23-2024 End: 08-25-2025 MPL, CALR mutations - Miscellaneous Test MPL, CALR mutations - Miscellaneous Test Lab Routine Polycythemia Expected: 10/23/2024 (Approximate), Expires: 08/25/2025 [facility] Comment on above: Expected: 10/23/2024 (Approximate), Expires: 08/25/2025 Start: 10-19-2024 Screening for malignant neoplasm of lung Lung Cancer Screening [facility] Start: 08-27-2024 COVID-19 Vaccine () COVID-19 Vaccine () [facility] Comment on above: Postponed from 02/28 (Patient Refused) Start: 08-25-2024 End: 08-25-2024 Telemedicine consultation with patient 08/25/2024 2:15 PM EST Telemedicine [facility] [place] [address] [address] [place] [phone] Carissa Villanueva DO [address] [place] [address] [place] [address] [facility] [place] Start: 08-17-2024 End: 08-17-2024 Patient encounter procedure 08/17/2024 11:00 AM EST Appointment [facility] [address] [place] [address] [place] [phone] [facility] [place] [facility] Start: 08-10-2024 End: 10-08-2025 US Guidance for localization of Breast - right BI US guided breast biopsy right Imaging Routine Mass of upper inner quadrant of right breast Expected: 08/10/2024 (Approximate), Expires: 10/08/2025 [facility] [employer] Work Phone: Comment on above: Expected: 08/10/2024 (Approximate), Expires: 10/08/2025 Start: 08-10-2024 End: 08-10-2024 Patient encounter procedure 08/10/2024 1:00 PM EST Office Visit [facility] Breast [facility] [place] [address] [place] [phone] Salome Marshall APRN - NECKTIE MAKER [address] [place] [address] [facility] [place] Start: 07-20-2024 End: 07-20-2024 Patient encounter procedure 07/20/2024 9:45 AM EST Office Visit [facility] [place] [address] [address] [place] [phone] Carissa Villaneuva DO [address] [place] [address] [place] [address] [facility] [place] Start: 07-20-2024 End: 07-20-2024 Patient encounter procedure 07/20/2024 8:30 AM EST Appointment [facility] [address] [address] [place] [phone] Bernard Dyson MD [address] [place] [address] [facility] Start: 07-16-2024 End: 09-13-2025 US Breast - right limited Right breast US limited Imaging Routine Abnormal mammogram of right breast Expected: 07/16/2024, Expires: 09/13/2025 [facility] Work Phone: Comment on above: Expected: 07/16/2024 , Expires: 09/13/2025 Start: 07-16-2024 End: 07-16-2024 Patient encounter procedure 07/16/2024 10:00 AM EST Appointment [address] [place] [phone] Bernard Dyson MD [address] [facility] [address] [place] [address] [facility] Start: 07-13-2024 End: 07-13-2025 Comprehensive metabolic 1998 panel - Serum or Plasma Comprehensive metabolic panel Lab Routine Unintended weight gain Expected: 07/13/2024 (Approximate), Expires: 07/13/2025 [facility] Comment on above: Expected: 07/13/2024 (Approximate), Expires: 07/13/2025 Start: 07-13-2024 End: 07-13-2025 Hemoglobin A1c measurement Hemoglobin A1c Lab Routine Unintended weight gain Expected: 07/13/2024 (Approximate), Expires: 07/13/2025 [facility] Work Phone: Comment on above: Expected: 07/13/2024 (Approximate), Expires: 07/13/2025 Start: 07-13-2024 End: 07-13-2025 Insulin Insulin Lab Routine Unintended weight gain Expected: 07/13/2024 (Approximate), Expires: 07/13/2025 [facility] Comment on above: Expected: 07/13/2024 (Approximate), Expires: 07/13/2025 Start: 07-13-2024 End: 07-13-2025 Lipid 1996 panel - Serum or Plasma Lipid panel Lab Routine Hypercholesteremia Expected: 07/13/2024 (Approximate), Expires: 07/13/2025 [facility] Comment on above: Expected: 07/13/2024 (Approximate), Expires: 07/13/2025 Start: 07-13-2024 End: 07-13-2025 Thyrotropin [Units/volume] in Serum or Plasma TSH Lab Routine Unintended weight gain Expected: 07/13/2024 (Approximate), Expires: 07/13/2025 [facility] Comment on above: Expected: 07/13/2024 (Approximate), Expires: 07/13/2025 Start: 06-21-2024 End: 08-27-2024 DBT Breast - bilateral screening Bilateral screening mammogram with tomosynthesis Imaging Routine Encounter for screening mammogram for malignant neoplasm of breast Expected: 06/21/2024, Expires: 08/27/2024 [email or web address] Work Phone: Comment on above: Expected: 06/21/2024 , Expires: 08/27/2024 Start: 06-20-2024 Screening for malignant neoplasm of breast [facility] Start: 06-03-2024 End: 06-03-2024 Patient encounter procedure [facility] Start: 06-02-2024 End: 12-01-2024 CBC W Auto Differential panel - Blood CBC auto differential Lab Routine Polycythemia Expected: 06/02/2024 (Approximate), Expires: 12/01/2024 [facility] Work Phone: Comment on above: Expected: 06/02/2024 (Approximate), Expires: 12/01/2024 Start: 05-30-2024 Depression Monitoring Depression Mon [facility] Start: 05-03-2024 End: 05-03-2024 Patient encounter procedure 05/03/2024 9:00 AM EST Office Visit [facility] [address] [place] [address] Bernard Dyson MD [address] [place] [address] [facility] Start: 05-01-2024 Diabetes mellitus screening Diabetes Screening [facility] Start: 05-01-2024 Hepatitis B surface antibody level LDL Cholesterol [facility] Start: 2024 Zoster Vaccines (1 o f 2) Zoster Vaccines (1 of 2) [facility] Start: 02-29-2024 COVID-19 Vaccine ( season) COVID-19 Vaccine ( season) [facility] Start: 02-29-2024 Influenza vaccination [facility] Start: 12-28-2023 Influenza vaccination Influenza Vacc ine (#1) [facility] Comment on above: Postponed from 02/28 (Patient Refused) Start: 12-25-2023 End: 12-24-2024 Hepatitis B core antibody, total Hepatitis B core antibody, total Lab Routine Immunity status testing Expected: 12/25/2023 (Approximate), Expires: 12/24/2024 [facility] Comment on above: Expected: 12/25/2023 (Approximate), Expires: 12/24/2024 Start: 12-25-2023 End: 12-24-2024 Hepatitis B virus surface Ab [Units/volume] in Serum or Plasma by Immunoassay Hepatitis B surface antibody Lab Routine Immunity status testing Expected: 12/25/2023 (Approximate), Expires: 12/24/2024 [facility] Comment on above: Expected: 12/25/2023 (Approximate), Expires: 12/24/2024 Start: 12-25-2023 End: 12-24-2024 Hepatitis B virus surface Ag [Presence] in Serum or Plasma by Immunoassay Hepatitis B surface antigen Lab Routine Immunity status testing Expected: 12/25/2023 (Approximate), Expires: 12/24/2024 [facility] Work Phone: Comment on above: Expected: 12/25/2023 (Approximate), Expires: 12/24/2024 Start: 12-25-2023 End: 12-24-2024 Mumps antibody, IgG Mumps antibody, IgG Lab Routine Immunity status testing Expected: 12/25/2023 (Approximate), Expires: 12/24/2024 [facility] Comment on above: Expected: 12/25/2023 (Approximate), Expires: 12/24/2024 Start: 12-25-2023 End: 12-24-2024 Rubella antibody, IgG Rubella antibody, IgG Lab Routine Immunity status testing Expected: 12/25/2023 (Approximate), Expires: 12/24/2024 [facility] Comment on above: Expected: 12/25/2023 (Approximate), Expires: 12/24/2024 Start: 12-25-2023 End: 12-24-2024 Rubeola antibody IgG Rubeola antibody IgG Lab Routine Immunity status testing Expected: 12/25/2023 (Approximate), Expires: 12/24/2024 [facility] Comment on above: Expected: 12/25/2023 (Approximate), Expires: 12/24/2024 Start: 12-25-2023 End: 12-24-2024 Varicella zoster antibody, IgG Varicella zoster antibody, IgG Lab Routine Immunity status testing Expected: 12/25/2023 (Approximate), Expires: 12/24/2024 [facility] Comment on above: Expected: 12/25/2023 (Approximate), Expires: 12/24/2024 Start: 12-02-2023 End: 12-02-2023 Patient encounter procedure 12/02/2023 9:00 AM EDT Office Visit [facility] [address] [place] [address] Carissa Villanueva, DO [address] [address] [place] [address] [facility] Start: 11-21-2023 End: 11-21-2023 Patient encounter procedure 11/21/2023 9:30 AM EDT Appointment [facility] [place] [facility] [address] [place] [address] Carissa Villanueva, DO [address] [place] [address] [place] [address] [facility] [place] [facility] Start: 11-21-2023 Subsequent hospital visit by physician 11/21/2023 9:30 AM EDT Hospital Encounter [facility] [place] [facility] [address] [place] [address] Carissa Villanueva, DO [address] [place] [address] [place] [address] [facility] [place] [facility] Start: 11-18-2023 End: 11-17-2024 Erythropoietin [facility] Comment on above: Expected: 11/18/2023 (Approximate), Expires: 11/17/2024 Start: 11-18-2023 End: 11-17-2024 [id number] MUTATION ANALYSIS [facility] Comment on above: Expected: 11/18/2023 (Approximate), Expires: 11/17/2024 Start: 11-18-2023 End: 11-17-2024 US Abdomen US abdomen complete Imaging Routine Weight loss Abnormal CT scan Expected: 11/18/2023, Expires: 11/17/2024 [facility] Work Phone: Comment on above: Expected: 11/18/2023 , Expires: 11/17/2024 Start: 11-18-2023 End: 11-18-2023 Patient encounter procedure 11/18/2023 10:30 AM EDT Office Visit [facility] [address] [place] [phone] Carissa Villanueva DO [address] [place], [place] [id number] [facility] Start: 10-30-2023 Hemoglobin A1c measurement HbA1C [facility] Start: 10-30-2023 Hemoglobin A1c/Hemoglobin.total in Blood HbA1C [facility] Start: 10-20-2023 End: 10-20-2023 Patient encounter procedure 10/20/2023 1:00 PM EDT Appointment [facility] [address] [place] [phone] Martita Valerio MD [address] [place], [place] [phone] [facility] [place] [facility] Start: 08-28-2023 End: 08-27-2024 C reactive protein [Mass/volume] in Serum or Plasma C-reactive protein Lab Routine Tobacco abuse Expected: 08/28/2023 (Approximate), Expires: 08/27/2024 [facility]: Comment on above: Expected: 08/28/2023 (Approximate), Expires: 08/27/2024 Start: 08-28-2023 End: 10-27-2023 CBC W Auto Differential panel - Blood CBC auto differential Lab Routine Unintentional weight loss Expected: 08/28/2023 (Approximate), Expires: 10/27/2023 [facility] on [facility]: Expected: 08/28/2023 (Approximate), Expires: 10/27/2023 Start: 08-28-2023 End: 08-27-2024 Comprehensive metabolic 1998 panel - Serum or Plasma Comprehensive metabolic panel Lab Routine Tobacco abuse Expected: 08/28/2023 (Approximate), Expires: 08/27/2024 [facility] Comment on above: Expected: 08/28/2023 (Approximate), Expires: 08/27/2024 Start: 08-28-2023 End: 08-27-2024 CT Chest WO contrast CT chest wo IV contrast Imaging Routine Unintentional weight loss Expected: 08/28/2023, Expires: 08/27/2024 [facility] Comment on above: Expected: 08/28/2023 , Expires: 08/27/2024 Start: 08-28-2023 End: 08-27-2024 Erythrocyte sedimentation rate Sedimentation rate, automated Lab Routine Tobacco abuse Expected: 08/28/2023 (Approximate), Expires: 08/27/2024 [facility] Comment on above: Expected: 08/28/2023 (Approximate), Expires: 08/27/2024 Start: 08-28-2023 End: 08-27-2024 Thyrotropin [Units/volume] in Serum or Plasma TSH Lab Routine Tobacco abuse Expected: 08/28/2023 (Approximate), Expires: 08/27/2024 [facility] Comment on above: Expected: 08/28/2023 (Approximate), Expires: 08/27/2024 Start: 08-28-2023 End: 08-27-2024 XR Chest 2 Views XR chest 2 views Imaging Routine Tobacco abuse Unintentional weight loss Expected: 08/28/2023, Expires: 08/27/2024 [facility] Comment on above: Expected: 08/28/2023 , Expires: 08/27/2024 Start: 07-03-2023 End: 07-03-2024 Bacteria identified in Urine by Culture Urine culture (clean catch) Microbiology Routine Acute cystitis with hematuria Expected: 07/03/2023 (Approximate), Expires: 07/03/2024 [facility] Work Phone: Comment on above: Expected: 07/03/2023 (Approximate), Expires: 07/03/2024 Start: 07-02-2023 End: 07-02-2023 Patient encounter procedure 07/02/2023 9:20 AM EST Office Visit [facility] [address] [place] [address] [place] [phone] Bernard Dyson MD [address] [place], [place] [id number] [facility] Start: 06-30-2023 Depression Assessment Depression Ass essment [facility] Start: 06-30-2023 Medicare Advantage Annual Wellness Visit Medicare Advantage Annual Wellness Visit [facility] Start: 06-20-2023 End: 06-20-2023 Patient encounter procedure 06/20/2023 3:20 PM EST Appointment [facility] [address] [place] [phone] Bernard Dyson MD [address] [place], [place] [id number] [facility] Start: 05-26-2023 End: 05-26-2024 Cologuard colon cancer screening Cologuard colon cancer screening Lab Routine Colon cancer screening Expected: 05/26/2023 (Approximate), Expires: 05/26/2024 [facility] Work Phone: Comment on above: Expected: 05/26/2023 (Approximate), Expires: 05/26/2024 Start: 03-29-2023 DTaP/Tdap/Td vaccine (3 - Td or Tdap) DTaP/Tdap/Td vaccine (3 - Td or Tdap) [facility] Start: 03-29-2023 DTaP/Tdap/Td Vaccine s (3 - Td or Tdap) DTaP/Tdap/Td Vaccines (3 - Td or Tdap) [facility] Start: 03-29-2023 DTaP/Tdap/Td Vaccine s (4 - Td or Tdap) DTaP/Tdap/Td Vaccines (4 - Td or Tdap) [facility] Start: 03-29-2023 Urine microalbumin profile DTaP,Tdap,Td Vaccine (4 - Td or Tdap) [facility] Start: 02-28-2023 Covid-19 Vaccine () Covid-19 Vaccine () [facility] Start: 02-28-2023 Influenza vaccination Influenza Vacc ine (#1) [facility] Start: 11-14-2022 Lipid panel Lipids [facility] Start: 11-14-2022 End: 11-14-2022 Patient encounter procedure 11/14/2022 Office Visit Family Medicine Bernard Dyson MD [address] [place], [place] [phone] [facility] Start: 11-13-2022 Depression [facility] Start: 08-07-2022 End: 08-07-2022 Patient encounter procedure 08/07/2022 Office Visit Family Medicine Lauren Castrejon, EMBEDDED SOFTWARE DEVELOPER - NECKTIE MAKER [address] [place], [place] [phone] [facility] Start: 06-30-2022 Depression Assessment Depression Ass essment [facility] Start: 04-15-2022 End: 04-15-2023 MG Breast - bilateral Screening Bilateral screening mammogram Imaging Routine Encounter for screening mammogram for malignant neoplasm of breast Expected: 04/15/2022, Expires: 04/15/2023 [facility] Work Phone: Comment on above: Expected: 04/15/2022 , Expires: 04/15/2023 Start: 02-28-2022 Influenza vaccination S [facility] Start: 11-04-2021 COVID-19 VACCINE (4 - Booster for Moderna series) COVID-19 VACCINE (4 - Booster for Moderna series) [facility] Start: 06-30-2021 DEPRESSION ASSESSMENT DEPRESSION ASS ESSMENT [facility] Start: 04-21-2019 Annual Wellness Visi t (AWV) Annual Wellness Visit (AWV) [facility] [place] Start: 2019 COLOGUARD (FIT-DNA) COLOGUARD (FIT-D NA) [facility] Start: 2019 Colonoscopy COLONOSCOPY [facility] Start: 2019 COLORECTAL CANCER SCREENING COLORECTAL CANCER SCREENING [facility] Start: [address] COLONOGRAPHY [facility] Start: 2019 FECAL OCCULT BLOOD FECAL OCCULT BLOO D [facility] Start: 2019 Screening for malignant neoplasm of colon [facility] Start: 2019 SIGMOIDOSCOPY SIGMOIDOSCOPY [facility] Start: 02-28-2019 Influenza vaccination Flu vaccine (# 1) [facility] Start: 01-23-2019 Mammography [facility] Start: 01-23-2019 Screening for malignant neoplasm of breast Mammogram Screening [facility] Start: 10-01-2018 ANNUAL PCP TEAM CHRONIC DISEASE VISIT ANNUAL PCP TEAM CHRONIC DISEASE VISIT [facility] Start: 10-01-2018 Hepatitis B surface antibody level LDL CHOLESTEROL [facility] Start: 10-01-2018 PNEUMOCOCCAL (2 - PCV) PNEUMOCOCCAL (2 - PCV) [facility] Start: 10-01-2018 Pneumococcal 0-64 years Vaccine (2 - PCV) Pneumococcal 0-64 years Vaccine (2 - PCV) [facility] Start: 10-01-2018 Pneumococcal vaccination [facility] Start: 10-01-2018 Pneumococcal Vaccine : Pediatrics (0 to 5 Years) and At-Risk Patients (6 to 64 Years) (2 - PCV) Pneumococcal Vaccine: Pediatrics (0 to 5 Years) and At-Risk Patients (6 to 64 Years) (2 - PCV) [facility] Start: 10-01-2018 Pneumococcal Vaccine : Pediatrics (0 to 5 Years) and At-Risk Patients (6 to 64 Years) (2 of 2 - PCV) Pneumococcal Vaccine: Pediatrics (0 to 5 Years) and At-Risk Patients (6 to 64 Years) (2 of 2 - PCV) [facility] Start: 04-02-2018 Hemoglobin A1c/Hemoglobin.total in Blood HBA1C [facility] Start: 2014 [facility] Start: 2014 Screening for malignant neoplasm of breast Mammogram [facility] Start: 03-30-2013 Urine microalbumin profile DTAP,TDAP,TD (1 - Tdap) [facility] Start: 2009 Diabetes screen Diabetes screen [facility] Start: 2004 HPV TESTING HPV TESTING [facility] Start: 2004 Screening for malignant neoplasm of cervix [facility] Start: 1995 Cervical cancer screen Cervical canc er screen [facility] Start: 1995 PAP TESTING PAP TESTING [facility] Start: 1995 Screening for malignant neoplasm of cervix [facility] Start: 1993 DTaP/Tdap/Td vaccine (1 - Tdap) DTaP/Tdap/Td vaccine (1 - Tdap) [place] Start: 1993 Hepatitis B Vaccine (1 of 3 - 19+ 3-dose series) Hepatitis B Vaccine (1 of 3 - 19+ 3-dose series) [facility] Start: 1992 Annual PCP Team Chronic Disease Visit Annual PCP Team Chronic Disease Visit [facility] Start: 1992 Diabetes mellitus screening Diabetes Screening [facility] Start: 1992 Hepatitis C screening [facility] Start: 1992 HIV SCREENING HIV SCREENING [facility] Start: 1992 HIV screening HIV Screening [facility] Start: 1989 HIV screen HIV screen [place], [place] Start: 1989 HIV screening HIV screen [facility] Start: 1986 Depression Monitoring Depression Mon itoring [facility] Start: 1986 Depresssion Monitoring Depresssion M onitoring [facility] Start: 1984 3 comp foot exam completed DIABETIC FOOT EXAM [facility] Start: 1984 Diabetic foot examination Diabetic Foot Exam [facility] Start: 1984 Glaucoma screening Dilated Retinal E xam [facility] Start: 1984 Hepatitis B screening URINE AL BUMIN:CREATININE RATIO [facility] Start: 1984 Hepatitis C antibody , confirmatory test DILATED RETINAL EXAM [facility] Start: 1984 Lipid screen Lipid screen [place], [place] Start: 1975 Hepatitis A Vaccines (1 of 2 - Risk 2-dose series) Hepatitis A Vaccines (1 of 2 - Risk 2-dose series) [facility] Start: 1975 MMR Vaccines (1 of 1 - Standard series) MMR Vaccines (1 of 1 - Standard series) [facility] Start: 1974 HEPATITIS B (1 of 3 - 3-dose series) HEPATITIS B (1 of 3 - 3-dose series) [facility] Start: 1974 Hepatitis B Vaccine (1 of 3 - 3-dose series) Hepatitis B Vaccine (1 of 3 - 3-dose series) [facility] Start: 1974 Hepatitis B Vaccines (1 of 3 - 3-dose series) Hepatitis B Vaccines (1 of 3 - 3-dose series) [facility] Start: 1974 HIV screening HIV Screening [facility] Start: 1974 Medicare Advantage Annual Wellness Visit (AWV) Medicare Advantage Annual Wellness Visit (AWV) [facility] Start: 1974 Screening for malignant neoplasm of colon [facility] End: 10-20-2023 CT Chest WO contrast [employer] Work Phone: Comment on above: Once for 1 Occurrenc es starting 10/20/2023 until 10/20/2023 End: 06-20-2023 DBT Breast - bilateral screening [email or web address] Work Phone: Comment on above: Once for 1 Occurrenc es starting 06/20/2023 until 06/20/2023 Tissue exam Tissue exam Path ology and Cytology Timed Mass of upper inner quadrant of right breast Release Upon Ordering for 1 Occurrences starting 08/17/2024 [employer] Work Phone: Comment on above: Release Upon Orderin g for 1 Occurrences starting 08/17/2024 End: 11-21-2023 US Abdomen [employer] Work Phone: Comment on above: Once for 1 Occurrenc es starting 11/21/2023 until 11/21/2023 End: 11-14-2021 XR CERVICAL SPINE (4-5 VIEWS) [facility] Work [facility]: Comment on above: 1 Occurrences starti ng 11/14/2021 until 11/14/2021 End: 10-23-2024 XR Lumbar spine Views W flexion and W extension XR LUMBAR MOTION 4V AP/LAT/ FLEX/EXT Radiology Routine Chronic bilateral low back pain without sciatica 1 Occurrences starting 09/24/2023 until 10/23/2024 [facility] Work Phone: Comment on above: 1 Occurrences starti ng 09/24/2023 until 10/23/2024 End: 11-14-2021 XR Thoracic Spine 2 VW [facility] Work Phone: Comment on above: 1 Occurrences starti ng 11/14/2021 until 11/14/2021 [facility] Work Phone: [facility] NEGATED: Highlighted row has been ruled out! Planned Goals not documented [facility] Work Phone: Immunizations Immunization Date Immunization Notes Care Provider [facility] 12-25-2023 Pneumococcal Conjuga te PCV20, Pf (Prevnar 20) Lauren Lucía EMB[employer]DED SOFTWARE DEVELOPER - [employer] Work Phone: [facility] 12-25-2023 tetanus toxoid, redu anika diphtheria toxoid, and acellular pertussis vaccine, adsorbed Lauren Lucía EMBEDDED SOFTWARE DEVELOPER - [employer] Work Phone: [facility] 09-09-2021 COVID-19, Moderna, Primary or Immunocompromised, PF, 100mcg/0.5mL Lauren Lucía EMBEDDED SOFTWARE DEVELOPER - [employer] Work Phone: [facility] 12-26-2020 COVID-19, Moderna, Primary or Immunocompromised, PF, 100mcg/0.5mL Lauren Lucía EMBEDDED SOFTWARE DEVELOPER - [employer] Work Phone: [facility] Work Phone: 11-22-2020 COVID-19, Moderna, Primary or Immunocompromised, PF, 100mcg/0.5mL Lauren Lucía EMBEDDED SOFTWARE DEVELOPER - [employer]KTIE [employer]KER Work Phone: [facility] Work Phone: 10-01-2017 pneumococcal polysaccharide vaccine, 23 valent Room Emergency [facility] 03-29-2013 tetanus and diphther ia toxoids, adsorbed, preservative free, for adult use (5 Lf of tetanus toxoid and 2 Lf of diphtheria toxoid) Room Emergency [facility] 12-19-2009 tetanus and diphther ia toxoids, adsorbed, preservative free, for adult use (2 Lf of tetanus toxoid and 2 Lf of diphtheria toxoid) Pancho Laughlin [employer] [facility] Work Phone: Comment on above: Series: 12-19-2009 tetanus toxoid, redu anika diphtheria toxoid, and acellular pertussis vaccine, adsorbed Lauren Lucía EMBEDDED SOFTWARE DEVELOPER - [employer] Work Phone: [facility] Work Phone: Payers Date Payer Category Payer Commercial Managed C are - HMO [id number] 2023 Private Health Insurance [id number] 2022 Medicaid MEDICAID [facility] MEDICAID [id number] 2022-Present [phone] [address] [place] [address] Medicaid [id number] 2022 Medicare [id number] 2019 Medicare HUMANA MEDICARE HUMANA CHOICE-PPO MEDICARE xxxxxxxxx 2019-Present [address] [address] [place] [address] xxxxxxxxx [id number] 2019 Medicare [id number] 2008 Private Health Insurance 2008 Unknown 1974 Unknown [id number] [id number] 1974 Unknown [id number] [id number] 1974 Unknown [id number] [id number] 1974 Unknown [id number]. [id number] 1974 Unknown [id number] [id number] 1974 Unknown [id number] [id number] 1974 Unknown [id number] [id number] 1974 Unknown [id number] [id number] 1974 Unknown [id number] [id number] 1974 Unknown [id number] [id number] 1974 Unknown [id number] 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[place]; 1 ppd x 30 years; Start: 06-30-1989 End: 01-29-2024 Tobacco smoking status RIIS Smokes tobacco daily [employer] Work Phone: Start: 11-13-2021 End: 01-29-2024 Tobacco use and exposure Smokeless tobacco non-user [employer] Work Phone: Start: 11-13-2021 End: 08-25-2024 Alcohol intake Ex-drinker (finding) [facility] Work Phone: Start: 11-13-2021 History SDOH Alcohol Frequency 1 [facility] Work Phone: Start: 11-13-2021 History SDOH Social Connections Phone 2 [facility] Work Phone: Start: 11-13-2021 History SDOH Social Connections Living 5 [facility] Work Phone: Start: 11-13-2021 History SDOH Physica l Activity DPW 0 [facility] Work Phone: Start: 11-13-2021 History SDOH Stress 3 JT DUR[facility] Work Phone: Start: 11-03-2021 End: 08-07-2022 Exposure to SARS-CoV-2 (event) Not sure [facility] Start: 10-15-1988 End: 02-19-2019 History of tobacco use Cigarette Smoker [facility] Start: 06-18-2022 End: 08-07-2022 Alcohol intake Current drinker of alcohol (finding) [facility] Start: 06-17-2022 Alcohol Comment social [facility] Start: 05-16-2023 End: 10-16-2023 Tobacco use panel [facility] PHQ2 Score 0 [facility] History of tobacco use Passive smoker [facility] Start: 08-07-2022 Alcohol Comment rare [facility] Start: 1975 Sex Assigned At Female [facility] Start: 07-29-2023 Gender identity Identifies as female gender (finding) [facility] Start: 07-29-2023 Sexual orientation Heterosexual (fin popeye) [facility] Has the [employer], [employer] s, oil, or water damntheradio threatened to shut off services in your home in past 12Mo No [facility] Are you now , , , , never or living with a partner? [facility] Do you feel stress - tense, restless, nervous, or anxious, or unable to sleep at night because your mind is troubled all the time - these days [OSQ] Only a little [facility] (I/We) worried wheth er (my/our) food would run out before (I/we) got money to buy more. Never true [facility] How often to you hav e a drink containing alcohol? Never [facility] Start: 01-28-2022 Sex Female (finding) [facility] NEGATED: Highlighted row - Current every day smoker [facility] Work Phone: Medical Equipment Procedure Code Equipment Code Equipment Origin al Text Equipment Identifier Dates Internal Brace Ligament 3.5mm Biocomp Swivelock - [id number] Start: 10-23-2016 Comment on above: Description: ANCHOR 4.75MM ANCHOR 3.5 MM [place] [employer] Fiberwire 2.4mm 2-0 Micro Straight Forward Taper [place] - [id number] Start: 10-23-2016 Comment on above: Description: LEFT AN KLE Internal Brace Ligament 3.5mm Biocomp Swivelock - [id number] Start: 10-23-2016 Comment on above: Description: ANCHOR 4.75MM ANCHOR 3.5MM Functional Status Date Assessment Result Facility NEGATED: Highlighted row Functional performance Functional status health issues are not documented Disease LZ-Ztrkrajdfiul-Ylu keo Work Phone: Mental Status Date Assessment Result Facility NEGATED: Highlighted row Cognitive function [Interpretation] Cognitive status health issues are not documented Disease SV-Ugtgczzeagvc-Aub keo Work Phone: Clinical Notes 01-24-2015 to 10-18-2024 Telephone Encounter - Carmita Unger - 10/18/2024 9:14 AM EDTTelephone Encounter - Carmita Unger - 10/18/2024 9:14 AM EDTTelephone Encounter - Charisma Denny - 08/27/2024 10:26 AM ESTAttachments Note Date & Type Note Facility 10-18-2024 Telephone encounter Note LVM for the pt if they wanted to get labs done at the infusion center. Left phone for pt to call back if they were interested in lab draw. [facility] 10-18-2024 Miscellaneous Notes LVM for the pt if they wanted to get labs done at the infusion center. Left phone for pt to call back if they were interested in lab draw. documented in this encounter [facility] 08-27-2024 Telephone encounter Note Called pt to let her know that she needs to come warehouse order picker her lab orders and go and get those drawn. They are in the green pt warehouse order picker folder at the front desk monitor. Also, advised pt to call office back to get her follow up appointment in [address] Villanueva scheduled. No answer, left message. [facility] 08-27-2024 Miscellaneous Notes Called pt to let her know that she needs to come warehouse order picker her lab orders and go and get those drawn. They are in the green pt warehouse order picker folder at the front desk monitor. Also, advised pt to call office back to get her follow up appointment in [address] Villanueva scheduled. No answer, left message. documented in this encounter [facility] 08-25-2024 Telephone encounter Note Pt has been scheduled with the time/date perimeters requested, a VM was left and she will check My Chart for the appt.details. Instructed to call us if changes need to be made. [facility] 08-25-2024 Miscellaneous Notes Pt has been scheduled with the time/date perimeters requested, a VM was left and she will check My Chart for the appt.details. Instructed to call us if changes need to be made. Left message on voicemail for patient to return call to schedule. I spoke to Sury about her benign biopsy results and recommendation for repeat ultrasound in 6 months. She is agreeable. Left VM for Sury to return my call to discuss her results PATHOLOGY OUTCOME: Benign PATHOLOGY RESULT: Imaging and pathology are concordant. Fibrocystic changes with papillary apocrine metaplasia bordering on apocrine papilloma; no atypia identified. RECOMMENDATION: Breast ultrasound in 6 months Right documented in this encounter [facility] 08-25-2024 History of Present illness Narrative Hematology/Oncology Office Visit Consultation/Referral Reason: polycythemia, weight loss Referred by: Dr. Dyson Patient was identified and seen today via Telehealth by agreement and consent. I used the following Telehealth technology: Audio and video capabilities. Patient location: Patient Location: Home. This patient encounter is appropriate and reasonable under the circumstances: transportation issues . The patient has been advised of the potential risks and limitations of this mode of treatment (including but not limited to the absence of in-person examination) and has agreed to be treated in a remote fashion in spite of them. Any and all of the patient's/patient's family's questions on this issue have been answered and I have made no promises or guarantees to the patient. The patient has also been advised to contact this office for worsening conditions or problems, and seek emergency medical treatment and/or call 911 if the patient deems either necessary. The patient stated that they are currently in the [facility]. If the patient is a minor, permission has been obtained by the parent or guardian for the patient to receive medical care at this visit. HPI: Sury Sheppard is a 49 y.o. female who was referred to hematology in October 2023 for evaluation of polycythemia. Patient reports she was noted to have elevated hemoglobin in 2021. Hb was 16.6 at that time. It has stayed stable at 16.8 for about 2 years. She has lost almost 50 lbs in the past 6 months. She is a smoker, about 1ppd for 30 years. She drinks 6-8 diet cokes per day and does not drink a lot of water/clear fluids. She reports she feels full quickly. She stopped having menstrual cycles about 5 years ago after her hysterectomy, which was performed due to excessive menstrual bleeding. No family history of iron overload or blood disorders. No history of blood clots. She feels tired and fatigued. She is accompanied by her mother today. In November 2023, she decreased the amount of diet soda and increased her clear fluid intake. She also reduced her tobacco intake. Hb improved to 16.0. Iron levels within normal limits. JAK2 was negative. EPO within normal limits. Abdominal US was unremarkable. Today, she is here for routine follow up. Labs from 07/06/24 showed a hb of 19.2. She increased her clear fluid intake and hb improved to 17.2 on the most recent labs. She continues to smoke, but has cut down to half pack per day. She rarely drinks diet soda now. She has no other concerns today. 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 HYSTERECTOMY 2014 INCONTINENCE SURGERY 07/2021 SHOULDER ARTHROSCOPY 2015 TUBAL LIGATION 2009 Patient Active Problem List Diagnosis Date Noted Closed type IV fracture of sacrum with routine healing 01/29/2024 Elevated hemoglobin (CMS/HCC) ([facility]) 10/31/2023 Hypercholesteremia 05/01/2023 Medical marijuana use 05/01/2023 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 Chronic pain of left ankle 05/28/2022 PUD (peptic ulcer disease) 05/28/2022 Smoking greater than 30 pack years 05/28/2022 Chronic pain of both knees 08/13/2017 Chronic left shoulder pain 08/13/2017 Pain in right hip 08/13/2017 Bipolar 1 disorder, depressed (CMS/HCC) ([facility]) 02/05/2013 Migraine 02/05/2013 Social History Tobacco Use Smoking status: Every Day Current packs/day: 0.00 Average packs/day: 1.5 packs/day for 34.0 years (51.1 ttl pk-yrs) Types: Cigarettes Start date: 1989 Last attempt to quit: 02/19/2019 Years since quittin.5 Passive exposure: Past Smokeless tobacco: Never Vaping Use Vaping status: Never Used Substance Use Topics Alcohol use: Not Currently Comment: rare Drug use: Not Currently Types: Marijuana Comment: medical marijuana card Family History Problem Relation Name Age of Onset Hypothyroidism Mother Oksana Hyperlipidemia Mother Oksana Atrial fibrillation Mother Oksana Sleep apnea Mother Oksana Bone cancer Father Sarthak Stroke Father Sarthak Hypertension Father Sarthak No Known Problems Sister No Known Problems Brother No Known Problems Daughter No Known Problems Son No Known Problems Son Breast cancer Paternal Grandmother Dominique Cortez Prostate cancer Paternal Grandfather 70 Allergies Allergen Reactions Sulfa Antibiotics Itching and Swelling Current Outpatient Medications Medication Sig Dispense Refill ARIPiprazole (Abilify) 2 MG tablet Take 2 mg by mouth daily. atorvastatin (Lipitor) 20 MG tablet Take 1 tablet (20 mg) by mouth daily. 90 tablet 3 clindamycin-benzoyl peroxide (BenzaClin) gel Apply topically 2 times daily. 50 g 1 estradiol (Estrace) 0.1 MG/GM vaginal cream uSE ONE GRAM VAGINALLY TWICE A WEEK hydrOXYzine pamoate (Vistaril) 25 MG capsule Take 50 mg by mouth Nightly as needed. metFORMIN XR (Glucophage-XR) 500 MG 24 hr tablet Take 2 tablets twice daily with meals. Do not crush, chew, or split. 360 tablet 3 ondansetron (Zofran) 4 MG tablet As needed pantoprazole (ProtoNix) 40 MG EC tablet TAKE 1 TABLET BY MOUTH EVERY MORNING (before BREAKFAST) (Patient not taking: Reported on 08/10/2024) 90 tablet 3 Tirzepatide 2.5 MG/0.5ML solution auto-injector Inject 2.5 mg under the skin every 7 days. 2 mL 2 traZODone (Desyrel) 100 MG tablet TAKE ONE TABLET BY MOUTH DAILY AT 9 PM valACYclovir (Valtrex) 500 MG tablet Take 1 tablet (500 mg) by mouth daily. 90 tablet 3 venlafaxine XR (Effexor XR) 150 MG 24 hr capsule Take 300 mg by mouth daily. No current facility-administered medications for this visit. Review of Systems Constitutional: Positive for fatigue. Negative for appetite change, chills, diaphoresis, fever and unexpected weight change. HENT: Negative for dental problem, mouth sores, nosebleeds, sneezing, sore throat, tinnitus, trouble swallowing and voice change. Eyes: Negative for photophobia, pain and visual disturbance. Respiratory: Negative for cough, shortness of breath and wheezing. Cardiovascular: Negative for chest pain, palpitations and leg swelling. Gastrointestinal: Negative for abdominal distention, abdominal pain, blood in stool, constipation, diarrhea, nausea and vomiting. Endocrine: Negative for cold intolerance and heat intolerance. Genitourinary: Negative for difficulty urinating, frequency, hematuria and urgency. Musculoskeletal: Negative for arthralgias, back pain, gait problem and myalgias. Skin: Negative for pallor and rash. Allergic/Immunologic: Negative for immunocompromised state. Neurological: Negative for dizziness, syncope, weakness, light-headedness, numbness and headaches. Hematological: Negative for adenopathy. Does not bruise/bleed easily. Psychiatric/Behavioral: Negative for confusion and sleep disturbance. The patient is not nervous/anxious. All other systems reviewed and are negative. There were no vitals filed for this visit. ECOG PS = 0 GEN: NAD AA Ox3 Imaging/Labs: Hospital Outpatient Visit on 08/17/2024 Component Date Value Ref Range Status Case Report 08/17/2024 Final Value:Surgical Pathology Case: [id number] Authorizing Provider: Salome Marshall APRN - Collected: 08/17/2024 1120 NECKTIE MAKER Ordering Location: [facility] US Imaging Received: 08/18/2024 0922 Pathologist: Flo Duenas MD Specimen: Breast, Right, Rt Breast Tissue x 3Cores Final Diagnosis 08/17/2024 Final Value:A. BREAST, RIGHT, NEEDLE CORE BIOPSY: - FIBROCYSTIC CHANGES WITH PAPILLARY APOCRINE METAPLASIA BORDERING ON APOCRINE PAPILLOMA; NO ATYPIA IDENTIFIED. Clinical Information 08/17/2024 Final Value:Mass of upper inner quadrant of right breast - N63.12 [ICD-10-CM] Gross Description 08/17/2024 Final Value:Received in formalin labeled right breast tissue, three cores are three yellow-white fibrofatty-appearing cores each up 0.4 cm in diameter 1.8 and 2.2 cm in length. Submitted in two cassettes. Cold ischemic time is documented as two minutes. Disclaimer 08/17/2024 Final Value:Disclaimer: The following statement applies to all immunohistochemistry, in situ hybridization, molecular studies, and immunofluorescence testing, if performed on this case. The use of one or more reagents in the above tests is regulated as an analyte specific reagent (ASR). These tests were developed and their performance characteristics determined by the clinical laboratories of [facility]. They have not been cleared by the US Food and Drug Administration (FDA). The FDA has determined that such clearance or approval is not necessary. All immunostains were performed on paraffin embedded tissue. Appropriate positive and negative controls (where applicable) were run in parallel with the patient's specimen; these controls showed expected staining pattern, with acceptable intensity of staining. Immunohistochemical assays have not been validated on decalcified tissues. Results should be interpreted with caution given the raised possibility of false negativity on decalcified specimens. Pathologist Interpretation Location 08/17/2024 [facility], [address] [place] [address], [facility] [address], CLIA: [id number]; Joint Commission: [id number]; CAP: [id number] Final Imaging Reviewed: BI POST PROCEDURE MAMMOGRAM RIGHT Addendum: [facility] 1975 [id number] Exam Date/Time: 08/17/2024 11:43 Procedure: BI POST PROCEDURE MAMMOGRAM RIGHT Ordering Provider: DESIR KERISTEN Reason For Exam: BREAST BIOPSY --------ADDENDUM #1 -------- ADDENDUM: This addendum is being provided to report the pathology results, concordance and recommendation for the previous report. PATHOLOGY OUTCOME: Benign PATHOLOGY RESULT: Imaging and pathology are concordant. Fibrocystic changes with papillary apocrine metaplasia bordering on apocrine papilloma; no atypia identified. RECOMMENDATION: Breast ultrasound in 6 months Right Report Dictated on Electronically Signed By: Ann-Marie Desir MD Electronically Signed Date/Time: 08/19/2024 11:52 AM EST --------ORIGINAL REPORT -------- REASON FOR EXAMINATION: Right breast mass. CONSENT: The patient presents for ultrasound-guided core biopsy of the right breast. Prior to the procedure red rules were performed which included patient name, date of , and procedure type. Risks, benefits and alternatives were explained to the patient and informed consent was obtained. The patient's prior imaging was reviewed. PROCEDURE: An audible time out was performed. I washed my hands and wore sterile gloves. The patient was scanned and the lesion in the 12:00 position was redemonstrated. The patient was prepped in the usual sterile fashion. 14 mL of 1% Lidocaine was administered for local anesthesia. A aruna was made in the skin and a ATEC vacuum-assisted core biopsy device was advanced into the lesion with ultrasound guidance. 3 core specimens were obtained. Following the procedure a Tumark Q-shape tissue marker was deployed at the site of biopsy. Hemostasis was obtained by holding manual pressure. The patient tolerated the procedure without immediate complications. Home-going instructions were given and the patient was discharged in good condition. IMPRESSION: Technically successful US guided biopsy of the right breast. PATHOLOGY STATUS: Waiting for Pathology MAMMOGRAM: Following the procedure the patient was transported to the mammography suite and a 2D digital mammogram was performed demonstrating satisfactory placement of the tissue marker at the site of biopsy. No hematoma is identified on post procedure mammography. Markings on images: BB's = Nipples; skin lesions Open penobscot = Palpable Line = Scar Report Dictated on Electronically Signed By: Ann-Marie Desir MD Electronically Signed Date/Time: 08/17/2024 11:41 AM EST Rt US 6m Pathology Narrative: [facility] 1975 [id number] Exam Date/Time: 08/17/2024 11:43 Procedure: BI POST PROCEDURE MAMMOGRAM RIGHT Ordering Provider: DESIR KERISTEN Reason For Exam: BREAST BIOPSY REASON FOR EXAMINATION: Right breast mass. CONSENT: The patient presents for ultrasound-guided core biopsy of the right breast. Prior to the procedure red rules were performed which included patient name, date of , and procedure type. Risks, benefits and alternatives were explained to the patient and informed consent was obtained. The patient's prior imaging was reviewed. PROCEDURE: An audible time out was performed. I washed my hands and wore sterile gloves. The patient was scanned and the lesion in the 12:00 position was redemonstrated. The patient was prepped in the usual sterile fashion. 14 mL of 1% Lidocaine was administered for local anesthesia. A aruna was made in the skin and a ATEC vacuum-assisted core biopsy device was advanced into the lesion with ultrasound guidance. 3 core specimens were obtained. Following the procedure a Tumark Q-shape tissue marker was deployed at the site of biopsy. Hemostasis was obtained by holding manual pressure. The patient tolerated the procedure without immediate complications. Home-going instructions were given and the patient was discharged in good condition. Impression: Technically successful US guided biopsy of the right breast. PATHOLOGY STATUS: Waiting for Pathology MAMMOGRAM: Following the procedure the patient was transported to the mammography suite and a 2D digital mammogram was performed demonstrating satisfactory placement of the tissue marker at the site of biopsy. No hematoma is identified on post procedure mammography. Markings on images: BB's = Nipples; skin lesions Open penobscot = Palpable Line = Scar Report Dictated on Electronically Signed By: Ann-Marie Desir MD Electronically Signed Date/Time: 08/17/2024 11:41 AM EST BI US guided breast biopsy right Addendum: [facility] 1975 [id number] Exam Date/Time: 08/17/2024 10:54 Procedure: BI US GUIDED BREAST BIOPSY RIGHT Ordering Provider: MARSHALL ASHLEY Reason For Exam: MASS --------ADDENDUM #1 -------- ADDENDUM: This addendum is being provided to report the pathology results, concordance and recommendation for the previous report. PATHOLOGY OUTCOME: Benign PATHOLOGY RESULT: Imaging and pathology are concordant. Fibrocystic changes with papillary apocrine metaplasia bordering on apocrine papilloma; no atypia identified. RECOMMENDATION: Breast ultrasound in 6 months Right Report Dictated on Electronically Signed By: Ann-Marie Desir MD Electronically Signed Date/Time: 08/19/2024 11:52 AM EST --------ORIGINAL REPORT -------- REASON FOR EXAMINATION: Right breast mass. CONSENT: The patient presents for ultrasound-guided core biopsy of the right breast. Prior to the procedure red rules were performed which included patient name, date of , and procedure type. Risks, benefits and alternatives were explained to the patient and informed consent was obtained. The patient's prior imaging was reviewed. PROCEDURE: An audible time out was performed. I washed my hands and wore sterile gloves. The patient was scanned and the lesion in the 12:00 position was redemonstrated. The patient was prepped in the usual sterile fashion. 14 mL of 1% Lidocaine was administered for local anesthesia. A aruna was made in the skin and a ATEC vacuum-assisted core biopsy device was advanced into the lesion with ultrasound guidance. 3 core specimens were obtained. Following the procedure a Tumark Q-shape tissue marker was deployed at the site of biopsy. Hemostasis was obtained by holding manual pressure. The patient tolerated the procedure without immediate complications. Home-going instructions were given and the patient was discharged in good condition. IMPRESSION: Technically successful US guided biopsy of the right breast. PATHOLOGY STATUS: Waiting for Pathology MAMMOGRAM: Following the procedure the patient was transported to the mammography suite and a 2D digital mammogram was performed demonstrating satisfactory placement of the tissue marker at the site of biopsy. No hematoma is identified on post procedure mammography. Markings on images: BB's = Nipples; skin lesions Open penobscot = Palpable Line = Scar Report Dictated on Electronically Signed By: Ann-Marie Desir MD Electronically Signed Date/Time: 08/17/2024 11:41 AM EST Rt US 6m Pathology Narrative: Patient Name: SURY SHEPPARD [facility] 1975 [id number] Exam Date/Time: 08/17/2024 10:54 Procedure: BI US GUIDED BREAST BIOPSY RIGHT Ordering Provider: MARSHALL ASHLEY Reason For Exam: MASS REASON FOR EXAMINATION: Right breast mass. CONSENT: The patient presents for ultrasound-guided core biopsy of the right breast. Prior to the procedure red rules were performed which included patient name, date of , and procedure type. Risks, benefits and alternatives were explained to the patient and informed consent was obtained. The patient's prior imaging was reviewed. PROCEDURE: An audible time out was performed. I washed my hands and wore sterile gloves. The patient was scanned and the lesion in the 12:00 position was redemonstrated. The patient was prepped in the usual sterile fashion. 14 mL of 1% Lidocaine was administered for local anesthesia. A aruna was made in the skin and a ATEC vacuum-assisted core biopsy device was advanced into the lesion with ultrasound guidance. 3 core specimens were obtained. Following the procedure a Tumark Q-shape tissue marker was deployed at the site of biopsy. Hemostasis was obtained by holding manual pressure. The patient tolerated the procedure without immediate complications. Home-going instructions were given and the patient was discharged in good condition. Impression: Technically successful US guided biopsy of the right breast. PATHOLOGY STATUS: Waiting for Pathology MAMMOGRAM: Following the procedure the patient was transported to the mammography suite and a 2D digital mammogram was performed demonstrating satisfactory placement of the tissue marker at the site of biopsy. No hematoma is identified on post procedure mammography. Markings on images: BB's = Nipples; skin lesions Open penobscot = Palpable Line = Scar Report Dictated on Electronically Signed By: Ann-Marie Desir MD Electronically Signed Date/Time: 08/17/2024 11:41 AM EST Bilateral screening mammogram 06/20/23 was negative and a 1 year follow up was recommended EGD 09/08/23 showed 1 cm hiatal hernia and gastritis Colonoscopy 08/07/23 showed several polyps which were removed and internal hemorrhoids - I have reviewed all available pertinent laboratory, imaging and pathology results with the patient and/or family members today. Assessment/Plan: Diagnosis Plan 1. Polycythemia CBC auto differential MPL, CALR mutations - Miscellaneous Test CBC auto differential MPL, CALR mutations - Miscellaneous Test Today, we again reviewed common and uncommon causes of polycythemia. I suspect the polycythemia is secondary to dehydration/hemoconcentration and tobacco use, however will assess for other causes and check MPL and CALR with her next lab work. We have already seen an improvement in the H/H after she decreased her diet soda intake, increased her clear fluid intake, and decreased her tobacco use. JAK2 was negative. Iron panel within normal limits. EPO WNL. Abdominal US unremarkable. Advised to increase her clear fluid intake and encouraged tobacco cessation. 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 Will monitor CBC again in 2-3 months. Agree with age appropriate cancer screening. All questions were answered to the satisfaction of the patient and/or family. Return to office in 2-3 months, or sooner if worrisome signs/symptoms arise. Carissa Villanueva DO Hematology/Medical Oncology documented in this encounter [facility] 08-25-2024 Note Hematology/Oncology Office Visit Consultation/Referral Reason: polycythemia, weight loss Referred by: Dr. Dyson Patient was identified and seen today via Telehealth by agreement and consent. I used the following Telehealth technology: Audio and video capabilities. Patient location: [place] Patient Location: Home. This patient encounter is appropriate and reasonable under the circumstances: transportation issues . The patient has been advised of the potential risks and limitations of this mode of treatment (including but not limited to the absence of in-person examination) and has agreed to be treated in a remote fashion in spite of them. Any and all of the patient's/patient's family's questions on this issue have been answered and I have made no promises or guarantees to the patient. The patient has also been advised to contact this office for worsening conditions or problems, and seek emergency medical treatment and/or call 911 if the patient deems either necessary. The patient stated that they are currently in the [facility]. If the patient is a minor, permission has been obtained by the parent or guardian for the patient to receive medical care at this visit. HPI: Sury Sheppard is a 49 y.o. female who was referred to hematology in October 2023 for evaluation of polycythemia. Patient reports she was noted to have elevated hemoglobin in 2021. Hb was 16.6 at that time. It has stayed stable at 16.8 for about 2 years. She has lost almost 50 lbs in the past 6 months. She is a smoker, about 1ppd for 30 years. She drinks 6-8 diet cokes per day and does not drink a lot of water/clear fluids. She reports she feels full quickly. She stopped having menstrual cycles about 5 years ago after her hysterectomy, which was performed due to excessive menstrual bleeding. No family history of iron overload or blood disorders. No history of blood clots. She feels tired and fatigued. She is accompanied by her mother today. In November 2023, she decreased the amount of diet soda and increased her clear fluid intake. She also reduced her tobacco intake. Hb improved to 16.0. Iron levels within normal limits. JAK2 was negative. EPO within normal limits. Abdominal US was unremarkable. Today, she is here for routine follow up. Labs from 07/06/24 showed a hb of 19.2. She increased her clear fluid intake and hb improved to 17.2 on the most recent labs. She continues to smoke, but has cut down to half pack per day. She rarely drinks diet soda now. She has no other concerns today. 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 HYSTERECTOMY 2014 INCONTINENCE SURGERY 07/2021 SHOULDER ARTHROSCOPY 2015 TUBAL LIGATION 2009 Patient Active Problem List Diagnosis Date Noted Closed type IV fracture of sacrum with routine healing 01/29/2024 Elevated hemoglobin (CMS/HCC) ([facility]) 10/31/2023 Hypercholesteremia 05/01/2023 Medical marijuana use 05/01/2023 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 Chronic pain of left ankle 05/28/2022 PUD (peptic ulcer disease) 05/28/2022 Smoking greater than 30 pack years 05/28/2022 Chronic pain of both knees 08/13/2017 Chronic left shoulder pain 08/13/2017 Pain in right hip 08/13/2017 Bipolar 1 disorder, depressed (CMS/HCC) ([facility]) 02/05/2013 Migraine 02/05/2013 Social History Tobacco Use Smoking status: Every Day Current packs/day: 0.00 Average packs/day: 1.5 packs/day for 34.0 years (51.1 ttl pk-yrs) Types: Cigarettes Start date: 1989 Last attempt to quit: 02/19/2019 Years since quittin.5 Passive exposure: Past Smokeless tobacco: Never Vaping Use Vaping status: Never Used Substance Use Topics Alcohol use: Not Currently Comment: rare Drug use: Not Currently Types: Marijuana Comment: medical marijuana card Family History Problem Relation Name Age of Onset Hypothyroidism Mother Oksana Hyperlipidemia Mother Oksana Atrial fibrillation Mother Oksana Sleep apnea Mother Oksana Bone cancer Father Sarthak Stroke Father Sarthak Hypertension Father Sarthak No Known Problems Sister No Known Problems Brother No Known Problems Daughter No Known Problems Son No Known Problems Son Breast cancer Paternal Grandmother Dominique points 75 Prostate cancer Paternal Grandfather 70 Allergies Allergen Reactions Sulfa Antibiotics Itching and Swelling Current Outpatient Medications Medication Sig Dispense Refill ARIPiprazole (Abilify) 2 MG tablet Take 2 mg by mouth daily. atorvastatin (Lipitor) 20 MG tablet Take 1 table (more content not included)... [facility] 08-24-2024 Telephone encounter Note LVM for the pt to call the office back to go over some Registration questions for the mychart apt on 08/25/2024 [facility] 08-24-2024 Miscellaneous Notes LVM for the pt to call the office back to go over some Registration questions for the [facility] apt on 08/25/2024 documented in this encounter [facility] 08-20-2024 Telephone encounter Note Left message on voicemail for patient to return call to schedule. [facility] 08-20-2024 Telephone encounter Note I spoke to Sury about her benign biopsy results and recommendation for repeat ultrasound in 6 months. She is agreeable. [facility] 08-19-2024 Telephone encounter Note Left VM for Sury to return my call to discuss her results PATHOLOGY OUTCOME: Benign PATHOLOGY RESULT: Imaging and pathology are concordant. Fibrocystic changes with papillary apocrine metaplasia bordering on apocrine papilloma; no atypia identified. RECOMMENDATION: Breast ultrasound in 6 months Right [facility] 08-17-2024 Note Patient Name: Sury Sheppard Date of : 1975 Pre-Procedure: Breast: RIGHT Biopsy Type: ULTRASOUND Number of Sites: 1 History and Physical Performed: Salome Marshall NP Date: 08/10/2024 Level of Consciousness: [x]Alert & Oriented []Confused & Disoriented []Other Allergy to Lidocaine: [] Yes [x] No Allergy to other numbing medications: [] Yes [x] No List drug name: Blood Thinners: [] Yes [x] No If yes, please list: Date of last dose: Mg of dose: Pain: [x] None [] Present: 0 Intraprocedure Notes: Prep: [x] Chlorhexidine [] Betadine Pain: 6, very brief sharp pain with 1st biopsy pass, Dr. Desir gave more lidocaine totaling 14mL Bleeding: Scant, <1 cc Emotional Support Provided: [x] Yes [] No Post Procedure Notes: Biopsy Site Care: [x] Pressure Held for 10 minutes [x] Steri-Strip and Tegaderm [x] Cold Pack [] Gopi Bandage Level of Consciousness [x] Alert & Oriented [] Confused & Disoriented [] Other Post Procedure Symptoms: [x] Pt tolerated procedure without any symptoms [] Lightheaded [] Dizziness [] Nausea [] Sweating [] Fainting [] Pallor [] Low Blood Pressure [] Rapid Heart rate/Palpitations [] Hematoma present per radiologist and patient made aware Care Provided if Symptomatic: [] Radiologist notified Time: Name of Radiologist: [] Ambulated with assistance [] Assisted to chair/wheelchair [] Assisted to exam table/cart [] Patient placed in trendelenburg position [] Provided fluids (evan dion;water) [] Provided crackers [] Code Blue Team 4 called [] Patient remained in department [] Patient transferred to Emergency Department Pain: 0 Post Biopsy Discharge Instructions: [x] Image Guided Breast Biopsy Discharge Instructions reviewed and given to patient, patient verbalizes understanding [x] Gauze placed over biopsy site, cold pack applied over gauze at biopsy site for 20 minutes. After 20 minutes remove ice pack for one hour. Repeat 20 minutes gauze/ice at site and one hour with ice removed from site for remainder of day. [x] Patient instructed to wear supportive bra for 48 hours [] *If excessive bleeding or patient taking blood thinners, then 6 inch gopi is wrapped around the patient to provide support, patient will need to wear for 24 hours *[] After 24 hours the patient may remove the gopi wrap and wear supportive bra for the next 24 hours *[] Patient instructed to observe the biopsy site each time cold pack is removed to check for active bleeding *[] Patient instructed if bleeding noted to penobscot the bleeding with a marking pen and note if bleeding goes beyond the penobscot *[] If patient notes bleeding continues, the patient is to hold pressure on the site for up to 20 minutes with a clean dry washcloth tightly at biopsy site *[] If bleeding still occurs after continuously applying pressure for 20 minutes, the patient is to call the Breast Center at the number provided *[] If the patient notices any new mass or lump under the dressing at the biopsy site, please penobscot the mass or lump with a pen and check frequently for any increase in size outside of the penobscot. Please call the Breast Center at the number provided *[] If patient taking blood thinners, instructed to take as directed by ordering provider Discharge: Time: 1145 Accompanied by: [] Self [x] Family/friend [] Attendant [] Other, explain To: [x] Home [] Skilled Care Facility [] Hospital Inpatient [] Other, explain [facility] 08-17-2024 Note Local Anesthesia: [x]Lidocaine 1% 14 mL Probe Used: [x] 12 Gauge Probe (Atec) [] 12 Gauge Probe (Celero) [] 14 Gauge Probe (Sertera) [] 14 Gauge Probe (Bard) [] 14 Gauge Probe (Achieve) Specimen: [x] Specimen A [x] Right [] Left Position: 5:00 4 cm FN Samples 3 Lot Number [id number] Shape: []Tumark X [x]Tumark Q []Tumark U []Hydromark Butterfly Coil [] Hydromark Open Coil []Hydromark Barrel []Securmark Cork Post Mammo [x] Yes [] No [facility] 08-17-2024 Procedure note Local Anesthesia: [x]Lidocaine 1% 14 mL Probe Used: [x] 12 Gauge Probe (Atec) [] 12 Gauge Probe (Celero) [] 14 Gauge Probe (Sertera) [] 14 Gauge Probe (Bard) [] 14 Gauge Probe (Achieve) Specimen: [x] Specimen A [x] Right [] Left Position: 5:00 4 cm FN Samples 3 Lot Number [id number] Shape: []Tumark X [x]Tumark Q []Tumark U []Hydromark Butterfly Coil [] Hydromark Open Coil []Hydromark Barrel []Securmark Cork Post Mammo [x] Yes [] No [facility] 08-17-2024 Procedure note Patient Name: Sury Sheppard Date of : 1975 Pre-Procedure: Breast: RIGHT Biopsy Type: ULTRASOUND Number of Sites: 1 History and Physical Performed: Salome Marshall NP Date: 08/10/2024 Level of Consciousness: [x]Alert & Oriented []Confused & Disoriented []Other Allergy to Lidocaine: [] Yes [x] No Allergy to other numbing medications: [] Yes [x] No List drug name: Blood Thinners: [] Yes [x] No If yes, please list: Date of last dose: Mg of dose: Pain: [x] None [] Present: 0 Intraprocedure Notes: Prep: [x] Chlorhexidine [] Betadine Pain: 6, very brief sharp pain with 1st biopsy pass, Dr. Desir gave more lidocaine totaling 14mL Bleeding: Scant, <1 cc Emotional Support Provided: [x] Yes [] No Post Procedure Notes: Biopsy Site Care: [x] Pressure Held for 10 minutes [x] Steri-Strip and Tegaderm [x] Cold Pack [] Gopi Bandage Level of Consciousness [x] Alert & Oriented [] Confused & Disoriented [] Other Post Procedure Symptoms: [x] Pt tolerated procedure without any symptoms [] Lightheaded [] Dizziness [] Nausea [] Sweating [] Fainting [] Pallor [] Low Blood Pressure [] Rapid Heart rate/Palpitations [] Hematoma present per radiologist and patient made aware Care Provided if Symptomatic: [] Radiologist notified Time: Name of Radiologist: [] Ambulated with assistance [] Assisted to chair/wheelchair [] Assisted to exam table/cart [] Patient placed in trendelenburg position [] Provided fluids (evan dion;water) [] Provided crackers [] Code Blue Team 4 called [] Patient remained in department [] Patient transferred to Emergency Department Pain: 0 Post Biopsy Discharge Instructions: [x] Image Guided Breast Biopsy Discharge Instructions reviewed and given to patient, patient verbalizes understanding [x] Gauze placed over biopsy site, cold pack applied over gauze at biopsy site for 20 minutes. After 20 minutes remove ice pack for one hour. Repeat 20 minutes gauze/ice at site and one hour with ice removed from site for remainder of day. [x] Patient instructed to wear supportive bra for 48 hours [] *If excessive bleeding or patient taking blood thinners, then 6 inch gopi is wrapped around the patient to provide support, patient will need to wear for 24 hours *[] After 24 hours the patient may remove the gopi wrap and wear supportive bra for the next 24 hours *[] Patient instructed to observe the biopsy site each time cold pack is removed to check for active bleeding *[] Patient instructed if bleeding noted to penobscot the bleeding with a marking pen and note if bleeding goes beyond the penobscot *[] If patient notes bleeding continues, the patient is to hold pressure on the site for up to 20 minutes with a clean dry washcloth tightly at biopsy site *[] If bleeding still occurs after continuously applying pressure for 20 minutes, the patient is to call the Breast Center at the number provided *[] If the patient notices any new mass or lump under the dressing at the biopsy site, please penobscot the mass or lump with a pen and check frequently for any increase in size outside of the penobscot. Please call the Breast Center at the number provided *[] If patient taking blood thinners, instructed to take as directed by ordering provider Discharge: Time: 1145 Accompanied by: [] Self [x] Family/friend [] Attendant [] Other, explain To: [x] Home [] Skilled Care Facility [] Hospital Inpatient [] Other, explain [facility] 08-17-2024 Procedure note Local Anesthesia: [x]Lidocaine 1% 14 mL Probe Used: [x] 12 Gauge Probe (Atec) [] 12 Gauge Probe (Celero) [] 14 Gauge Probe (Sertera) [] 14 Gauge Probe (Bard) [] 14 Gauge Probe (Achieve) Specimen: [x] Specimen A [x] Right [] Left Position: 5:00 4 cm FN Samples 3 Lot Number [id number] Shape: []Tumark X [x]Tumark Q []Tumark U []Hydromark Butterfly Coil [] Hydromark Open Coil []Hydromark Barrel []Securmark Cork Post Mammo [x] Yes [] No Patient Name: Sury Sheppard Date of : 1975 Pre-Procedure: Breast: RIGHT Biopsy Type: ULTRASOUND Number of Sites: 1 History and Physical Performed: Salome Marshall NP Date: 08/10/2024 Level of Consciousness: [x]Alert & Oriented []Confused & Disoriented []Other Allergy to Lidocaine: [] Yes [x] No Allergy to other numbing medications: [] Yes [x] No List drug name: Blood Thinners: [] Yes [x] No If yes, please list: Date of last dose: Mg of dose: Pain: [x] None [] Present: 0 Intraprocedure Notes: Prep: [x] Chlorhexidine [] Betadine Pain: 6, very brief sharp pain with 1st biopsy pass, Dr. Desir gave more lidocaine totaling 14mL Bleeding: Scant, <1 cc Emotional Support Provided: [x] Yes [] No Post Procedure Notes: Biopsy Site Care: [x] Pressure Held for 10 minutes [x] Steri-Strip and Tegaderm [x] Cold Pack [] Gopi Bandage Level of Consciousness [x] Alert & Oriented [] Confused & Disoriented [] Other Post Procedure Symptoms: [x] Pt tolerated procedure without any symptoms [] Lightheaded [] Dizziness [] Nausea [] Sweating [] Fainting [] Pallor [] Low Blood Pressure [] Rapid Heart rate/Palpitations [] Hematoma present per radiologist and patient made aware Care Provided if Symptomatic: [] Radiologist notified Time: Name of Radiologist: [] Ambulated with assistance [] Assisted to chair/wheelchair [] Assisted to exam table/cart [] Patient placed in trendelenburg position [] Provided fluids (evan dion;water) [] Provided crackers [] Code Blue Team 4 called [] Patient remained in department [] Patient transferred to Emergency Department Pain: 0 Post Biopsy Discharge Instructions: [x] Image Guided Breast Biopsy Discharge Instructions reviewed and given to patient, patient verbalizes understanding [x] Gauze placed over biopsy site, cold pack applied over gauze at biopsy site for 20 minutes. After 20 minutes remove ice pack for one hour. Repeat 20 minutes gauze/ice at site and one hour with ice removed from site for remainder of day. [x] Patient instructed to wear supportive bra for 48 hours [] *If excessive bleeding or patient taking blood thinners, then 6 inch gopi is wrapped around the patient to provide support, patient will need to wear for 24 hours *[] After 24 hours the patient may remove the gopi wrap and wear supportive bra for the next 24 hours *[] Patient instructed to observe the biopsy site each time cold pack is removed to check for active bleeding *[] Patient instructed if bleeding noted to penobscot the bleeding with a marking pen and note if bleeding goes beyond the penobscot *[] If patient notes bleeding continues, the patient is to hold pressure on the site for up to 20 minutes with a clean dry washcloth tightly at biopsy site *[] If bleeding still occurs after continuously applying pressure for 20 minutes, the patient is to call the Breast Center at the number provided *[] If the patient notices any new mass or lump under the dressing at the biopsy site, please penobscot the mass or lump with a pen and check frequently for any increase in size outside of the penobscot. Please call the Breast Center at the number provided *[] If patient taking blood thinners, instructed to take as directed by ordering provider Discharge: Time: 1145 Accompanied by: [] Self [x] Family/friend [] Attendant [] Other, explain To: [x] Home [] Skilled Care Facility [] Hospital Inpatient [] Other, explain documented in this encounter [facility] 08-10-2024 History of Present illness Narrative Chief Complaint Patient presents with New Patient Abnormal Imaging Pre-biopsy History And Physical Exam Denies any palpable changes or pain today HPI: Sury Sheppard is a 49 y.o. female who presents H&P prior to biopsy 1. Her recent screening mammogram a mass in her right breast. Diagnostic breast imaging demonstrated a 1.2 cm vascular mass at 5:00, 4 cm FN. Biopsy is recommended. -Additionally, 2 complicated cyst clusters at 5:30, 3 cm FN and at 6:00 4 cm FN are recommended for short-term follow-up with ultrasound in 6 months. 2. She has a history of a benign right breast biopsy completed at on 03/15/2019 (pathology below). Today, she has no breast concerns. She denies breast mass, skin change, nipple change, or nipple discharge. 3. Biopsy explained. Patient agreeable. She denies taking blood thinners and does not have an allergy to lidocaine. Risks of biopsy discussed including pain, bleeding, or infection. 4. Breast imaging includes: Bilateral screening mammogram 07/16/2024 TISSUE DENSITY: BIRADS B - There are scattered areas of fibroglandular density. FINDINGS: Additional imaging is needed for mass in the inferior medial quadrant of the anterior right breast. No suspicious masses, architectural distortions or suspiciously clustered microcalcifications are identified in the left breast. IMPRESSION: Right breast mass. ASSESSMENT: Category 0 Incomplete: need additional imaging evaluation RECOMMENDATION: Follow-up diagnostic breast ultrasound Right Right breast ultrasound 07/27/2024 Findings: The patient is a 49-year-old who was recalled from a screening mammogram for a mass in the inferior medial quadrant of the anterior right breast at. Targeted ultrasound of the right breast was performed. At the 5:00 position 4 cm from the nipple there is a mixed echogenic mass with a trace of vascular flow measuring 0.9 x 1.2 x 0.4 cm. The findings are indeterminant. Biopsy is recommended. At the 5:30 position 3 cm from the nipple there is a avascular mixed echogenic mass measuring 1.0 x 1.0 x 2.3 cm. This is felt to represent a complicated cystic cluster. Short-term follow-up is recommended. At the 6:00 position 4 cm from the nipple a mixed echogenic mass is seen measuring 0.6 x 0.5 x 0.4 cm at. The findings probably represent a complicated cystic cluster. Short-term follow-up is recommended. IMPRESSION: Biopsy is recommended for a mixed echogenic mass with vascular flow at the 5:00 position. Short-term follow-up is recommended for probable benign findings at the 5:30 and 6:00 position. ASSESSMENT: Category 4 Suspicious RECOMMENDATION: Surgical Consultation Right Ultrasound guided core biopsy Right Breast ultrasound in 6 months Right Risk Factors: Menarche: Age 14 Age of first : Age 18, G3, P3 Menopause: Hysterectomy at age 31, she retains both ovaries-she endorses hot flashes and night sweats Smoking: Current- 1.5 PPD ETOH: None Right breast biopsy pathology-03/15/2019 at Name SURY SHEPPARD Pathologist: VIPUL ELENA III, D.O. Date of Procedure: 03/15/2019 Date Received: 03/15/2019 Date Reported 03/17/2019 Submitting Physician: SALOME MONTENEGRO DO Location: Copy To/Referring/Attending: KEIRY GONZALEZ D.O. Other External # Case is Amended FINAL DIAGNOSIS A. RIGHT BREAST MASS, ULTRASOUND-GUIDED CORE BIOPSY AT 8 O'CLOCK, 3 CM FROM NIPPLE: -- FIBROUS BREAST TISSUE WITH FOCAL USUAL DUCTAL HYPERPLASIA AND APOCRINE METAPLASIA, Family history includes: Father- bone cancer at 69 Paternal Grandmother- breast cancer age 75 Paternal Grandfather- Prostate cancer Age 70 The lifetime risk of breast cancer estimated by the Tyrer Cuzick v8 model is 10%. The estimated risk of a BRCA 1/2 mutation predicted by BRCAPRO is 0.07%. The estimated risk of a mutation in an HNPCC related gene is 0.05%. The patient does not have peds meet NCCN criteria for genetic testing for hereditary cancer. 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 atorvastatin (Lipitor) 20 MG tablet Take 1 tablet (20 mg) by mouth daily. 90 tablet 3 clindamycin-benzoyl peroxide (BenzaClin) gel Apply topically 2 times daily. 50 g 1 estradiol (Estrace) 0.1 MG/GM vaginal cream uSE ONE GRAM VAGINALLY TWICE A WEEK hydrOXYzine pamoate (Vistaril) 25 MG capsule Take 50 mg by mouth Nightly as needed. metFORMIN XR (Glucophage-XR) 500 MG 24 hr tablet Take 2 tablets twice daily with meals. Do not crush, chew, or split. 360 tablet 3 ondansetron (Zofran) 4 MG tablet As needed pantoprazole (ProtoNix) 40 MG EC tablet TAKE 1 TABLET BY MOUTH EVERY MORNING (before BREAKFAST) (Patient not taking: Reported on 08/03/2024) 90 tablet 3 traZODone (Desyrel) 100 MG tablet TAKE ONE TABLET BY MOUTH DAILY AT 9 PM (Patient taking differently: Nightly as needed.) valACYclovir (Valtrex) 500 MG tablet Take 1 tablet (500 mg) by mouth daily. 90 tablet 3 venlafaxine XR (Effexor XR) 150 MG 24 hr capsule Take 300 mg by mouth daily. No current facility-administered medications on file prior to visit. Review of Systems Constitutional: Negative for activity change, appetite change, chills, fatigue, fever and unexpected weight change. Eyes: Negative for visual disturbance. Respiratory: Negative for apnea and shortness of breath. Cardiovascular: Negative for chest pain. Gastrointestinal: Negative for nausea. Genitourinary: Negative for dyspareunia and vaginal bleeding. Musculoskeletal: Negative for arthralgias, back pain, gait problem and joint swelling. Skin: Negative for rash. Neurological: Negative for dizziness and headaches. Psychiatric/Behavioral: The patient is not nervous/anxious. BP (!) 133/93 (BP Location: Right arm, Patient Position: Sitting, BP Cuff Size: Adult long) Pulse 84 Temp 36.4 C (97.5 F) (Temporal) Ht 5' 5 (1.651 m) Wt 187 lb (84.8 kg) BMI 31.12 kg/m Physical Exam Constitutional: General: She is not in acute distress. Appearance: Normal appearance. HENT: Head: Normocephalic and atraumatic. Pulmonary: Effort: Pulmonary effort is normal. No respiratory distress. Chest: Breasts: Right: Normal. No swelling, inverted nipple, mass, nipple discharge or skin change. Left: Normal. No swelling, inverted nipple, mass, nipple discharge or skin change. Musculoskeletal: Cervical back: Neck supple. Lymphadenopathy: Cervical: Right cervical: No superficial cervical adenopathy. Left cervical: No superficial cervical adenopathy. Upper Body: Right upper body: No axillary adenopathy. Left upper body: No axillary adenopathy. Skin: General: Skin is warm and dry. Neurological: General: No focal deficit present. Mental Status: She is alert and oriented to person, place, and time. Psychiatric: Mood and Affect: Mood normal. Behavior: Behavior normal. Assessment/Plan: 1. Mass of upper inner quadrant of right breast (Primary) - BI US guided breast biopsy right; Future Call with results If results are benign plan for follow-up imaging in 6 months If results require surgical intervention she will follow-up with one of the breast surgeons 2. Mass overlapping multiple quadrants of right breast Short-term follow-up is recommended for probable benign findings at the 5:30 and 6:00 position. RIGHT breast US in 6 months 3. Family history of breast cancer She has a family history of breast cancer in her paternal grandmother at age 75. She does not meet NCCN guidelines for genetic testing. Her lifetime risk of breast cancer estimated by the Tyrer Cuzick v8 model is 10% (average risk) MORRO Marie CNP Please disregard any typographical errors. This note was dictated using voice recognition software. documented in this encounter [facility] 08-03-2024 History of Present illness Narrative Images from the original note were not included. [facility] [address] [facility] [address] Dept Visit Date: 08/03/24 HPI: Sury Sheppard is a 49 y.o. female who presents today for: Chief Complaint Patient presents with Other Insulin resistance. Recent labs that were drawn showed she is insulin resistant. Would like to discuss HPI Had labs done after annual exam last month. Here today to review. Difficulty losing and maintaining weight loss despite lifestyle interventions. The lipid panel much improved on statin. To continue. On abilify-this was started several months ago, could be contributing to the elevated insulin. Doing very well with mental health. Component Latest Ref Rng 07/30/2024 CHOLESTEROL, TOTAL <200 mg/dL 143 HDL CHOLESTEROL - [facility] > OR = 50 mg/dL 54 TRIGLYCERIDES - [facility] <150 mg/dL 116 LDL-CHOLESTEROL mg/dL (calc) 69 CHOL/HDLC RATIO <5.0 (calc) 2.6 NON HDL CHOLESTEROL <130 mg/dL (calc) 89 Component Latest Ref Rng 07/30/2024 INSULIN uIU/mL 27.6 (H) Component Latest Ref Rng 07/30/2024 THYROID STIMULATING HORMONE mIU/L 0.83 Component Latest Ref Rng 07/30/2024 GLUCOSE 65 - 99 mg/dL 103 (H) Urea Nitrogen (BUN) 7 - 25 mg/dL 9 Creatinine 0.50 - 1.03 mg/dL 0.87 eGFR > OR = 60 mL/min/1.73m2 81 BUN/CREATININE RATIO 6 - 22 (calc) SEE NOTE: SODIUM 135 - 146 mmol/L 140 POTASSIUM 3.5 - 5.3 mmol/L 4.7 CHLORIDE 98 - 110 mmol/L 107 Carbon Dioxide (CO2) 20 - 32 mmol/L 27 CALCIUM 8.6 - 10.4 mg/dL 9.0 PROTEIN, TOTAL - [facility] 6.1 - 8.1 g/dL 6.1 ALBUMIN - [facility] 3.6 - 5.1 g/dL 3.9 GLOBULIN - [facility] 1.9 - 3.7 g/dL (calc) 2.2 ALBUMIN/GLOBULIN RATIO - [facility] 1.0 - 2.5 (calc) 1.8 BILIRUBIN, TOTAL - [facility] 0.2 - 1.2 mg/dL 0.5 ALKALINE PHOSPHATASE - [facility] 37 - 153 U/L 59 AST - [facility] 10 - 35 U/L 19 ALT - [facility] 6 - 29 U/L 22 Component Latest Ref Rng 07/30/2024 HEMOGLOBIN A1C - [facility] <5.7 % of total Hgb 5.2 Wt Readings from Last 5 Encounters: 08/03/24 187 lb (84.8 kg) 07/16/24 180 lb (81.6 kg) 07/13/24 186 lb (84.4 kg) 01/29/24 165 lb 9.6 oz (75.1 kg) 12/25/23 166 lb (75.3 kg) Current Outpatient Medications Medication Sig Dispense Refill ARIPiprazole (Abilify) 2 MG tablet Take 2 mg by mouth daily. atorvastatin (Lipitor) 20 MG tablet Take 1 tablet (20 mg) by mouth daily. 90 tablet 3 clindamycin-benzoyl peroxide (BenzaClin) gel Apply topically 2 times daily. 50 g 1 estradiol (Estrace) 0.1 MG/GM vaginal cream uSE ONE GRAM VAGINALLY TWICE A WEEK hydrOXYzine pamoate (Vistaril) 25 MG capsule Take 50 mg by mouth Nightly as needed. ondansetron (Zofran) 4 MG tablet As needed traZODone (Desyrel) 100 MG tablet TAKE ONE TABLET BY MOUTH DAILY AT 9 PM (Patient taking differently: Nightly as needed.) valACYclovir (Valtrex) 500 MG tablet Take 1 tablet (500 mg) by mouth daily. 90 tablet 3 venlafaxine XR (Effexor XR) 150 MG 24 hr capsule Take 300 mg by mouth daily. metFORMIN XR (Glucophage-XR) 500 MG 24 hr tablet Take 2 tablets twice daily with meals. Do not crush, chew, or split. 360 tablet 3 pantoprazole (ProtoNix) 40 MG EC tablet TAKE 1 TABLET BY MOUTH EVERY MORNING (before BREAKFAST) (Patient not taking: Reported on 08/03/2024) 90 tablet 3 No current facility-administered medications for this visit. Allergies Allergen Reactions Sulfa Antibiotics Itching and Swelling Past Medical History: Diagnosis Date 2018 novel coronavirus disease (COVID-19) 2022 Abnormal Pap smear of cervix 1998 Anxiety 2008 Depression 2007 Fibrocystic breast GERD (gastroesophageal reflux disease) 2000 Headache 1991 Subjective: Review of Systems Constitutional: Positive for unexpected weight change. Negative for fatigue. Respiratory: Negative for shortness of breath. Cardiovascular: Negative for chest pain. Endocrine: Negative for polydipsia, polyphagia and polyuria. Objective: BP 109/73 (BP Location: Left arm, Patient Position: Sitting, BP Cuff Size: Adult) Pulse 71 Temp 36.4 C (97.5 F) (Temporal) Ht 5' 5 (1.651 m) Wt 187 lb (84.8 kg) SpO2 99% BMI 31.12 kg/m Physical Exam Vitals and nursing note reviewed. Constitutional: General: She is not in acute distress. Appearance: Normal appearance. She is not ill-appearing or toxic-appearing. Pulmonary: Effort: Pulmonary effort is normal. Neurological: Mental Status: She is alert and oriented to person, place, and time. Assessment: Diagnosis Plan 1. Hyperinsulinemia metFORMIN XR (Glucophage-XR) 500 MG 24 hr tablet Hemoglobin A1c Basic metabolic panel Insulin Hemoglobin A1c Basic metabolic panel Insulin 2. Unintended weight gain metFORMIN XR (Glucophage-XR) 500 MG 24 hr tablet Plan: Sury was seen today for other. Diagnoses and all orders for this visit: Hyperinsulinemia (Primary) Reviewed nutrient dense diet, increase protein intake. Limit processed foods. Continue exercise, incorporate the strength training 2-3 days per week. Recheck labs 3 months, then see here. Stress management. Start metformin. - metFORMIN XR (Glucophage-XR) 500 MG 24 hr tablet; Take 2 tablets twice daily with meals. Do not crush, chew, or split. - Hemoglobin A1c; Future - Basic metabolic panel; Future - Insulin; Future - Hemoglobin A1c - Basic metabolic panel - Insulin Unintended weight gain As above. - metFORMIN XR (Glucophage-XR) 500 MG 24 hr tablet; Take 2 tablets twice daily with meals. Do not crush, chew, or split. Follow up in about 3 months (around 10/31/2024) for follow up labs. ZACH Jamison 08/03/2024 10:55 AM documented in this encounter [facility] 08-03-2024 Instructions MORRO Condon CNP - 08/03/2024 10:00 AM EST With the metformin start with 1 tablet twice daily with meals than increase to 2 tablets twice daily with meals. Increase protein intake to at least 0.5 mg/kg per day 75 g protein. documented in this encounter [facility] 07-16-2024 Telephone encounter Note Message released to patient as written. ----- Message from Bernard Dyson MD sent at 07/16/2024 10:26 AM EST ----- Mammogram showed area that needs more imaging to make sure ok. This is not uncommon to happen US ordered. Patient's further questions if applicable: no, transferred to [facility] Were all questions from office addressed or relayed to the patient from encounter: Yes [facility] 07-16-2024 Miscellaneous Notes Message released to patient as written. ----- Message from Bernard Dyson MD sent at 07/16/2024 10:26 AM EST ----- Mammogram showed area that needs more imaging to make sure ok. This is not uncommon to happen US ordered. Patient's further questions if applicable: no, transferred to [facility] Were all questions from office addressed or relayed to the patient from encounter: Yes LMOM asking patient to give the office a call back for recent mammogram results. If patient calls back, please give message. ----- Message from Bernard Dyson MD sent at 07/16/2024 10:26 AM EST ----- Mammogram showed area that needs more imaging to make sure ok. This is not uncommon to happen US ordered. documented in this encounter [facility] 07-16-2024 Telephone encounter Note LMOM asking patient to give the office a call back for recent mammogram results. If patient calls back, please give message. [facility] 07-16-2024 Telephone encounter Note ----- Message from Bernard Dyson MD sent at 07/16/2024 10:26 AM EST ----- Mammogram showed area that needs more imaging to make sure ok. This is not uncommon to happen US ordered. [facility] 07-13-2024 History of Present illness Narrative Images from the original note were not included. [facility] [address] [facility] [address] Dept: [phone] Dept Visit Date: 07/13/24 HPI: Sury Sheppard is a 49 y.o. female who presents today for: Chief Complaint Patient presents with Discuss Medications would like to discuss weight loss medications. Has acne, would like to be put back on doxycycline, seems to becoming a problem again Immunizations Would like shingles vaccine. HPI Unintended weight gain About 30 pounds over last several months. Did have some medication changes with her psychiatrist for bipolar. On abilify now. Mental health is stable. Does not feel has had much dietary change. Is working on less sugar, breads, incorporating fruits and vegetables. Exercising several days per week. Unable to loose weight. Started Compounded semaglutide- weekly. 1-2 months. No change. The acne is worse. Did fall and sustain a sacral fracture last year. This has healed without ongoing pain. Asks about shingrix. Will check with insurance first. Wt Readings from Last 5 Encounters: 07/13/24 186 lb (84.4 kg) 01/29/24 165 lb 9.6 oz (75.1 kg) 12/25/23 166 lb (75.3 kg) 12/02/23 160 lb 8 oz (72.8 kg) 11/18/23 164 lb 6.4 oz (74.6 kg) Current Outpatient Medications Medication Sig Dispense Refill ARIPiprazole (Abilify) 2 MG tablet Take 2 mg by mouth daily. atorvastatin (Lipitor) 20 MG tablet Take 1 tablet (20 mg) by mouth daily. 90 tablet 3 estradiol (Estrace) 0.1 MG/GM vaginal cream uSE ONE GRAM VAGINALLY TWICE A WEEK hydrOXYzine pamoate (Vistaril) 25 MG capsule Take 50 mg by mouth Nightly as needed. ondansetron (Zofran) 4 MG tablet As needed pantoprazole (ProtoNix) 40 MG EC tablet TAKE 1 TABLET BY MOUTH EVERY MORNING (before BREAKFAST) (Patient taking differently: Take 40 mg by mouth 2 times daily.) 90 tablet 3 traZODone (Desyrel) 100 MG tablet TAKE ONE TABLET BY MOUTH DAILY AT 9 PM valACYclovir (Valtrex) 500 MG tablet Take 1 tablet (500 mg) by mouth daily. 90 tablet 3 venlafaxine XR (Effexor XR) 150 MG 24 hr capsule Take 300 mg by mouth daily. clindamycin-benzoyl peroxide (BenzaClin) gel Apply topically 2 times daily. 50 g 1 No current facility-administered medications for this visit. Allergies Allergen Reactions Sulfa Antibiotics Itching and Swelling Past Medical History: Diagnosis Date 2018 novel coronavirus disease (COVID-19) 2022 Abnormal Pap smear of cervix 1998 Anxiety 2009 Depression 2007 Fibrocystic breast GERD (gastroesophageal reflux disease) 2000 Headache 1992 Social History Tobacco Use Smoking status: Every Day Current packs/day: 0.00 Average packs/day: 1.5 packs/day for 34.0 years (51.1 ttl pk-yrs) Types: Cigarettes Start date: 1989 Last attempt to quit: 02/19/2019 Years since quittin.4 Passive exposure: Past Smokeless tobacco: Never Substance Use Topics Alcohol use: Not Currently Comment: rare Subjective: Review of Systems Constitutional: Positive for unexpected weight change. Negative for fatigue. Respiratory: Negative for shortness of breath. Skin: Positive for rash. Neurological: Negative for headaches. Objective: BP 102/69 (BP Location: Left arm, Patient Position: Sitting, BP Cuff Size: Large adult) Pulse 80 Temp 36.4 C (97.5 F) (Temporal) Ht 5' 4.5 (1.638 m) Wt 186 lb (84.4 kg) SpO2 99% BMI 31.43 kg/m Physical Exam Vitals and nursing note reviewed. Constitutional: General: She is not in acute distress. Appearance: Normal appearance. She is not ill-appearing or toxic-appearing. Pulmonary: Effort: Pulmonary effort is normal. Neurological: Mental Status: She is alert. Psychiatric: Mood and Affect: Mood normal. Assessment: Diagnosis Plan 1. Unintended weight gain Hemoglobin A1c Comprehensive metabolic panel TSH Insulin Hemoglobin A1c Comprehensive metabolic panel TSH Insulin 2. Hypercholesteremia Lipid panel Lipid panel 3. Adult acne clindamycin-benzoyl peroxide (BenzaClin) gel Plan: Sury was seen today for discuss medications and immunizations. Diagnoses and all orders for this visit: Unintended weight gain (Primary) Unstable. Most likely sounds like adverse effect from medication. Checking labs today rule out metabolic abnormality. Discussed and advised continued nutrient dense food intake, regular exercise, stress management, good sleep hygiene. Medication pending blood work but doesn't look like glp or glp/gip are going to be covered under insurance. Maybe metformin? - Hemoglobin A1c; Future - Comprehensive metabolic panel; Future - TSH; Future - Insulin; Future - Hemoglobin A1c - Comprehensive metabolic panel - TSH - Insulin Hypercholesteremia Chronic, on meds. Rechecking labs with above. Not done in last year. - Lipid panel; Future - Lipid panel Adult acne Recurrent, uncontrolled. Try topical first. 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 - clindamycin-benzoyl peroxide (BenzaClin) gel; Apply topically 2 times daily. Follow up if symptoms worsen or fail to improve. Goals None 'ZACH Jamison 07/13/2024 10:27 AM documented in this encounter [facility] 05-31-2024 Telephone encounter Note Tried calling pt to remind her to get her labs drawn prior to her office visit. No answer and no voice mailbox set up. [facility] 05-31-2024 Miscellaneous Notes Tried calling pt to remind her to get her labs drawn prior to her office visit. No answer and no voice mailbox set up. documented in this encounter [facility] 01-29-2024 Evaluation + Plan note Associated Problem(s): Closed type IV fracture of sacrum with routine healing - Acute/unstable. - Schedule appt with ortho. - Short term Rx for oxy-- no longer using medical marijuana. - OARRs Reviewed., Possible medication effects, risk of tolerance/dependence & alternative treatments discussed. , No signs of potential drug abuse or diversion identified., and Assessed functional status. [facility] 01-29-2024 Miscellaneous Notes Associated Problem(s): Closed type IV fracture of sacrum with routine healing - Acute/unstable. - Schedule appt with ortho. - Short term Rx for oxy-- no longer using medical marijuana. - OARRs Reviewed., Possible medication effects, risk of tolerance/dependence & alternative treatments discussed. , No signs of potential drug abuse or diversion identified., and Assessed functional status. documented in this encounter [facility] 01-29-2024 History of Present illness Narrative Images from the original note were not included. [facility] [address] [place] [facility] [address] Dept: [phone] Dept Reason for Visit: Tailbone Pain (Since fall on 01/24/24. Patient states she is out of the oxycodone she got in the er.), ER Follow-up (Seen in ER 01/25/2024 - fractured sacrum), and Neck Pain (Having neck pain, stiff, painful, hard to turn. She wonders if maybe saritaip luba) Assessment and Plan 1. Closed type IV fracture of sacrum with routine healing Assessment & Plan: - Acute/unstable. - Schedule appt with ortho. - Short term Rx for oxy-- no longer using medical marijuana. - OARRs Reviewed., Possible medication effects, risk of tolerance/dependence & alternative treatments discussed. , No signs of potential drug abuse or diversion identified., and Assessed functional status. Orders: - oxyCODONE (Roxicodone) 5 MG immediate release tablet; Take 1 tablet (5 mg) by mouth every 6 hours as needed for severe pain (7-10) for up to 5 days., Starting Fri01/29/2024, Until Fri02/03/2024 at 2359, Normal - lidocaine (Lidoderm) 5 % patch; Apply 1 patch topically daily. Apply to painful area 12 hours per day, remove for 12 hours., Starting Fri01/29/2024, Until Fri01/28/2025, Normal Follow up if symptoms worsen or fail to improve. Subjective HPI Pt presents today for ED follow up. Was seen on 01/24 after a fall. Diagnosed with a fractured sacrum-- left S4. She was given pain medication and told to follow up with ortho. She has not scheduled this appt. Ran out of pain medication. Pt states she is having severe pain when sitting. Has a large hematoma on her left buttock-- has been soaking in a warm tub to help with this. Pt requesting a refill of pain medication. No additional concerns today. Review of Systems Musculoskeletal: Positive for arthralgias, back pain and gait problem. Skin: Positive for color change. Allergies Allergen Reactions Sulfa Antibiotics Itching and Swelling Outpatient Medications Prior to Visit Medication Sig Dispense Refill atorvastatin (Lipitor) 20 MG tablet Take 1 tablet (20 mg) by mouth daily. 90 tablet 3 estradiol (Estrace) 0.1 MG/GM vaginal cream uSE ONE GRAM VAGINALLY TWICE A WEEK nicotine (Nicoderm, Step 1) 21 MG/24HR patch Place 1 patch on the skin Every 24 hours. 30 patch 1 ondansetron (Zofran) 4 MG tablet As needed pantoprazole (ProtoNix) 40 MG EC tablet TAKE 1 TABLET BY MOUTH EVERY MORNING (before BREAKFAST) (Patient taking differently: Take 40 mg by mouth in the morning and 40 mg in the evening.) 90 tablet 3 QUEtiapine (SEROquel) 25 MG tablet Take 1 tablet by mouth Nightly. topiramate (Topamax) 200 MG tablet Take 200 mg by mouth in the morning and 200 mg before bedtime. traZODone (Desyrel) 100 MG tablet TAKE ONE TABLET BY MOUTH DAILY AT 9 PM valACYclovir (Valtrex) 500 MG tablet Take 1 tablet (500 mg) by mouth daily. 90 tablet 3 venlafaxine XR (Effexor XR) 150 MG 24 hr capsule Take 300 mg by mouth daily. albuterol 108 (90 Base) MCG/ACT inhaler Inhale 2 puffs every 4 hours as needed for wheezing. (Patient not taking: Reported on 01/29/2024) 18 g 1 No facility-administered medications prior to visit. Past Medical History: Diagnosis Date 2018 novel coronavirus disease (COVID-19) 2022 Abnormal Pap smear of cervix 1998 Anxiety 2009 Depression 2007 Fibrocystic breast GERD (gastroesophageal reflux disease) 1999 Headache 1991 Social History Tobacco Use Smoking status: Every Day Current packs/day: 0.00 Average packs/day: 1.5 packs/day for 34.0 years (51.1 ttl pk-yrs) Types: Cigarettes Start date: 1989 Last attempt to quit: 02/19/2019 Years since quittin.9 Passive exposure: Past Smokeless tobacco: Never Substance Use Topics Alcohol use: Not Currently Comment: rare Past Surgical History: Procedure Laterality Date BARIATRIC SURGERY 2004 BREAST BIOPSY Right 03/15/2019 CHOLECYSTECTOMY 2015 COSMETIC SURGERY 2004 FOOT SURGERY Left HYSTERECTOMY 2014 INCONTINENCE SURGERY 07/2021 SHOULDER ARTHROSCOPY 2015 TUBAL LIGATION 2009 Family History Problem Relation Name Age of Onset Hypothyroidism Mother Oksana Hyperlipidemia Mother Oksana Atrial fibrillation Mother Oksana Sleep apnea Mother Oksana Bone cancer Father Sarthak Stroke Father Sarthak Hypertension Father Sarthak No Known Problems Sister No Known Problems Brother No Known Problems Daughter No Known Problems Son No Known Problems Son Breast cancer Paternal Grandmother Dominique gena Prostate cancer Paternal Grandfather Objective BP 111/76 (BP Location: Right arm, Patient Position: Sitting, BP Cuff Size: Adult) Pulse 77 Temp 36.8 C (98.2 F) (Oral) Ht 5' 4.5 (1.638 m) Wt 165 lb 9.6 oz (75.1 kg) SpO2 99% BMI 27.99 kg/m Physical Exam Vitals and nursing note reviewed. Constitutional: Appearance: Normal appearance. Cardiovascular: Rate and Rhythm: Normal rate and regular rhythm. Heart sounds: Normal heart sounds. Pulmonary: Effort: Pulmonary effort is normal. Breath sounds: Normal breath sounds. Musculoskeletal: Comments: Extremely tender over sacral area down to tailbone. Neurological: Mental Status: She is alert. Psychiatric: Mood and Affect: Mood normal. Behavior: Behavior normal. Thought Content: Thought content normal. Judgment: Judgment normal. Data Reviewed and Summarized Labs: Imaging/Testing: Denita Dale PA-C documented in this encounter [facility] 01-28-2024 Telephone encounter Note Unable to fill until seen. [facility] 01-28-2024 Miscellaneous Notes Unable to fill until seen. S: Patient spoke with [facility] nurse regarding pain and need for medication refill B: Onset of symptoms/concern 01/24/24 A: Pt reports fell down 3 stairs went to [facility] ED on 01/25/24 Dx with a S4 nondisplaced fracture, and hematoma (left buttock). Patient states that the swelling is the same, maybe a little better. Patient reports she is unable to sit and has been laying on her side. C/o 8/10 pain. 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 Pt reports she did buy a coccyx cushion for sitting. States it helps a little. Took Tylenol and used ice and that is not helping and not doing Ibuprofen due to peptic ulcer disease. Patient is requesting Oxycodone IR 5mg sent to [facility]. States that the ED also did apply lidocaine patch on in ED but they did not send a script for that. And the script for the pain medication was for 3 days. Allergies and Pharmacy verified. R: [facility] nurse unable to schedule appt for tomorrow due to patient having nursing school unable to schedule with PCP. Scheduled appt for 01/29/24 with Osiris Dale PA-C at 10:40am for follow-up. Please see patient's request for pain medication did inform patient unsure MD would fill prior to being seen in the office. Patient understands home care advice. Patient instructed to call back with new or worsening symptoms. Reason for Disposition [1] After 3 days (72 hours) AND [2] pain not improving Protocols used: Tailbone [id number] documented in this encounter [facility] 01-27-2024 Telephone encounter Note S: Patient spoke with CAC nurse regarding pain and need for medication refill B: Onset of symptoms/concern 01/24/24 A: Pt reports fell down 3 stairs went to [facility] ED on 01/25/24 Dx with a S4 nondisplaced fracture, and hematoma (left buttock). Patient states that the swelling is the same, maybe a little better. Patient reports she is unable to sit and has been laying on her side. C/o 8 pain. 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 Pt reports she did buy a coccyx cushion for sitting. States it helps a little. Took Tylenol and used ice and that is not helping and not doing Ibuprofen due to peptic ulcer disease. Patient is requesting Oxycodone IR 5mg sent to [facility]. States that the ED also did apply lidocaine patch on in ED but they did not send a script for that. And the script for the pain medication was for 3 days. Allergies and Pharmacy verified. R: CAC nurse unable to schedule appt for tomorrow due to patient having nursing school unable to schedule with PCP. Scheduled appt for 01/29/24 with Osiris Dale PA-C at 10:40am for follow-up. Please see patient's request for pain medication did inform patient unsure MD would fill prior to being seen in the office. Patient understands home care advice. Patient instructed to call back with new or worsening symptoms. Reason for Disposition [1] After 3 days (72 hours) AND [2] pain not improving Protocols used: Tailbone [id number] [facility] 12-25-2023 History of Present illness Narrative Images from the original note were not included. [facility] [address] [place] [facility] [address] Dept: [phone] Dept Visit Date: 12/25/23 HPI: Sury Sheppard is a 48 y.o. female who presents today for: Chief Complaint Patient presents with Annual Exam CPE. HPI Routine exam today. Overall doing well. 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 Requests titers, needs physical exam, updated tetanus (last 2012). Has been seen this year by hematology for weight loss, polycythemia. Current smoker. Had US abdomen without abnormalities. EGD 08/2023 +hiatal hernia and gastritis. Colonoscopy 08/07/23 with several polyps and hemorrhoids. CT chest for lung cancer screening done 10/21 as well, no lung nodules. Mammogram 06/21 was normal. Weight loss has seemed to stablize. Wt Readings from Last 5 Encounters: 12/25/23 166 lb (75.3 kg) 12/02/23 160 lb 8 oz (72.8 kg) 11/18/23 164 lb 6.4 oz (74.6 kg) 10/16/23 165 lb (74.8 kg) 08/28/23 166 lb (75.3 kg) Current smoking, interested in quitting. Current use is approximately 1.5 packs per day. Would not recommend bupropion or chantix given mental health history and current medications. Accepts NRT-patches. Increasing clear fluid intake, less diet soda. Active at work. 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 On lipitor for hyperlipidemia, tolerates well. Lipid panel done 7 months ago. Component Latest Ref Rng 05/01/2023 CHOLESTEROL, TOTAL <200 mg/dL 164 HDL CHOLESTEROL - [facility] > OR = 50 mg/dL 46 (L) TRIGLYCERIDES - [facility] <150 mg/dL 166 (H) LDL-CHOLESTEROL mg/dL (calc) 92 CHOL/HDLC RATIO <5.0 (calc) 3.6 NON HDL CHOLESTEROL <130 mg/dL (calc) 118 Current Outpatient Medications Medication Sig Dispense Refill albuterol 108 (90 Base) MCG/ACT inhaler Inhale 2 puffs every 4 hours as needed for wheezing. 18 g 1 estradiol (Estrace) 0.1 MG/GM vaginal cream uSE ONE GRAM VAGINALLY TWICE A WEEK ondansetron (Zofran) 4 MG tablet As needed pantoprazole (ProtoNix) 40 MG EC tablet TAKE 1 TABLET BY MOUTH EVERY MORNING (before BREAKFAST) (Patient taking differently: Take 40 mg by mouth in the morning and 40 mg in the evening.) 90 tablet 3 QUEtiapine (SEROquel) 25 MG tablet Take 1 tablet by mouth Nightly. topiramate (Topamax) 200 MG tablet Take 200 mg by mouth in the morning and 200 mg before bedtime. traZODone (Desyrel) 100 MG tablet TAKE ONE TABLET BY MOUTH DAILY AT 9 PM venlafaxine XR (Effexor XR) 150 MG 24 hr capsule Take 300 mg by mouth daily. atorvastatin (Lipitor) 20 MG tablet Take 1 tablet (20 mg) by mouth daily. 90 tablet 3 nicotine (Nicoderm, Step 1) 21 MG/24HR patch Place 1 patch on the skin Every 24 hours. 30 patch 1 valACYclovir (Valtrex) 500 MG tablet Take 1 tablet (500 mg) by mouth daily. 90 tablet 3 No current facility-administered medications for this visit. Allergies Allergen Reactions Sulfa Antibiotics Itching and Swelling Past Medical History: Diagnosis Date 2018 novel coronavirus disease (COVID-19) 2022 Abnormal Pap smear of cervix 1998 Anxiety 2009 Depression 2007 Fibrocystic breast GERD (gastroesophageal reflux disease) 1999 Headache 1991 Social History Tobacco Use Smoking status: Every Day Current packs/day: 0.00 Average packs/day: 1.5 packs/day for 34.0 years (51.1 ttl pk-yrs) Types: Cigarettes Start date: 1989 Last attempt to quit: 02/19/2019 Years since quittin.8 Passive exposure: Past Smokeless tobacco: Never Substance Use Topics Alcohol use: Not Currently Comment: rare Subjective: Review of Systems Constitutional: Positive for fatigue. Negative for chills and unexpected weight change. Respiratory: Negative for cough, shortness of breath and wheezing. Cardiovascular: Negative for chest pain, palpitations and leg swelling. Gastrointestinal: Negative for abdominal pain, constipation, diarrhea and nausea. Genitourinary: Negative for difficulty urinating. Musculoskeletal: Positive for arthralgias, back pain and neck pain. Negative for gait problem. Neurological: Negative for dizziness and headaches. Psychiatric/Behavioral: Negative for dysphoric mood and sleep disturbance. The patient is not nervous/anxious. Objective: BP 106/70 (BP Location: Right arm, Patient Position: Sitting, BP Cuff Size: Adult) Pulse 65 Temp 36.5 C (97.7 F) (Temporal) Ht 5' 4.5 (1.638 m) Wt 166 lb (75.3 kg) SpO2 98% BMI 28.05 kg/m Physical Exam Vitals and nursing note reviewed. Constitutional: General: She is not in acute distress. Appearance: Normal appearance. She is overweight. She is not ill-appearing or toxic-appearing. HENT: Head: Normocephalic and atraumatic. Right Ear: Tympanic membrane, ear canal and external ear normal. Left Ear: Tympanic membrane, ear canal and external ear normal. Mouth/Throat: Mouth: Mucous membranes are moist. Pharynx: Oropharynx is clear. Eyes: Conjunctiva/sclera: Conjunctivae normal. Pupils: Pupils are equal, round, and reactive to light. Neck: Thyroid: No thyromegaly. Cardiovascular: Rate and Rhythm: Normal rate and regular rhythm. Pulses: Normal pulses. Heart sounds: Normal heart sounds. No murmur heard. Pulmonary: Effort: Pulmonary effort is normal. No respiratory distress. Breath sounds: Normal breath sounds. No wheezing or rhonchi. Abdominal: General: Bowel sounds are normal. Palpations: Abdomen is soft. Musculoskeletal: Right lower leg: No edema. Left lower leg: No edema. Lymphadenopathy: Cervical: No cervical adenopathy. Skin: General: Skin is warm and dry. Capillary Refill: Capillary refill takes less than 2 seconds. Coloration: Skin is not pale. Neurological: Mental Status: She is alert and oriented to person, place, and time. Cranial Nerves: No cranial nerve deficit. Motor: No weakness. Gait: Gait normal. Psychiatric: Mood and Affect: Mood normal. Assessment: Diagnosis Plan 1. Immunity status testing Hepatitis B surface antigen Hepatitis B surface antibody Hepatitis B core antibody, total Rubeola antibody IgG Mumps antibody, IgG Rubella antibody, IgG Varicella zoster antibody, IgG Hepatitis B surface antigen Hepatitis B surface antibody Hepatitis B core antibody, total Rubeola antibody IgG Mumps antibody, IgG Rubella antibody, IgG Varicella zoster antibody, IgG 2. Recurrent cold sores valACYclovir (Valtrex) 500 MG tablet 3. Hypercholesteremia atorvastatin (Lipitor) 20 MG tablet 4. Immunization due Pneumococcal conjugate vaccine 20-valent IM Tdap vaccine greater than or equal to 7 years old IM 5. Cigarette nicotine dependence without complication nicotine (Nicoderm, Step 1) 21 MG/24HR patch 6. Encounter for routine adult medical examination Plan: Sury was seen today for annual exam. Diagnoses and all orders for this visit: Immunity status testing (Primary) - Hepatitis B surface antigen; Future - Hepatitis B surface antibody; Future - Hepatitis B core antibody, total; Future - Rubeola antibody IgG; Future - Mumps antibody, IgG; Future - Rubella antibody, IgG; Future - Varicella zoster antibody, IgG; Future - Hepatitis B surface antigen - Hepatitis B surface antibody - Hepatitis B core antibody, total - Rubeola antibody IgG - Mumps antibody, IgG - Rubella antibody, IgG - Varicella zoster antibody, IgG Recurrent cold sores Controlled. Continue valtrex. - valACYclovir (Valtrex) 500 MG tablet; Take 1 tablet (500 mg) by mouth daily. Hypercholesteremia Chronic and controlled. Same lipitor. - atorvastatin (Lipitor) 20 MG tablet; Take 1 tablet (20 mg) by mouth daily. Immunization due - Pneumococcal conjugate vaccine 20-valent IM - Tdap vaccine greater than or equal to 7 years old IM Cigarette nicotine dependence without complication Unstable. Trial of nicotine patch. Step down every 6 weeks. - nicotine (Nicoderm, Step 1) 21 MG/24HR patch; Place 1 patch on the skin Every 24 hours. Encounter for routine adult medical examination Reviewed health maintenance, recent labs. To continue surveillance of polycythemia with hematology, improving. Continue well balanced diet, increase physical activity as able. Encouraged tobacco cessation. Follow up in about 1 year (around 12/24/2024) for physical. Goals None 'Lauren Castrejon APRN-CAROL 12/25/2023 10:45 AM The patient, Sury Sheppard is a 48 y.o. female identity was verified by name and date of . Injection of TDAP and Prevnar 20 was administered per NECKTIE MAKER: Lauren Castrejon Orders: Tdap-Left deltoid Prevnar 20-Right deltoid The patient tolerated the injection well and without incident. The patient was discharged home with education. (After Visit Summary) documented in this encounter [facility] 12-02-2023 History of Present illness Narrative Hematology/Oncology Office Visit Consultation/Referral Reason: polycythemia, weight loss Referred by: Dr. Dyson HPI: Sury Sheppard is a 48 y.o. female who was referred to hematology in October 2023 for evaluation of polycythemia. Patient reports she was noted to have elevated hemoglobin in 2021. Hb was 16.6 at that time. It has stayed stable at 16.8 for about 2 years. She has lost almost 50 lbs in the past 6 months. She is a smoker, about 1ppd for 30 years. She drinks 6-8 diet cokes per day and does not drink a lot of water/clear fluids. She reports she feels full quickly. She stopped having menstrual cycles about 5 years ago after her hysterectomy, which was performed due to excessive menstrual bleeding. No family history of iron overload or blood disorders. No history of blood clots. She feels tired and fatigued. She is accompanied by her mother today. Today, she is here for routine follow up and to review her test results from last visit. She has decreased the amount of diet soda and increased her clear fluid intake. She has reduced her tobacco intake as well. Hb improved to 16.0. iron levels within normal limits. JAK2 was negative. EPO within normal limits. Abdominal US was unremarkable. She has no new concerns today. Past Medical History: Diagnosis Date 2018 novel coronavirus disease (COVID-19) 2022 Abnormal Pap smear of cervix 1998 Anxiety 2009 Depression 2007 Fibrocystic breast GERD (gastroesophageal reflux disease) 2000 Headache 1992 Past Surgical History: Procedure Laterality Date BARIATRIC SURGERY 2004 BREAST BIOPSY Right 03/15/2019 CHOLECYSTECTOMY 2015 COSMETIC SURGERY 2004 FOOT SURGERY Left HYSTERECTOMY 2014 INCONTINENCE SURGERY 07/2021 SHOULDER ARTHROSCOPY 2015 TUBAL LIGATION 2009 Patient Active Problem List Diagnosis Date Noted Elevated hemoglobin ([facility] ([facility] 10/31/2023 Hypercholesteremia 05/01/2023 Medical marijuana use 05/01/2023 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 Chronic pain of left ankle 05/28/2022 PUD (peptic ulcer disease) 05/28/2022 Smoking greater than 30 pack years 05/28/2022 Chronic pain of both knees 08/13/2017 Chronic left shoulder pain 08/13/2017 Pain in right hip 08/13/2017 Bipolar 1 disorder, depressed ([facility] ([facility]) 02/05/2013 Migraine 02/05/2013 Social History Tobacco Use Smoking status: Every Day Packs/day: 1.50 Years: 34.00 Additional pack years: 0.00 Total pack years: 51.00 Types: Cigarettes Start date: 1989 Last attempt to quit: 02/19/2019 Years since quittin.7 Passive exposure: Past Smokeless tobacco: Never Vaping Use Vaping Use: Never used Substance Use Topics Alcohol use: Not Currently Comment: rare Drug use: Not Currently Types: Marijuana Comment: medical marijuana card Family History Problem Relation Name Age of Onset Hypothyroidism Mother Oksana Hyperlipidemia Mother Oksana Atrial fibrillation Mother Oksana Sleep apnea Mother Oksana Bone cancer Father Sarthak Stroke Father Sarthak Hypertension Father Sarthak No Known Problems Sister No Known Problems Brother No Known Problems Daughter No Known Problems Son No Known Problems Son Breast cancer Paternal Grandmother Dominique avery Prostate cancer Paternal Grandfather Allergies Allergen Reactions Sulfa Antibiotics Itching and Swelling Current Outpatient Medications Medication Sig Dispense Refill albuterol 108 (90 Base) MCG/ACT inhaler Inhale 2 puffs every 4 hours as needed for wheezing. 18 g 1 atorvastatin (Lipitor) 20 MG tablet Take 1 tablet (20 mg) by mouth daily. 30 tablet 11 estradiol (Estrace) 0.1 MG/GM vaginal cream uSE ONE GRAM VAGINALLY TWICE A WEEK ondansetron (Zofran) 4 MG tablet As needed pantoprazole (ProtoNix) 40 MG EC tablet TAKE 1 TABLET BY MOUTH EVERY MORNING (before BREAKFAST) (Patient taking differently: Take 40 mg by mouth in the morning and 40 mg in the evening.) 90 tablet 3 QUEtiapine (SEROquel) 25 MG tablet Take 1 tablet by mouth Nightly. topiramate (Topamax) 200 MG tablet Take 200 mg by mouth in the morning and 200 mg before bedtime. traZODone (Desyrel) 100 MG tablet TAKE ONE TABLET BY MOUTH DAILY AT 9 PM valACYclovir (Valtrex) 500 MG tablet Take 1 tablet (500 mg) by mouth daily. 90 tablet 3 venlafaxine XR (Effexor XR) 150 MG 24 hr capsule Take 300 mg by mouth daily. No current facility-administered medications for this visit. Review of Systems Constitutional: Positive for fatigue. Negative for appetite change, chills, diaphoresis, fever and unexpected weight change. HENT: Negative for dental problem, mouth sores, nosebleeds, sneezing, sore throat, tinnitus, trouble swallowing and voice change. Eyes: Negative for photophobia, pain and visual disturbance. Respiratory: Negative for cough, shortness of breath and wheezing. Cardiovascular: Negative for chest pain, palpitations and leg swelling. Gastrointestinal: Negative for abdominal distention, abdominal pain, blood in stool, constipation, diarrhea, nausea and vomiting. Endocrine: Negative for cold intolerance and heat intolerance. Genitourinary: Negative for difficulty urinating, frequency, hematuria and urgency. Musculoskeletal: Negative for arthralgias, back pain, gait problem and myalgias. Skin: Negative for pallor and rash. Allergic/Immunologic: Negative for immunocompromised state. Neurological: Negative for dizziness, syncope, weakness, light-headedness, numbness and headaches. Hematological: Negative for adenopathy. Does not bruise/bleed easily. Psychiatric/Behavioral: Negative for confusion and sleep disturbance. The patient is not nervous/anxious. All other systems reviewed and are negative. Vitals: 12/02/23 0906 BP: 109/75 BP Location: Right arm Patient Position: Sitting Pulse: 63 Temp: 36.8 C (98.3 F) TempSrc: Temporal SpO2: 100% Weight: 72.8 kg (160 lb 8 oz) Height: 1.651 m (5' 5) ECOG PS = 0 Physical Exam Vitals and nursing note reviewed. Constitutional: General: She is not in acute distress. Appearance: Normal appearance. She is not ill-appearing. HENT: Head: Normocephalic and atraumatic. Nose: Nose normal. Mouth/Throat: Pharynx: Oropharynx is clear. No oropharyngeal exudate or posterior oropharyngeal erythema. Eyes: General: No scleral icterus. Extraocular Movements: Extraocular movements intact. Conjunctiva/sclera: Conjunctivae normal. Pupils: Pupils are equal, round, and reactive to light. Cardiovascular: Rate and Rhythm: Normal rate and regular rhythm. Heart sounds: Normal heart sounds. No murmur heard. Pulmonary: Effort: Pulmonary effort is normal. No respiratory distress. Breath sounds: Normal breath sounds. No wheezing. Abdominal: General: Abdomen is flat. Bowel sounds are normal. There is no distension. Palpations: Abdomen is soft. There is no mass. Tenderness: There is no abdominal tenderness. There is no guarding. Musculoskeletal: General: No swelling or tenderness. Normal range of motion. Cervical back: Normal range of motion and neck supple. Right lower leg: No edema. Left lower leg: No edema. Lymphadenopathy: Cervical: No cervical adenopathy. Skin: General: Skin is warm and dry. Findings: No bruising or rash. Neurological: General: No focal deficit present. Mental Status: She is alert and oriented to person, place, and time. Mental status is at baseline. Psychiatric: Mood and Affect: Mood normal. Thought Content: Thought content normal. Imaging/Labs: Appointment on 11/18/2023 Component Date Value Ref Range Status Retic Ct Pct 11/18/2023 1.01 % Final < 5% Adults 0.4 - 2.0% JAK2 V617F MUTATION ANALYSIS 11/18/2023 Not Detected Final MUTATION 11/18/2023 Results of JAK2 testing are NEGATIVE,indicating the V617F (1849>T) mutation is NOT DETECTED in the JAK2 gene. Final COMMENT 11/18/2023 Not Detected Final Comment: Clinical Significance: The JAK2 V617F mutation has been reported in >80% of the patients with polycythemia vera (PV). 30-50% of patients with either essential thrombocythemia (ET) or primary myelofibrosis (PMF). This mutation is not detected in normal individuals. A small subset of patients with myeloproliferative neoplasms (MPN) that are negative for the JAK2 V617F mutation will harbor JAK2 mutations in exon 12. More rare mutations are detected in exons 13 and 14. JAK2 mutations can be used to differentiate reactive conditions from neoplastic process. Methodology: Total nucleic acid was extracted from patient's plasma or PB/BM cells. The primer pair was designed to encompass the JAK2 V617F point mutation located in chromosome 9p24. The PCR product was then purified and sequenced in both forward and reverse directions using high-sensitivity Wendy sequencing which improves the lower detection limit to approximately 1% mutated DNA in a wild-type background. The resulting sequence was compared to GenBank Acc# [id number] sequence. Various sample preparation and sample age can affect assay performance. References: 1. Dao Kim, et al A unique clonal JAK2 mutation leading to constitutive signaling causes polycythaemia vera. Nature. 2005; 434: 1144-8. 2. Yessica Hartman, et al. A [id number] mutation of JAK2 in myeloproliferative disorders. N Engl J Med. 2005: 1779-90. ERYTHROPOIETIN 11/18/2023 6.5 2.6 - 18.5 mIU/mL Final Test Performed by [facility], [facility], [address] [place] [address] Rk Dowling M.D., Ph.D., Director of Laboratories , CLIA [id number] FERRITIN 11/18/2023 23 6 - 137 ng/mL Final IRON, TOTAL 11/18/2023 94 37 - 170 ug/dL Final IRON BINDING CAPACITY 11/18/2023 307 261 - 497 ug/dL Final IRON SATURATION 11/18/2023 31 15 - 50 % Final SODIUM 11/18/2023 141 135 - 145 mmol/L Final POTASSIUM 11/18/2023 3.5 3.5 - 5.1 mmol/L Final CHLORIDE 11/18/2023 113 (H) 98 - 107 mmol/L Final CARBON DIOXIDE 11/18/2023 22 22 - 30 mmol/L Final ANION GAP 11/18/2023 6 3 - 13 mmol/L Final UREA NITROGEN 11/18/2023 11 7 - 17 mg/dL Final CREATININE 11/18/2023 0.90 0.52 - 1.04 mg/dL Final GLUCOSE 11/18/2023 96 70 - 100 mg/dL Final CALCIUM 11/18/2023 9.3 8.4 - 10.4 mg/dL Final AST (SGOT) 11/18/2023 29 15 - 46 U/L Final ALT 11/18/2023 25 0 - 34 U/L Final ALKALINE PHOSPHATASE 11/18/2023 63 38 - 126 U/L Final ALBUMIN 11/18/2023 4.1 3.5 - 5.0 g/dL Final BILIRUBIN, TOTAL 11/18/2023 0.5 0.2 - 1.3 mg/dL Final TOTAL PROTEIN 11/18/2023 7.5 6.3 - 8.2 g/dL Final eGFR 11/18/2023 78.5 >60.0 mL/min/1.73m*2 Final Calculation based on the Chronic Kidney Disease Epidemiology Collaboration (CKD-EPI) equation refit without adjustment for race Auto WBC 11/18/2023 7.5 3.6 - 10.7 10*3/uL Final RBC 11/18/2023 4.86 3.80 - 5.20 10*6/uL Final Hemoglobin 11/18/2023 16.0 11.7 - 16.0 g/dL Final Hematocrit 11/18/2023 47.2 (H) 35.0 - 47.0 % Final MCV 11/18/2023 97.1 77.0 - 99.0 fL Final MCH 11/18/2023 32.9 26.0 - 34.0 pg Final MCHC 11/18/2023 33.9 30.5 - 36.0 % Final RDW 11/18/2023 13.6 11.5 - 15.0 % Final Platelets 11/18/2023 250 140 - 440 10*3/uL Final MPV 11/18/2023 10.1 9.0 - 12.7 fL Final MPV is a calculated measurement using platelet volume ratio nRBC 11/18/2023 0.0 0.0 - 2.0 /100 WBCs Final Neutrophils Relative 11/18/2023 63.9 38.0 - 82.0 % Final Lymphocytes Relative 11/18/2023 26.0 15.0 - 45.0 % Final Monocytes Relative 11/18/2023 8.5 5.0 - 13.0 % Final Eosinophils Relative 11/18/2023 0.9 0.0 - 6.0 % Final Basophils Relative 11/18/2023 0.4 0.0 - 2.0 % Final Immature Grans % 11/18/2023 0.3 0.0 - 2.0 % Final Neutrophils Absolute 11/18/2023 4.8 1.8 - 7.5 10*3/uL Final Lymphocytes Absolute 11/18/2023 1.9 1.0 - 4.3 10*3/uL Final Monocytes Absolute 11/18/2023 0.6 0.0 - 0.9 10*3/uL Final Eosinophils Absolute 11/18/2023 0.1 0.0 - 0.5 10*3/uL Final Basophils Absolute 11/18/2023 0.0 0.0 - 0.2 10*3/uL Final Immature Grans Absolute 11/18/2023 0.0 <0.1 10*3/uL Final Imaging Reviewed: US abdomen complete Narrative: Patient Name: SURY SHEPPARD : 1975 Exam Date/Time: 11/21/2023 09:58 Procedure: US ABDOMEN COMPLETE Ordering Provider: VILLANUEVA TERESA Reason For Exam: abnormal CT scan,weight loss, early satiety CLINICAL INFORMATION: History weight loss with nausea diarrhea Sonogram of the abdomen is performed. The liver is normal in echotexture. No definite hyper or hypo echoic masses are seen with slightly prominent caudate lobe. There is no intrahepatic biliary ductal dilatation. The gallbladder is absent. The common bile duct diameter of 3 mm is within normal limits. No obvious pancreatic mass or peripancreatic fluid collection is identified (the pancreas is partially obscured by bowel gas). Cursory examination of the kidneys is performed. The right renal length is 11.3 cm. The left renal length is 11.3 cm. There is no hydronephrosis. There is no ascites. The spleen is unremarkable The visualized portions of the aorta and inferior vena cava are within normal limits. Impression: 1. Unremarkable postcholecystectomy ultrasound of the abdomen (nonspecific slightly prominent caudate lobe as compared to 2014 CT without defined mass seen). Report Dictated on Electronically Signed By: Rashad Coronado MD Electronically Signed Date/Time: 11/23/2023 5:20 PM EDT Bilateral screening mammogram 06/20/23 was negative and a 1 year follow up was recommended EGD 09/08/23 showed 1 cm hiatal hernia and gastritis Colonoscopy 08/07/23 showed several polyps which were removed and internal hemorrhoids - I have reviewed all available pertinent laboratory, imaging and pathology results with the patient and/or family members today. Assessment/Plan: Diagnosis Plan 1. Polycythemia CBC auto differential CBC auto differential Today, we again reviewed common and uncommon causes of polycythemia. I suspect the polycythemia is secondary to dehydration/hemoconcentration and tobacco use. We have already seen an improvement in the H/H after she decreased her diet soda intake, increased her clear fluid intake, and decreased her tobacco use. JAK2 was negative. Iron panel within normal limits. EPO WNL. Abdominal US unremarkable, but she requested I send the results to Dr. Lopez her GI physician. Advised to increase her clear fluid intake and encouraged tobacco cessation. 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 Will monitor CBC again in 6 months. Agree with age appropriate cancer screening. All questions were answered to the satisfaction of the patient and/or family. Return to office in 6 months, or sooner if worrisome signs/symptoms arise. Carissa Villanueva DO Hematology/Medical Oncology documented in this encounter [facility] 12-02-2023 Note Hematology/Oncology Office Visit Consultation/Referral Reason: polycythemia, weight loss Referred by: Dr. Dyson HPI: Sury Sheppard is a 48 y.o. female who was referred to hematology in October 2023 for evaluation of polycythemia. Patient reports she was noted to have elevated hemoglobin in 2021. Hb was 16.6 at that time. It has stayed stable at 16.8 for about 2 years. She has lost almost 50 lbs in the past 6 months. She is a smoker, about 1ppd for 30 years. She drinks 6-8 diet cokes per day and does not drink a lot of water/clear fluids. She reports she feels full quickly. She stopped having menstrual cycles about 5 years ago after her hysterectomy, which was performed due to excessive menstrual bleeding. No family history of iron overload or blood disorders. No history of blood clots. She feels tired and fatigued. She is accompanied by her mother today. Today, she is here for routine follow up and to review her test results from last visit. She has decreased the amount of diet soda and increased her clear fluid intake. She has reduced her tobacco intake as well. Hb improved to 16.0. iron levels within normal limits. JAK2 was negative. EPO within normal limits. Abdominal US was unremarkable. She has no new concerns today. Past Medical History: Diagnosis Date 2018 novel coronavirus disease (COVID-19) 2022 Abnormal Pap smear of cervix 1998 Anxiety 2009 Depression 2007 Fibrocystic breast GERD (gastroesophageal reflux disease) 1999 Headache 1992 Past Surgical History: Procedure Laterality Date BARIATRIC SURGERY 2004 BREAST BIOPSY Right 03/15/2019 CHOLECYSTECTOMY 2015 COSMETIC SURGERY 2003 FOOT SURGERY Left HYSTERECTOMY 2014 INCONTINENCE SURGERY 07/2021 SHOULDER ARTHROSCOPY 2015 TUBAL LIGATION 2009 Patient Active Problem List Diagnosis Date Noted Elevated hemoglobin (CMS/HCC) ([facility]) 10/31/2023 Hypercholesteremia 05/01/2023 Medical marijuana use 05/01/2023 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 Chronic pain of left ankle 05/28/2022 PUD (peptic ulcer disease) 05/28/2022 Smoking greater than 30 pack years 05/28/2022 Chronic pain of both knees 08/13/2017 Chronic left shoulder pain 08/13/2017 Pain in right hip 08/13/2017 Bipolar 1 disorder, depressed (CMS/HCC) ([facility]) 02/05/2013 Migraine 02/05/2013 Social History Tobacco Use Smoking status: Every Day Packs/day: 1.50 Years: 34.00 Additional pack years: 0.00 Total pack years: 51.00 Types: Cigarettes Start date: 1989 Last attempt to quit: 02/19/2019 Years since quittin.7 Passive exposure: Past Smokeless tobacco: Never Vaping Use Vaping Use: Never used Substance Use Topics Alcohol use: Not Currently Comment: rare Drug use: Not Currently Types: Marijuana Comment: medical marijuana card Family History Problem Relation Name Age of Onset Hypothyroidism Mother Oksana Hyperlipidemia Mother Oksana Atrial fibrillation Mother Oksana Sleep apnea Mother Oksana Bone cancer Father Sarthak Stroke Father Sarthak Hypertension Father Sarthak No Known Problems Sister No Known Problems Brother No Known Problems Daughter No Known Problems Son No Known Problems Son Breast cancer Paternal Grandmother Dominique points Prostate cancer Paternal Grandfather Allergies Allergen Reactions Sulfa Antibiotics Itching and Swelling Current Outpatient Medications Medication Sig Dispense Refill albuterol 108 (90 Base) MCG/ACT inhaler Inhale 2 puffs every 4 hours as needed for wheezing. 18 g 1 atorvastatin (Lipitor) 20 MG tablet Take 1 tablet (20 mg) by mouth daily. 30 tablet 11 estradiol (Estrace) 0.1 MG/GM vaginal cream uSE ONE GRAM VAGINALLY TWICE A WEEK ondansetron (Zofran) 4 MG tablet As needed pantoprazole (ProtoNix) 40 MG EC tablet TAKE 1 TABLET BY MOUTH EVERY MORNING (before BREAKFAST) (Patient taking differently: Take 40 mg by mouth in the morning and 40 mg in the evening.) 90 tablet 3 QUEtiapine (SEROquel) 25 MG tablet Take 1 tablet by mouth Nightly. topiramate (Topamax) 200 MG tablet Take 200 mg by mouth in the morning and 200 mg before bedtime. traZODone (Desyrel) 100 MG tablet TAKE ONE TABLET BY MOUTH DAILY AT 9 PM valACYclovir (Valtrex) 500 MG tablet Take 1 tablet (500 mg) by mouth daily. 90 tablet 3 venlafaxine XR (Effexor XR) 150 MG 24 hr capsule Take 300 mg by mouth daily. No current facility-administered medications for this visit. Review of Systems Constitutional: Positive for fatigue. Negative for appetite change, chills, diaphoresis, fever and unexpected weight change. HENT: Negative for dental problem, mouth sores, nosebleeds, sneezing, sore throat, tinnitus, trouble swallowing and voice change. Eyes: Negative for photophobia, pain and visual disturbance. Respiratory: Negative for cough, shortness of breath and wheezing. Cardiovascular: Negative for chest pain, palpitations and leg swelling. Gastrointestinal: Negative for abdominal distention, abdominal (more content not included)... [facility] 11-18-2023 History of Present illness Narrative New Patient Hematology/Oncology Office Visit Consultation/Referral Reason: polycythemia, weight loss Referred by: Dr. Dyson HPI: Sury Sheppard is a 48 y.o. female who comes in today for hematology evaluation of polycythemia. Records from her PCP Were reviewed and summarized. Patient reports she was noted to have elevated hemoglobin in 2021. Hb was 16.6 at that time. It has stayed stable at 16.8 for about 2 years. She has lost almost 50 lbs in the past 6 months without trying. She is a smoker, about 1ppd for 30 years. She drinks 6-8 diet cokes per day and does not drink a lot of water/clear fluids. She reports she feels full quickly. She stopped having menstrual cycles about 5 years ago after her hysterectomy, which was performed due to excessive menstrual bleeding. No family history of iron overload or blood disorders. No history of blood clots. She feels tired and fatigued. She is accompanied by her mother today. Past Medical History: Diagnosis Date 2018 novel coronavirus disease (COVID-19) 2022 Abnormal Pap smear of cervix 1998 Anxiety 2008 Depression 2006 Fibrocystic breast GERD (gastroesophageal reflux disease) 1999 Headache 1991 Past Surgical History: Procedure Laterality Date BARIATRIC SURGERY 2004 BREAST BIOPSY Right 03/15/2019 CHOLECYSTECTOMY 2015 COSMETIC SURGERY 2004 FOOT SURGERY Left HYSTERECTOMY 2014 INCONTINENCE SURGERY 07/2021 SHOULDER ARTHROSCOPY 2015 TUBAL LIGATION 2008 Patient Active Problem List Diagnosis Date Noted Elevated hemoglobin ([facility]) ([facility]) 10/31/2023 Hypercholesteremia 05/01/2023 Medical marijuana use 05/01/2023 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 Chronic pain of left ankle 05/28/2022 PUD (peptic ulcer disease) 05/28/2022 Smoking greater than 30 pack years 05/28/2022 Chronic pain of both knees 08/13/2017 Chronic left shoulder pain 08/13/2017 Pain in right hip 08/13/2017 Bipolar 1 disorder, depressed ([facility]) ([facility]) 02/05/2013 Migraine 02/05/2013 Social History Tobacco Use Smoking status: Every Day Packs/day: 1.50 Years: 34.00 Additional pack years: 0.00 Total pack years: 51.00 Types: Cigarettes Start date: 1989 Last attempt to quit: 02/19/2019 Years since quittin.7 Passive exposure: Past Smokeless tobacco: Never Vaping Use Vaping Use: Never used Substance Use Topics Alcohol use: Not Currently Comment: rare Drug use: Not Currently Types: Marijuana Comment: medical marijuana card Family History Problem Relation Name Age of Onset Hypothyroidism Mother Oksana Hyperlipidemia Mother Oksana Atrial fibrillation Mother Oksana Sleep apnea Mother Oksana Bone cancer Father Sarthak Stroke Father Sarthak Hypertension Father Sarthak No Known Problems Sister No Known Problems Brother No Known Problems Daughter No Known Problems Son No Known Problems Son Breast cancer Paternal Grandmother Dominique avery Prostate cancer Paternal Grandfather Allergies Allergen Reactions Sulfa Antibiotics Itching and Swelling Current Outpatient Medications Medication Sig Dispense Refill albuterol 108 (90 Base) MCG/ACT inhaler Inhale 2 puffs every 4 hours as needed for wheezing. 18 g 1 atorvastatin (Lipitor) 20 MG tablet Take 1 tablet (20 mg) by mouth daily. 30 tablet 11 estradiol (Estrace) 0.1 MG/GM vaginal cream uSE ONE GRAM VAGINALLY TWICE A WEEK ondansetron (Zofran) 4 MG tablet As needed pantoprazole (ProtoNix) 40 MG EC tablet TAKE 1 TABLET BY MOUTH EVERY MORNING (before BREAKFAST) (Patient taking differently: Take 40 mg by mouth in the morning and 40 mg in the evening.) 90 tablet 3 QUEtiapine (SEROquel) 25 MG tablet Take 1 tablet by mouth Nightly. topiramate (Topamax) 200 MG tablet Take 200 mg by mouth in the morning and 200 mg before bedtime. traZODone (Desyrel) 100 MG tablet TAKE ONE TABLET BY MOUTH DAILY AT 9 PM valACYclovir (Valtrex) 500 MG tablet Take 1 tablet (500 mg) by mouth daily. 90 tablet 3 venlafaxine XR (Effexor XR) 150 MG 24 hr capsule Take 300 mg by mouth daily. No current facility-administered medications for this visit. Review of Systems Constitutional: Positive for fatigue. Negative for appetite change, chills, diaphoresis, fever and unexpected weight change. HENT: Negative for dental problem, mouth sores, nosebleeds, sneezing, sore throat, tinnitus, trouble swallowing and voice change. Eyes: Negative for photophobia, pain and visual disturbance. Respiratory: Negative for cough, shortness of breath and wheezing. Cardiovascular: Negative for chest pain, palpitations and leg swelling. Gastrointestinal: Positive for abdominal distention and nausea. Negative for abdominal pain, blood in stool, constipation, diarrhea and vomiting. Endocrine: Negative for cold intolerance and heat intolerance. Genitourinary: Negative for difficulty urinating, frequency, hematuria and urgency. Musculoskeletal: Negative for arthralgias, back pain, gait problem and myalgias. Skin: Negative for pallor and rash. Allergic/Immunologic: Negative for immunocompromised state. Neurological: Negative for dizziness, syncope, weakness, light-headedness, numbness and headaches. Hematological: Negative for adenopathy. Does not bruise/bleed easily. Psychiatric/Behavioral: Negative for confusion and sleep disturbance. The patient is not nervous/anxious. All other systems reviewed and are negative. Vitals: 11/18/23 1033 BP: 108/79 BP Location: Left arm Patient Position: Sitting Pulse: 80 Temp: 37.1 C (98.7 F) TempSrc: Temporal SpO2: 98% Weight: 74.6 kg (164 lb 6.4 oz) Height: 1.651 m (5' 5) ECOG PS = 0 Physical Exam Vitals and nursing note reviewed. Constitutional: General: She is not in acute distress. Appearance: Normal appearance. She is not ill-appearing. HENT: Head: Normocephalic and atraumatic. Nose: Nose normal. Mouth/Throat: Pharynx: Oropharynx is clear. No oropharyngeal exudate or posterior oropharyngeal erythema. Eyes: General: No scleral icterus. Extraocular Movements: Extraocular movements intact. Conjunctiva/sclera: Conjunctivae normal. Pupils: Pupils are equal, round, and reactive to light. Cardiovascular: Rate and Rhythm: Normal rate and regular rhythm. Heart sounds: Normal heart sounds. No murmur heard. Pulmonary: Effort: Pulmonary effort is normal. No respiratory distress. Breath sounds: Normal breath sounds. No wheezing. Abdominal: General: Abdomen is flat. Bowel sounds are normal. There is no distension. Palpations: Abdomen is soft. There is no mass. Tenderness: There is no abdominal tenderness. There is no guarding. Musculoskeletal: General: No swelling or tenderness. Normal range of motion. Cervical back: Normal range of motion and neck supple. Right lower leg: No edema. Left lower leg: No edema. Lymphadenopathy: Cervical: No cervical adenopathy. Skin: General: Skin is warm and dry. Findings: No bruising or rash. Neurological: General: No focal deficit present. Mental Status: She is alert and oriented to person, place, and time. Mental status is at baseline. Psychiatric: Mood and Affect: Mood normal. Thought Content: Thought content normal. Imaging/Labs: Appointment on 11/18/2023 Component Date Value Ref Range Status Auto WBC 11/18/2023 7.5 3.6 - 10.7 10*3/uL Final RBC 11/18/2023 4.86 3.80 - 5.20 10*6/uL Final Hemoglobin 11/18/2023 16.0 11.7 - 16.0 g/dL Final Hematocrit 11/18/2023 47.2 (H) 35.0 - 47.0 % Final MCV 11/18/2023 97.1 77.0 - 99.0 fL Final MCH 11/18/2023 32.9 26.0 - 34.0 pg Final MCHC 11/18/2023 33.9 30.5 - 36.0 % Final RDW 11/18/2023 13.6 11.5 - 15.0 % Final Platelets 11/18/2023 250 140 - 440 10*3/uL Final MPV 11/18/2023 10.1 9.0 - 12.7 fL Final MPV is a calculated measurement using platelet volume ratio nRBC 11/18/2023 0.0 0.0 - 2.0 /100 WBCs Final Neutrophils Relative 11/18/2023 63.9 38.0 - 82.0 % Final Lymphocytes Relative 11/18/2023 26.0 15.0 - 45.0 % Final Monocytes Relative 11/18/2023 8.5 5.0 - 13.0 % Final Eosinophils Relative 11/18/2023 0.9 0.0 - 6.0 % Final Basophils Relative 11/18/2023 0.4 0.0 - 2.0 % Final Immature Grans % 11/18/2023 0.3 0.0 - 2.0 % Final Neutrophils Absolute 11/18/2023 4.8 1.8 - 7.5 10*3/uL Final Lymphocytes Absolute 11/18/2023 1.9 1.0 - 4.3 10*3/uL Final Monocytes Absolute 11/18/2023 0.6 0.0 - 0.9 10*3/uL Final Eosinophils Absolute 11/18/2023 0.1 0.0 - 0.5 10*3/uL Final Basophils Absolute 11/18/2023 0.0 0.0 - 0.2 10*3/uL Final Immature Grans Absolute 11/18/2023 0.0 <0.1 10*3/uL Final Imaging Reviewed: CT chest wo IV contrast Narrative: Patient Name: SURY SHEPPARD : 1975 [facility]#: [id number] Exam Date/Time: 10/20/2023 13:09 Procedure: CT CHEST WO IV CONTRAST Ordering Provider: VALERIO ANDREA Reason For Exam: unintentional weight loss in patient with significant smoking history CHEST CT WITHOUT IV CONTRAST History: Unintentional weight loss, smoker Comparison CT: None available Technique: Multislice volume acquisition axial CT sections from the chest apex to the diaphragm without IV contrast enhancement are submitted . Multiplanar sagittal and coronal reconstructed images also obtained. Dose reduction employed with automated exposure control. Findings: The lungs are clear without infiltrate or discrete nodules. The heart is normal in size. The exam is limited without contrast enhancement. There is no sizable hilar, mediastinal, or axillary lymphadenopathy and no pleural or pericardial effusions. There is spondylosis and multilevel vertebral spurs. Upper abdominal organs and details are not adequately visualized for evaluation but there is small small calcific density projected in the partially visualized asad hepatis region of uncertain nature. Impression: No discrete lung nodules or thoracic lymphadenopathy. (Lung-RADS Category 1 - Negative - Recommend continued chest CT screening in 12 months). Nevertheless, history of unintentional weight loss requires additional evaluation. LUNG-RADS VERSION 2022 ASSESSMENT CATEGORIES - FOR SCREENING CT CHEST ONLY. RELEASE DATE: APR 2022 Category 0 - Incomplete Part of lungs cannot be evaluated Findings suggestive of an inflammatory or infectious process Category 1 - Negative - Continue annual screening No nodules Nodules with benign characteristics (complete, central, popcorn Ca++) or fat Category 2 - Benign appearance or behavior - Continue annual screening Perifissural nodule(s) < 10 mm at baseline or new with oval, lentiform or triangular shape Solid nodule(s): < 6 mm at baseline or new < 4 mm Part solid nodule(s): < 6 mm mean diameter at baseline Nonsolid nodule(s) (GGN): < 30 mm OR > 30 mm and unchanged or slowly growing Airway nodule in subsegmental branch Category 3 or 4 nodules unchanged for > 6 months Category 3 - Probably benign finding(s) - 6 month follow up Solid nodule(s): 6 to < 8 mm at baseline OR new 4 mm to < 6 mm Part solid nodule(s) 6 mm total diameter with solid component < 6 mm OR new < 6 mm total diameter Nonsolid nodule(s) (GGN) > 30 mm on baseline or new Atypical cyst Category 4a nodule unchanged for 3 months Category 4A - Suspicious - 3 month follow up or PET/CT when >8mm Solid nodule(s): 8 to < 15 mm at baseline OR growing < 8 mm OR new 6 to <8 mm Part solid nodule(s): > 6 mm with solid component > 6 mm to < 8 mm OR with a new or growing < 4 mm solid component Airway nodule - segmental, more proximal than baseline or new Atypical cyst with thick wall or multilocular or changed Category 4B - Suspicious - chest CT with or without contrast, PET/CT and/or tissue sampling depending on the *probability of malignancy and comorbidities. PET/CT may be used when there is a > 8 mm solid component. For new large nodules that develop on an annual repeat screening CT, a [address] may be recommended. Airway nodule growing Solid nodule(s): > 15 mm OR new or growing, and > 8 mm Part solid nodule(s) with: a solid component > 8 mm OR a new or growing > 4mm solid component Atypical cyst with growth Category 4X - Suspicious - (same work up as Category 4B) Category 3 or 4 nodules with additional features or imaging findings that increases the suspicion of malignancy - spiculation, rapid growth or associated lymph node enlargement Modifier to add to Category 0-4: Category S - Clinically or potentially significant non lung cancer related findings Report Dictated on Electronically Signed By: Emory Navarrete MD Electronically Signed Date/Time: 10/22/2023 10:39 AM EDT Bilateral screening mammogram 06/20/23 was negative and a 1 year follow up was recommended EGD 09/08/23 showed 1 cm hiatal hernia and gastritis Colonoscopy 08/07/23 showed several polyps which were removed and internal hemorrhoids - I have reviewed all available pertinent laboratory, imaging and pathology results with the patient and/or family members today. Assessment/Plan: Diagnosis Plan 1. Polycythemia CBC auto differential Comprehensive metabolic panel Iron and TIBC Ferritin Erythropoietin JAK2 V617F MUTATION ANALYSIS Reticulocytes 2. Weight loss US abdomen complete CBC auto differential Comprehensive metabolic panel Iron and TIBC Ferritin Erythropoietin JAK2 V617F MUTATION ANALYSIS Reticulocytes 3. Abnormal CT scan US abdomen complete Today, we reviewed common and uncommon causes of polycythemia. I suspect the polycythemia is secondary to dehydration/hemoconcentration and tobacco use, however will assess for other causes. See lab orders today. Advised to decrease her diet soda and tobacco use and increase her clear fluid intake. She was also noted to have an abnormal CT scan and reports early satiety, will obtain US of the abdomen and if unremarkable will consider CT a/p due to her unexplained weight loss. Agree with age appropriate cancer screening. All questions were answered to the satisfaction of the patient and/or family. Return to office in 2-3 weeks to review results, or sooner if worrisome signs/symptoms arise. I spent total time 60 minutes counseling or coordinating care, reviewing the medical record, and provided a detailed discussion as noted above. Carissa Villanueva DO Hematology/Medical Oncology documented in this encounter [facility] 11-18-2023 Note New Patient Hematolo gy/Oncology Office Visit Consultation/Referral Reason: polycythemia, weight loss Referred by: Dr. Dyson HPI: Sury Sheppard is a 48 y.o. female who comes in today for hematology evaluation of polycythemia. Records from her PCP Were reviewed and summarized. Patient reports she was noted to have elevated hemoglobin in 2021. Hb was 16.6 at that time. It has stayed stable at 16.8 for about 2 years. She has lost almost 50 lbs in the past 6 months without trying. She is a smoker, about 1ppd for 30 years. She drinks 6-8 diet cokes per day and does not drink a lot of water/clear fluids. She reports she feels full quickly. She stopped having menstrual cycles about 5 years ago after her hysterectomy, which was performed due to excessive menstrual bleeding. No family history of iron overload or blood disorders. No history of blood clots. She feels tired and fatigued. She is accompanied by her mother today. Past Medical History: Diagnosis Date 2019 novel coronavirus disease (COVID-19) 2022 Abnormal Pap smear of cervix 1998 Anxiety 2009 Depression 2007 Fibrocystic breast GERD (gastroesophageal reflux disease) 2000 Headache 1992 Past Surgical History: Procedure Laterality Date BARIATRIC SURGERY 2004 BREAST BIOPSY Right 03/15/2019 CHOLECYSTECTOMY 2015 COSMETIC SURGERY 2004 FOOT SURGERY Left HYSTERECTOMY 2014 INCONTINENCE SURGERY 07/2021 SHOULDER ARTHROSCOPY 2015 TUBAL LIGATION 2009 Patient Active Problem List Diagnosis Date Noted Elevated hemoglobin ([facility] ([facility]) 10/31/2023 Hypercholesteremia 05/01/2023 Medical marijuana use 05/01/2023 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 Chronic pain of left ankle 05/28/2022 PUD (peptic ulcer disease) 05/28/2022 Smoking greater than 30 pack years 05/28/2022 Chronic pain of both knees 08/13/2017 Chronic left shoulder pain 08/13/2017 Pain in right hip 08/13/2017 Bipolar 1 disorder, depressed ([facility] ([facility]) 02/05/2013 Migraine 02/05/2013 Social History Tobacco Use Smoking status: Every Day Packs/day: 1.50 Years: 34.00 Additional pack years: 0.00 Total pack years: 51.00 Types: Cigarettes Start date: 1989 Last attempt to quit: 02/19/2019 Years since quittin.7 Passive exposure: Past Smokeless tobacco: Never Vaping Use Vaping Use: Never used Substance Use Topics Alcohol use: Not Currently Comment: rare Drug use: Not Currently Types: Marijuana Comment: medical marijuana card Family History Problem Relation Name Age of Onset Hypothyroidism Mother Oksana Hyperlipidemia Mother Oksana Atrial fibrillation Mother Oksana Sleep apnea Mother Oksana Bone cancer Father Sarthak Stroke Father Sarthak Hypertension Father Sarthak No Known Problems Sister No Known Problems Brother No Known Problems Daughter No Known Problems Son No Known Problems Son Breast cancer Paternal Grandmother Dominique points Prostate cancer Paternal Grandfather Allergies Allergen Reactions Sulfa Antibiotics Itching and Swelling Current Outpatient Medications Medication Sig Dispense Refill albuterol 108 (90 Base) MCG/ACT inhaler Inhale 2 puffs every 4 hours as needed for wheezing. 18 g 1 atorvastatin (Lipitor) 20 MG tablet Take 1 tablet (20 mg) by mouth daily. 30 tablet 11 estradiol (Estrace) 0.1 MG/GM vaginal cream uSE ONE GRAM VAGINALLY TWICE A WEEK ondansetron (Zofran) 4 MG tablet As needed pantoprazole (ProtoNix) 40 MG EC tablet TAKE 1 TABLET BY MOUTH EVERY MORNING (before BREAKFAST) (Patient taking differently: Take 40 mg by mouth in the morning and 40 mg in the evening.) 90 tablet 3 QUEtiapine (SEROquel) 25 MG tablet Take 1 tablet by mouth Nightly. topiramate (Topamax) 200 MG tablet Take 200 mg by mouth in the morning and 200 mg before bedtime. traZODone (Desyrel) 100 MG tablet TAKE ONE TABLET BY MOUTH DAILY AT 9 PM valACYclovir (Valtrex) 500 MG tablet Take 1 tablet (500 mg) by mouth daily. 90 tablet 3 venlafaxine XR (Effexor XR) 150 MG 24 hr capsule Take 300 mg by mouth daily. No current facility-administered medications for this visit. Review of Systems Constitutional: Positive for fatigue. Negative for appetite change, chills, diaphoresis, fever and unexpected weight change. HENT: Negative for dental problem, mouth sores, nosebleeds, sneezing, sore throat, tinnitus, trouble swallowing and voice change. Eyes: Negative for photophobia, pain and visual disturbance. Respiratory: Negative for cough, shortness of breath and wheezing. Cardiovascular: Negative for chest pain, palpitations and leg swelling. Gastrointestinal: Positive for abdominal distention and nausea. Negative for abdominal pain, blood in stool, constipation, diarrhea and vomiting. Endocrine: Negative for cold intolerance and heat intolerance. Genitourinary: Negative for difficulty urinating, frequency, hematuria and urgency. Musculoskeletal: Negative for arthralgias, back pain, gait problem and myalg (more content not included)... [facility] 10-31-2023 Note Tried calling dolores t to schedule her referral to Dr. Villanueva. No answer. Left message for patient to call office back. [facility] 10-31-2023 Telephone encounter Note Tried calling patient to schedule her referral to Dr. Villanueva. No answer. Left message for patient to call office back. [facility] 10-31-2023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 status is at baseline. Psychiatric: Mood and Affect: Mood normal. Behavior: Behavior normal. Thought Content: Thought content normal. OARRS website checked and validated. All prescriptions have been APPROPRIATELY filled. No suspicious activity was identified. - by Alphonse Petty MD ASSESSMENT: LAURA ANTHONY was present during the interview and physical exam. Sury Sheppard is a 48 year old female with has a past medical history of Arthritis, Bipolar 1 disorder (HCC), Degenerative joint disease, Depression, Fatty liver, Gastroparesis, Gestational diabetes, High cholesterol, and Prediabetes. has a past surgical history that includes tubal ligation hx; liposuction, stomach; removal gallbladder (01/24/2015); hysterectomy hx (2016); colonoscopy (2017); cholecystectomy hx; and ear tubes hx. Today patient presents with chronic low back for > 10 years following no injury or trauma . She describes the pain as chronic and constant, aching and throbbing. Patient states the pain does not radiates to bilateral lower extremities Patient reports pain level is 8/10 and ranges from 7 - 10/10. Pain is increased with standing, getting up from sitting, and walking. Pain is decreased with lying down. She is currently on Tylenol Previous treatments have included : NO PT Only Tylenol and Ibuprofen, not allowed to take Ibuprofen as she has GI ulcers. NO shooting pain, non radiating, NO imaging. She has been to chiropractor with no remarkable relief > 5 years ago. Patient denied alcohol and drug abuse. ( She utilize medical marijuana- for chronic pain ) M54.50, G89.29 Chronic bilateral low back pain without sciatica (primary encounter diagnosis) RECOMMENDATIONS AND PLAN OF CARE: 1. Chronic bilateral low back pain without sciatica - XR LUMBAR MOTION 4V AP/LAT/ FLEX/EXT; Future - willow [id number] 322 60-25-20 mg cap; Take 1 capsule by mouth two times a day with meals. It is a supplement and could be OTC, please consult the pharmacist as this may be covered under certain insurance or FSA plans Dispense: 180 capsule; Refill: 0 - Hornick [id number] 500 mg-500 mcg -1 mg-12.5 mg cap; Take 1 capsule by mouth daily with breakfast. Dispense: 90 capsule; Refill: 0 - magnesium glycinate 100 mg magnesium capsule; Take 3 capsules by mouth daily after dinner. Ok to switch to tablets if less expensive Dispense: 270 capsule; Refill: 0 - methylPREDNISolone (MEDROL, REBECCA,) 4 mg Dose-Pack; As Instructed per package Dispense: 21 tablet; Refill: 0 - CONSULT TO PHYSICAL THERAPY; Future - methocarbamol (ROBAXIN) 750 mg tablet; Take 1 tablet by mouth two times a day as needed. Dispense: 60 tablet; Refill: 1 During this visit, discussed with patient the treatment plan as outlined until RTC in 8 weeks, consider MRI or directing treatment to the Facet joint for her axial back pain component in the lumbar region . Patient is advised to follow up personally on scheduling appointments for follow ups, any required medical test or referrals. The above plan and management options were discussed at length with patient. Patient is in agreement with the above and verbalized understanding. I spent a total of 45 minutes on the date of the service which included preparing to see the patient, [id number] patient care, completing clinical documentation, obtaining and/or reviewing separately obtained history, performing a medically appropriate examination, counseling and educating the patient/family/caregiver, ordering medications, tests, or procedures, communicating with other HCPs (not separately reported), independently interpreting results (not separately reported), communicating results to the patient/family/caregiver, and care coordination (not separately reported), with more than 50% of the total [id number] time of the visit in counseling / coordination of care. Electronically signed: Alphonse Petty MD Date: September 24, 2023 The consultation is to be transmitted via electronic medical record for those providers who practice within [facility] and for those with access to [facility] via [facility] or via letter. documented in this encounter [facility] 09-16-2023 Miscellaneous Notes Patient returned phone call- explained that Dr Meier does see for the hip/back/neck . That he would only focus on one area at a time per appointment. That he would not be able to help with the burning of the tongue . She state she understood. Informed patient if they needed any other information the nurse would call back. Mariela Salazar Attempted to contact patient via telephone regarding upcoming appointment without success. Left voicemail requesting return phone call. Patient returning call to the office. Patient stated someone called, there is a problem with her upcoming appointment with Dr. Meier. No phone encounter placed. Noted in her appointment Chronic pain - Error report submitted on 09/12/23. Need location of pain. Patient stated her pain is in her hip, back and neck. Patient added she has a burning pain in her tongue that won't go away and no one will do anything for it. Please contact the patient to verify she can be seen for her scheduled appointment and with any additional questions. documented in this encounter [facility] 09-02-2023 Telephone encounter Note Recent Visits Date Type Provider Dept 08/28/23 Office Visit Martita Valerio MD [facility] 07/30/23 Office Visit MORRO Condon CNP [facility] 07/03/23 Office Visit Bernard Dyson MD [facility] 05/01/23 Office Visit Bernard Dyson MD [facility] Showing recent visits within past 365 days and meeting all other requirements Future Appointments No visits were found meeting these conditions. Showing future appointments within next 90 days and meeting all other requirements Requested Prescriptions Pending Prescriptions Disp Refills pantoprazole (ProtoNix) 40 MG EC tablet [Pharmacy Med Name: pantoprazole 40 mg tablet,delayed release] 90 tablet 3 Sig: TAKE 1 TABLET BY MOUTH EVERY MORNING (before BREAKFAST) Provider: Bernard Dyson MD Overdue for visit: Yes If yes - patient scheduled? Yes Most recent labs completed in chart? N/A Verified pharmacy: yes Verified day(s) supplied: yes Verified refill(s) needed (previous prescription showing no refills in chart): Yes Have you received any controlled medications from any other provider? [facility] 09-02-2023 Miscellaneous Notes Recent Visits Date Type Provider Dept 08/28/23 Office Visit Martita Valerio MD [facility] 07/30/23 Office Visit Lauren Castrejon, EMBEDDED SOFTWARE DEVELOPER - [employer] [facility] 07/03/23 Office Visit Bernard Dyson MD [facility] 05/01/23 Office Visit Bernard Dyson MD [facility] Showing recent visits within past 365 days and meeting all other requirements Future Appointments No visits were found meeting these conditions. Showing future appointments within next 90 days and meeting all other requirements Requested Prescriptions Pending Prescriptions Disp Refills pantoprazole (ProtoNix) 40 MG EC tablet [Pharmacy Med Name: pantoprazole 40 mg tablet,delayed release] 90 tablet 3 Sig: TAKE 1 TABLET BY MOUTH EVERY MORNING (before BREAKFAST) Provider: Bernard Dyson MD Overdue for visit: Yes If yes - patient scheduled? Yes Most recent labs completed in chart? N/A Verified pharmacy: yes Verified day(s) supplied: yes Verified refill(s) needed (previous prescription showing no refills in chart): Yes Have you received any controlled medications from any other provider? documented in this encounter [facility] 08-28-2023 History of Present illness Narrative Images from the original note were not included. [facility] [address] [place] [facility] [address] Dept: [phone] Dept Loc: [phone] 08/28/2023 Visit type: new patient Reason for Visit: Weight Loss (Unintentional weight loss x2 months. Pt reports loss of appetite ), Fatigue (Pt reports fatigue x6 months), and Pain (Pt reports back, neck and bilateral hip pain for x6 months. Taking apap and IBU with no relief) ASSESSMENT/PLAN 1. Tobacco abuse - C-reactive protein - Sedimentation rate, automated - Comprehensive metabolic panel - TSH - XR chest 2 views 2. Unintentional weight loss - XR chest 2 views - CT chest wo IV contrast - CBC auto differential No follow-ups on file. Subjective Patient: Sury Sheppard is a 48 y.o. female Fatigue Associated symptoms include fatigue, headaches (on and off), nausea and weakness. Pertinent negatives include no abdominal pain, chest pain, chills, congestion, coughing, diaphoresis, fever, numbness, rash, sore throat or vomiting. Pain Associated symptoms include fatigue, headaches (on and off), nausea and weakness. Pertinent negatives include no abdominal pain, chest pain, constipation, diarrhea, dysuria, fever, rash, shortness of breath, vomiting or wheezing. Patient has had ongoing fatigue, unintentional weight loss. She has had reduced appetite. She has also had bilateral hip pain for past 6 months. -She had colonoscopy a few weeks ago which showed 5 polyps (no evidence of malignancy), has follow up with GI for endoscopy -She is also following with urology has cystoscopy scheduled to evaluate for frequent UTIs -She has also had ultrasound of kidneys and ovaries in past year which were normal Patient is a smoker, since 14 years old, smokes 1.5 PPD She also has history of bipolar disorder managed by psychiatry, recently had effexor xr increased. She has had increased stress and depressive symptoms due to multiple life changes. Moved back to [place] from [place] March 2023. Review of Systems Constitutional: Positive for appetite change, fatigue and unexpected weight change. Negative for chills, diaphoresis and fever. HENT: Positive for rhinorrhea. Negative for congestion, sinus pressure, sinus pain, sore throat, trouble swallowing and voice change. Eyes: Negative for visual disturbance. Respiratory: Negative for cough, choking, chest tightness, shortness of breath and wheezing. Cardiovascular: Negative for chest pain, palpitations and leg swelling. Gastrointestinal: Positive for nausea. Negative for abdominal pain, blood in stool, constipation, diarrhea and vomiting. Genitourinary: Positive for frequency. Negative for dysuria and hematuria. Skin: Negative for rash. Neurological: Positive for weakness and headaches (on and off). Negative for dizziness, light-headedness and numbness. Psychiatric/Behavioral: Negative for dysphoric mood and suicidal ideas. The patient is not nervous/anxious. Allergies Allergen Reactions Sulfa Antibiotics Itching and Swelling Outpatient Medications Prior to Visit Medication Sig Dispense Refill atorvastatin (Lipitor) 20 MG tablet Take 1 tablet (20 mg) by mouth daily. 30 tablet 11 estradiol (Estrace) 0.1 MG/GM vaginal cream uSE ONE GRAM VAGINALLY TWICE A WEEK ibuprofen 800 MG tablet TAKE 1 TABLET BY MOUTH THREE TIMES DAILY NEEDED FOR 10 DAYS ondansetron (Zofran) 4 MG tablet As needed pantoprazole (Protonix) 40 MG EC tablet Take 40 mg by mouth every morning (before breakfast). QUEtiapine (SEROquel) 25 MG tablet Take 1 tablet by mouth Nightly. topiramate (Topamax) 200 MG tablet Take 200 mg by mouth in the morning and 200 mg before bedtime. traZODone (Desyrel) 100 MG tablet TAKE ONE TABLET BY MOUTH DAILY AT 9 PM valACYclovir (Valtrex) 500 MG tablet Take 1 tablet (500 mg) by mouth daily. 90 tablet 3 venlafaxine XR (Effexor XR) 150 MG 24 hr capsule Take 300 mg by mouth daily. methylPREDNISolone (Medrol Dospak) 4 MG tablets TAKE BY MOUTH DIRECTED ON PACKAGE venlafaxine XR (Effexor XR) 75 MG 24 hr capsule Take 1 capsule every morning with food. Take with 150mg tablet for total of 225mg daily. No facility-administered medications prior to visit. Past Medical History: Diagnosis Date 2018 novel coronavirus disease (COVID-19) 2022 Abnormal Pap smear of cervix 1998 Anxiety 2008 Depression 2006 Fibrocystic breast GERD (gastroesophageal reflux disease) 2000 Headache 1992 Past Surgical History: Procedure Laterality Date BARIATRIC SURGERY 2004 BREAST BIOPSY Right 03/15/2019 CHOLECYSTECTOMY 2015 COSMETIC SURGERY 2004 FOOT SURGERY Left HYSTERECTOMY 2014 INCONTINENCE SURGERY 07/2021 SHOULDER ARTHROSCOPY 2015 TUBAL LIGATION 2009 Family History Problem Relation Name Age of Onset Hypothyroidism Mother Oksana Hyperlipidemia Mother Oksana Atrial fibrillation Mother Oksana Sleep apnea Mother Oksana Bone cancer Father Sarthak Stroke Father Sarthak Hypertension Father Sarthak No Known Problems Sister No Known Problems Brother No Known Problems Daughter No Known Problems Son No Known Problems Son Breast cancer Paternal Grandmother Dominique avery Prostate cancer Paternal Grandfather Social History Tobacco Use Smoking status: Every Day Packs/day: 1.50 Years: 34.00 Additional pack years: 0.00 Total pack years: 51.00 Types: Cigarettes Start date: 1989 Last attempt to quit: 02/19/2019 Years since quittin.5 Passive exposure: Past Smokeless tobacco: Never Substance Use Topics Alcohol use: Not Currently Comment: rare Objective BP 107/75 (BP Location: Right arm, Patient Position: Sitting, BP Cuff Size: Adult) Pulse 80 Temp 36.9 C (98.4 F) (Temporal) Ht 5' 5 (1.651 m) Wt 166 lb (75.3 kg) SpO2 99% BMI 27.62 kg/m Physical Exam Constitutional: General: She is not in acute distress. Appearance: Normal appearance. She is not ill-appearing. HENT: Head: Normocephalic and atraumatic. Eyes: Extraocular Movements: Extraocular movements intact. Conjunctiva/sclera: Conjunctivae normal. Pupils: Pupils are equal, round, and reactive to light. Cardiovascular: Rate and Rhythm: Normal rate. Pulses: Normal pulses. Heart sounds: Normal heart sounds. No murmur heard. No friction rub. No gallop. Pulmonary: Effort: Pulmonary effort is normal. No respiratory distress. Breath sounds: Normal breath sounds. No stridor. No wheezing, rhonchi or rales. Neurological: Mental Status: She is alert. Psychiatric: Mood and Affect: Mood normal. Behavior: Behavior normal. Thought Content: Thought content normal. Judgment: Judgment normal. Data Reviewed and Summarized: Medical decision making including: See assessment an plan. Goals None [facility] Martita Valerio MD documented in this encounter [facility] 07-03-2023 History of Present illness Narrative Images from the original note were not included. [facility] [address] [facility] [id number] Visit type: Established Patient Reason for Visit: OTHER (Pt 6 months , denies numbness, or facial numbness. Frequency and trouble holding, more recent denies any pain while urinating, blood or discharge. ) Assessment and Plan 1. Tongue pain At bx site As ENT stated, unfortunately, I told her I dont really have much to offer her. A nerve may have been irritated during bx and told her nerves can take a year to improve -She wanted another opinion so will refer to [facility] -I told her she may want to see ENT who did bx for their opinion but she declines as this was in [place] -told her smoking is not helping the healing process either. - Ambulatory referral to Oral Maxillofacial Surgery; Future 2. Urinary frequency Appears to have UTI today so not controlled and will treat But also should follow up with her urologist as she feels overall this is chronic issue - AMB POC URINALYSIS DIP STICK AUTO W/O MICRO - External referral to Urology; Future 3. Acute cystitis with hematuria As above - Urine culture (clean catch); Future - nitrofurantoin, macrocrystal-monohydrate, (Macrobid) 100 MG capsule; Take 1 capsule (100 mg) by mouth 2 times daily for 5 days. Dispense: 10 capsule; Refill: 0 - Urine culture (clean catch) No follow-ups on file. Subjective HPI Tongue pain. This is at tip of tongue since she had a bx of this in [place] about 6 months ago. Feels like burning at bx site. She reports was papilloma. She did not follow up there but did see ENT at [facility] on 05/16/23 for same thing and reports she was told there was nothing they could do. Pain is same. No wound, dc, bleeding. She also has uringary frequency and difficulty holding urine. No hematuria, dysuria or flank pain, nvfc. She reports had sling done 2-3 years ago at urology but has not contacted them about this. Review of Systems As above Allergies Allergen Reactions Sulfa Antibiotics Itching and Swelling Other reaction(s): Itching Other reaction(s): Not available Outpatient Medications Prior to Visit Medication Sig Dispense Refill atorvastatin (Lipitor) 20 MG tablet Take 1 tablet (20 mg) by mouth daily. 30 tablet 11 ondansetron (Zofran) 4 MG tablet pantoprazole (Protonix) 40 MG EC tablet pantoprazole (ProtoNix) 40 MG packet Take 1 packet (40 mg) by mouth every morning (before breakfast). 90 packet 3 QUEtiapine (SEROquel) 200 MG tablet Take 50 mg by mouth. Takes 50mg topiramate (Topamax) 200 MG tablet Take 200 mg by mouth in the morning and 200 mg before bedtime. traZODone (Desyrel) 100 MG tablet TAKE ONE TABLET BY MOUTH DAILY AT 9 PM valACYclovir (Valtrex) 500 MG tablet Take 1 tablet (500 mg) by mouth daily. 90 tablet 3 venlafaxine XR (Effexor XR) 150 MG 24 hr capsule Take 150 mg by mouth daily. Take 2 tablets daily albuterol (Ventolin HFA) 108 (90 Base) MCG/ACT inhaler Inhale 2 puffs every 4 hours as needed for wheezing or shortness of breath. 8 g 0 tiZANidine (Zanaflex) 2 MG tablet Take 2 mg by mouth. No facility-administered medications prior to visit. Past Medical History: Diagnosis Date Fibrocystic breast Social History Socioeconomic History Marital status: Unknown Tobacco Use Smoking status: Every Day Packs/day: 1.00 Years: 34.00 Additional pack years: 0.00 Total pack years: 34.00 Types: Cigarettes Last attempt to quit: 02/19/2019 Years since quittin.3 Passive exposure: Past Smokeless tobacco: Never Vaping Use Vaping Use: Never used Substance and Sexual Activity Alcohol use: Not Currently Comment: rare Drug use: Yes Types: Marijuana Comment: medical marijuana card Past Surgical History: Procedure Laterality Date BARIATRIC SURGERY 2004 BREAST BIOPSY Right 03/15/2019 CHOLECYSTECTOMY 2015 FOOT SURGERY Left HYSTERECTOMY 2013 INCONTINENCE SURGERY 07/2021 SHOULDER ARTHROSCOPY 2014 TUBAL LIGATION 2008 Past Surgical History: Procedure Laterality Date BARIATRIC SURGERY 2004 BREAST BIOPSY Right 03/15/2019 CHOLECYSTECTOMY 2015 FOOT SURGERY Left HYSTERECTOMY 2013 INCONTINENCE SURGERY 07/2021 SHOULDER ARTHROSCOPY 2014 TUBAL LIGATION 2008 Family History Problem Relation Name Age of Onset Hypothyroidism Mother Hyperlipidemia Mother Atrial fibrillation Mother Sleep apnea Mother Bone cancer Father Stroke Father No Known Problems Sister No Known Problems Brother No Known Problems Daughter No Known Problems Son No Known Problems Son Breast cancer Paternal Grandmother Prostate cancer Paternal Grandfather Objective BP 115/81 (BP Location: Left arm, Patient Position: Sitting, BP Cuff Size: Large adult) Pulse 57 Ht 5' 5 (1.651 m) Wt 180 lb (81.6 kg) SpO2 99% BMI 29.95 kg/m Patient Weight 07/03/23 180 lb (81.6 kg) 06/20/23 180 lb (81.6 kg) 05/01/23 191 lb (86.6 kg) Physical Exam Nursing note reviewed. Constitutional: Appearance: Normal appearance. Comments: Smells heavily of cigarette smoke HENT: Mouth/Throat: Tongue: No lesions. Tongue does not deviate from midline. Palate: No mass and lesions. Pharynx: No posterior oropharyngeal erythema or uvula swelling. Pulmonary: Comments: Normal speaking effort Abdominal: Tenderness: There is no abdominal tenderness. There is no right CVA tenderness or left CVA tenderness. Neurological: Mental Status: She is alert. Psychiatric: Mood and Affect: Mood normal. Behavior: Behavior normal. Thought Content: Thought content normal. Judgment: Judgment normal. Chart Clean Up: Medications Discontinued During This Encounter Medication Reason tiZANidine (Zanaflex) 2 MG tablet Therapy completed Bernard Dyson MD 07/03/2023 10:55 AM documented in this encounter [facility] 06-11-2023 Telephone encounter Note Bernard Dyson MD 06/11/2023 10:02 AM EST Cologuard is positive. Does not mean you have cancer but should get colonoscopy. Referral done for this. Dr Lopez. Please send him copy of Cologuard Message released to patient as written. Patient's further questions if applicable: N/A Were all questions from office addressed or relayed to the patient from encounter: Yes [facility] 06-11-2023 Miscellaneous Notes Bernard Dyson MD 06/11/2023 10:02 AM EST Cologuard is positive. Does not mean you have cancer but should get colonoscopy. Referral done for this. Dr Lopez. Please send him copy of Cologuard Message released to patient as written. Patient's further questions if applicable: N/A Were all questions from office addressed or relayed to the patient from encounter: Yes documented in this encounter [facility] 05-26-2023 Telephone encounter Note Lm advising [facility] 05-26-2023 Miscellaneous Notes Lm advising Addended by: BERNARD DYSON on: 05/26/2023 07:59 AM Modules accepted: Orders Cologuard re-ordered New statin sent in Cologuard order faxed See msg about increasing rx Name of caller: Sury Contact phone number: [phone] Relationship to Patient: pt Provider: Practice: [facility] Chief Complaint/Reason for Call: In lab results wanted to increase Cholesterol medication but is not showing a new script for needed change and also pt still has not received Colorguard at home please advise Best time of day caller can be reached: any Patient advised that office/PCP has 24-48 business hours to return their call: No documented in this encounter [facility] 05-26-2023 Note Addended by: BERNARD DYSON on: 05/26/2023 07:59 AM Modules accepted: Orders [facility] 05-26-2023 Note Addended by: BERNARD DYSON on: 05/26/2023 07:59 AM Modules accepted: Orders [facility] 05-26-2023 Telephone encounter Note Cologuard re-ordered New statin sent in [facility] 05-20-2023 Telephone encounter Note Cologuard order faxed See msg about increasing rx [facility] 05-20-2023 Telephone encounter Note Name of caller: Sury Contact phone number: [phone] Relationship to Patient: pt Provider: Practice: [facility] Chief Complaint/Reason for Call: In lab results wanted to increase Cholesterol medication but is not showing a new script for needed change and also pt still has not received Colorguard at home please advise Best time of day caller can be reached: any Patient advised that office/PCP has 24-48 business hours to return their call: No [facility] 05-16-2023 Note HNO ID: [id number] Author: Imedla Heaton MD Service: ? Author Type: Physician Type: Progress Notes Filed: 05/16/2023 11:09 AM Note Text: HPI Sury Sheppard is a 48 year old female who presents with burning tongue. Patient has had a burning tongue for over a year. Patient did see an ENT in [place] and had a biopsy which showed papilloma. Patient states in the last week she noticed a small white growth in the tip of her tongue.. ROS General Weight loss: No Fatigue: No Night sweats:No Cardiac Chest pain:No Fast heart rate:No Swelling in the feet:No Respiratory Short of breath:No Cough:No Wheezing:No Gastrointestinal Nausea:No Vomiting:No Indigestion:No Past medical history, family history, and social history reviewed. PE LMP 10/10/2015 (Approximate) General: Patient is awake, alert, NAD. Voice is normal. Skin: normal Eyes: Extraocular motion and Gaze is normal. Ears: Right external auditory canal is normal. TMJ: normal. Right tympanic membranes normal. Left external auditory canal is normal. Left tympanic membrane normal. Nose: Septum is normal. Turbinates are normal. Nasopharynx:normal Oral Cavity/Oropharynx: Lips normal Dentition normal Tongue normal. Ears patient anterior tongue most likely from rubbing at her teeth small fibroma appearing area millimeters at the tip of the tongue Tonsils normal. Palate and uvula normal. Pharynx posterior normal Hypopharynx: Base of tongue normal Pyriform sinus normal. Larynx: Vocal cords normal. Epiglottis normal. Post cricoid normal. Salivary glands: Parotid normal. Submandibular and sublingual normal. Thyroid: normal. Lymphatic/Neck: Lymph nodes normal. Neurologic: Facial nerve normal. 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 Imelda Heaton MD Findings will be communicated to the referring physician via mail or electronic medical record. [facility] 05-16-2023 History of Present illness Narrative HPI Sury Sheppard is a 48 year old female who presents with burning tongue. Patient has had a burning tongue for over a year. Patient did see an ENT in [place] and had a biopsy which showed papilloma. Patient states in the last week she noticed a small white growth in the tip of her tongue.. ROS General Weight loss: No Fatigue: No Night sweats:No Cardiac Chest pain:No Fast heart rate:No Swelling in the feet:No Respiratory Short of breath:No Cough:No Wheezing:No Gastrointestinal Nausea:No Vomiting:No Indigestion:No Past medical history, family history, and social history reviewed. PE LMP 10/10/2015 (Approximate) General: Patient is awake, alert, NAD. Voice is normal. Skin: normal Eyes: Extraocular motion and Gaze is normal. Ears: Right external auditory canal is normal. TMJ: normal. Right tympanic membranes normal. Left external auditory canal is normal. Left tympanic membrane normal. Nose: Septum is normal. Turbinates are normal. Nasopharynx:normal Oral Cavity/Oropharynx: Lips normal Dentition normal Tongue normal. Ears patient anterior tongue most likely from rubbing at her teeth small fibroma appearing area millimeters at the tip of the tongue Tonsils normal. Palate and uvula normal. Pharynx posterior normal Hypopharynx: Base of tongue normal Pyriform sinus normal. Larynx: Vocal cords normal. Epiglottis normal. Post cricoid normal. Salivary glands: Parotid normal. Submandibular and sublingual normal. Thyroid: normal. Lymphatic/Neck: Lymph nodes normal. Neurologic: Facial nerve normal. 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 Imelda Heaton MD Findings will be communicated to the referring physician via mail or electronic medical record. documented in this encounter [facility] 08-07-2022 History of Present illness Narrative Images from the original note were not included. [facility] [address] [facility] [id number] Dept Visit Date: 08/07/22 HPI: Sury Sheppard is a 47 y.o. female who presents today for: Chief Complaint Patient presents with Follow-up Pt here to follow up on BP. Pt states she is having a lot of aches and pains in back and neck, every time she walks or moves it hurts, Pt has a sore on lip that she would like looked at. Pt would like to discuss weight loss options. HPI Made appointment to to follow up of BP. Has been having intermittently high readings at work. Admits to pain and stress. No headaches, dizziness, visual disturbance. Today's reading looks good. Brings other concerns today. Chronic pain. General soreness. Has ankle edema after working otherwise no joint swelling. 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 Some stretching, not beneficial. No yoga, has not consider massage therapy, chiropractor therapy. Takes tylenol which is not helpful. Lesion to lip she noticed few days ago. No other URI sx. It is uncomfortable. No drainage. Desire to loose weight. Weight is stable. Again does not exercise. Feels she tries to eat well. Not actively trying to loose weight. Current Outpatient Medications Medication Sig Dispense Refill albuterol (Ventolin HFA) 108 (90 Base) MCG/ACT inhaler Inhale 2 puffs every 4 hours as needed for wheezing or shortness of breath. 8 g 0 doxycycline (Vibramycin) 100 MG capsule 100 mg. hydrOXYzine HCl (Atarax) 25 MG tablet Take by mouth as needed. hydrOXYzine pamoate (Vistaril) 50 MG capsule TAKE ONE CAPSULE BY MOUTH TWICE DAILY @ 9AM & 5PM pantoprazole (ProtoNix) 40 MG packet Take 40 mg by mouth. QUEtiapine (SEROquel) 200 MG tablet Take 50 mg by mouth. Takes 50mg tiZANidine (Zanaflex) 2 MG tablet Take 2 mg by mouth. topiramate (Topamax) 200 MG tablet Take 200 mg by mouth in the morning and 200 mg before bedtime. traZODone (Desyrel) 100 MG tablet TAKE ONE TABLET BY MOUTH DAILY AT 9 PM valACYclovir (Valtrex) 500 MG tablet 500 mg. venlafaxine XR (Effexor XR) 150 MG 24 hr capsule Take 150 mg by mouth daily. Take 2 tablets daily No current facility-administered medications for this visit. Allergies Allergen Reactions Sulfa Antibiotics Swelling History reviewed. No pertinent past medical history. Subjective: Review of Systems Constitutional: Negative for fatigue. Eyes: Negative for visual disturbance. Cardiovascular: Positive for leg swelling. Negative for chest pain and palpitations. Musculoskeletal: Positive for arthralgias. Negative for gait problem and joint swelling. Neurological: Negative for dizziness and headaches. Objective: BP 109/70 (BP Location: Left arm, Patient Position: Sitting, BP Cuff Size: Large adult) Pulse 82 Ht 5' 5 (1.651 m) Wt 205 lb (93 kg) SpO2 98% BMI 34.11 kg/m Physical Exam Vitals and nursing note reviewed. Constitutional: General: She is not in acute distress. Appearance: Normal appearance. She is not ill-appearing or toxic-appearing. Cardiovascular: Pulses: Normal pulses. Heart sounds: Normal heart sounds. Pulmonary: Effort: Pulmonary effort is normal. No respiratory distress. Breath sounds: Normal breath sounds. No wheezing. Neurological: Mental Status: She is alert and oriented to person, place, and time. Assessment: Diagnosis Plan 1. Class 1 obesity due to excess calories without serious comorbidity with body mass index (BMI) of 34.0 to 34.9 in adult [employer] [facility] Wt Mgmt 2. Generalized body aches 3. Elevated blood pressure reading without diagnosis of hypertension 4. Cold sore Plan: Sury was seen today for follow-up. Diagnoses and all orders for this visit: Class 1 obesity due to excess calories without serious comorbidity with body mass index (BMI) of 34.0 to 34.9 in adult (Primary) Would benefit from guidance and support of weight management evaluation-she is agreeable to referral today. - [facility]-Non Surgical Wt Mgmt; Future Generalized body aches Encouraged regular exercise, weight loss likely beneficial. Consider massage therapy, chiropractor evaluation, tylenol prn 1000 mg tid and or activity such as yoga. Elevated blood pressure reading without diagnosis of hypertension BP reading okay today. Suspect her high readings are 2/2 to pain, activity, stress. Monitor at home, reviewed proper reading techniques. Reviewed concerns for high BP and when to seek care. Cold sore Try OTC abreva. Follow up for Next scheduled follow-up. ZACH Jamison 08/07/2022 3:18 PM documented in this encounter [facility] 08-07-2022 Instructions MORRO Condon CNP - 08/07/2022 2:40 PM EST Use abreva to sore on lip. Recommend regular exercise, stretching for pain. Referral for weight management. The following attachments cannot be sent through Care Everywhere.DASH Diet (Welsh)documented in this encounter [facility] 08-06-2022 Telephone encounter Note Pt condition noted. Agree with nurse recommendations. [facility] 08-06-2022 Miscellaneous Notes Pt condition noted. Agree with nurse recommendations. S: Patient spoke with [facility] nurse regarding Increase in blood pressure . B: Onset of symptoms/concern Last week A: BP 157/104 Left arm P 73 Developed Left shoulder pain,denies over use and injury,Pt has dry cough . Denies CP shortness of breath and weakness. R: Pt will go to [facility] . Patient understands care advice. No further needs at this time. Patient instructed to call back with new or worsening symptoms. Reason for Disposition [1] Systolic BP >= 160 OR Diastolic >= 100 AND [2] cardiac or neurologic symptoms (e.g., chest pain, difficulty breathing, unsteady gait, blurred vision) Answer Assessment - Initial Assessment Questions 1. BLOOD PRESSURE: What is the blood pressure? Did you take at least two measurements 5 minutes apart? 157/104 2. ONSET: When did you take your blood pressure? Tonight 3. HOW: How did you obtain the blood pressure? (e.g., visiting nurse, automatic home BP monitor) Home 4. HISTORY: Do you have a history of high blood pressure? Denies 5. MEDICATIONS: Are you taking any medications for blood pressure? Have you missed any doses recently? No medication 6. OTHER SYMPTOMS: Do you have any symptoms? (e.g., headache, chest pain, blurred vision, difficulty breathing, weakness) Left shoulder pain medication 7. : Is there any chance you are ? When was your last menstrual period? LMP: hysterectomy Protocols used: Blood Pressure - [id number] documented in this encounter [facility] 08-06-2022 Telephone encounter Note Reason for appointment F/U BP issues Has patient tested positive for COVID or have a pending COVID test within the past 2 weeks (14 days)? No Has patient been exposed to anyone who tested positive for COVID within the past 2 weeks (14 days)? Yes- Nurse Is patient currently having symptoms of cough, fever or shortness of breath? No Advise patient if any of the above changes prior to their appointment, please contact the office immediately. [facility] 08-06-2022 Miscellaneous Notes Reason for appointment F/U BP issues Has patient tested positive for COVID or have a pending COVID test within the past 2 weeks (14 days)? No Has patient been exposed to anyone who tested positive for COVID within the past 2 weeks (14 days)? Yes- Nurse Is patient currently having symptoms of cough, fever or shortness of breath? No Advise patient if any of the above changes prior to their appointment, please contact the office immediately. documented in this encounter [facility] 08-05-2022 Telephone encounter Note S: Patient spoke with [facility] nurse regarding Increase in blood pressure . B: Onset of symptoms/concern Last week A: BP 157/104 Left arm P 73 Developed Left shoulder pain,denies over use and injury,Pt has dry cough . Denies CP shortness of breath and weakness. R: Pt will go to [facility] . Patient understands care advice. No further needs at this time. Patient instructed to call back with new or worsening symptoms. Reason for Disposition [1] Systolic BP >= 160 OR Diastolic >= 100 AND [2] cardiac or neurologic symptoms (e.g., chest pain, difficulty breathing, unsteady gait, blurred vision) Answer Assessment - Initial Assessment Questions 1. BLOOD PRESSURE: What is the blood pressure? Did you take at least two measurements 5 minutes apart? 157/104 2. ONSET: When did you take your blood pressure? Tonight 3. HOW: How did you obtain the blood pressure? (e.g., visiting nurse, automatic home BP monitor) Home 4. HISTORY: Do you have a history of high blood pressure? Denies 5. MEDICATIONS: Are you taking any medications for blood pressure? Have you missed any doses recently? No medication 6. OTHER SYMPTOMS: Do you have any symptoms? (e.g., headache, chest pain, blurred vision, difficulty breathing, weakness) Left shoulder pain medication 7. : Is there any chance you are ? When was your last menstrual period? LMP: hysterectomy Protocols used: Blood Pressure - [id number] [facility] 06-18-2022 History of Present illness Narrative Radiology Service Progress Note DATE OF SERVICE: June 18, 2022 TIME: 2:59 AM PATIENT IDENTITY VERIFICATION COMPLETED USING TWO (2) STANDARD IDENTIFIERS: Name and Date of confirmed by patient verbally. FALL SCREENING: Has the patient had 2 falls in the last year or 1 fall with injury or currently using an Ambulatory Assistive Device (Walker, Cane, Wheelchair, Crutches, etc.)? No PATIENT GENDER DATA: Female. status: : No status: NO. PATIENT RELEVANT IMPLANT DATA REVIEWED: Yes ALLERGIES: Reviewed and unchanged CONTRAST ALLERGY: NO. EXAM: CT -CONTRAST INDUCED NEPHROPATHY RISK FACTORS: Not applicable CREATININE: Creatinine Date Value Ref Range Status 06/18/2022 0.92 0.58 - 0.96 mg/dL Final 11/05/2021 0.84 0.58 - 0.96 mg/dL Final 11/01/2020 0.71 0.58 - 0.96 mg/dL Final Estimated Glomerular Filtration Rate Date Value Ref Range Status 06/18/2022 77 >=60 mL/min/1.73m Final Comment: Estimated Glomerular Filtration Rate (eGFR) is calculated using the 2020 CKD-EPI creatinine equation. This equation utilizes serum creatinine, sex, and age as parameters. The creatinine assay has traceable calibration to isotope dilution-mass spectrometry. Refer to KDIGO guidelines for clinical interpretation. In patients with unstable renal function, e.g. those with acute kidney injury, the eGFR may not accurately reflect actual GFR. eGFR- Date Value Ref Range Status 11/01/2020 >60 Final P.O.C.T. RESULTS: POC done: Yes, See Lab Tab June 18, 2022 TREATMENT: No Hydration needed. PERIPHERAL IV DATA: Inpatient - refer to LDA documentation RADIOLOGY DEPARTMENT: CT; Exam(s) Completed: CTA Brain and CTA Neck SIGNATURE: FLAKITA Medrano PATIENT NAME: Sury Sheppard DATE: June 18, 2022 TIME: 2:59 AM documented in this encounter [facility] 03-01-2022 Note HNO ID: [id number] Author: FLAKITA Lynne Service: Nuclear Medicine Author Type: Technologist Type: Progress Notes Filed: 03/01/2022 10:56 AM Note Text: RADIOLOGY SERVICE PROGRESS NOTE SERVICE DATE: 03/01/2022 SERVICE TIME: 10:55 AM PATIENT IDENTITY VERIFICATION COMPLETED USING TWO (2) STANDARD IDENTIFIERS: Name and Date of confirmed by patient verbally and Name and Date of confirmed by identification band FALL SCREENING: Has the patient had 2 falls in the last year or 1 fall with injury or currently using an Ambulatory Assistive Device (Walker, Cane, Wheelchair, Crutches, etc.)? No PATIENT GENDER DATA: .female : No ALLERGIES: Reviewed and unchanged MEDICATIONS REVIEWED: Not applicable PATIENT RELEVANT IMPLANT DATA REVIEWED: Not Applicable CREATININE: Creatinine Date Value Ref Range Status 11/05/2021 0.84 0.58 - 0.96 mg/dL Final 11/01/2020 0.71 0.58 - 0.96 mg/dL Final 11/07/2019 0.76 0.58 - 0.96 mg/dL Final Estimated Glomerular Filtration Rate Date Value Ref Range Status 11/05/2021 86 >=60 mL/min/1.73m? Final Comment: Estimated Glomerular Filtration Rate (eGFR) is calculated using the 2020 CKD-EPI creatinine equation. This equation utilizes serum creatinine, sex, and age as parameters. The creatinine assay has traceable calibration to isotope dilution-mass spectrometry. Refer to KDIGO guidelines for clinical interpretation. In patients with unstable renal function, e.g. those with acute kidney injury, the eGFR may not accurately reflect actual GFR. eGFR- Date Value Ref Range Status 11/01/2020 >60 Final P.O.C.T. RESULTS: N/A March 01, [address] PERFORMED: No IV SITE: [place] only - not applicable, oral or physician administered agents given to patient POST EXAM PIV STATUS: Not applicable PROCEDURE TYPE: NM GET: 1.0 mCi Tc99m SULFUR COLLOID was administered orally via 4 ounces of Egg Beaters,2 pieces of toast, 1 ounce of jelly with 8 ounces of water orally ADMINISTRATION TIME: 09:12 PATIENT DISCHARGED TO: Ambulatory patient, left [place] department area. A Diagnostic radioactive procedure has taken place, with no further precautions necessary other than routine body substance precautions. More information regarding radiation safety can be found using this link: [email or web address] [email or web address] SIGNATURE: FLAKITA Lynne PATIENT NAME: Sury Sheppard DATE: March 01, 2022 TIME: 10:55 AM PAGER/CONTACT #: [facility] 11-06-2021 Note COVID 19 RESULT: SARS-CoV-2 (Agent of COVID-19) Not Detected by RT-PCR or equivalent method. This test has been authorized by FDA under an Emergency Use Authorization (EUA). INFLUENZA A PCR: Negative for Influenza A by RT-PCR INFLUENZA B PCR: Negative for Influenza B by RT-PCR RSV PCR: Negative for Respiratory Syncytial Virus (RSV) by PCR [facility] Comment on above: Performed By: #### U TOX2 #### [facility] CLIA [id number] [address] [place] [address] [place] 02-09-2021 History of Present illness Narrative 45-year-old female here complaining of painful lump to her right vaginal area x2 days. Gotten progressively worse not draining, used a topical hemorrhoid cream with some relief. Some mild dysuria, no other vaginal symptoms. Did have unprotected intercourse with a new partner 2 to 3 days [facility] Work Phone: 02-08-2021 History of Present illness Narrative 45-year-old female here complaining of painful lump to her right vaginal area x2 days. Gotten progressively worse not draining, used a topical hemorrhoid cream with some relief. Some mild dysuria, no other vaginal symptoms. Did have unprotected intercourse with a new partner 2 to 3 days ago [facility] Work Phone: 01-24-2015 History of Past i llness Narrative Problem Noted Date Resolved Date Other abnormal blood chemistry 01/24/2015 0 10/15/2016 Right upper quadrant pain 01/23/20152016 Abdominal pain 07/25/2014 10/15/2016 Overview: - RUQ since 3 months. - no relation to food, bowel or bladder habits. Denies fever. - mentions that it hurts more when she moves, present throughout the day. - exam unremarkable, no peritoneal signs. - US abdomen and CT abdomen noted : unremarkable except for fatty liver. - at this time, unclear about the etiology of the pain. She also doesn't have any diarrhea , which she had originally come to the hospital with. Has associated nausea. Basic labs, LFTs and UA noted. - will consider evaluation with GI for EGD. - symptom management for overnight. - patient wants to have regular food for tonight. Incontinence of urine 02/05/2013 10/15/2016 Gastroparesis 10/15/2016 Type 2 diabetes mellitus without complication 10/01/2017 documented as of this encounter (statuses as of 06/18/2022) [facility] History of Past illness Narrative* Problem Noted Date Diagnosed Date Resolved Date Other abnormal blood chemistry 01/24/2015 10/15/2016 Right upper quadrant pain 01/23/2015 Abdominal pain 07/25/2014 10/15/2016 Overview: - RUQ since 3 months. - no relation to food, bowel or bladder habits. Denies fever. - mentions that it hurts more when she moves, present throughout the day. - exam unremarkable, no peritoneal signs. - US abdomen and CT abdomen noted : unremarkable except for fatty liver. - at this time, unclear about the etiology of the pain. She also doesn't have any diarrhea , which she had originally come to the hospital with. Has associated nausea. Basic labs, LFTs and UA noted. - will consider evaluation with GI for EGD. - symptom management for overnight. - patient wants to have regular food for tonight. Incontinence of urine 02/05/20132016 Gastroparesis 10/15/2016 Type 2 diabetes mellitus without complication 10/01/2017 documented as of this encounter (statuses as of 05/16/2023) [facility] History of Past illness Narrative* Problem Noted Date Diagnosed Date Resolved Date Other abnormal blood chemistry 01/24/2015 10/15/2016 Right upper quadrant pain 01/23/2015 Abdominal pain 07/25/2014 10/15/2016 Overview: - RUQ since 3 months. - no relation to food, bowel or bladder habits. Denies fever. - mentions that it hurts more when she moves, present throughout the day. - exam unremarkable, no peritoneal signs. - US abdomen and CT abdomen noted : unremarkable except for fatty liver. - at this time, unclear about the etiology of the pain. She also doesn't have any diarrhea , which she had originally come to the hospital with. Has associated nausea. Basic labs, LFTs and UA noted. - will consider evaluation with GI for EGD. - symptom management for overnight. - patient wants to have regular food for tonight. Incontinence of urine 02/05/20132016 Gastroparesis 10/15/2016 Type 2 diabetes mellitus without complication 10/01/2017 documented as of this encounter (statuses as of 09/12/2023) [facility] History of Past illness Narrative* Problem Noted Date Diagnosed Date Resolved Date Other abnormal blood chemistry 01/24/2015 10/15/2016 Right upper quadrant pain 01/23/2015 Abdominal pain 07/25/2014 10/15/2016 Overview: - RUQ since 3 months. - no relation to food, bowel or bladder habits. Denies fever. - mentions that it hurts more when she moves, present throughout the day. - exam unremarkable, no peritoneal signs. - US abdomen and CT abdomen noted : unremarkable except for fatty liver. - at this time, unclear about the etiology of the pain. She also doesn't have any diarrhea , which she had originally come to the hospital with. Has associated nausea. Basic labs, LFTs and UA noted. - will consider evaluation with GI for EGD. - symptom management for overnight. - patient wants to have regular food for tonight. Incontinence of urine 02/05/20132016 Gastroparesis 10/15/2016 Type 2 diabetes mellitus without complication 10/01/2017 documented as of this encounter (statuses as of 09/16/2023) [facility] History of Past illness Narrative* Problem Noted Date Diagnosed Date Resolved Date Other abnormal blood chemistry 01/24/2015 10/15/2016 Right upper quadrant pain 01/23/2015 Abdominal pain 07/25/2014 10/15/2016 Overview: - RUQ since 3 months. - no relation to food, bowel or bladder habits. Denies fever. - mentions that it hurts more when she moves, present throughout the day. - exam unremarkable, no peritoneal signs. - US abdomen and CT abdomen noted : unremarkable except for fatty liver. - at this time, unclear about the etiology of the pain. She also doesn't have any diarrhea , which she had originally come to the hospital with. Has associated nausea. Basic labs, LFTs and UA noted. - will consider evaluation with GI for EGD. - symptom management for overnight. - patient wants to have regular food for tonight. Incontinence of urine 02/05/20132016 Gastroparesis 10/15/2016 Type 2 diabetes mellitus without complication 10/01/2017 documented as of this encounter (statuses as of 09/23/2023) [facility] History of Past illness Narrative* Problem Noted Date Diagnosed Date Resolved Date Other abnormal blood chemistry 01/24/2015 10/15/2016 Right upper quadrant pain 01/23/2015 Abdominal pain 07/25/2014 10/15/2016 Overview: - RUQ since 3 months. - no relation to food, bowel or bladder habits. Denies fever. - mentions that it hurts more when she moves, present throughout the day. - exam unremarkable, no peritoneal signs. - US abdomen and CT abdomen noted : unremarkable except for fatty liver. - at this time, unclear about the etiology of the pain. She also doesn't have any diarrhea , which she had originally come to the hospital with. Has associated nausea. Basic labs, LFTs and UA noted. - will consider evaluation with GI for EGD. - symptom management for overnight. - patient wants to have regular food for tonight. Incontinence of urine 02/05/20132016 Gastroparesis 10/15/2016 Type 2 diabetes mellitus without complication 10/01/2017 documented as of this encounter (statuses as of 09/24/2023) [facility] Chronic neck pain Cervicalgia Upper back pain documented in this encounter [facility] Work Phone: Evaluation note* Diagnosis Burning mouth syndrome- Primary Glossodynia [facility] [place] [facility]* Diagnosis Colon cancer screening- Primary Special screening for malignant neoplasms, colon Hypercholesteremia Pure hypercholesterolemia [facility] [place] [facility]* Diagnosis Encounter for screening mammogram for malignant neoplasm of breast [facility] [place] [facility]* Diagnosis Encounter for screening mammogram for malignant neoplasm of breast- Primary documented in this encounter [facility] note* Diagnosis Tongue pain- Primary Glossodynia Urinary frequency Acute cystitis with hematuria [facility] [place] [facility] Diagnosis Tobacco abuse- Primary Tobacco use disorder Unintentional weight loss Loss of weight documented in this encounter [facility] note* Diagnosis Peptic ulcer, site unspecified, unspecified as acute or chronic, without hemorrhage or perforation documented in this encounter [facility] note* Diagnosis Chronic bilateral low back pain without sciatica- Primary documented in this encounter [facility] note* Diagnosis Bronchitis- Primary Bronchitis, not specified as acute or chronic Annual physical exam Routine general medical examination at a [facility] facility Hypercholesteremia Pure hypercholesterolemia PUD (peptic ulcer disease) Peptic ulcer, unspecified site, unspecified as acute or chronic, without mention of hemorrhage, perforation, or obstruction Bipolar 1 disorder, depressed (CMS/HCC) (HCC) documented in this encounter [facility] note* Diagnosis Unintentional weight loss Loss of weight [facility] [place] [facility]* Diagnosis Polycythemia- Primary Polycythemia, secondary Weight loss Loss of weight Abnormal CT scan Other nonspecific (abnormal) findings on radiological and other examinations of body structure documented in this encounter [facility] note* Diagnosis Weight loss Loss of weight Abnormal CT scan Other nonspecific (abnormal) findings on radiological and other examinations of body structure documented in this encounter [facility] note* Diagnosis Polycythemia- Primary Polycythemia, secondary documented in this encounter [facility] note* Diagnosis Immunity status testing- Primary Antibody response examination Recurrent cold sores Herpes simplex without mention of complication Hypercholesteremia Pure hypercholesterolemia Immunization due Cigarette nicotine dependence without complication Encounter for routine adult medical examination [facility] [place] [facility]* Diagnosis Closed type IV fracture of sacrum with routine healing- Primary [facility] [place] [facility]* Diagnosis Encounter for screening mammogram for malignant neoplasm of breast- Primary [facility] [place] [facility]* Diagnosis Class 1 obesity due to excess calories without serious comorbidity with body mass index (BMI) of 34.0 to 34.9 in adult- Primary Generalized body aches Elevated blood pressure reading without diagnosis of hypertension Cold sore Herpes simplex without mention of complication [facility] [place] [facility]* Diagnosis Closed type IV fracture of sacrum with routine healing- Primary Unintended weight gain- Primary Hypercholesteremia Pure hypercholesterolemia Adult acne [facility] Diagnosis Closed type IV fracture of sacrum with routine healing- Primary Abnormal mammogram of right breast- Primary [facility] Diagnosis Closed type IV fracture of sacrum with routine healing- Primary Encounter for screening mammogram for malignant neoplasm of breast [facility] Diagnosis Closed type IV fracture of sacrum with routine healing- Primary Abnormal mammogram of right breast [facility]* Diagnosis Closed type IV fracture of sacrum with routine healing- Primary Hyperinsulinemia- Primary Unintended weight gain [facility]* Diagnosis Closed type IV fracture of sacrum with routine healing- Primary Mass of upper inner quadrant of right breast- Primary Mass overlapping multiple quadrants of right breast Family history of breast cancer Family history of malignant neoplasm of breast [facility]* Diagnosis Closed type IV fracture of sacrum with routine healing- Primary Mass of upper inner quadrant of right breast [facility]* Diagnosis Closed type IV fracture of sacrum with routine healing- Primary Abnormal mammogram Abnormal mammogram, unspecified [facility]* Diagnosis Closed type IV fracture of sacrum with routine healing- Primary Polycythemia- Primary Polycythemia, secondary [facility]* Diagnosis Closed type IV fracture of sacrum with routine healing- Primary Mass of upper inner quadrant of right breast- Primary Mass overlapping multiple quadrants of right breast [facility]* Diagnosis Closed type IV fracture of sacrum with routine healing- Primary Encounter for screening mammogram for malignant neoplasm of breast- Primary Encounter for screening mammogram for malignant neoplasm of breast [facility]* Name Dates Details Instructions not documented [facility] Work Phone: Instructions* Attachments The following attachments cannot be sent through Care Everywhere. * Yearly Physical for Adults (Welsh) [facility] Consultation (Routine) - Pending Review Specialty Diagnoses / Procedures Referred By Aldair t Referred To Contact Urology Diagnoses Urinary frequency Procedures [place] OFFICE/OUTPATIENT [facility] 60 MINUTES Bernard Dyson MD [address] [place] [address] Referral ID Status Reason Start Date Expiration Date Visits Requested Visits Authorized [id number] Pending Review Specialty Services Required 07/03/2023 07/02/2024 1 1 * Consultation (Routine) - Pending Review Specialty Diagnoses / Procedures Referred By Contac t Referred To Contact Oral Surgery Diagnoses Tongue pain Procedures [place] OFFICE/OUTPATIENT [facility] [place] MDM 60 MINUTES Bernard Dyson MD [address] [place] [address] Xiao Gustavo [address] [place] [address] [address] [place] [address] Referral ID Status Reason Start Date Expiration Date Visits Requested Visits Authorized [id number] Pending Review Specialty Services Required 07/03/2023 07/02/2024 1 1 [facility] Consultation (Routine) - Pending Review Specialty Diagnoses / Procedures Referred By Contac t Referred To Contact Bariatrics Diagnoses Class 1 obesity due to excess calories without serious comorbidity with body mass index (BMI) of 34.0 to 34.9 in adult Procedures [place] OFFICE/OUTPATIENT [facility] 60-74 MINUTES Lauren Castrejon APRN - CNP [address] [place] [address] [address] [place] [address] [facility] [address] [place] [address] Referral ID Status Reason Start Date Expiration Date Visits Requested Visits Authorized [id number] Pending Review Specialty Services Required 08/07/2022 08/07/2023 1 1 [facility] Family History Unknown Family Member Name Dates Details Family history of cerebrovas cular accident(V17.1, Z82.3) Comments:Other Status:Active Family history of coronary a rtery disease(V17.3, Z82.49) Comments:Other Status:Active Family history of diabetes racquel avilez(V18.0, Z83.3) Comments:Other Status:Active Mother Name Dates Details Family history of hypertensi on(V17.49, Z82.49) Status:Active Family history of hyperlipid emia(V18.19, Z83.438) Status:Active Family history of hypothyroi dism(V18.19, Z83.49) Status:Active Family history of atrial fib rillation(V17.49, Z82.49) Status:Active Family history of Thyroid tr ouble(246.9, E07.9) Status:Active Father Name Dates Details Family history of hypertensi on(V17.49, Z82.49) Status:Active Family history of Status:Active Family history of malignant neoplasm of bone(V16.8, Z80.8) Status:Active Family history of osteoporos is(V17.81, Z82.62) Status:Active Family history of Alcohol ab use(305.00, F10.10) Status:Active Unknown Family Member Name Dates Details Family history of cerebrovas cular accident(V17.1, Z82.3) Comments:Other Status:Active Family history of coronary a rtery disease(V17.3, Z82.49) Comments:Other Status:Active Family history of diabetes racquel avilez(V18.0, Z83.3) Comments:Other Status:Active Mother Name Dates Details Family history of hypertensi on(V17.49, Z82.49) Status:Active Family history of hyperlipid emia(V18.19, Z83.438) Status:Active Family history of hypothyroi dism(V18.19, Z83.49) Status:Active Family history of atrial fib rillation(V17.49, Z82.49) Status:Active Family history of Thyroid tr ouble(246.9, E07.9) Status:Active Father Name Dates Details Family history of hypertensi on(V17.49, Z82.49) Status:Active Family history of Status:Active Family history of malignant neoplasm of bone(V16.8, Z80.8) Status:Active Family history of osteoporos is(V17.81, Z82.62) Status:Active Family history of Alcohol ab use(305.00, F10.10) Status:Active Unknown Family Member Name Dates Details Family history of cerebrovas cular accident(V17.1, Z82.3) Comments:Other Status:Active Family history of coronary a rtery disease(V17.3, Z82.49) Comments:Other Status:Active Family history of diabetes m ellitus(V18.0, Z83.3) Comments:Other Status:Active Mother Name Dates Details Family history of hypertensi on(V17.49, Z82.49) Status:Active Family history of hyperlipid emia(V18.19, Z83.438) Status:Active Family history of hypothyroi dism(V18.19, Z83.49) Status:Active Family history of atrial fib rillation(V17.49, Z82.49) Status:Active Family history of Thyroid tr ouble(246.9, E07.9) Status:Active Father Name Dates Details Family history of hypertensi on(V17.49, Z82.49) Status:Active Family history of Status:Active Family history of malignant neoplasm of bone(V16.8, Z80.8) Status:Active Family history of osteoporos is(V17.81, Z82.62) Status:Active Family history of Alcohol ab use(305.00, F10.10) Status:Active Unknown Family Member Name Dates Details Family history of cerebrovas cular accident(V17.1, Z82.3) Comments:Other Status:Active Family history of coronary a rtery disease(V17.3, Z82.49) Comments:Other Status:Active Family history of diabetes m ellitus(V18.0, Z83.3) Comments:Other Status:Active Mother Name Dates Details Family history of hypertensi on(V17.49, Z82.49) Status:Active Family history of hyperlipid emia(V18.19, Z83.438) Status:Active Family history of hypothyroi dism(V18.19, Z83.49) Status:Active Family history of atrial fib rillation(V17.49, Z82.49) Status:Active Family history of Thyroid tr ouble(246.9, E07.9) Status:Active Father Name Dates Details Family history of hypertensi on(V17.49, Z82.49) Status:Active Family history of Status:Active Family history of malignant neoplasm of bone(V16.8, Z80.8) Status:Active Family history of osteoporos is(V17.81, Z82.62) Status:Active Family history of Alcohol ab use(305.00, F10.10) Status:Active Unknown Family Member Name Dates Details Family history of cerebrovas cular accident(V17.1, Z82.3) Comments:Other Status:Active Family history of coronary a rtery disease(V17.3, Z82.49) Comments:Other Status:Active Family history of diabetes m ellitus(V18.0, Z83.3) Comments:Other Status:Active Mother Name Dates Details Family history of hypertensi on(V17.49, Z82.49) Status:Active Family history of hyperlipid emia(V18.19, Z83.438) Status:Active Family history of hypothyroi dism(V18.19, Z83.49) Status:Active Family history of atrial fib rillation(V17.49, Z82.49) Status:Active Family history of Thyroid tr ouble(246.9, E07.9) Status:Active Father Name Dates Details Family history of hypertensi on(V17.49, Z82.49) Status:Active Family history of Status:Active Family history of malignant neoplasm of bone(V16.8, Z80.8) Status:Active Family history of osteoporos is(V17.81, Z82.62) Status:Active Family history of Alcohol ab use(305.00, F10.10) Status:Active Unknown Family Member Name Dates Details Family history of cerebrovas cular accident(V17.1, Z82.3) Comments:Other Status:Active Family history of coronary a rtery disease(V17.3, Z82.49) Comments:Other Status:Active Family history of diabetes m ellitus(V18.0, Z83.3) Comments:Other Status:Active Mother Name Dates Details Family history of hypertensi on(V17.49, Z82.49) Status:Active Family history of hyperlipid emia(V18.19, Z83.438) Status:Active Family history of hypothyroi dism(V18.19, Z83.49) Status:Active Family history of atrial fib rillation(V17.49, Z82.49) Status:Active Family history of Thyroid tr ouble(246.9, E07.9) Status:Active Father Name Dates Details Family history of hypertensi on(V17.49, Z82.49) Status:Active Family history of (7 99.9, R99) Status:Active Family history of malignant neoplasm of bone(V16.8, Z80.8) Status:Active Family history of osteoporos is(V17.81, Z82.62) Status:Active Family history of Alcohol ab use(305.00, F10.10) Status:Active Unknown Family Member Name Dates Details Family history of hypertensi on: Father, Mother(V17.49, Z82.49) Status:Active Family history of hyperlipid emia: Mother(V18.19, Z83.438) Status:Active Family history of hypothyroi dism: Mother(V18.19, Z83.49) Status:Active Family history of cerebrovas cular accident: Other(V17.1, Z82.3) Status:Active Family history of coronary a rtery disease: Other(V17.3, Z82.49) Status:Active Family history of diabetes m ellitus: Other(V18.0, Z83.3) Status:Active : Father Status:Active Family history of malignant neoplasm of bone: Father(V16.8, Z80.8) Status:Active Family history of atrial fib rillation: Mother(V17.49, Z82.49) Status:Active Thyroid trouble: Mother Status:Active Family history of osteoporos is: Father(V17.81, Z82.62) Status:Active Alcohol abuse: Father(305.00 , F10.10) Status:Active Unknown Family Member Name Dates Details Family history of hypertensi on: Father, Mother(V17.49, Z82.49) Status:Active Family history of hyperlipid emia: Mother(V18.19, Z83.438) Status:Active Family history of hypothyroi dism: Mother(V18.19, Z83.49) Status:Active Family history of cerebrovas cular accident: Other(V17.1, Z82.3) Status:Active Family history of coronary a rtery disease: Other(V17.3, Z82.49) Status:Active Family history of diabetes m ellitus: Other(V18.0, Z83.3) Status:Active : Father Status:Active Family history of malignant neoplasm of bone: Father(V16.8, Z80.8) Status:Active Family history of atrial fib rillation: Mother(V17.49, Z82.49) Status:Active Thyroid trouble: Mother Status:Active Family history of osteoporos is: Father(V17.81, Z82.62) Status:Active Alcohol abuse: Father(305.00 , F10.10) Status:Active Unknown Family Member Name Dates Details Family history of diabetes m ellitus: Other(V18.0, Z83.3) Status:Active Family history of coronary a rtery disease: Other(V17.3, Z82.49) Status:Active Family history of cerebrovas cular accident: Other(V17.1, Z82.3) Status:Active Family history of hypothyroi dism: Mother(V18.19, Z83.49) Status:Active Family history of hyperlipid emia: Mother(V18.19, Z83.438) Status:Active Family history of hypertensi on: Father, Mother(V17.49, Z82.49) Status:Active Family history of atrial fib rillation: Mother(V17.49, Z82.49) Status:Active Thyroid trouble: Mother Status:Active Family history of osteoporos is: Father(V17.81, Z82.62) Status:Active Alcohol abuse: Father(305.00 , F10.10) Status:Active Family history of malignant neoplasm of bone: Father(V16.8, Z80.8) Status:Active : Father Status:Active Unknown Family Member Name Dates Details Family history of hypertensi on: Father, Mother(V17.49, Z82.49) Status:Active Family history of hyperlipid emia: Mother(V18.19, Z83.438) Status:Active Family history of hypothyroi dism: Mother(V18.19, Z83.49) Status:Active Family history of cerebrovas cular accident: Other(V17.1, Z82.3) Status:Active Family history of coronary a rtery disease: Other(V17.3, Z82.49) Status:Active Family history of diabetes m ellitus: Other(V18.0, Z83.3) Status:Active : Father Status:Active Family history of malignant neoplasm of bone: Father(V16.8, Z80.8) Status:Active Family history of atrial fib rillation: Mother(V17.49, Z82.49) Status:Active Thyroid trouble: Mother Status:Active Family history of osteoporos is: Father(V17.81, Z82.62) Status:Active Alcohol abuse: Father(305.00 , F10.10) Status:Active Unknown Family Member Name Dates Details Family history of hypertensi on: Father, Mother(V17.49, Z82.49) Status:Active Family history of hyperlipid emia: Mother(V18.19, Z83.438) Status:Active Family history of hypothyroi dism: Mother(V18.19, Z83.49) Status:Active Family history of cerebrovas cular accident: Other(V17.1, Z82.3) Status:Active Family history of coronary a rtery disease: Other(V17.3, Z82.49) Status:Active Family history of diabetes m ellitus: Other(V18.0, Z83.3) Status:Active : Father Status:Active Family history of malignant neoplasm of bone: Father(V16.8, Z80.8) Status:Active Family history of atrial fib rillation: Mother(V17.49, Z82.49) Status:Active Thyroid trouble: Mother Status:Active Family history of osteoporos is: Father(V17.81, Z82.62) Status:Active Alcohol abuse: Father(305.00 , F10.10) Status:Active Summary Purpose Advance Directives Documents on File Type Date Recorded 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 Repair left peroneus brevis tendon tear 2. Peroneus brevis and longus Yola synovectomies. 3. Peroneus brevis to peroneus longus tendon transfer 4. 5. Surgeon: Renuka Resident/Fellow/Other Earth Observations Chief Scientist: Danny Anesthesia: gen Estimated Blood Loss (mL): 5 Specimen: no Findings: Peroneal brevis tendinosis with linear tear, tenosynovitis, unsalvageable segment of brevis Operative Report Dictated: Dictation: not applicable - note contains Operative Report Operative Report: Patient was brought to the OR and placed supine on the OR table after a successful popliteal block. Her left lower extremity was then sterilely prepped and draped under a thigh tourniquet. She was placed under a general anesthetic with an LMA and given an IV antibiotic prior to surgery. We had our pre-anesthetic timeout and huddle. After a sterile prep and drape of the left lower extremity we exsanguinated the (more content not included)... Reason for Referral Specialty Diagnoses / Procedures Referred By Aldair lynne Referred To Contact Radiology Diagnoses Unintentional weight loss Procedures CT chest wo IV contrast Martita Valerio MD [address] [address] Referral ID Status Reason Start Date Expiration Date V isits Requested Visits Authorized [id number] Pending Review 08/28/2023 08/27/2024 1 1 Specialty Diagnoses / Procedures Referred By Contac t Referred To Contact [facility] Diagnoses Chronic bilateral low back pain without sciatica Procedures CONSULT TO PHYSICAL THERAPY PHYSICAL THERAPY EVALUATION HIGH COMPLEX 45 [place] [address] [place] [address] [facility] [address] [address] Referral ID Status Reason Start Date Expiration Date Visits Requested Visits Authorized [id number] Pending Review Auto-Generat ed Referral 09/24/2023 09/23/2024 1 1 Specialty Diagnoses / Procedures Referred By Dominicac t Referred To Contact XR IMAGING Diagnoses Chronic bilateral low back pain without sciatica Procedures XR LUMBAR MOTION 4V AP/LAT/ FLEX/EXT RADEX SPINE LUMBOSACRAL MINIMUM 4 [place] [address] [place] [address] [place] [id number] Referral ID Status Reason Start Date Expiration Date Visits Requested Visits Authorized [id number] Pending Review Auto-Generat ed Referral 09/24/2023 10/23/2024 1 1 Referral ID Status Reason Start Date Expiration Date Visits Re quested Visits Authorized [id number] Closed 08/28/2023 08/27/2024 1 1 Specialty Diagnoses / Procedures Referred By Aldair t Referred To Contact Diagnoses Closed type IV fracture of sacrum with routine healing Denita Dale PA-C [address] [address] Referral ID Status Reason Start Date Expiration Date V isits Requested Visits Authorized [id number] Pending Review 01/29/2024 07/27/2024 1 1 Additional Source Comments INFORMATION SOURCE (unrecogn ized section and content) DATE CREATED AUTHOR 04/22/2019 [facility] DATE CREATED AUTHOR AUTHOR'S ORGANIZ ATION 04/28/2019 [facility] DATE CREATED AUTHOR AUTHOR'S ORGANIZ ATION 05/12/2019 [facility] DATE CREATED AUTHOR AUTHOR'S ORGANIZ ATION 07/03/[address] [facility] DATE CREATED AUTHOR AUTHOR'S ORGANIZ ATION 11/13/2019 [facility] DATE CREATED AUTHOR AUTHOR'S ORGANIZ ATION 02/10/2021 [facility] DATE CREATED AUTHOR AUTHOR'S ORGANIZ ATION 02/10/2021 [employer] DATE CREATED AUTHOR AUTHOR'S ORGANIZ ATION 04/01/2022 [facility] DATE CREATED AUTHOR AUTHOR'S ORGANIZ ATION 06/22/2022 [facility] DATE CREATED AUTHOR AUTHOR'S ORGANIZ ATION 08/22/2022 [facility] DATE CREATED AUTHOR AUTHOR'S ORGANIZ ATION 08/30/[address] [facility] DATE CREATED AUTHOR AUTHOR'S ORGANIZ ATION 09/25/2023 [facility] DATE CREATED AUTHOR AUTHOR'S ORGANIZ ATION 10/09/2023 [facility] DATE CREATED AUTHOR AUTHOR'S ORGANIZ ATION 03/11/2024 [facility] DATE CREATED AUTHOR AUTHOR'S ORGANIZ ATION 10/18/2024 [facility] Care Teams (unrecognized sec tion and content) Noise Abatement Engineer Relationship Specialty Start Date End Date Bernard Dyson MD [address] [place] [address] PCP - General Family Medicine 11/13/21 Noise Abatement Engineer Relationship Specialty Start Date End Date Bernard Dyson MD PCP - General Family Medicine 02/19/22 Heavenly Camp MD Referring Orthopedics 07/22/19 Noise Abatement Engineer Relationship Specialty Start Date End Date Bernard Dyson MD PCP - General Family Medicine 02/19/22 Heavenly Camp MD Referring Orthopedics 07/22/19 Noise Abatement Engineer Relationship Specialty Start Date End Date Bernard Dyson MD [address] [place] [address] PCP - General 11/13/21 Noise Abatement Engineer Relationship Specialty Start Date End Date Bernard Dyson MD [address] [place] [address] PCP - General 11/13/21 Noise Abatement Engineer Relationship Specialty Start Date End Date Bernard Dyson MD [address] [place] [address] PCP - General 11/13/21 Noise Abatement Engineer Relationship Specialty Start Date End Date Bernard Dyson MD [address] [place] [address] PCP - General 11/13/21 Noise Abatement Engineer Relationship Specialty Start Date End Date Bernard Dyson MD [address] [place] [address] PCP - General 11/13/21 Noise Abatement Engineer Relationship Specialty Start Date End Date Bernard Dyson MD [address] [place] [address] PCP - General 11/13/21 Noise Abatement Engineer Relationship Specialty Start Date End Date Bernard Dyson MD PCP - General Family Medicine 02/19/22 Heavenly Camp MD Referring Orthopedics 07/22/19 Noise Abatement Engineer Relationship Specialty Start Date End Date Bernard Dyson MD PCP - General Family Medicine 02/19/22 Heavenly Camp MD Referring Orthopedics 07/22/19 Noise Abatement Engineer Relationship Specialty Start Date End Date Bernard Dyson MD PCP - General Family Medicine 02/19/22 Heavenly Camp MD Referring Orthopedics 07/22/19 Noise Abatement Engineer Relationship Specialty Start Date End Date Bernard Dyson MD [address] [place] [address] PCP - General 11/13/21 Noise Abatement Engineer Relationship Specialty Start Date End Date Bernard Dyson MD [address] [place] [address] PCP - General 11/13/21 Noise Abatement Engineer Relationship Specialty Start Date End Date Bernard Dyson MD [address] [place] [address] PCP - General 11/13/21 Carissa Villanueva DO [address] [place] [place] [address] Consulting Physician Hematology and Oncology 11/18/23 Noise Abatement Engineer Relationship Specialty Start Date End Date Bernard Dyson MD [address] [place] [address] PCP - General 11/13/21 Carissa Villanueva DO [address] [place] [address] [place] [address] Consulting Physician Hematology and Oncology 11/18/23 Noise Abatement Engineer Relationship Specialty Start Date End Date Bernard Dyson MD [address] [place] [address] PCP - General 11/13/21 Carissa Villanueva DO [address] [place] [address] [place] [address] Consulting Physician Hematology and Oncology 11/18/23 Noise Abatement Engineer Relationship Specialty Start Date End Date Bernard Dyson MD [address] [place] [address] PCP - General 11/13/21 Carissa Villanueva DO [address] [place] [address] [place] [address] Consulting Physician Hematology and Oncology 11/18/23 Noise Abatement Engineer Relationship Specialty Start Date End Date Bernard Dyson MD [address] [place] [address] PCP - General 11/13/21 Carissa Villanueva DO [address] [place] [place] [address] Consulting Physician Hematology and Oncology 11/18/23 Noise Abatement Engineer Relationship Specialty Start Date End Date Bernard Dyson MD [address] [place] [address] PCP - General 11/13/21 Carissa Villanueva DO [address] [place] [place] [address] Consulting Physician Hematology and Oncology 11/18/23 Noise Abatement Engineer Relationship Specialty Start Date End Date Bernard Dyson MD [address] [place] [address] PCP - General 11/13/21 Noise Abatement Engineer Relationship Specialty Start Date End Date Bernard Dyson MD [address] [place] [address] PCP - General 11/13/21 Noise Abatement Engineer Relationship Specialty Start Date End Date Bernard Dyson MD [address] [place] [address] PCP - General 11/13/21 Noise Abatement Engineer Relationship Specialty Start Date End Date Bernard Dyson MD [address] [place] [address] PCP - General 11/13/21 Noise Abatement Engineer Relationship Specialty Start Date End Date Bernard Dyson MD [address] [place] [address] PCP - General 11/13/21 Carissa Villanueva DO [address] [place] [address] [place] [address] Consulting Physician Hematology and Oncology 11/18/23 Noise Abatement Engineer Relationship Specialty Start Date End Date Bernard Dyson MD [address] [place] [address] PCP - General 11/13/21 Carissa Villanueva DO [address] [place] [address] [place] [address] Consulting Physician Hematology and Oncology 11/18/23 Noise Abatement Engineer Relationship Specialty Start Date End Date Bernard Dyson MD [address] [place] [address] PCP - General 11/13/21 Carissa Villanueva DO [address] [place] [place] [address] Consulting Physician Hematology and Oncology 11/18/23 Noise Abatement Engineer Relationship Specialty Start Date End Date Bernard Dyson MD [address] [place] [address] PCP - General 11/13/21 Carisas Villanueva DO [address] [place] [address] [place] [address] Consulting Physician Hematology and Oncology 11/18/23 Noise Abatement Engineer Relationship Specialty Start Date End Date Bernard Dyson MD [address] [place] [address] PCP - General 11/13/21 Carissa Villanueva DO [address] [place] [address] [place] [address] Consulting Physician Hematology and Oncology 11/18/23 Noise Abatement Engineer Relationship Specialty Start Date End Date Bernard Dyson MD [address] [place] [address] PCP - General 11/13/21 Carissa Villanueva DO [address] [place] [address] [place] [address] Consulting Physician Hematology and Oncology 11/18/23 Noise Abatement Engineer Relationship Specialty Start Date End Date Bernard Dyson MD [address] [place] [address] PCP - General 11/13/21 Carissa Villanueva DO [address] [place] [address] [place] [address] Consulting Physician Hematology and Oncology 11/18/23 Source Comments (unrecognize d section and content) In the event this informatio n is protected by the Federal Confidentiality of Alcohol and Drug Abuse Patient Records regulations: The Federal rules restrict any use of the information to criminally investigate or prosecute any alcohol or drug abuse patient.[facility] the event this information is protected by the Federal Confidentiality of Alcohol and Drug Abuse Patient Records regulations: The Federal rules restrict any use of the information to criminally investigate or prosecute any alcohol or drug abuse patient.[facility] the event this information is protected by the Federal Confidentiality of Alcohol and Drug Abuse Patient Records regulations: The Federal rules restrict any use of the information to criminally investigate or prosecute any alcohol or drug abuse patient.[facility] the event this information is protected by the Federal Confidentiality of Alcohol and Drug Abuse Patient Records regulations: The Federal rules restrict any use of the information to criminally investigate or prosecute any alcohol or drug abuse patient.[facility] the event this information is protected by the Federal Confidentiality of Alcohol and Drug Abuse Patient Records regulations: The Federal rules restrict any use of the information to criminally investigate or prosecute any alcohol or drug abuse patient.[facility] the event this information is protected by the Federal Confidentiality of Alcohol and Drug Abuse Patient Records regulations: The Federal rules restrict any use of the information to criminally investigate or prosecute any alcohol or drug abuse patient.[facility] Reason for Visit (unrecogniz ed section and content) Reason Comments Radiology CT CTA HEAD & NECK Reason Comments tongue Sore on tongue for o whitney 1 year. HPV BX done 6 months ago, benign. After that it has been burning and sore. The lesion has returned on the tip of the tongue for 1 week. Reason Onset Date Comments Medication increase concern 05/20/2023 Reason Onset Date Comments Results 06/11/2023 Reason Comments OTHER Pt states for the la st 6 months she has been having tongue pain, denies numbness, or facial numbness. Urine Frequency and trouble holding, noticed it more recent, denies any pain while urinating, blood in urine or discharge. Reason Comments Weight Loss Unintentional weight loss x2 months. Pt reports loss of appetite Fatigue Pt reports fatigue x 6 months Pain Pt reports back, nec k and bilateral hip pain for x6 months. Taking apap and IBU with no relief Reason Comments Med Refill Reason Comments Patient Update Reason Comments Pain LBP Reason Comments Annual Exam CPE. Has a cold-coug h, sinus congestion, runny nose, symptoms started a week ago Specialty Diagnoses / Procedures Referred By Contac t Referred To Contact Radiology Diagnoses Unintentional weight loss Procedures CT chest wo IV contrast Martita Valerio MD [address] [place] [address] Referral ID Status Reason Start Date Expiration Date Visits Re quested Visits Authorized [id number] Closed 08/28/2023 08/27/2024 1 1 Reason Comments Consult Feeling nauseous Reason Comments Follow-up Reason Comments Annual Exam CPE. Reason Comments Tailbone Pain Since fall on 4. Patient states she is out of the oxycodone she got in the er. ER Follow-up Seen in ER 01/25/2024 - fractured sacrum Neck Pain Having neck pain, st iff, painful, hard to turn. She wonders if maybe whip lash Reason Onset Date Comments Tailbone Pain 01/27/2024 Reason Onset Date Comments COVID-19 Screening 08/06/2022 Reason Comments Follow-up Pt here to follow up on BP. Pt states she is having a lot of aches and pains in back and neck, every time she walks or moves it hurts, Pt has a sore on lip that she would like looked at. Pt would like to discuss weight loss options. Reason Onset Date Comments Hypertension 08/05/[address] arted today Reason Comments Discuss Medications would like to discus s weight loss medications. Has acne, would like to be put back on doxycycline, seems to becoming a problem again Immunizations Would like shingles vaccine. Reason Onset Date Comments Results 07/16/2024 Release of Information 07/16/2024 Reason Comments Other Insulin resistance. Recent labs that were drawn showed she is insulin resistant. Would like to discuss Reason Comments New Patient Abnormal Imaging Pre-biopsy History And Physical Exam Den ies any palpable changes or pain today Reason Comments Anemia Reason Onset Date Comments Results 08/19/2024 FOR RECORDS PERTAINING TO PATIENTS WHO ARE OR HAVE BEEN ENROLLED IN A CHEMICAL DEPENDENCY/SUBSTANCEABUSE PROGRAM, SOME INFORMATION MAY BE OMITTED. This clinical summary was aggregated from multiple sources. Caution should be exercised in using it in the provision of clinical care. This summary normalizes information from multiple sources, and as a consequence, information in this document may materially change the coding, format and clinical context of patient data. In addition, data may be omitted in some cases. CLINICAL DECISIONS SHOULD BE BASED ON THE PRIMARY CLINICAL RECORDS. [employer] provides no warranty or guarantee of the accuracy or completeness of information in this document.
== END 2025-01-14 22:06 | disposition left against medical advice (07) ==
LOC: ED 22:22
DX: Z53.21 Procedure and treatment not carried out due to patient leaving prior to being seen by health care provider (principal)